=== PATIENT | male | born 1940 | race Caucasian/White ===

== ENCOUNTER 2021-02-18 11:14 | Outpatient (REF) | payer MEDICARE, SELFPAY ==
[2021-02-18 13:01] LABS: Estimated Average Glucose 108 mg/dL; Hemoglobin A1C 151.5835 umol/L; Hemoglobin A1c % 5.4 %
[2021-02-18 13:16] LABS: Alanine Aminotransferase 23 U/L (0-40); Alkaline Phosphatase 106 U/L (39-117); Anion Gap 13 (12-20); Aspartate Amino Transferase 19 U/L (5-37); Bilirubin Total 0.6 mg/dL (0.0-1.0); Blood Urea Nitrogen 18 mg/dL (9-16); Calcium 9.2 mg/dL (8.4-10.2); Carbon Dioxide 27 mmol/L (22-29); Chloride 103 mmol/L (96-108); Estimated Glomerular Filt Rate > 60; Glucose Random 90 mg/dL (60-115); Potassium 4.8 mmol/L (3.3-5.1); Sodium 138 mmol/L (135-145); Total Protein 6.8 g/dL (6.5-8.0)
[2021-02-18 13:41] LABS: Free T4 (Free Thyroxine) 0.81 ng/dL (0.71-1.85); Thyroid Stimulating Hormone 1.75 uIU/mL (0.32-4.0)
== END 2021-02-18 11:15 | disposition home or self-care (01) ==
LOC: HO.MANLDS 11:14
PROVIDERS: PCP Physician Assistant; Visit Provider Physician Assistant
DX: R73.01 Impaired fasting glucose (principal); E03.9 Hypothyroidism, unspecified
CPT/HCPCS: 36415; 80053; 83036; 84439; 84443

== ENCOUNTER → 2021-02-20 09:21 | Outpatient (BNVA) | payer MEDICARE, SELFPAY | PROVIDERS: PCP Internal Medicine | DX: R35.1 Nocturia (principal); N32.0 Bladder-neck obstruction | CPT/HCPCS: 51798; 99212 ==

== ENCOUNTER 2021-04-23 08:48 | Emergency (ER) | payer MEDICARE, SELFPAY ==
[2021-04-23] VITALS (8 sets, daily range): BP systolic 143–175; BP diastolic 84–107; PULSE 63–80; RESP 16–18; TEMP 36.6–37.1; O2SAT 95–98; BMI 39.6
--- NOTE | 2021-04-23 09:03 | PC.NURSE ---
attempted to call [facility] to get more information/paperwork on pt. transferred to multiple people. no answer.
--- NOTE | 2021-04-23 10:40 | ECG_ITS ---
Test Reason : GENERAL MEDICINE Blood Pressure : / mmHG Vent. Rate : 071 BPM Atrial Rate : 315 BPM P-R Int : 000 ms QRS Dur : 088 ms QT Int : 390 ms P-R-T Axes : 000 036 054 degrees QTc Int : 423 ms Atrial fibrillation Abnormal ECG When compared with ECG of 23-NOV-2016 14:28, No significant change was found Referred By: Christiane Owens Electronically Signed By:Jason Helton
--- NOTE | 2021-04-23 10:41 | ED.GENADULT ---
HPI - General Adult General Chief complaint: General Medical Stated complaint: NUMBENESS AROUND MOUTH [facility]O SN[facility] PER EMS Time Seen by Provider: 04/23/21 10:12 Source: patient and EMS Mode of arrival: EMS Limitations: no limitations History of Present Illness HPI narrative: Patient comes to the emergency room complaining of dizziness. Patient states that he did not want to come to the emergency room, but at the assisted living facility they made him come. Patient states that he has had left-sided mouth drooping and numbness for over 10 years, states that there is nothing new. Patient describes dizziness as lightheaded, no room spinning, not feeling off balance. At this time, patient feels well. Related Data Home Medications Medication Instructions Recorded Confirmed albuterol sulfate 90 mcg/actuation 0 mcg INHALATION 02/20/21 aerosol inhaler amlodipine 5 mg tablet 5 mg PO DAILY 02/20/21 baclofen 5 mg tablet mg PO 02/20/21 carbamazepine 200 mg tablet 0 mg PO 02/20/21 gabapentin 100 mg capsule 0 mg PO 02/20/21 levothyroxine 150 mcg tablet 150 mcg PO DAILY 02/20/21 metoprolol succinate 25 mg 25 mg PO DAILY 02/20/21 tablet,extended release 24 hr metoprolol succinate 50 mg 50 mg PO DAILY 02/20/21 tablet,extended release 24 hr sertraline 50 mg tablet 50 mg PO DAILY 02/20/21 simvastatin 40 mg tablet 40 mg PO BEDTIME 02/20/21 warfarin 2 mg tablet 2 mg PO DAILY 02/20/21 warfarin 5 mg tablet 0 mg PO 02/20/21 Previous Rx's Medication Instructions Recorded terazosin 5 mg capsule 5 mg PO BEDTIME 30 Days #30 cap 02/20/21 meclizine 25 mg tablet 25 mg PO TID PRN #14 tab 04/23/21 Allergies Allergy/AdvReac Type Severity Reaction Status Date / Time No Known Allergies Allergy Verified 02/20/21 09:31 [No Known Allergies*] Review of Systems Review of Systems: Constitutional : No Weight loss, No Fever, No Chills, No Night Sweats, No Fatigue, No Malaise ENT/Mouth : No Hearing loss, No Ear Pain, No Nasal Congestion, No Sinus Pain, No Hoarseness, No sore throat, No Rhinorrhea, No Swallowing Difficulty Eyes: No Eye Pain, No Swelling, No Redness, No Foreign Body, No Discharge, No Vision Changes Cardiovascular : No Chest Pain, No SOB, No Dyspnea on Exertion, No Orthopnea, No Edema, No Palpitations Respiratory : No Cough, No Sputum, No Wheezing, No Smoke Exposure, No Dyspnea Gastrointestinal : No Nausea, No Vomiting, No Diarrhea, No Constipation, No abdominal Pain, No Hematochezia, No Melena Genitourinary : no irregular bleeding, No Dysuria, No Urinary Frequency, No Hematuria, No Urinary Incontinence, No Urgency, No Flank Pain, No Urinary Flow Changes, No Hesitancy Musculoskeletal : No joint pain, No Myalgias, No Joint Swelling Skin : No Skin Lesions, No rash Neuro : No Weakness, No Numbness, No Paresthesias, No Loss of Consciousness, mild lightheadedness/ Dizziness, No Headache Psych : No Anxiety/Panic, No Depression, No SI/HI/AH/VH, No Social Issues, Heme/Lymph: No Bruising, No Bleeding,No Lymphadenopathy Endocrine : No Polyuria, No Polydipsia, No Temperature Intolerance [facility] Past Medical History Medical History (Updated 04/23/21 @ 16:47 by Christiane Owens MD) CVA (cerebral vascular accident) Social History Social History (Updated 02/20/21 @ 09:33 by Elida Bolaños CMA) Alcohol intake: current Alcohol intake frequency: a few times a month Alcohol type: beer Patient Tobacco Use Status: Former Tobacco user Advance Directives: Yes Advance Directives Information Provided: No Advance Directives on File: No Physical Exam Vital Signs: Vital Signs: Last Vital Signs Temp 98.2 F 04/23/21 15:20 Pulse 72 04/23/21 15:20 Resp 16 04/23/21 15:20 BP 149/95 H 04/23/21 15:20 Pulse Ox 98 04/23/21 15:20 BMI result Body Mass Index 39.6 Const: Other: Appearance: Alert. Oriented X3. No acute distress. Eyes: Pupils equal, round and reactive to light. ENT: Pharynx normal. Neck: Normal inspection. Neck supple. No lymph nodes noted. No crepitus CVS: Normal heart rate and rhythm. Pulses normal. Normal S1 and S2 Respiratory: No respiratory distress. Breath sounds normal. No Wheezing. No rales Abdomen: Soft and nontender. No rigidity. No distention. Skin: Skin warm and dry. Normal skin color. Normal skin turgor. Extremities: No lower extremity edema. Bilateral chronic venous stasis. No Lacerations. No Rash Neuro: Oriented X 3. No motor deficit. No sensory deficit. Moving all extermities. No slurred speech. Course Course Course Narrative: Patient's troponin and EKG showed no acute pathology. Patient was able to ambulate at baseline with a walker. Patient was given meclizine prior, patient states that he has no dizziness at all. Orthostatic vitals negative Medical Decision Making Lab Data Result diagrams: 04/23/21 12:15 04/23/21 12:15 Labs: Lab Results 04/23/21 04/23/21 04/23/21 Range/Units 11:13 12:15 12:15 WBC 6.8 (4.8-10.8) X10*3/uL RBC 4.91 (4.60-5.80) X10*6/uL Hgb 14.8 (14.0-18.0) g/dl Hct 45.2 (42.0-52.0) % MCV 92.1 (80.0-98.0) fL MCH 30.1 (27.0-33.0) pg MCHC 32.7 (31.0-36.0) g/dl RDW 12.7 (11.0-16.0) % Plt Count 164 (160-400) X10*3/uL MPV 9.3 L (9.4-12.4) fL Immature Gran % (Auto) 0.4 (0.0-0.4) % Neut % (Auto) 78.5 H (45-73) % Lymph % (Auto) 13.2 L (20-40) % [place] % (Auto) 7.2 (2-11) % Eos % (Auto) 0.4 (0-4) % Baso % (Auto) 0.3 (0-2) % Lymph # (Auto) 0.9 L (1.2-4.9) X10*3/uL [place] # (Auto) 0.5 (0.1-1.2) X10*3/uL Eos # (Auto) 0.0 (0.0-0.4) X10*3/uL Baso # (Auto) 0.0 (0.0-0.2) X10*3/uL Abs Immat Gran (auto) 0.03 (0.00-0.03) X10*3/uL Absolute Neuts (auto) 5.3 (2.0-8.3) x10*3/uL Absolute Nucleated RBC 0.000 (0.0-0.012) X10*3/uL Nucleated RBC % (auto) 0.0 (0.0-0.2) /100WBC Sodium 135 (135-145) mmol/L Potassium 4.8 (3.3-5.1) mmol/L Chloride 100 (96-108) mmol/L Carbon Dioxide 28 (22-29) mmol/L Anion Gap 12 (12-20) BUN 16 (9-16) mg/dL Creatinine 0.84 (0.5-1.4) mg/dL Estim Creat Clear Calc 92.0 Estimated GFR > 60 Random Glucose 108 (60-115) mg/dL Calcium 9.1 (8.4-10.2) mg/dL Total Bilirubin 0.6 (0.0-1.0) mg/dL Direct Bilirubin 0.2 (0.0-0.5) mg/dL AST 17 (5-37) U/L ALT 22 (0-40) U/L Alkaline Phosphatase 111 (39-117) U/L Troponin I High Sens (<3.5-35.0) ng/L Total Protein 7.1 (6.5-8.0) g/dL Albumin 4.2 (3.5-5.0) g/dL Urine Color YELLOW Urine Appearance CLEAR Urine pH 8.0 (5.0-8.0) Ur Specific [place] 1.015 (1.005-1.025) Urine Protein NEG (NEG-TRACE) MG/DL Urine Glucose (UA) NEG (NEG) MG/DL Urine Ketones NEG (NEG) MG/DL Urine Blood NEG (NEG) Urine Nitrite NEG (NEG) Ur Leukocyte Esterase NEG (NEG) 04/23/21 04/23/21 Range/Units 12:15 15:56 WBC (4.8-10.8) X10*3/uL RBC (4.60-5.80) X10*6/uL Hgb (14.0-18.0) g/dl Hct (42.0-52.0) % MCV (80.0-98.0) fL MCH (27.0-33.0) pg MCHC (31.0-36.0) g/dl RDW (11.0-16.0) % Plt Count (160-400) X10*3/uL MPV (9.4-12.4) fL Immature Gran % (Auto) (0.0-0.4) % Neut % (Auto) (45-73) % Lymph % (Auto) (20-40) % [place] % (Auto) (2-11) % Eos % (Auto) (0-4) % Baso % (Auto) (0-2) % Lymph # (Auto) (1.2-4.9) X10*3/uL [place] # (Auto) (0.1-1.2) X10*3/uL Eos # (Auto) (0.0-0.4) X10*3/uL Baso # (Auto) (0.0-0.2) X10*3/uL Abs Immat Gran (auto) (0.00-0.03) X10*3/uL Absolute Neuts (auto) (2.0-8.3) x10*3/uL Absolute Nucleated RBC (0.0-0.012) X10*3/uL Nucleated RBC % (auto) (0.0-0.2) /100WBC Sodium (135-145) mmol/L Potassium (3.3-5.1) mmol/L Chloride (96-108) mmol/L Carbon Dioxide (22-29) mmol/L Anion Gap (12-20) BUN (9-16) mg/dL Creatinine (0.5-1.4) mg/dL Estim Creat Clear Calc Estimated GFR Random Glucose (60-115) mg/dL Calcium (8.4-10.2) mg/dL Total Bilirubin (0.0-1.0) mg/dL Direct Bilirubin (0.0-0.5) mg/dL AST (5-37) U/L ALT (0-40) U/L Alkaline Phosphatase (39-117) U/L Troponin I High Sens 8.0 8.9 (<3.5-35.0) ng/L Total Protein (6.5-8.0) g/dL Albumin (3.5-5.0) g/dL Urine Color Urine Appearance Urine pH (5.0-8.0) Ur Specific [place] (1.005-1.025) Urine Protein (NEG-TRACE) MG/DL Urine Glucose (UA) (NEG) MG/DL Urine Ketones (NEG) MG/DL Urine Blood (NEG) Urine Nitrite (NEG) Ur Leukocyte Esterase (NEG) Discharge Plan Discharge Clinical Impression: Dizziness Patient Disposition: Home, Self-Care Instructions: Dizziness (ED) Additional Instructions: Please follow-up with your primary care physician tomorrow. If you have any worsening or new symptoms, please return to the emergency room or call 911 Prescriptions: New meclizine 25 mg tablet 25 mg PO TID PRN (Reason: dizziness) Qty: 14 0RF No Action terazosin 5 mg capsule 5 mg PO BEDTIME 30 Days Qty: 30 1RF levothyroxine 150 mcg tablet 150 mcg PO DAILY 0RF gabapentin 100 mg capsule 0 mg PO 0RF warfarin 2 mg tablet 2 mg PO DAILY 0RF amlodipine 5 mg tablet 5 mg PO DAILY 0RF warfarin 5 mg tablet 0 mg PO 0RF sertraline 50 mg tablet 50 mg PO DAILY 0RF carbamazepine 200 mg tablet 0 mg PO 0RF baclofen 5 mg tablet PO 0RF metoprolol succinate 25 mg tablet extended release 24 hr 25 mg PO DAILY 0RF metoprolol succinate 50 mg tablet extended release 24 hr 50 mg PO DAILY 0RF albuterol sulfate 90 mcg/actuation HFA aerosol inhaler 0 mcg inhalation 0RF simvastatin 40 mg tablet 40 mg PO BEDTIME 0RF
[2021-04-23 11:21] LABS: Appearance Urine CLEAR; Color Urine YELLOW; Glucose Urine UA NEG (NEG); Leukocyte Esterase Urine NEG (NEG); Nitrite Urine NEG (NEG); Specific Gravity - Urine 1.015 (1.005-1.025); Urine Blood NEG (NEG); Urine Ketones NEG (NEG); Urine Protein NEG (NEG-TRACE)
[2021-04-23 12:20] LABS: MANUAL DIFF FLAG NO
[2021-04-23 12:21] LABS: Basophils Percent Auto 0.3 % (0-2); Eosinophils Percent Auto 0.4 % (0-4); Hematocrit 45.2 % (42.0-52.0); Hemoglobin 14.8 g/dl (14.0-18.0); Imm Gran Abs Auto 0.03 X10*3/uL (0.00-0.03); Imm Gran Pct Auto 0.4 % (0.0-0.4); Lymphocytes Absolute Auto 0.9 X10*3/uL (1.2-4.9); Lymphocytes Percent Auto 13.2 % (20-40); Mean Corpuscular HGB Conc 32.7 g/dl (31.0-36.0); Mean Corpuscular Hemoglobin 30.1 pg (27.0-33.0); Mean Corpuscular Volume 92.1 fL (80.0-98.0); Mean Platelet Volume 9.3 fL (9.4-12.4); Monocytes Absolute Auto 0.5 X10*3/uL (0.1-1.2); Monocytes Percent Auto 7.2 % (2-11); Neutrophils Absolute Auto 5.3 x10*3/uL (2.0-8.3); Neutrophils Percent Auto 78.5 % (45-73); Platelet Count 164 X10*3/uL (160-400); Red Blood Count 4.91 X10*6/uL (4.60-5.80); Red Cell Distribution Width 12.7 % (11.0-16.0); White Blood Count 6.8 X10*3/uL (4.8-10.8)
[2021-04-23 12:39] LABS: Alanine Aminotransferase 22 U/L (0-40); Albumin Level 4.2 g/dL (3.5-5.0); Alkaline Phosphatase 111 U/L (39-117); Anion Gap 12 (12-20); Aspartate Amino Transferase 17 U/L (5-37); Bilirubin Direct 0.2 mg/dL (0.0-0.5); Bilirubin Total 0.6 mg/dL (0.0-1.0); Blood Urea Nitrogen 16 mg/dL (9-16); Calcium 9.1 mg/dL (8.4-10.2); Carbon Dioxide 28 mmol/L (22-29); Chloride 100 mmol/L (96-108); Estimated Glomerular Filt Rate > 60; Glucose Random 108 mg/dL (60-115); Potassium 4.8 mmol/L (3.3-5.1); Sodium 135 mmol/L (135-145); Total Protein 7.1 g/dL (6.5-8.0)
[2021-04-23] MEDS: Meclizine HCl 25 MG TABLET 50 MG PO (14:59)
--- NOTE | 2021-04-23 15:25 | PC.NURSE ---
call placed to phlebotomy to obtain pt troponin
[2021-04-23 16:22] LABS: Troponin-I High Sensitivity 8.9 ng/L (<3.5-35.0)
--- NOTE | 2021-04-23 16:47 | PC.NURSE ---
pt ambulated well with a walker
--- NOTE | 2021-04-23 16:59 | PC.NURSE ---
spoke with pts primary contact Reynold Rose regarding picking up pts medication and bringing to him at [facility].
== END 2021-04-23 21:41 | disposition home or self-care (01) ==
PROVIDERS: Emergency Provider Emergency Medicine; PCP Internal Medicine
DX: R42 Dizziness and giddiness (principal); Z87.891 Personal history of nicotine dependence; Z79.899 Other long term (current) drug therapy
CPT/HCPCS: 36415; 80048; 80076; 81003; 84484; 85025; 93005; 99284

== ENCOUNTER 2021-05-13 11:05 | Emergency (ER) | payer MEDICARE, SELFPAY ==
--- NOTE | ~2021-05-13 | US_ITS ---
EXAMINATION: US VENOUS ULTRASOUND WITH DOPPLER LOWER EXTREMITY, LEFT CLINICAL INFORMATION: Left lower leg swelling COMPARISON: None TECHNIQUE: Ultrasound of the deep veins is performed from the hip to the calf with compression sonography and color and pulse Doppler assessment. Spectral analysis with color-flow imaging is performed. FINDINGS: There is normal venous compression and respiratory variation and augmented flow. The visualized common femoral vein, superficial femoral vein, profunda femoral vein, popliteal vein, and the trifurcation region shows no evidence of deep venous thrombosis. There is no significant popliteal fossa cyst. No popliteal artery aneurysm. There is continued is edema seen throughout the left calf. US/US venous duplex LE LT IMPRESSION: No acute DVT demonstrated in the left lower extremity.
[2021-05-13 11:40] VITALS: BP 171/81; PULSE 64; RESP 16; TEMP 35.9; O2SAT 98; BMI 39.1
[2021-05-13 11:58] LABS: MANUAL DIFF FLAG NO
[2021-05-13 12:02] LABS: Basophils Percent Auto 0.4 % (0-2); Eosinophils Absolute Auto 0.1 X10*3/uL (0.0-0.4); Eosinophils Percent Auto 2.2 % (0-4); Hemoglobin 12.8 g/dl (14.0-18.0); Imm Gran Abs Auto 0.02 X10*3/uL (0.00-0.03); Imm Gran Pct Auto 0.4 % (0.0-0.4); Lymphocytes Absolute Auto 1.3 X10*3/uL (1.2-4.9); Lymphocytes Percent Auto 23.9 % (20-40); Mean Corpuscular HGB Conc 32.8 g/dl (31.0-36.0); Mean Corpuscular Hemoglobin 30.4 pg (27.0-33.0); Mean Corpuscular Volume 92.6 fL (80.0-98.0); Mean Platelet Volume 9.4 fL (9.4-12.4); Monocytes Absolute Auto 0.5 X10*3/uL (0.1-1.2); Monocytes Percent Auto 9.7 % (2-11); Neutrophils Absolute Auto 3.5 x10*3/uL (2.0-8.3); Neutrophils Percent Auto 63.4 % (45-73); Platelet Count 200 X10*3/uL (160-400); Red Blood Count 4.21 X10*6/uL (4.60-5.80); Red Cell Distribution Width 13.2 % (11.0-16.0); White Blood Count 5.5 X10*3/uL (4.8-10.8)
[2021-05-13 12:11] LABS: INTERNATIONAL NORM RATIO 3.2 (0.9-1.1); Prothrombin Time 37.5 SEC (9.9-13.0)
[2021-05-13 12:14] LABS: Partial Thromboplastin Time 48.4 SEC (24.1-38.0)
[2021-05-13 12:18] LABS: Anion Gap 10 (12-20); Blood Urea Nitrogen 19 mg/dL (9-16); Calcium 8.9 mg/dL (8.4-10.2); Carbon Dioxide 30 mmol/L (22-29); Chloride 105 mmol/L (96-108); Creatinine Clr Calc Pharmacy 91.2; Estimated Glomerular Filt Rate > 60; Glucose Random 90 mg/dL (60-115); Potassium 4.5 mmol/L (3.3-5.1); Sodium 140 mmol/L (135-145)
--- NOTE | 2021-05-13 13:33 | ED_ITS ---
HPI - General Adult General Chief complaint: Extremity Problem Stated complaint: L leg swollen Time Seen by Provider: 05/13/21 13:16 Source: patient and old records reviewed History of Present Illness HPI narrative: Patient with a history of atrial fibrillation on warfarin therapy presenting with left leg swelling with concerns for DVT. Patient states his left leg has been swollen for approximately 1 week. He has a history of bilateral leg swelling but has never had unilateral swelling like this. Moderate discomfort. No fevers or chills. No history of deep vein thrombosis No chest pain or trouble breathing or palpitations. In the past he has had compression stockings for venous stasis disease but does not use them currently. He states he has also intermittently been on Lasix in the past but is not currently on it He does not have a vascular surgeon that he knows of. No other recent changes or complaints Related Data Home Medications Medication Instructions Recorded Confirmed albuterol sulfate 90 mcg/actuation 0 mcg INHALATION 02/20/21 aerosol inhaler amlodipine 5 mg tablet 5 mg PO DAILY 02/20/21 baclofen 5 mg tablet mg PO 02/20/21 carbamazepine 200 mg tablet 0 mg PO 02/20/21 gabapentin 100 mg capsule 0 mg PO 02/20/21 levothyroxine 150 mcg tablet 150 mcg PO DAILY 02/20/21 metoprolol succinate 25 mg 25 mg PO DAILY 02/20/21 tablet,extended release 24 hr metoprolol succinate 50 mg 50 mg PO DAILY 02/20/21 tablet,extended release 24 hr sertraline 50 mg tablet 50 mg PO DAILY 02/20/21 simvastatin 40 mg tablet 40 mg PO BEDTIME 02/20/21 warfarin 2 mg tablet 2 mg PO DAILY 02/20/21 warfarin 5 mg tablet 0 mg PO 02/20/21 Previous Rx's Medication Instructions Recorded terazosin 5 mg capsule 5 mg PO BEDTIME 30 Days #30 cap 02/20/21 meclizine 25 mg tablet 25 mg PO TID PRN #14 tab 04/23/21 compression socks, x-large #2 ea 05/13/21 furosemide 20 mg tablet (Lasix) 20 mg PO DAILY #10 tab 05/13/21 Allergies Allergy/AdvReac Type Severity Reaction Status Date / Time No Known Allergies Allergy Verified 02/20/21 09:31 [No Known Allergies*] Review of Systems Constitutional: Comments: No fevers or chills Cardiovascular: Comments: No chest pain or palpitations Respiratory: Comments: No dyspnea Gastrointestinal: Comments: No abdominal pain or nausea vomiting or diarrhea Genitourinary: Comments: Urinary frequency for which he is seeing a urologist Musculoskeletal: Comments: Left leg swollen Integumentary/Breasts: Comments: No new rash Neurologic: Comments: No focal weakness [facility] Past Medical History Medical History (Updated 05/13/21 @ 13:38 by Abelardo Johnson MD) A-fib CVA (cerebral vascular accident) HTN (hypertension) Hypothyroid Social History Social History (Updated 02/20/21 @ 09:33 by Elida Bolaños CMA) Alcohol intake: current Alcohol intake frequency: a few times a month Alcohol type: beer Patient Tobacco Use Status: Former Tobacco user Advance Directives: No Advance Directives Information Provided: No Physical Exam ED Vital Signs: Vital Signs - 24 hr 05/13/21 11:40 Temperature 96.7 F L Pulse Rate 64 Respiratory Rate 16 Blood Pressure 171/81 H Pulse Oximetry 98 BMI result Body Mass Index 39.1 Const Other: Awake and alert in no acute distress. Ambulates with walker at his baseline Resp Other: Clear and equal bilaterally Cardio Other: Irregularly irregular with normal rate and without murmurs rubs or gallops GI Other: Soft nontender Skin Other: Bilateral lower extremities with changes of chronic venous stasis. Left greater than right. No increased warmth or erythema or signs of cellulitis. Some lymphatic weeping from the posterior aspect of his left lower leg Neuro Other: Nonfocal Extrem Other: Bilateral pitting edema. Left greater than right with weeping is noted. Some calf tenderness Course Course Course Narrative: DVT versus venous stasis disease. Lymphedema 13:37. Lab work shows mild leukopenia but otherwise is unremarkable. INR is mildly elevated at 3.2. Ultrasound shows no evidence of deep vein thrombosis Medical Decision Making Lab Data Result diagrams: 05/13/21 11:54 05/13/21 11:54 Labs: Lab Results 05/13/21 05/13/21 05/13/21 Range/Units 11:54 11:54 11:54 WBC 5.5 (4.8-10.8) X10*3/uL RBC 4.21 L (4.60-5.80) X10*6/uL Hgb 12.8 L (14.0-18.0) g/dl Hct 39.0 L (42.0-52.0) % MCV 92.6 (80.0-98.0) fL MCH 30.4 (27.0-33.0) pg MCHC 32.8 (31.0-36.0) g/dl RDW 13.2 (11.0-16.0) % Plt Count 200 (160-400) X10*3/uL MPV 9.4 (9.4-12.4) fL Immature Gran % (Auto) 0.4 (0.0-0.4) % Neut % (Auto) 63.4 (45-73) % Lymph % (Auto) 23.9 (20-40) % [place] % (Auto) 9.7 (2-11) % Eos % (Auto) 2.2 (0-4) % Baso % (Auto) 0.4 (0-2) % Lymph # (Auto) 1.3 (1.2-4.9) X10*3/uL [place] # (Auto) 0.5 (0.1-1.2) X10*3/uL Eos # (Auto) 0.1 (0.0-0.4) X10*3/uL Baso # (Auto) 0.0 (0.0-0.2) X10*3/uL Abs Immat Gran (auto) 0.02 (0.00-0.03) X10*3/uL Absolute Neuts (auto) 3.5 (2.0-8.3) x10*3/uL Absolute Nucleated RBC 0.000 (0.0-0.012) X10*3/uL Nucleated RBC % (auto) 0.0 (0.0-0.2) /100WBC PT 37.5 H (9.9-13.0) SEC INR 3.2 H (0.9-1.1) APTT 48.4 H (24.1-38.0) SEC Sodium 140 (135-145) mmol/L Potassium 4.5 (3.3-5.1) mmol/L Chloride 105 (96-108) mmol/L Carbon Dioxide 30 H (22-29) mmol/L Anion Gap 10 L (12-20) BUN 19 H (9-16) mg/dL Creatinine 0.84 (0.5-1.4) mg/dL Estim Creat Clear Calc 91.2 Estimated GFR > 60 Random Glucose 90 (60-115) mg/dL Calcium 8.9 (8.4-10.2) mg/dL Discharge Plan Discharge Clinical Impression: Lower extremity edema Patient Disposition: Home, Self-Care Instructions: Leg Edema (ED) Additional Instructions: Follow-up with Dr. Arrington as directed. Wear compression stockings. Lasix to help with swelling. Prescriptions: New furosemide [Lasix] 20 mg tablet 20 mg PO DAILY Qty: 10 0RF (DME) compression socks, x-large Misc See Rx Instructions .Route Qty: 2 0RF Rx Instructions: As directed No Action meclizine 25 mg tablet 25 mg PO TID PRN (Reason: dizziness) Qty: 14 0RF terazosin 5 mg capsule 5 mg PO BEDTIME 30 Days Qty: 30 1RF levothyroxine 150 mcg tablet 150 mcg PO DAILY 0RF gabapentin 100 mg capsule 0 mg PO 0RF warfarin 2 mg tablet 2 mg PO DAILY 0RF amlodipine 5 mg tablet 5 mg PO DAILY 0RF warfarin 5 mg tablet 0 mg PO 0RF sertraline 50 mg tablet 50 mg PO DAILY 0RF carbamazepine 200 mg tablet 0 mg PO 0RF baclofen 5 mg tablet PO 0RF metoprolol succinate 25 mg tablet extended release 24 hr 25 mg PO DAILY 0RF metoprolol succinate 50 mg tablet extended release 24 hr 50 mg PO DAILY 0RF albuterol sulfate 90 mcg/actuation HFA aerosol inhaler 0 mcg inhalation 0RF simvastatin 40 mg tablet 40 mg PO BEDTIME 0RF Referrals: Carmine Arrington MD [Physician] - 2 days
[2021-05-13 14:04] VITALS: BP 144/92; PULSE 72; RESP 20; O2SAT 97
== END 2021-05-13 14:05 | disposition home or self-care (01) ==
PROVIDERS: Emergency Provider Emergency Medicine; PCP Internal Medicine
DX: R60.0 Localized edema (principal); M79.662 Pain in left lower leg; D72.819 Decreased white blood cell count, unspecified; I87.8 Other specified disorders of veins; I10 Essential (primary) hypertension; I48.91 Unspecified atrial fibrillation; Z79.01 Long term (current) use of anticoagulants; Z86.73 Personal history of transient ischemic attack (TIA), and cerebral infarction without residual deficits
CPT/HCPCS: 36415; 80048; 85025; 85610; 85730; 93971; 99284

== ENCOUNTER → 2021-06-17 13:40 | Outpatient (BNVA) | payer MEDICARE, SELFPAY | PROVIDERS: PCP Internal Medicine; Visit Provider Urology | DX: R33.9 Retention of urine, unspecified (principal); R35.1 Nocturia | CPT/HCPCS: 52000; 99212 ==

== ENCOUNTER 2021-08-13 09:08 | Emergency (ER) | payer MEDICARE, SELFPAY ==
[2021-08-13] VITALS (10 sets, daily range): BP systolic 159–210; BP diastolic 70–106; PULSE 46–66; RESP 13–20; TEMP 35.8–36.7; O2SAT 94–99; BMI 41.8
--- NOTE | ~2021-08-13 | CT_ITS ---
EXAMINATION: CT HEAD WITHOUT CONTRAST CLINICAL INFORMATION: Dizziness vomiting on Coumadin COMPARISON: None TECHNIQUE: Contiguous axial imaging was performed from the skull base to vertex without intravenous administration of contrast. This CT examination was performed using dose optimization techniques as appropriate, variously including the following: *Automated exposure control *Adjustment of mA and/or kV according to patient size (this includes techniques or standardized protocols for targeted exams where dose is matched to indication/reason for exam; i.e. extremities or head) *Use of iterative reconstruction technique DLP: 895 mGy-cm FINDINGS: There is no evidence of acute intracranial hemorrhage or territorial infarction. Chronic white matter small vessel ischemic changes. No abnormal mass effect or midline shift is seen. [place] to white matter differentiation is well preserved. No extra-axial fluid collections are identified. The ventricles are normal in size. There is no abnormal attenuation within the brain parenchyma. Sclerotic focus in the left frontal bone statistically representing a bone islands. The osseous structures and soft tissues are normal. The mastoid air cells and visualized portions of the paranasal sinuses are well aerated. CT/CT head/brain wo con IMPRESSION: 1. No acute intracranial pathology. 2. Chronic white matter small vessel ischemic changes.
--- NOTE | ~2021-08-13 | US_ITS ---
EXAMINATION: US ABDOMEN LIMITED CLINICAL INFORMATION: Gallstones. Vomiting.. COMPARISON: CT from today. TECHNIQUE: Real-time imaging of the right upper quadrant abdominal viscera. FINDINGS: PANCREAS: Not well assessed due to bowel gas. LIVER: The liver is enlarged measuring 22.6 cm. Nodular liver Contour. There is diffuse increased liver parenchymal echogenicity, consistent with hepatic steatosis. No focal hepatic lesion. There is no intrahepatic biliary duct dilatation seen. GALLBLADDER: Stone fill the gallbladder. No gallbladder wall thickening or pericholecystic fluid COMMON BILE DUCT: Normal in caliber measuring 0.6 cm in diameter. RIGHT KIDNEY: Normal. No hydronephrosis. No renal calculi or focal parenchymal lesions. The kidney measures 13.3 cm in maximum dimension. FREE FLUID: None. US/US abdomen limited IMPRESSION: Hepatomegaly with hepatic steatosis. Somewhat nodular Contour of the liver concerning for cirrhosis. Stone filled gallbladder. No inflammatory changes.
--- NOTE | ~2021-08-13 | CT_ITS ---
EXAMINATION: CT CHEST WITHOUT CONTRAST CT ABDOMEN AND PELVIS WITHOUT CONTRAST CLINICAL INFORMATION: Vomiting and weakness COMPARISON: None. TECHNIQUE: Multidetector volumetric imaging was performed through the chest, abdomen and pelvis without contrast. Sagittal and coronal reformatted images were obtained on the technologist's workstation. Axial MIP volume rendering provided. This CT examination was performed using dose optimization techniques as appropriate, variously including the following: *Automated exposure control *Adjustment of mA and/or kV according to patient size (this includes techniques or standardized protocols for targeted exams where dose is matched to indication/reason for exam; i.e. extremities or head) *Use of iterative reconstruction technique DLP: 1621 mGy-cm. FINDINGS: CHEST: Lungs: Motion limits evaluation of the lung bases. The central airways are patent. There is no consolidation. No pleural effusion or pneumothorax. Suspect bibasilar atelectasis, with multiple small calcifications at the lung bases. Mediastinum: Prominent heart size with coronary artery calcifications.. There is no pericardial effusion. Central vascular structures are unremarkable. No hilar or mediastinal lymphadenopathy. Asymmetric appearance of the thyroid gland with the left lobe larger than the right. Chest Wall/Axilla: No lymphadenopathy. No chest wall mass. ABDOMEN/PELVIS: Liver, Gallbladder, Biliary Tree: Enlarged liver measuring 24 cm CC. The liver is normal in shape and attenuation. No focal hepatic lesion or biliary ductal dilatation is present. Multiple stones in the gallbladder lumen. No wall thickening or pericholecystic fluid. Pancreas: Unremarkable. Spleen: Unremarkable. Adrenal Glands: Unremarkable. Kidneys and Ureters: The kidneys are normal in size, shape, and attenuation. No hydronephrosis, hydroureter or calculi seen. No perinephric stranding. Bladder: Unremarkable. Gastrointestinal Tract: The stomach is unremarkable. Normal caliber small bowel. No obstruction. No colonic wall thickening or inflammatory change. The appendix is unremarkable. Abdominal Wall: No hernia is demonstrated. Lymphovascular Structures: Lymph nodes: Normal. Vascular: Normal caliber aorta with mild atherosclerotic calcification. Retroaortic left renal vein. Pelvic Viscera: The prostate and seminal vesicles are unremarkable. Penile prosthesis noted. OSSEOUS STRUCTURES: No acute or suspicious osseous abnormality. Degenerative change seen throughout the spine with multilevel vacuum disc phenomenon. Moderate degenerative changes in both hips. CT/CT abdomen pelvis wo con IMPRESSION: No acute findings. Calcifications noted at the lung bases could be associated with chronic aspiration. No current consolidation. Cholelithiasis. No evidence of acute cholecystitis. Hepatomegaly.
--- NOTE | 2021-08-13 09:29 | ECG_ITS ---
Test Reason : weakness Blood Pressure : / mmHG Vent. Rate : 062 BPM Atrial Rate : 000 BPM P-R Int : 000 ms QRS Dur : 098 ms QT Int : 460 ms P-R-T Axes : 000 025 044 degrees QTc Int : 466 ms Atrial fibrillation Incomplete right bundle branch block Abnormal ECG When compared with ECG of 23-APR-2021 10:55, No significant change was found Referred By: Xin Abel Electronically Signed By:ANTONI CRANDALL MD
[2021-08-13 09:38] LABS: MANUAL DIFF FLAG NO
[2021-08-13 09:41] LABS: Basophils Percent Auto 0.3 % (0-2); Eosinophils Absolute Auto 0.1 X10*3/uL (0.0-0.4); Eosinophils Percent Auto 1.7 % (0-4); Hematocrit 40.6 % (42.0-52.0); Hemoglobin 13.6 g/dl (14.0-18.0); Imm Gran Abs Auto 0.02 X10*3/uL (0.00-0.03); Imm Gran Pct Auto 0.3 % (0.0-0.4); Lymphocytes Absolute Auto 1.9 X10*3/uL (1.2-4.9); Lymphocytes Percent Auto 30.7 % (20-40); Mean Corpuscular HGB Conc 33.5 g/dl (31.0-36.0); Mean Corpuscular Hemoglobin 30.4 pg (27.0-33.0); Mean Corpuscular Volume 90.8 fL (80.0-98.0); Mean Platelet Volume 9.2 fL (9.4-12.4); Monocytes Absolute Auto 0.5 X10*3/uL (0.1-1.2); Monocytes Percent Auto 8.9 % (2-11); Neutrophils Absolute Auto 3.5 x10*3/uL (2.0-8.3); Neutrophils Percent Auto 58.1 % (45-73); Platelet Count 164 X10*3/uL (160-400); Red Blood Count 4.47 X10*6/uL (4.60-5.80); Red Cell Distribution Width 12.7 % (11.0-16.0); White Blood Count 6.1 X10*3/uL (4.8-10.8)
[2021-08-13] MEDS: ondansetron HCL 4 MG/2 ML VIAL IVPUSH (09:47)
--- NOTE | 2021-08-13 09:48 | ED_ITS ---
HPI - Nausea/Vomiting/Diarrhea General Chief complaint: Dizziness Stated complaint: WEAK,DIZZY,VOMITING FROM ASSISTED LIVING Time Seen by Provider: 08/13/21 09:28 Source: patient Mode of arrival: EMS Limitations: no limitations History of Present Illness HPI Narrative: 80 yo male with hx of afib on coumadin, BPH, HTN, hypothyroidism, has large lower midline scar, reports last night after eating he vomited and didn't feel well he also notes that he feels weak and dizzy. He also reports feeling nauseated again after eating breakfast. Sent in by SNF. MD elicited complaint: nausea, vomiting and other (dizziness) Onset (ago): day(s) (last night) Description of vomiting: food contents and watery Associated nausea: Yes Associated abdominal pain: No Location of pain: none Severity: mild Exacerbating factors: eating Relieving factors: none Associated symptoms: nausea/vomiting, weakness and other (dizziness) Related Data Home Medications Medication Instructions Recorded Confirmed albuterol sulfate 90 mcg/actuation 0 mcg INHALATION 02/20/21 aerosol inhaler amlodipine 5 mg tablet 5 mg PO DAILY 02/20/21 baclofen 5 mg tablet mg PO 02/20/21 carbamazepine 200 mg tablet 0 mg PO 02/20/21 gabapentin 100 mg capsule 0 mg PO 02/20/21 levothyroxine 150 mcg tablet 150 mcg PO DAILY 02/20/21 metoprolol succinate 25 mg 25 mg PO DAILY 02/20/21 tablet,extended release 24 hr metoprolol succinate 50 mg 50 mg PO DAILY 02/20/21 tablet,extended release 24 hr sertraline 50 mg tablet 50 mg PO DAILY 02/20/21 simvastatin 40 mg tablet 40 mg PO BEDTIME 02/20/21 warfarin 2 mg tablet 2 mg PO DAILY 02/20/21 warfarin 5 mg tablet 0 mg PO 02/20/21 Previous Rx's Medication Instructions Recorded terazosin 5 mg capsule 5 mg PO BEDTIME 30 Days #30 cap 02/20/21 meclizine 25 mg tablet 25 mg PO TID PRN #14 tab 04/23/21 compr.stocking,knee,long,x-lrg #2 ea 05/13/21 compression socks, x-large #2 ea 05/13/21 furosemide 20 mg tablet (Lasix) 20 mg PO DAILY #10 tab 05/13/21 furosemide 20 mg tablet (Lasix) 20 mg PO DAILY #10 tab 05/13/21 bethanechol chloride 50 mg tablet 50 mg PO BID 90 Days #180 tab 06/17/21 Allergies Allergy/AdvReac Type Severity Reaction Status Date / Time No Known Allergies Allergy Verified 06/17/21 13:42 [No Known Allergies*] Review of Systems Review of Systems: Constitutional : No Weight loss, No Fever, No Chills ENT/Mouth : No sore throat, No Rhinorrhea Eyes: No Swelling, No Redness Cardiovascular : No Chest Pain, No SOB, NoEdema Respiratory : No Cough, No Sputum, No Wheezing Gastrointestinal : Positive Nausea, Positive Vomiting, no Diarrhea, no abdominal Pain, No Hematochezia, No Melena Genitourinary : No Dysuria, No Urinary Frequency, No Hematuria, No Urgency Musculoskeletal : No joint pain, No Myalgias, No Joint Swelling Skin : No Skin Lesions, No rash Neuro : No Weakness, No Numbness, pos Dizziness, No Headache Psych : No Anxiety/Panic, No Depression Heme/Lymph: No Bruising, No Lymphadenopathy Endocrine : No Polyuria, No Polydipsia All other systems reviewed and are negative. Gastrointestinal: Gastrointestinal: Reports nausea PMFSH Past Medical History Attestation statement: The following information was validated with the patient. Medical History A-fib CVA (cerebral vascular accident) HTN (hypertension) Hypothyroid Social History Social History Alcohol intake: unknown Patient Tobacco Use Status: Former Tobacco user Use of substances other than those prescribed or required for medical reasons: No Advance Directives: No Advance Directives Information Provided: No Physical Exam Vital Signs: Vital Signs: Last Vital Signs Temp 96.5 F L 08/13/21 09:20 Pulse 51 08/13/21 13:39 Resp 18 08/13/21 13:39 BP 172/96 H 08/13/21 13:39 Pulse Ox 99 08/13/21 13:39 BMI result Body Mass Index 41.8 Appearance: Alert. Oriented X3. Mild acute distress. Eyes: Pupils equal, round and reactive to light. ENT: Pharynx dry MM Neck: Normal inspection. Neck supple. CVS: Normal heart rate and rhythm. Pulses normal. Respiratory: No respiratory distress. Breath sounds normal. Abdomen: Soft and nontender. mildine lower abdominal scar Skin: Skin warm and dry. Pale skin color. Normal skin turgor. Extremities: pitting 1-2+ pitting lower extremity edema. Neuro: Oriented X 3. No motor deficit. No sensory deficit. Course Course Course Narrative: CT scans negative for ICH, obstruction BP down to 160s now with labetalol normally on metoprolol missed his AM doses - states he ran out of meds this AM, now notes he is feeling better, very vague. reports no BM x 4 days repeat trop flat US of GB ordered, refusing to drink, flu ordered as well - CM involved states patient is not compliant with his medications at times and he doesn't allow family to be involved. no WBC count, US no acute cholecystitis, normal LFTs will attempt to ambulate patient and see how he does, daughter spoke to RN states he comes all the time for this and it is when he isn't taking his medications at this time will refer to PT/CM - he is a fall risk independent living and isn't med compliant, if posterior stroke which I doubt he is already INR 1.8 on coumadin would not be a tPa candidate Patient placed in physician observation at 359pm. The indication for observation is that the patient needs more time to PT and CM given his medication non compliance and reports of not taking care of himsef. At this time the patient is well developed well nourished, lungs clear, CV irregular heartbeat, abd nontender, neuro is intact. MDM - Nausea/Vomiting/Diarrhea MDM Narrative Medical decision making narrative: 80 yo male with hx of afib on coumadin, BPH, HTN, hypothyroidism, has large lower midline scar unsure of his surgery at this time will need labs, CT head and abdomen/chest to rule out ICH as cause, pneumonia and obstruction, IV zofran for vomiting ordered. Dispo per results and findings. Patient just states he ate last night and didn't feel well. Lab Data Result diagrams: 08/13/21 09:33 08/13/21 09:33 Labs: Lab Results 08/13/21 08/13/21 08/13/21 Range/Units 09:33 09:33 09:33 WBC 6.1 (4.8-10.8) X10*3/uL RBC 4.47 L (4.60-5.80) X10*6/uL Hgb 13.6 L (14.0-18.0) g/dl Hct 40.6 L (42.0-52.0) % MCV 90.8 (80.0-98.0) fL MCH 30.4 (27.0-33.0) pg MCHC 33.5 (31.0-36.0) g/dl RDW 12.7 (11.0-16.0) % Plt Count 164 (160-400) X10*3/uL MPV 9.2 L (9.4-12.4) fL Immature Gran % (Auto) 0.3 (0.0-0.4) % Neut % (Auto) 58.1 (45-73) % Lymph % (Auto) 30.7 (20-40) % Becker % (Auto) 8.9 (2-11) % Eos % (Auto) 1.7 (0-4) % Baso % (Auto) 0.3 (0-2) % Lymph # (Auto) 1.9 (1.2-4.9) X10*3/uL Becker # (Auto) 0.5 (0.1-1.2) X10*3/uL Eos # (Auto) 0.1 (0.0-0.4) X10*3/uL Baso # (Auto) 0.0 (0.0-0.2) X10*3/uL Abs Immat Gran (auto) 0.02 (0.00-0.03) X10*3/uL Absolute Neuts (auto) 3.5 (2.0-8.3) x10*3/uL Absolute Nucleated RBC 0.000 (0.0-0.012) X10*3/uL Nucleated RBC % (auto) 0.0 (0.0-0.2) /100WBC PT 20.2 H (9.9-13.0) SEC INR 1.8 H (0.9-1.1) APTT 32.0 D (24.1-38.0) SEC Sodium 136 (135-145) mmol/L Potassium 3.9 (3.3-5.1) mmol/L Chloride 102 (96-108) mmol/L Carbon Dioxide 25 (22-29) mmol/L Anion Gap 13 (12-20) BUN 17 H (9-16) mg/dL Creatinine 0.82 (0.5-1.4) mg/dL Estim Creat Clear Calc 96.9 Estimated GFR > 60 POC Glucose (60-115) mg/dL Random Glucose 151 H D (60-115) mg/dL Lactic Acid (0.5-2.0) mmol/L Calcium 8.6 (8.4-10.2) mg/dL Magnesium 2.0 (1.6-2.6) mg/dL Total Bilirubin 0.4 (0.0-1.0) mg/dL Direct Bilirubin 0.2 (0.0-0.5) mg/dL AST 15 (5-37) U/L ALT 19 (0-40) U/L Alkaline Phosphatase 101 (39-117) U/L Troponin I High Sens (<3.5-35.0) ng/L Total Protein 6.8 (6.5-8.0) g/dL Albumin 3.9 (3.5-5.0) g/dL Lipase 6 L (8-78) U/L Urine Color Urine Appearance Urine pH (5.0-8.0) Ur Specific [place] (1.005-1.025) Urine Protein (NEG-TRACE) MG/DL Urine Glucose (UA) (NEG) MG/DL Urine Ketones (NEG) MG/DL Urine Blood (NEG) Urine Nitrite (NEG) Ur Leukocyte Esterase (NEG) COVID-19 ([place]) (Negative) COVID-19 Clin Com Influenza Type A (MILEY) (Negative) Influenza Type B (MILEY) (Negative) Influenza A & B Note 08/13/21 08/13/21 08/13/21 Range/Units 09:33 09:57 09:57 WBC (4.8-10.8) X10*3/uL RBC (4.60-5.80) X10*6/uL Hgb (14.0-18.0) g/dl Hct (42.0-52.0) % MCV (80.0-98.0) fL MCH (27.0-33.0) pg MCHC (31.0-36.0) g/dl RDW (11.0-16.0) % Plt Count (160-400) X10*3/uL MPV (9.4-12.4) fL Immature Gran % (Auto) (0.0-0.4) % Neut % (Auto) (45-73) % Lymph % (Auto) (20-40) % Becker % (Auto) (2-11) % Eos % (Auto) (0-4) % Baso % (Auto) (0-2) % Lymph # (Auto) (1.2-4.9) X10*3/uL Becker # (Auto) (0.1-1.2) X10*3/uL Eos # (Auto) (0.0-0.4) X10*3/uL Baso # (Auto) (0.0-0.2) X10*3/uL Abs Immat Gran (auto) (0.00-0.03) X10*3/uL Absolute Neuts (auto) (2.0-8.3) x10*3/uL Absolute Nucleated RBC (0.0-0.012) X10*3/uL Nucleated RBC % (auto) (0.0-0.2) /100WBC PT (9.9-13.0) SEC INR (0.9-1.1) APTT (24.1-38.0) SEC Sodium (135-145) mmol/L Potassium (3.3-5.1) mmol/L Chloride (96-108) mmol/L Carbon Dioxide (22-29) mmol/L Anion Gap (12-20) BUN (9-16) mg/dL Creatinine (0.5-1.4) mg/dL Estim Creat Clear Calc Estimated GFR POC Glucose (60-115) mg/dL Random Glucose (60-115) mg/dL Lactic Acid 1.6 (0.5-2.0) mmol/L Calcium (8.4-10.2) mg/dL Magnesium (1.6-2.6) mg/dL Total Bilirubin (0.0-1.0) mg/dL Direct Bilirubin (0.0-0.5) mg/dL AST (5-37) U/L ALT (0-40) U/L Alkaline Phosphatase (39-117) U/L Troponin I High Sens 4.4 D (<3.5-35.0) ng/L Total Protein (6.5-8.0) g/dL Albumin (3.5-5.0) g/dL Lipase (8-78) U/L Urine Color Urine Appearance Urine pH (5.0-8.0) Ur Specific [place] (1.005-1.025) Urine Protein (NEG-TRACE) MG/DL Urine Glucose (UA) (NEG) MG/DL Urine Ketones (NEG) MG/DL Urine Blood (NEG) Urine Nitrite (NEG) Ur Leukocyte Esterase (NEG) COVID-19 ([place]) Negative (Negative) COVID-19 Clin Com See Note Influenza Type A (MILEY) (Negative) Influenza Type B (MILEY) (Negative) Influenza A & B Note 08/13/21 08/13/21 08/13/21 Range/Units 11:16 11:47 13:39 WBC (4.8-10.8) X10*3/uL RBC (4.60-5.80) X10*6/uL Hgb (14.0-18.0) g/dl Hct (42.0-52.0) % MCV (80.0-98.0) fL MCH (27.0-33.0) pg MCHC (31.0-36.0) g/dl RDW (11.0-16.0) % Plt Count (160-400) X10*3/uL MPV (9.4-12.4) fL Immature Gran % (Auto) (0.0-0.4) % Neut % (Auto) (45-73) % Lymph % (Auto) (20-40) % Becker % (Auto) (2-11) % Eos % (Auto) (0-4) % Baso % (Auto) (0-2) % Lymph # (Auto) (1.2-4.9) X10*3/uL Becker # (Auto) (0.1-1.2) X10*3/uL Eos # (Auto) (0.0-0.4) X10*3/uL Baso # (Auto) (0.0-0.2) X10*3/uL Abs Immat Gran (auto) (0.00-0.03) X10*3/uL Absolute Neuts (auto) (2.0-8.3) x10*3/uL Absolute Nucleated RBC (0.0-0.012) X10*3/uL Nucleated RBC % (auto) (0.0-0.2) /100WBC PT (9.9-13.0) SEC INR (0.9-1.1) APTT (24.1-38.0) SEC Sodium (135-145) mmol/L Potassium (3.3-5.1) mmol/L Chloride (96-108) mmol/L Carbon Dioxide (22-29) mmol/L Anion Gap (12-20) BUN (9-16) mg/dL Creatinine (0.5-1.4) mg/dL Estim Creat Clear Calc Estimated GFR POC Glucose (60-115) mg/dL Random Glucose (60-115) mg/dL Lactic Acid (0.5-2.0) mmol/L Calcium (8.4-10.2) mg/dL Magnesium (1.6-2.6) mg/dL Total Bilirubin (0.0-1.0) mg/dL Direct Bilirubin (0.0-0.5) mg/dL AST (5-37) U/L ALT (0-40) U/L Alkaline Phosphatase (39-117) U/L Troponin I High Sens 4.3 (<3.5-35.0) ng/L Total Protein (6.5-8.0) g/dL Albumin (3.5-5.0) g/dL Lipase (8-78) U/L Urine Color YELLOW Urine Appearance CLEAR Urine pH 7.0 (5.0-8.0) Ur Specific [place] 1.020 (1.005-1.025) Urine Protein NEG (NEG-TRACE) MG/DL Urine Glucose (UA) NEG (NEG) MG/DL Urine Ketones NEG (NEG) MG/DL Urine Blood NEG (NEG) Urine Nitrite NEG (NEG) Ur Leukocyte Esterase NEG (NEG) COVID-19 ([place]) (Negative) COVID-19 Clin Com Influenza Type A (MILEY) Negative (Negative) Influenza Type B (MILEY) Negative (Negative) Influenza A & B Note See Note 08/13/21 Range/Units 15:51 WBC (4.8-10.8) X10*3/uL RBC (4.60-5.80) X10*6/uL Hgb (14.0-18.0) g/dl Hct (42.0-52.0) % MCV (80.0-98.0) fL MCH (27.0-33.0) pg MCHC (31.0-36.0) g/dl RDW (11.0-16.0) % Plt Count (160-400) X10*3/uL MPV (9.4-12.4) fL Immature Gran % (Auto) (0.0-0.4) % Neut % (Auto) (45-73) % Lymph % (Auto) (20-40) % Becker % (Auto) (2-11) % Eos % (Auto) (0-4) % Baso % (Auto) (0-2) % Lymph # (Auto) (1.2-4.9) X10*3/uL Becker # (Auto) (0.1-1.2) X10*3/uL Eos # (Auto) (0.0-0.4) X10*3/uL Baso # (Auto) (0.0-0.2) X10*3/uL Abs Immat Gran (auto) (0.00-0.03) X10*3/uL Absolute Neuts (auto) (2.0-8.3) x10*3/uL Absolute Nucleated RBC (0.0-0.012) X10*3/uL Nucleated RBC % (auto) (0.0-0.2) /100WBC PT (9.9-13.0) SEC INR (0.9-1.1) APTT (24.1-38.0) SEC Sodium (135-145) mmol/L Potassium (3.3-5.1) mmol/L Chloride (96-108) mmol/L Carbon Dioxide (22-29) mmol/L Anion Gap (12-20) BUN (9-16) mg/dL Creatinine (0.5-1.4) mg/dL Estim Creat Clear Calc Estimated GFR POC Glucose 144 H (60-115) mg/dL Random Glucose (60-115) mg/dL Lactic Acid (0.5-2.0) mmol/L Calcium (8.4-10.2) mg/dL Magnesium (1.6-2.6) mg/dL Total Bilirubin (0.0-1.0) mg/dL Direct Bilirubin (0.0-0.5) mg/dL AST (5-37) U/L ALT (0-40) U/L Alkaline Phosphatase (39-117) U/L Troponin I High Sens (<3.5-35.0) ng/L Total Protein (6.5-8.0) g/dL Albumin (3.5-5.0) g/dL Lipase (8-78) U/L Urine Color Urine Appearance Urine pH (5.0-8.0) Ur Specific [place] (1.005-1.025) Urine Protein (NEG-TRACE) MG/DL Urine Glucose (UA) (NEG) MG/DL Urine Ketones (NEG) MG/DL Urine Blood (NEG) Urine Nitrite (NEG) Ur Leukocyte Esterase (NEG) COVID-19 ([place]) (Negative) COVID-19 Clin Com Influenza Type A (MILEY) (Negative) Influenza Type B (MILEY) (Negative) Influenza A & B Note ECG Data Attestation: I personally reviewed and interpreted this ECG as follows: ECG interpretation date: 08/13/21 ECG interpretation time: 10:00 Interpretation: Rate: 62 Rhythm: afib [place]: normal Normal QRS complex. ST T wave : no CJ, non-specific qTC: normal prior studies: no acute ischemia The study has been interpreted contemporaneously by me. . Discharge Plan Discharge Clinical Impression: Vomiting, Gallstone, Dizziness Patient Disposition: Still a Patient Prescriptions: No Action meclizine 25 mg tablet 25 mg PO TID PRN (Reason: dizziness) Qty: 14 0RF furosemide [Lasix] 20 mg tablet 20 mg PO DAILY Qty: 10 0RF (DME) compression socks, x-large Misc See Rx Instructions .Route Qty: 2 0RF Rx Instructions: As directed furosemide [Lasix] 20 mg tablet 20 mg PO DAILY Qty: 10 0RF (DME) compr.stocking,knee,long,x-lrg Misc See Rx Instructions .Route Qty: 2 0RF Rx Instructions: As directed terazosin 5 mg capsule 5 mg PO BEDTIME 30 Days Qty: 30 1RF levothyroxine 150 mcg tablet 150 mcg PO DAILY 0RF gabapentin 100 mg capsule 0 mg PO 0RF warfarin 2 mg tablet 2 mg PO DAILY 0RF amlodipine 5 mg tablet 5 mg PO DAILY 0RF warfarin 5 mg tablet 0 mg PO 0RF sertraline 50 mg tablet 50 mg PO DAILY 0RF carbamazepine 200 mg tablet 0 mg PO 0RF baclofen 5 mg tablet PO 0RF metoprolol succinate 25 mg tablet extended release 24 hr 25 mg PO DAILY 0RF metoprolol succinate 50 mg tablet extended release 24 hr 50 mg PO DAILY 0RF albuterol sulfate 90 mcg/actuation HFA aerosol inhaler 0 mcg inhalation 0RF simvastatin 40 mg tablet 40 mg PO BEDTIME 0RF bethanechol chloride 50 mg tablet 50 mg PO BID 90 Days Qty: 180 1RF
[2021-08-13 09:50] LABS: INTERNATIONAL NORM RATIO 1.8 (0.9-1.1); Prothrombin Time 20.2 SEC (9.9-13.0)
[2021-08-13 10:17] LABS: COVID-19 Test Negative (Negative)
[2021-08-13 10:18] LABS: Lactic Acid 1.6 mmol/L (0.5-2.0)
[2021-08-13 10:22] LABS: Troponin-I High Sensitivity 4.4 ng/L (<3.5-35.0)
[2021-08-13 10:24] LABS: Alanine Aminotransferase 19 U/L (0-40); Albumin Level 3.9 g/dL (3.5-5.0); Alkaline Phosphatase 101 U/L (39-117); Anion Gap 13 (12-20); Aspartate Amino Transferase 15 U/L (5-37); Bilirubin Direct 0.2 mg/dL (0.0-0.5); Bilirubin Total 0.4 mg/dL (0.0-1.0); Blood Urea Nitrogen 17 mg/dL (9-16); Calcium 8.6 mg/dL (8.4-10.2); Carbon Dioxide 25 mmol/L (22-29); Chloride 102 mmol/L (96-108); Creatinine Clr Calc Pharmacy 96.9; Estimated Glomerular Filt Rate > 60; Glucose Random 151 mg/dL (60-115); Lipase 6 U/L (8-78); Potassium 3.9 mmol/L (3.3-5.1); Sodium 136 mmol/L (135-145); Total Protein 6.8 g/dL (6.5-8.0)
[2021-08-13] MEDS: Labetalol HCL 100 MG/20 ML VIAL 10 MG IVPUSH (11:20)
[2021-08-13 11:22] LABS: Appearance Urine CLEAR; Color Urine YELLOW; Glucose Urine UA NEG (NEG); Leukocyte Esterase Urine NEG (NEG); Nitrite Urine NEG (NEG); Urine Blood NEG (NEG); Urine Ketones NEG (NEG); Urine Protein NEG (NEG-TRACE)
[2021-08-13 12:15] LABS: Troponin-I High Sensitivity 4.3 ng/L (<3.5-35.0)
--- NOTE | 2021-08-13 13:16 | PC.NURSE ---
pt given libra abimael and crackers. states he does not feel well, took 2 sips of the libra abimael and stated it was too gingerale-y . Asked if he would like another option, he states he does not feel like eating or drinking currently. Refusing to eat/drink. Pt laying on stretcher, eyes closed.
[2021-08-13 14:10] LABS: Influenza A Negative (Negative); Influenza B2 Negative (Negative)
[2021-08-13 15:55] LABS: Glucose, Whole Blood 144 mg/dL (60-115)
--- NOTE | 2021-08-13 16:43 | PC.NURSE ---
pt pulled out IV while asleep. assisted to stand and walk with a walker. pt reported feeling very dizzy and weak, he did ambulate appropriately with a standby assist
--- NOTE | 2021-08-13 17:38 | PHA.MEDREC ---
MED REC COMPLETE, LIST FROM [facility] USED Pharmacy Consult ? Medication Reconciliation Pharmacy has completed the medication reconciliation.
--- NOTE | 2021-08-13 18:08 | MHC.CM.ED ---
CM met with patient at the request of Dr. Abel. Pt lives in independent living at [facility]. States he has weekly housekeeping and 3 meals/day provided for him. Pt uses a walker/cane. Reports feeling weak and unsteady on his feet. C/O constipation. States he does not feel safe to go home. Pt tells CM that he is having trouble managing his medications and he has an appointment with Billy to have his meds prepared in blister packs so he can manage them. Pt appears weak and very tired. Agreeable to PT assessment and referral for STR to get stronger to return to his independent living. Requests [facility] as his first choice. Provider aware, PT consult placed, and referrals locally for STR pending PT evaluation, with [facility] as first choice. CM to follow for d/c needs.
[2021-08-13] MEDS: amLODIPine Besylate 5 MG TABLET PO (21:48)
--- NOTE | 2021-08-13 21:50 | PC.NURSE ---
pt htn at 195/70, PA made aware. pt dislodged IV earlier. PA aware. 5 mg PO amlodipine given crushed in applesauce. pt had no dysphagia
[2021-08-14] VITALS (8 sets, daily range): BP systolic 137–182; BP diastolic 70–103; PULSE 57–68; RESP 12–20; TEMP 36.7; O2SAT 93–98
--- NOTE | 2021-08-14 05:09 | PC.NURSE ---
pt repositioned in bed with the assist or 2 RNs. pt has no complaints at this time, has been voiding into urinal from bed. pt asking for pulse ox to be removed, pt reassured and educated that we use that to monitor his oxygen status. pt resting in bed, call [facility] in reach
--- NOTE | 2021-08-14 06:14 | PC.NURSE ---
update given to dtr Gema HCP regarding PT consult which will determine STR placement. per CM notes pt agreeable to STR and confirms he does have a medication compliance issue. Daughter states that even when the pills are sorted by day/time, pt still takes particular medications based on if he thinks he needs them or not which is reportedly very inconsistent.
[2021-08-14] MEDS: Levothyroxine Sodium 150 MCG TABLET PO (08:05)
--- NOTE | 2021-08-14 09:23 | MHC.CM.ED ---
Patient remains in ER. Seen by physical therapy. Short term rehab is recommended. Clinical updates sent to [facility] via [facility]. Patient can leave ER at 1030am. Action BLShonda booked. Med [facility] with chart. Patient, daughter Tiny Ribeiro RN and Naima MARCOS aware. Continue to monitor for d/c needs.
[2021-08-14] MEDS: Gabapentin 100 MG CAPSULE 200 MG PO (09:27)
[2021-08-14] MEDS: Sennosides 8.6 MG TABLET PO (09:27)
[2021-08-14] MEDS: Sertraline HCL 50 MG TABLET PO (09:27)
[2021-08-14] MEDS: amLODIPine Besylate 5 MG TABLET PO (09:28)
[2021-08-14] MEDS: Metoprolol Succinate ER 25 MG TAB.ER.24H PO (09:28)
[2021-08-14] MEDS: carBAMazepine 200 MG TABLET 400 MG PO (09:58)
== END 2021-08-14 11:40 | disposition skilled nursing facility (03) ==
PROVIDERS: Emergency Provider Emergency Medicine; PCP Internal Medicine
DX: R42 Dizziness and giddiness (principal); K80.20 Calculus of gallbladder without cholecystitis without obstruction; R11.10 Vomiting, unspecified; I48.91 Unspecified atrial fibrillation; I10 Essential (primary) hypertension; Z86.73 Personal history of transient ischemic attack (TIA), and cerebral infarction without residual deficits; Z79.01 Long term (current) use of anticoagulants; Z91.14 Patient's other noncompliance with medication regimen; Z20.822 Contact with and (suspected) exposure to COVID-19
CPT/HCPCS: 36415; 70450; 71250; 74176; 76705; 80048; 80076; 81003; 82947; 83605; 83690; 83735; 84484; 85025; 85610; 85730; 87502; 87635; 93005; 96374; 96375; 97162; 99284; J2405

== ENCOUNTER 2021-08-14 15:35 | Emergency (ER) | payer MEDICARE, SELFPAY ==
--- NOTE | 2021-08-14 07:37 | ECG_ITS ---
Test Reason : SYNCOPE Blood Pressure : / mmHG Vent. Rate : 056 BPM Atrial Rate : 000 BPM P-R Int : 000 ms QRS Dur : 086 ms QT Int : 462 ms P-R-T Axes : 000 023 048 degrees QTc Int : 445 ms Atrial fibrillation with slow ventricular response Abnormal ECG When compared with ECG of 13-AUG-2021 09:41, No significant change was found Referred By: Lew Akhtar Electronically Signed By:ROGER MURRAY
[2021-08-14 15:42] VITALS: BP 109/63; BP 116/72; PULSE 63; PULSE 66; RESP 16; TEMP 36.6; O2SAT 95; O2SAT 96; BMI 40.1
[2021-08-14 15:50] VITALS: O2SAT 93
--- NOTE | 2021-08-14 16:17 | ED.SYNCOPE ---
HPI - Syncope General Chief Complaint: Syncope Stated Complaint: near syncope Time Seen by Provider: 08/14/21 16:17 Source: patient and EMS Mode of arrival: EMS Limitations: no limitations History of Present Illness HPI narrative: Patient is 80 years old with history of AFib on Coumadin, BPH, hypertension, hypothyroidism just sent to [facility] earlier today came back as while having bowel movement patient passed out. No injuries no chest pain on arrival patient's heart rate was 66 blood pressure 109/63 patient is symptomatic denies any complaints patient has similar episodes in the past Related Data Home Medications Medication Instructions Recorded Confirmed amlodipine 5 mg tablet 5 mg PO DAILY 02/20/21 08/13/21 carbamazepine 200 mg tablet 400 mg PO TID 02/20/21 08/13/21 gabapentin 100 mg capsule 200 mg PO TID 02/20/21 08/13/21 levothyroxine 150 mcg tablet 150 mcg PO DAILY 02/20/21 08/13/21 metoprolol succinate 25 mg 25 mg PO DAILY 02/20/21 08/13/21 tablet,extended release 24 hr sertraline 50 mg tablet 50 mg PO DAILY 02/20/21 08/13/21 warfarin 2 mg tablet 2 mg PO DAILY 02/20/21 08/13/21 warfarin 5 mg tablet 5 mg PO DAILY 02/20/21 08/13/21 acetaminophen 500 mg tablet 1,000 mg PO Q6H PRN 08/13/21 08/13/21 sennosides 8.6 mg tablet (senna) 8.6 mg PO DAILY 08/13/21 08/13/21 Previous Rx's Medication Instructions Recorded compr.stocking,knee,long,x-lrg #2 ea 05/13/21 compression socks, x-large #2 ea 05/13/21 bethanechol chloride 50 mg tablet 50 mg PO BID 90 Days #180 tab 06/17/21 Allergies Allergy/AdvReac Type Severity Reaction Status Date / Time No Known Allergies Allergy Verified 06/17/21 13:42 [No Known Allergies*] Review of Systems Review of Systems: Yes all other systems are reviewed and are negative [facility] Past Medical History Medical History A-fib CVA (cerebral vascular accident) HTN (hypertension) Hypothyroid Social History Social History Alcohol intake: unknown Patient Tobacco Use Status: Former Tobacco user Advance Directives: No Advance Directives Information Provided: No Physical Exam Vital Signs: Vital Signs: Last Vital Signs Temp 97.8 F 08/14/21 15:42 Pulse 62 08/14/21 16:45 Resp 16 08/14/21 15:42 BP 121/52 L 08/14/21 16:45 Pulse Ox 93 08/14/21 15:50 BMI result Body Mass Index 40.1 Appearance: Alert. Oriented X3. No acute distress. Eyes: PERRLA, no pallor ENT: Pharynx normal. Oral Mucosa moist Neck: Normal inspection. Neck supple. CVS: Irregularly irregular heart rate no murmur rub or gallop Pulses normal. Respiratory: No respiratory distress. Equal air entry bilateral, no wheezing/rales/rhonchi Abdomen: Soft and nontender. Bowel sounds are present, no mass palpable, no CVA tenderness Skin: Skin warm and dry. Normal skin color. Normal skin turgor. Extremities: 2+ lower extremity edema. No calf tenderness Neuro: Oriented X 3. No motor deficit. No sensory deficit.No cerebellar signs , cranial nerves II-XII intact MDM - Syncope MDM Narrative Medical decision making narrative: Patient just discharged yesterday to [facility] after 2 days of stay in the ER patient has AFib and during stay in last 2 days heart rate was stable patient went for bowel movement and passed out likely from vasovagal on arrival patient's blood pressure is stable heart rate is 66 orthostatics normal patient denies any complaints will discharge patient back to [facility] patient only on metoprolol 75 mg daily for heart control will advise nursing staff to check pulse rate if patient passes out ECG Data Attestation: I personally reviewed and interpreted this ECG as follows: Interpretation: Heart rate 56 beats per minute atrial fibrillation no acute ST-T changes no acute ischemia Discharge Plan Discharge Clinical Impression: Vasovagal syncope Patient Disposition: Xfer SNF Transfer Details: To [facility] Instructions: Syncope (ED) Additional Instructions: Patient likely had vagal syncope episode during bowel movement. Check patient's vitals Q shift and if heart rate less than 50/min hold metoprolol and consult PCP Prescriptions: No Action sennosides [senna] 8.6 mg Tablet 8.6 mg PO DAILY 0RF acetaminophen 500 mg Tablet 1,000 mg PO Q6H PRN (Reason: Pain (Scale Score 1-3)) 0RF (DME) compression socks, x-large Misc See Rx Instructions .Route Qty: 2 0RF Rx Instructions: As directed (DME) compr.stocking,knee,long,x-lrg Misc See Rx Instructions .Route Qty: 2 0RF Rx Instructions: As directed levothyroxine 150 mcg tablet 150 mcg PO DAILY 0RF gabapentin 100 mg capsule 200 mg PO TID 0RF warfarin 2 mg tablet 2 mg PO DAILY 0RF amlodipine 5 mg tablet 5 mg PO DAILY 0RF warfarin 5 mg tablet 5 mg PO DAILY 0RF sertraline 50 mg tablet 50 mg PO DAILY 0RF carbamazepine 200 mg tablet 400 mg PO TID 0RF metoprolol succinate 25 mg tablet extended release 24 hr 25 mg PO DAILY 0RF bethanechol chloride 50 mg tablet 50 mg PO BID 90 Days Qty: 180 1RF Interventions: ED Discharge Assessment Last Done: 08/14/21 17:02 Discharge Date/Time: 08/14/21 19:29
[2021-08-14 16:40] VITALS: BP 123/72; PULSE 52
[2021-08-14 16:43] VITALS: BP 120/75; PULSE 67
[2021-08-14 16:45] VITALS: BP 121/52; PULSE 62
== END 2021-08-14 19:29 | disposition skilled nursing facility (03) ==
PROVIDERS: Emergency Provider Internal Medicine; PCP Internal Medicine
DX: R55 Syncope and collapse (principal); I48.91 Unspecified atrial fibrillation; I10 Essential (primary) hypertension; Z86.73 Personal history of transient ischemic attack (TIA), and cerebral infarction without residual deficits; Z79.01 Long term (current) use of anticoagulants; Z79.899 Other long term (current) drug therapy
CPT/HCPCS: 93005; 99283; 99284

== ENCOUNTER → 2021-08-18 09:17 | Outpatient (BNVA) | payer MEDICARE, SELFPAY | PROVIDERS: PCP Internal Medicine; Visit Provider Urology | DX: R33.9 Retention of urine, unspecified (principal); R35.1 Nocturia; N32.0 Bladder-neck obstruction | CPT/HCPCS: 51798; 99212 ==

== ENCOUNTER 2021-09-16 15:05 | Emergency (ER) | payer MEDICARE, SELFPAY ==
--- NOTE | ~2021-09-16 | XR_ITS ---
EXAMINATION: XR KNEE, RIGHT CLINICAL INFORMATION: Fall. COMPARISON: None TECHNIQUE: Four views of the right knee. XR/XR knee RT 3V FINDINGS/IMPRESSION: Examination demonstrates moderate tricompartmental osteoarthritis predominantly involving the medial and patellofemoral compartments, with joint space narrowing, sclerosis, and osteophyte formation. Chondrocalcinosis is seen. No fracture or dislocation is appreciated. Bony mineralization appears preserved. No lytic or sclerotic bony lesion is seen.
--- NOTE | ~2021-09-16 | CT_ITS ---
EXAMINATION: CT HEAD WITHOUT CONTRAST CT CERVICAL SPINE WITHOUT CONTRAST CLINICAL INFORMATION: Status post fall patient on Coumadin COMPARISON: 08/18/2021 TECHNIQUE: CT of the head and cervical spine were performed without intravenous contrast. Multiplanar reformats were rendered and reviewed. This CT examination was performed using dose optimization techniques as appropriate, variously including the following: *Automated exposure control *Adjustment of mA and/or kV according to patient size (this includes techniques or standardized protocols for targeted exams where dose is matched to indication/reason for exam; i.e. extremities or head) *Use of iterative reconstruction technique DLP: 1555 mGy-cm. FINDINGS: CT head: No intracranial hemorrhage, large infarction, or mass lesion is seen. No extra-axial collection is appreciated. Ventricles are dilated and sulci are prominent due to involutional changes there are patchy periventricular white matter changes as a sequela of microangiopathy. The visualized paranasal sinuses revealed opacification of the left maxillary sinus and mastoid air cells are clear. 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 CT cervical spine: There is straightening of cervical lordosis with grade 1 anterior listhesis of C3 over C4 and multilevel degenerative changes, with narrowing of C4-C5, C5-C6 intervertebral disc spaces and there is no evidence of cervical spine fracture or subluxation. There are degenerative changes in the odontoid is mild asymmetry of the odontoid junction, chronic CT/CT cervical spine wo con IMPRESSION: CT head: No acute intracranial finding. Involutional changes and sequela of microangiopathy CT cervical spine: No cervical spine fracture or traumatic malalignment identified. Degenerative changes with grade 1 anterior listhesis of C3 over C4 is no fracture or subluxation
--- NOTE | ~2021-09-16 | XR_ITS ---
EXAMINATION: XR SHOULDER, RIGHT XR CLAVICLE, RIGHT XR HUMERUS, RIGHT CLINICAL INFORMATION: Fall. COMPARISON: CT chest 08/13/2021. TECHNIQUE: 2 views right shoulder, 2 views right clavicle, 2 views right humerus. FINDINGS: There is a fracture of the distal clavicle with minimal displacement. The glenohumeral joint demonstrates degenerative changes with subchondral cyst formation, some sclerosis and osteophytes. No dislocation or humeral/glenoid fracture. The distal humerus shows no evidence of a traumatic injury. Degenerative changes are present at the elbow. Calcifications are present around the lateral epicondyle. No joint effusion is seen. XR/XR clavicle RT IMPRESSION: Minimally displaced fracture of the distal clavicle. Incidentally noted degenerative changes in the shoulder and elbow.
--- NOTE | ~2021-09-16 | XR_ITS ---
EXAMINATION: XR SHOULDER, RIGHT XR CLAVICLE, RIGHT XR HUMERUS, RIGHT CLINICAL INFORMATION: Fall. COMPARISON: CT chest 08/13/2021. TECHNIQUE: 2 views right shoulder, 2 views right clavicle, 2 views right humerus. FINDINGS: There is a fracture of the distal clavicle with minimal displacement. The glenohumeral joint demonstrates degenerative changes with subchondral cyst formation, some sclerosis and osteophytes. No dislocation or humeral/glenoid fracture. The distal humerus shows no evidence of a traumatic injury. Degenerative changes are present at the elbow. Calcifications are present around the lateral epicondyle. No joint effusion is seen. XR/XR shoulder RT min 2V IMPRESSION: Minimally displaced fracture of the distal clavicle. Incidentally noted degenerative changes in the shoulder and elbow.
--- NOTE | ~2021-09-16 | XR_ITS ---
EXAMINATION: XR SHOULDER, RIGHT XR CLAVICLE, RIGHT XR HUMERUS, RIGHT CLINICAL INFORMATION: Fall. COMPARISON: CT chest 08/13/2021. TECHNIQUE: 2 views right shoulder, 2 views right clavicle, 2 views right humerus. FINDINGS: There is a fracture of the distal clavicle with minimal displacement. The glenohumeral joint demonstrates degenerative changes with subchondral cyst formation, some sclerosis and osteophytes. No dislocation or humeral/glenoid fracture. The distal humerus shows no evidence of a traumatic injury. Degenerative changes are present at the elbow. Calcifications are present around the lateral epicondyle. No joint effusion is seen. XR/XR humerus RT IMPRESSION: Minimally displaced fracture of the distal clavicle. Incidentally noted degenerative changes in the shoulder and elbow.
--- NOTE | 2021-09-16 15:36 | ED.FALL ---
HPI - Fall General Chief Complaint: Fall Stated Complaint: Mechanical fall/ 10/21 shoulder pain Time Seen by Provider: 09/16/21 15:16 Source: patient Mode of arrival: ambulatory History of Present Illness HPI Narrative: 81-year-old male with a past medical history of CVA, HTN, hypothyroid, AFib on Coumadin presenting to the ED complaining of right shoulder and knee pain s/p mechanical fall [employer]. States was walking around building with walker & leaned forward reaching for door button & fell on right side. Unclear if hit head, however denies headache or LOC. has not been ambulatory since incident. Denies symptoms prior to fall. Denies numbness, tingling, weakness, CP/SOB, pain MD complaint: fall Onset (ago): hour(s) Related Data Home Medications Medication Instructions Recorded Confirmed carbamazepine 200 mg tablet 400 mg PO TID 02/20/21 09/16/21 gabapentin 100 mg capsule 200 mg PO TID 02/20/21 09/16/21 levothyroxine 150 mcg tablet 150 mcg PO DAILY@0600 02/20/21 09/16/21 metoprolol succinate 25 mg 25 mg PO DAILY 02/20/21 09/16/21 tablet,extended release 24 hr sertraline 50 mg tablet 50 mg PO DAILY 02/20/21 09/16/21 warfarin 2 mg tablet 2 mg PO DAILY 02/20/21 09/16/21 warfarin 5 mg tablet 5 mg PO DAILY 02/20/21 09/16/21 amlodipine 10 mg tablet 1 tab PO DAILY 09/16/21 09/16/21 docusate sodium 100 mg capsule 100 mg PO BEDTIME PRN Constipation 09/16/21 09/16/21 simvastatin 40 mg tablet 1 tab PO BEDTIME 09/16/21 09/16/21 Previous Rx's Medication Instructions Recorded compr.stocking,knee,long,x-lrg #2 ea 05/13/21 compression socks, x-large #2 ea 05/13/21 bethanechol chloride 50 mg tablet 50 mg PO BID 90 days #180 tabs 08/18/21 Allergies Allergy/AdvReac Type Severity Reaction Status Date / Time No Known Allergies Allergy Verified 08/18/21 09:25 [No Known Allergies*] Review of Systems Review of Systems: Constitutional: No Fever, No Chills, No Fatigue, No Malaise ENT/Mouth: No Ear Pain, No Nasal Congestion, No Hoarseness, No sore throat, No Rhinorrhea, No Swallowing Difficulty Eyes: No Eye Pain, No Swelling, No Redness, No Discharge, No Vision Changes Cardiovascular: No Chest Pain, No SOB, +chronic LE Edema, No Palpitations Respiratory: No Cough, No Sputum, No Dyspnea Gastrointestinal: No Nausea, No Vomiting, No Diarrhea, No Constipation, No Abdominal pain Genitourinary: No irregular bleeding, No Dysuria, No Urinary Frequency, No Hematuria, No Urinary Incontinence/retention, No Flank Pain Musculoskeletal: + joint pain, No Myalgias, + Joint Swelling Skin: No Skin Lesions, No rash Neuro: No Weakness, No Numbness, No Paresthesias, No Loss of Consciousness, No Dizziness, No Headache Yes all other systems are reviewed and are negative Neurologic: Denies Abnormal speech present [facility] Past Medical History Attestation statement: The following information was validated with the patient. Medical History A-fib CVA (cerebral vascular accident) HTN (hypertension) Hypothyroid Social History Social History Alcohol intake: unknown Patient Tobacco Use Status: Former Tobacco user Advance Directives: Yes Advance Directives on File: Yes Advance Directives Date on File: 09/16/21 Physical Exam Vital Signs: Vital Signs: Last Vital Signs Temp 98.2 F 09/17/21 00:51 Pulse 57 09/17/21 00:51 Resp 18 09/17/21 00:51 BP 198/88 H 09/17/21 00:51 Pulse Ox 99 09/17/21 00:51 O2 Del Method 09/17/21 00:51 BMI result Body Mass Index 38.4 Const: General: cooperative, healthy appearing and no acute distress Orientation/consciousness: patient oriented x3 Limitations: no limitations HEENT: Head: Yes normal to inspection, Yes atraumatic, No Her's sign and No raccoon eyes Ears: hearing grossly normal bilaterally General nose exam: Normal external nose present Face and sinus: Yes normal facial exam Eyes: General: appearance normal, both eyes and all related structures Pupils: Equal, round and reactive pupils present EOM: EOMs intact bilaterally Neck: Other: No midline cervical spinous tenderness/step-off or deformity Neck: Yes normal visual inspection and Yes no meningeal signs Chest: Chest palpation & inspection: normal inspection of the chest, no crepitus and no tenderness Resp: Effort & Inspection: normal respiratory effort and no respiratory distress Auscultation: clear to auscultation bilaterally Cardio: Rate: regular rate Heart sounds: S1 normal heart sound present and S2 normal heart sound present Peripheral pulses: radial pulses present GI: Inspection: Yes normal to inspection Palpation (GI): Soft to palpation, nontender, no guarding and not rigid : General: Yes no CVA tenderness Back/Spine/Pelvis: Other: No midline thoracic/lumbar spinous tenderness/step-off or deformity Back: no CVA tenderness Skin: Rashes: no rashes Wounds: no wounds Neuro: General: patient oriented x3, tone normal, moves all extremities, no meningeal signs, no focal motor deficits and CN's II-XI intact bilaterally Cranial nerves: Yes CN's II-XII intact bilaterally, Yes Equal, round and reactive pupils present and Yes Bilaterally intact EOM present Cognition (Neuro): normal cognition Speech: No Abnormal speech present Gait exam (Neuro): Normal gait present Extrem: Other: Right clavicle and shoulder with tenderness to palpation greatest at AC joint. Proximal humerus also tender. No appreciable deformity. Decreased ROM to shoulder secondary to pain. Neurovascular intact distally. Right knee with mild swelling and appreciable abrasion. Full range of motion intact. Neurovascular intact distally Course Course Course Narrative: CT head/brain wo con/CT cervical spine wo con IMPRESSION: ? CT head: No acute intracranial finding. Involutional changes and sequela of microangiopathy ? ? CT cervical spine: No cervical spine fracture or traumatic malalignment identified. Degenerative changes with grade 1 anterior listhesis of C3 over C4 is no fracture or subluxation XR clavicle RT/XR humerus RT/XR shoulder RT min 2V IMPRESSION: Minimally displaced fracture of the distal clavicle. Incidentally noted degenerative changes in the shoulder and elbow. > patient placed in sling is to follow-up with orthopedics as needed XR knee RT 3V FINDINGS/IMPRESSION: ? Examination demonstrates moderate tricompartmental osteoarthritis predominantly involving the medial and patellofemoral compartments, with joint space narrowing, sclerosis, and osteophyte formation. Chondrocalcinosis is seen. ? No fracture or dislocation is appreciated. Bony mineralization appears preserved. No lytic or sclerotic bony lesion is seen. 1800-- as patient ambulates at baseline with walker and now will be in sling due to clavicular fracture will speak with Case Management -patient currently in independent living at [facility], case management spoke with patient, will try to get him in to detention side until clavicle fracture is healed. Patient agreeable at this time. Physician observation initiated -99--ED care transferred to Dr. Owens pending Case Management placement MDM - Fall MDM Narrative Medical decision making narrative: 81-year-old male with a past medical history of CVA, HTN, hypothyroid, AFib on Coumadin presenting to the ED complaining of right shoulder and knee pain s/p mechanical fall [employer]. On exam vital signs stable, NAD, nontoxic appearing, no midline spinous tenderness throughout, no focal neuro deficits. PE as above. Concern for fracture vs strain. Plan: Head/C-spine CT, x-rays Medical Records Attestation: I reviewed the patient's medical records. Lab Data Attestation: I reviewed the patient's lab results. Discharge Plan Discharge Clinical Impression: Clavicular fracture Patient Disposition: Still a Patient Instructions: Clavicle Fracture (ED) Additional Instructions: You have a fracture of your distal clavicle. Please wear sling at all times until you follow-up with Orthopedics, you may take off to shower. Ice and elevate. Your other imaging study showed degenerative/arthritic changes, no other acute findings. The CT of your head and neck the do not show any acute findings Take Tylenol at home for pain If symptoms persist or worsen return to the emergency department Prescriptions: No Action (DME) compression socks, x-large Misc See Rx Instructions .Route Qty: 2 0RF Rx Instructions: As directed (DME) compr.stocking,knee,long,x-lrg Misc See Rx Instructions .Route Qty: 2 0RF Rx Instructions: As directed simvastatin 40 mg tablet 1 tab PO BEDTIME amlodipine 10 mg tablet 1 tab PO DAILY docusate sodium 100 mg Capsule 100 mg PO BEDTIME PRN (Reason: Constipation) bethanechol chloride 50 mg tablet 50 mg PO BID 90 Days Qty: 180 1RF levothyroxine 150 mcg tablet 150 mcg PO DAILY@0600 gabapentin 100 mg capsule 200 mg PO TID warfarin 2 mg tablet 2 mg PO DAILY warfarin 5 mg tablet 5 mg PO DAILY sertraline 50 mg tablet 50 mg PO DAILY carbamazepine 200 mg tablet 400 mg PO TID metoprolol succinate 25 mg tablet extended release 24 hr 25 mg PO DAILY Referrals: Tres Crum MD [Primary Care Provider] - 1 Week Fabián Campos PA-C [Physician Marketing Assistant [employer]] - 1 week
[2021-09-16 15:45] VITALS: BP 131/86; BP 155/81; PULSE 70; RESP 18; TEMP 36.1; O2SAT 100; O2SAT 96; BMI 38.4
[2021-09-16 17:48] VITALS: BP 185/97; PULSE 64; RESP 18; TEMP 36.6; O2SAT 97
--- NOTE | 2021-09-16 18:40 | MHC.CM.ED ---
Addendum entered by Aisha Rojas 09/16/21 18:48: Pt was recently at [facility] for STR 08/14/2021 Original Note: CM met with patient at request of Naima MARCOS. Pt had a mechanical fall with his walker and fx his R clavicle. Pt needs arm in sling and has pain, will be unable to use his walker to ambulate. Pt lives in independent living at [facility] in the [facility] [address] Has 3 meals and weekly housekeeping. Agreeable to referral to [facility] custodial. Referral placed. Pt uses cane/walker. Pt requesting HCP to be completed. HCP/cousin Reynold Rose ([phone]). HCP reviewed, completed and signed. Copies given. Uploaded into [facility] [employer] and [facility]. Pt tells CM he has 1 son and 3 daughters, however they are estranged from him. D/C plan: [facility] custodial if bed available. Will need transportation. CM to follow for d/c needs.
[2021-09-16] MEDS: Acetaminophen 325 MG TABLET 650 MG PO (19:18)
[2021-09-16] MEDS: oxyCODONE HCl Immed Release 5 MG TABLET PO (19:18)
--- NOTE | 2021-09-16 20:18 | PHA.MEDREC ---
Pharmacy Consult ? Medication Reconciliation Pharmacy has completed the medication reconciliation.
[2021-09-16 21:00] VITALS: RESP 17
[2021-09-17] MEDS: carBAMazepine 200 MG TABLET 400 MG PO ×2 (00:43→08:48)
[2021-09-17 00:51] VITALS: BP 198/88; PULSE 57; RESP 18; TEMP 36.8; O2SAT 99
--- NOTE | 2021-09-17 00:51 | PC.NURSE ---
Addendum entered by Taylor Cohen 09/17/21 06:35: report given to RAFY Florez Addendum entered by Taylor Cohen 09/17/21 00:55: PA aware of pt blood pressure. no new order given Original Note: report received from RAFY Davila. pt is alert and oriented. resting in bed. no signs of acute distress notice
[2021-09-17] MEDS: Levothyroxine Sodium 150 MCG TABLET PO (06:07)
[2021-09-17 07:38] VITALS: BP 158/89; PULSE 54; RESP 16; TEMP 36.5; O2SAT 98
[2021-09-17] MEDS: Docusate Sodium 100 MG CAPSULE PO (08:46)
[2021-09-17] MEDS: Acetaminophen 325 MG TABLET 650 MG PO (08:46)
[2021-09-17] MEDS: amLODIPine Besylate 10 MG TABLET PO (08:47)
[2021-09-17] MEDS: oxyCODONE HCl Immed Release 5 MG TABLET PO (08:47)
[2021-09-17] MEDS: Metoprolol Succinate ER 25 MG TAB.ER.24H PO (08:48)
[2021-09-17] MEDS: Bethanechol Chloride 25 MG TABLET 50 MG PO (08:48)
[2021-09-17] MEDS: Sertraline HCL 50 MG TABLET PO (08:48)
[2021-09-17] MEDS: Gabapentin 100 MG CAPSULE 200 MG PO (08:48)
--- NOTE | 2021-09-17 09:14 | PC.NURSE ---
450cc urine emptied from patients urinal. patient repositioned and bed sheets changed.
--- NOTE | 2021-09-17 09:19 | PC.NURSE ---
pt seen by physical therapist, pt aware of plan of care.
[2021-09-17 09:44] VITALS: BP 148/73; PULSE 56; RESP 18; TEMP 36.5; O2SAT 96
[2021-09-17 09:51] LABS: INTERNATIONAL NORM RATIO 1.4 (0.9-1.1); Prothrombin Time 16.2 SEC (10.0-13.1)
[2021-09-17 09:55] LABS: COVID-19 Test Negative (Negative)
--- NOTE | 2021-09-17 11:07 | MHC.CM.ED ---
Patient remains in ER. Physical therapy eval completed. Patient is requesting to go to [facility]. [facility] is able to offer a bed. Patient can leave at 1pm. [facility] booked. [facility] with chart. Patient, Lia HILLMAN and Dr Abel aware. Day Kimberlyn Schmitz also made aware. Per Day Kimberlyn, patient is active with [facility]. [facility] made aware. Continue to monitor for d/c needs.
[2021-09-17 11:56] VITALS: BP 143/86; PULSE 58; RESP 18; O2SAT 96
== END 2021-09-17 13:26 | disposition skilled nursing facility (03) ==
PROVIDERS: Physician Assistant; Physician Assistant Medical; Emergency Provider Internal Medicine; PCP Internal Medicine
DX: S42.031A Displaced fracture of lateral end of right clavicle, initial encounter for closed fracture (principal); S80.211A Abrasion, right knee, initial encounter; W01.0XXA Fall on same level from slipping, tripping and stumbling without subsequent striking against object, initial encounter; Y93.01 Activity, walking, marching and hiking; M25.511 Pain in right shoulder; Z20.822 Contact with and (suspected) exposure to COVID-19; Y92.488 Other paved roadways as the place of occurrence of the external cause; Y99.9 Unspecified external cause status; R60.0 Localized edema; I10 Essential (primary) hypertension; I48.91 Unspecified atrial fibrillation; Z86.73 Personal history of transient ischemic attack (TIA), and cerebral infarction without residual deficits; Z87.891 Personal history of nicotine dependence
CPT/HCPCS: 36415; 70450; 72125; 73000; 73030; 73060; 73562; 85610; 87635; 97162; 99284; 99285

== ENCOUNTER 2021-09-29 12:49 | Outpatient (REF) | payer OTHER, MEDICARE, SELFPAY | END 2021-09-29 12:50 | disposition home or self-care (01) | LOC: HO.HOSX 12:49 | PROVIDERS: Visit Provider Physician Assistant | DX: M89.8X1 Other specified disorders of bone, shoulder (principal) | CPT/HCPCS: 99202 ==

== ENCOUNTER 2021-10-26 12:37 | Outpatient (REF) | payer MEDICARE, SELFPAY ==
--- NOTE | ~2021-10-26 | XR_ITS ---
EXAMINATION: XR CLAVICLE, RIGHT CLINICAL INFORMATION: Fracture COMPARISON: Previous x-ray 09/16/2021 TECHNIQUE: 2 of the right clavicle. FINDINGS: There is a nondisplaced fracture of the distal clavicle. Fracture line appears more obscured suggestive of evidence of healing. Alignment is unchanged. There is mild arthritis at the acromioclavicular joint. XR/XR clavicle RT IMPRESSION: Healing right distal clavicle fracture.
== END 2021-10-26 12:38 | disposition home or self-care (01) ==
LOC: HO.HOSX 12:37
PROVIDERS: Visit Provider Physician Assistant
DX: M89.8X1 Other specified disorders of bone, shoulder (principal)
CPT/HCPCS: 73000

== ENCOUNTER → 2021-10-26 14:24 | Outpatient (BNVA) | payer MEDICARE, SELFPAY | PROVIDERS: PCP Internal Medicine; Visit Provider Physician Assistant | DX: M89.8X1 Other specified disorders of bone, shoulder (principal); S42.001D Fracture of unspecified part of right clavicle, subsequent encounter for fracture with routine healing; X58.XXXD Exposure to other specified factors, subsequent encounter | CPT/HCPCS: 99212 ==

== ENCOUNTER 2021-11-02 12:11 | Emergency (ER) | payer MEDICARE, SELFPAY ==
--- NOTE | ~2021-11-02 | CT_ITS ---
EXAMINATION: CT ABDOMEN AND PELVIS WITH CONTRAST CLINICAL INFORMATION: Left abdominal pain, constipation. COMPARISON: CT scan of the abdomen and pelvis dated 08/13/2021. TECHNIQUE: Multidetector volumetric images were obtained from the superior aspect of the liver through the pubic symphysis following administration 85 mL of Omnipaque 350 intravenous contrast. Sagittal and coronal reformatted images were obtained on the technologist's workstation. Oral contrast: No This CT examination was performed using dose optimization techniques as appropriate, variously including the following: *Automated exposure control *Adjustment of mA and/or kV according to patient size (this includes techniques or standardized protocols for targeted exams where dose is matched to indication/reason for exam; i.e. extremities or head) *Use of iterative reconstruction technique DLP: 968.32 mGy-cm FINDINGS: LUNG BASES: Chronic subpleural reticulonodular markings with innumerable tiny calcifications are again seen at the lung bases without significant change. No pleural or pericardial effusions. LIVER, GALLBLADDER, AND BILIARY TREE: Large calcified gallstone measuring up to 3.7 cm (image 37, series 3) with probable small gallstones and sludge. No significant mural thickening or pericholecystic fluid. PANCREAS: Unremarkable. SPLEEN: Unremarkable. Small splenule. ADRENAL GLANDS: Unremarkable. KIDNEYS AND URETERS: The kidneys are normal in size, shape, and attenuation. No hydronephrosis, hydroureter, or calculi seen. No perinephric stranding. BLADDER: Unremarkable. GASTROINTESTINAL TRACT: The stomach and small bowel unremarkable. No evidence for acute appendicitis. The colon shows mild to moderate stool distally to the rectum. Mild diverticulosis in the sigmoid colon. No surrounding abnormality. ABDOMINAL WALL: No significant hernia is appreciated. LYMPH NODES: No lymphadenopathy. VASCULAR: Unremarkable. PELVIC VISCERA: Unremarkable. OSSEOUS STRUCTURES: Moderate to severe multilevel degenerative changes in the thoracolumbar spine. CT/CT abdomen pelvis w con IMPRESSION: 1. Nonobstructive bowel gas pattern. Mild to moderate colonic stool burden and mild diverticulosis distally without surrounding abnormality. 2. Cholelithiasis without evidence for acute cholecystitis.
[2021-11-02 12:49] VITALS: BP 160/62; BP 176/100; PULSE 65; PULSE 68; RESP 16; TEMP 36.8; O2SAT 95; O2SAT 96; BMI 38.4
[2021-11-02 14:04] LABS: Appearance Urine Clear; Color Urine Yellow; Glucose Urine UA Negative (Negative); Leukocyte Esterase Urine Negative (Negative); Nitrite Urine Negative (Negative); PH 7.5 (5.0-8.0); Urine Blood Negative (Negative); Urine Ketones Negative (Negative); Urine Protein Negative (Neg-Trace)
[2021-11-02 14:33] LABS: MANUAL DIFF FLAG NO
[2021-11-02 14:36] LABS: Basophils Percent Auto 0.4 % (0-2); Eosinophils Absolute Auto 0.1 X10*3/uL (0.0-0.4); Eosinophils Percent Auto 1.6 % (0-4); Hematocrit 37.8 % (42.0-52.0); Hemoglobin 12.5 g/dl (14.0-18.0); Imm Gran Abs Auto 0.03 X10*3/uL (0.00-0.03); Imm Gran Pct Auto 0.4 % (0.0-0.4); Lymphocytes Absolute Auto 1.5 X10*3/uL (1.2-4.9); Lymphocytes Percent Auto 21.7 % (20-40); Mean Corpuscular HGB Conc 33.1 g/dl (31.0-36.0); Mean Corpuscular Hemoglobin 30.2 pg (27.0-33.0); Mean Corpuscular Volume 91.3 fL (80.0-98.0); Mean Platelet Volume 9.1 fL (9.4-12.4); Monocytes Absolute Auto 0.6 X10*3/uL (0.1-1.2); Monocytes Percent Auto 9.1 % (2-11); Neutrophils Absolute Auto 4.7 x10*3/uL (2.0-8.3); Neutrophils Percent Auto 66.8 % (45-73); Platelet Count 193 X10*3/uL (160-400); Red Blood Count 4.14 X10*6/uL (4.60-5.80); Red Cell Distribution Width 13.2 % (11.0-16.0)
[2021-11-02 14:51] LABS: Alanine Aminotransferase 19 U/L (0-40); Albumin Level 3.7 g/dL (3.5-5.0); Alkaline Phosphatase 111 U/L (39-117); Anion Gap 16 (12-20); Aspartate Amino Transferase 26 U/L (5-37); Bilirubin Total 0.4 mg/dL (0.0-1.0); Blood Urea Nitrogen 12 mg/dL (9-16); Calcium 8.6 mg/dL (8.4-10.2); Carbon Dioxide 26 mmol/L (22-29); Chloride 98 mmol/L (96-108); Creatinine Clr Calc Pharmacy 99.5; Estimated Glomerular Filt Rate > 60; Glucose Random 113 mg/dL (60-115); Sodium 135 mmol/L (135-145); Total Protein 6.5 g/dL (6.5-8.0)
[2021-11-02] MEDS: iohexoL 350 MG/ML 100 ML INFUS..BTL IV (15:08)
--- NOTE | 2021-11-02 16:37 | ED.GENADULT ---
HPI - General Adult General Chief complaint: General Medical Stated complaint: DIZZY,CONSTIPATION Time Seen by Provider: 11/02/21 13:06 Source: patient Mode of arrival: EMS Limitations: no limitations History of Present Illness HPI narrative: Patient presents emergency department for evaluation of constipation. He reports feeling constipated over the past 3 weeks or so. He does have in frequent small Hard/formed bowel movements. In addition he is having left-sided abdominal pain. He was seen by his doctor's office and was advised to increase his water and fiber intake. 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 He denies any nausea, vomiting, diarrhea, bloody or dark stools. Initial triage mentioned that patient had a fall few days ago and was also reporting dizziness upon transferring to the stretcher. He states that a few days ago he lost his balance scraping his buttock into the corner of the wall denies any head strike or loss of consciousness. He states that he chronically suffers from balance issues and dizziness with position change this is not new for him. Denies headache, vision changes, dizziness or lightheadedness at this time, chest pain, palpitations, shortness of breath, difficulty breathing, numbness or tingling of the extremities. Related Data Home Medications Medication Instructions Recorded Confirmed carbamazepine 200 mg tablet 400 mg PO TID 02/20/21 09/16/21 gabapentin 100 mg capsule 200 mg PO TID 02/20/21 09/16/21 levothyroxine 150 mcg tablet 150 mcg PO DAILY@0600 02/20/21 09/16/21 metoprolol succinate 25 mg 25 mg PO DAILY 02/20/21 09/16/21 tablet,extended release 24 hr sertraline 50 mg tablet 50 mg PO DAILY 02/20/21 09/16/21 warfarin 2 mg tablet 2 mg PO DAILY 02/20/21 09/16/21 warfarin 5 mg tablet 5 mg PO DAILY 02/20/21 09/16/21 amlodipine 10 mg tablet 1 tab PO DAILY 09/16/21 09/16/21 terazosin 5 mg capsule 5 mg PO DAILY 10/26/21 Previous Rx's Medication Instructions Recorded compr.stocking,knee,long,x-lrg #2 ea 05/13/21 compression socks, x-large #2 ea 05/13/21 polyethylene glycol 3350 17 17 g PO DAILY #119 grams 11/02/21 gram/dose oral powder (Miralax) Allergies Allergy/AdvReac Type Severity Reaction Status Date / Time No Known Allergies Allergy Verified 09/29/21 13:59 [No Known Allergies*] Review of Systems Review of Systems: Constitutional: No weight loss, fever, chills, weakness or fatigue. Skin: No rash or itching. Cardiovascular: No chest pain, chest pressure or chest discomfort. No palpitations or pedal edema. Respiratory: No shortness of breath, cough or sputum production. Gastrointestinal: No anorexia, nausea, vomiting or diarrhea. Positive abdominal pain. Positive constipation No blood in stool. Genitourinary: No burning micturition. No urinary frequency or incontinence. Musculoskeletal: No muscle pain, back pain, joint pain or stiffness. Psychiatric: No depression or anxiety. Yes all other systems are reviewed and are negative [facility] Past Medical History Attestation statement: The following information was validated with the patient. Source: old records reviewed Medical History A-fib CVA (cerebral vascular accident) HTN (hypertension) Hypothyroid Social History Social History Alcohol intake: never Patient Tobacco Use Status: Former Tobacco user Advance Directives: Yes Advance Directives on File: Yes Advance Directives Date on File: 09/16/21 Physical Exam ED Vital Signs: Vital Signs - 24 hr 11/02/21 12:49 11/02/21 17:02 Temperature 98.2 F Pulse Rate 68 66 Respiratory Rate 16 18 Blood Pressure 176/100 H 156/84 H Pulse Oximetry 96 97 Oxygen Delivery Method Room Air Room Air BMI result Body Mass Index 38.4 Appearance: Alert.?Oriented to person, place and time. No acute distress.?Normal affect. Eyes: Pupils equal, round and reactive to light.? ENT: Pharynx normal.?? Neck: Normal inspection.? Neck supple.?? CVS: Heart sounds normal. Normal heart rate and rhythm.? Pulses normal.?? Respiratory: No respiratory distress.? Lung sounds clear to auscultation bilaterally?? Abdomen: Semifirm, tenderness upon palpation to the left upper and left lower quadrant.. Normoactive bowel sounds. No pulsatile mass.?? Skin: Skin warm and dry.? Normal skin color.? ?? Extremities: No lower extremity edema.? Neuro: Moves all extremities spontaneously. Sensation intact bilaterally. No motor deficits. Ambulates with normal steady gait. Course Course Course Narrative: Patient is an 81-year-old male with a past medical history of atrial fibrillation on Coumadin, CVA, hypertension, hypothyroidism, volvulus who presents to the emergency department for evaluation of constipation. Will obtain CBC to evaluate for leukocytosis/ anemia, CMP to evaluate for abnormal electrolytes /abnormal renal function/ abnormal hepatic function, CT of the abdomen and pelvis to exclude intra-abdominal pathology/ obstruction/ impaction and Urinalysis. Reevaluation(s) Reevaluation #1: CBC reveals a normocytic anemia consistent with baseline. CMP is unremarkable. Urinalysis without evidence of hematuria or infection. CT of the abdomen and pelvis reveals a nonobstructive bowel gas pattern mild to moderate colonic stool burden. Reviewed these findings with patient, advised treatment with MiraLax he is currently using MiraLax but using only a tsp and not daily, keeping up with adequate hydration, outpatient follow-up with his primary care provider. Reviewed worrisome signs and symptoms to return back to the emergency department for. All questions were answered, and patient to be discharged back to [facility] via EMS in stable condition Time: 17:06 Medical Decision Making Medical Records Medical records reviewed: Yes I reviewed the patient's medical records. Lab Data Lab results reviewed: Yes I reviewed the patient's lab results. Result diagrams: 11/02/21 14:29 11/02/21 14:29 Labs: Lab Results 11/02/21 11/02/21 11/02/21 Range/Units 13:54 14:29 14:29 WBC 7.0 (4.8-10.8) X10*3/uL RBC 4.14 L (4.60-5.80) X10*6/uL Hgb 12.5 L (14.0-18.0) g/dl Hct 37.8 L (42.0-52.0) % MCV 91.3 (80.0-98.0) fL MCH 30.2 (27.0-33.0) pg MCHC 33.1 (31.0-36.0) g/dl RDW 13.2 (11.0-16.0) % Plt Count 193 (160-400) X10*3/uL MPV 9.1 L (9.4-12.4) fL Immature Gran % (Auto) 0.4 (0.0-0.4) % Neut % (Auto) 66.8 (45-73) % Lymph % (Auto) 21.7 (20-40) % [place] % (Auto) 9.1 (2-11) % Eos % (Auto) 1.6 (0-4) % Baso % (Auto) 0.4 (0-2) % Lymph # (Auto) 1.5 (1.2-4.9) X10*3/uL [place] # (Auto) 0.6 (0.1-1.2) X10*3/uL Eos # (Auto) 0.1 (0.0-0.4) X10*3/uL Baso # (Auto) 0.0 (0.0-0.2) X10*3/uL Abs Immat Gran (auto) 0.03 (0.00-0.03) X10*3/uL Absolute Neuts (auto) 4.7 (2.0-8.3) x10*3/uL Absolute Nucleated RBC 0.000 (0.0-0.012) X10*3/uL Nucleated RBC % (auto) 0.0 (0.0-0.2) /100WBC Sodium 135 (135-145) mmol/L Potassium 5.0 D (3.3-5.1) mmol/L Chloride 98 (96-108) mmol/L Carbon Dioxide 26 (22-29) mmol/L Anion Gap 16 (12-20) BUN 12 (9-16) mg/dL Creatinine 0.75 (0.5-1.4) mg/dL Estim Creat Clear Calc 99.5 Estimated GFR > 60 Random Glucose 113 (60-115) mg/dL Calcium 8.6 (8.4-10.2) mg/dL Total Bilirubin 0.4 (0.0-1.0) mg/dL AST 26 D (5-37) U/L ALT 19 (0-40) U/L Alkaline Phosphatase 111 (39-117) U/L Total Protein 6.5 (6.5-8.0) g/dL Albumin 3.7 (3.5-5.0) g/dL Urine Color Yellow Urine Appearance Clear Urine pH 7.5 (5.0-8.0) Ur Specific [place] 1.010 (1.005-1.025) Urine Protein Negative (Neg-Trace) mg/dL Urine Glucose (UA) Negative (Negative) mg/dL Urine Ketones Negative (Negative) mg/dL Urine Blood Negative (Negative) Urine Nitrite Negative (Negative) Ur Leukocyte Esterase Negative (Negative) Discharge Plan Discharge Clinical Impression: Constipation Patient Disposition: Home, Self-Care Instructions: Constipation (ED) Additional Instructions: Please use MiraLax as prescribed daily in 6-8 oz of water. Be sure that you are drinking adequate amounts of water throughout the day, atleast 8 cups. Continue to increase your fiber intake. Contact your primary care provider to arrange for a follow-up visit Within 1 week return to the emergency department any new or worsening symptoms or concerns. Prescriptions: New polyethylene glycol 3350 [Miralax] 17 gram/dose powder 17 g PO DAILY Qty: 119 0RF No Action (DME) compression socks, x-large Misc See Rx Instructions .Route Qty: 2 0RF Rx Instructions: As directed (DME) compr.stocking,knee,long,x-lrg Misc See Rx Instructions .Route Qty: 2 0RF Rx Instructions: As directed amlodipine 10 mg tablet 1 tab PO DAILY levothyroxine 150 mcg tablet 150 mcg PO DAILY@0600 gabapentin 100 mg capsule 200 mg PO TID warfarin 2 mg tablet 2 mg PO DAILY warfarin 5 mg tablet 5 mg PO DAILY sertraline 50 mg tablet 50 mg PO DAILY carbamazepine 200 mg tablet 400 mg PO TID metoprolol succinate 25 mg tablet extended release 24 hr 25 mg PO DAILY terazosin 5 mg capsule 5 mg PO DAILY Referrals: Tres Crum MD [Primary Care Provider] - 1 week
[2021-11-02 17:02] VITALS: BP 156/84; PULSE 66; RESP 18; O2SAT 97
--- NOTE | 2021-11-02 20:39 | PC.NURSE ---
CALL OUT TO [facility] @2033 FOR UPDATED ETA, [facility] WILL BE HERE WITHING THE HOUR
== END 2021-11-02 22:04 | disposition home or self-care (01) ==
PROVIDERS: Nurse Practitioner Family; Emergency Provider Emergency Medicine; PCP Internal Medicine
DX: K59.00 Constipation, unspecified (principal); R10.9 Unspecified abdominal pain; I10 Essential (primary) hypertension; I48.91 Unspecified atrial fibrillation; D64.9 Anemia, unspecified; Z79.01 Long term (current) use of anticoagulants
CPT/HCPCS: 36415; 74177; 80053; 81003; 85025; 99284; Q9967

== ENCOUNTER 2021-11-23 10:09 | Inpatient (IN) | payer MEDICARE, SELFPAY ==
[2021-11-23] VITALS (7 sets, daily range): BP systolic 126–175; BP diastolic 78–105; PULSE 30–96; RESP 18–26; TEMP 36.9–37.6; O2SAT 93–97; BMI 39.2
--- NOTE | ~2021-11-23 | CT_ITS ---
EXAMINATION: CT HEAD WITHOUT CONTRAST (STROKE PROTOCOL) CLINICAL INFORMATION: Stroke protocol. Weakness COMPARISON: CT brain 09/16/2021 TECHNIQUE: Contiguous axial imaging was performed from the skull base to vertex without intravenous administration of contrast. This CT examination was performed using dose optimization techniques as appropriate, variously including the following: *Automated exposure control *Adjustment of mA and/or kV according to patient size (this includes techniques or standardized protocols for targeted exams where dose is matched to indication/reason for exam; i.e. extremities or head) *Use of iterative reconstruction technique DLP: 788 mGy-cm FINDINGS: There is no acute intra-axial, extra-axial bleed, masses or midline shift. No acute infarction in evolution. There is no edema. The lateral ventricles are symmetrical in size and configuration without enlargement. The arita to white matter differentiation is maintained normal. Bone windows reveal no calvarial abnormality. There is no scalp soft tissue abnormality. The paranasal sinuses and mastoid air cells are well-aerated. CT/CT head for stroke IMPRESSION: No acute intracranial process seen. No major change from 09/16/2021 This critical result was discussed with Dr. Jung in ED by phone at 10:35 hours on 11/23/2021. It was ascertained that the content and urgency of the report was understood at the time of direct communication.
--- NOTE | ~2021-11-23 | XR_ITS ---
EXAMINATION: XR CHEST CLINICAL INFORMATION: Stroke symptoms COMPARISON: Chest CT 08/13/2021 TECHNIQUE: Frontal view of the chest was obtained. FINDINGS: Lung volumes are low. There is diffuse interstitial prominence that appears new/increased from the prior study 08/13/2021. Some chronic fibrotic changes are seen at the bases which were present previously. Tortuous aorta. Normal heart size. Sternal wires are present. There are degenerative changes of the shoulders and thoracic spine. XR/XR chest 1V IMPRESSION: Diffuse interstitial prominence appears new/increased from the prior study 08/13/2021. This could reflect pulmonary edema or bronchitis/interstitial pneumonitis. The findings are most pronounced in the left lung.
--- NOTE | ~2021-11-23 | CT_ITS ---
EXAMINATION: CTA OF THE HEAD AND NECK CLINICAL INFORMATION: Left-sided weakness. COMPARISON: Head CT acquired on 11/23/2021. TECHNIQUE: Test bolus sequences followed by intravenous administration 70 mL of Omnipaque 350. Helical imaging was performed in the axial plane from the mediastinum to the skull vertex. Delayed postcontrast imaging of the head was also performed. The data was processed at the staff cytotechnologist's workstation for generation of MIP sequences. Three-dimensional volume rendered reformatted images were also generated at an offline 3-D workstation. Stenoses are assessed in accordance with NASCET criteria unless otherwise indicated. This CT examination was performed using dose optimization techniques as appropriate, variously including the following: *Automated exposure control *Adjustment of mA and/or kV according to patient size (this includes techniques or standardized protocols for targeted exams where dose is matched to indication/reason for exam; i.e. extremities or head) *Use of iterative reconstruction technique DLP: 1662 mGy-cm FINDINGS: CTA NECK: The imaged aortic arch and origins of the great vessels are normal. The common carotid arteries are widely patent. The carotid bifurcations are normal. The cervical internal carotid arteries are normal. The vertebral arteries opacify normally and are of normal caliber. The left thyroid lobe is enlarged with substernal extension. The right thyroid lobe is not visible. Sternotomy wires in place. Moderate multilevel cervical spondylosis noted. There is thrombotic occlusion partially visualized in the left lower lobe main pulmonary artery. There is poor contrast opacification in the one of the right upper lobe segmental branches as well. Subsegmental atelectatic changes noted dependently in the left lung with a small layering pleural effusion. CTA HEAD: The intradural vertebral arteries and basilar artery are normal. There is [id number] stenotic narrowing in the proximal left posterior cerebral artery. The internal carotid arteries are of normal caliber. The GERARD and MCA vascular complexes bilaterally are patent with areas of mild stenotic narrowing, more so in the M1 segments of the MCA vasculature bilaterally. The venous sinuses opacify normally. There are stable small chronic-appearing bilateral hemispheric subdural collections which demonstrate mild heterogeneous enhancement. No mass effect or midline shift is seen. Left occipital craniectomy defect again noted. There is a poorly defined linear-nodular area of calcification along the cisternal segment of the left trigeminal nerve which remains stable compared to prior imaging, of indeterminate etiology. On the CTA portion of the examination, calcifications may correspond to ectatic venous vascularity. There is also question of asymmetric subtly increased soft tissue attenuation within the left internal auditory canal as compared to the right side which is of normal CSF density. Extensive chronic white matter microangiopathy again evident. Chronic infarct in the left basal ganglia with diffuse parenchymal volume loss. Severe chronic left maxillary sinus disease with atelectatic changes and proteinaceous secretions. CT/CT angio head neck stroke IMPRESSION: Partially visualized pulmonary embolism occluding the left lower lobe pulmonary artery. Additional potential embolic occlusion of one of the right upper lobe segmental branches as well. A dedicated CT angiogram of the chest is recommended in follow-up for further evaluation. Small suspected chronic bilateral hemispheric subdural collections with heterogeneous enhancement. No abnormal mass effect. Extensive chronic white matter microangiopathy. Chronic infarct in the left basal ganglia. Diffuse parenchymal volume loss. The possibility of a focal acute ischemic process cannot be ruled out on the basis of this study. Relatively normal CT angiogram of the neck targeting the carotid and vertebral artery vasculature. Mild atherosclerotic disease in the intracranial vasculature without high-grade stenosis or vessel occlusion. Chronic left maxillary sinus atelectasis with mucosal opacification. Nonemergent ENT consultation could be considered in follow-up to guide further management. Indeterminate poorly defined linear nodular area of calcification along the cisternal segment of the left trigeminal nerve which may be vascular in etiology. Additional perceived mild increased attenuation in the left internal auditory canal compared to the right side which may be artifactual or signify the presence of an underlying lesion. Left occipital craniectomy defect; correlate with prior surgical history. An MRI of the brain with and without contrast targeting the internal auditory canals could be obtained in follow-up for further evaluation, also to assess for any acute ischemia, if clinically warranted. Imaging findings discussed with Dr. Jung at 1:16PM on 11/23/2021.
--- NOTE | ~2021-11-23 | XR_ITS ---
EXAMINATION: XR PELVIS CLINICAL INFORMATION: Penile implant. COMPARISON: None TECHNIQUE: AP view of the pelvis. XR/XR pelvis 1-2V FINDINGS/IMPRESSION: Penile implant in place without overt abnormality. The visualized bony pelvis and hips are intact. No soft tissue abnormality.
--- NOTE | 2021-11-23 10:12 | ECG_ITS ---
Test Reason : weakness Blood Pressure : / mmHG Vent. Rate : 085 BPM Atrial Rate : 340 BPM P-R Int : 000 ms QRS Dur : 090 ms QT Int : 358 ms P-R-T Axes : 257 023 048 degrees QTc Int : 426 ms Atrial flutter with variable A-V block Abnormal ECG When compared with ECG of 14-AUG-2021 15:51, Atrial flutter has replaced Atrial fibrillation Vent. rate has increased BY 29 BPM Referred By: Chava Jung Electronically Signed By:DOREEN LAU
--- NOTE | 2021-11-23 10:21 | ED.NEUROSD ---
HPI - Neuro Symptoms/Deficit General Chief Complaint: Stroke Stated Complaint: STROKE LIKE SYMPTOMS, WEAKNESS Time Seen by Provider: 11/23/21 10:12 Source: patient and EMS Mode of arrival: EMS Limitations: no limitations History of Present Illness HPI Narrative: 81-year-old male came in for evaluation of left side weakness. Patient presented from assisted living nursing facility for evaluation of stroke, noted to have increase left facial droop (reportedly patient with normal left facial droop), but also noted to have left side body weakness, patient last known to be normal was last night however patient himself declined feeling any weakness or numbness, patient with history of atrial fibrillation is on Coumadin. Patient usually use right-sided Related Data Home Medications Medication Instructions Recorded Confirmed carbamazepine 200 mg tablet 400 mg PO TID 02/20/21 11/23/21 gabapentin 100 mg capsule 200 mg PO TID 02/20/21 11/23/21 levothyroxine 150 mcg tablet 150 mcg PO BEDTIME 02/20/21 11/23/21 metoprolol succinate 25 mg 25 mg PO BEDTIME 02/20/21 11/23/21 tablet,extended release 24 hr sertraline 50 mg tablet 50 mg PO BEDTIME 02/20/21 11/23/21 warfarin 2 mg tablet 2 mg PO DAILY 02/20/21 11/23/21 warfarin 5 mg tablet 5 mg PO DAILY 02/20/21 11/23/21 amlodipine 10 mg tablet 1 tab PO DAILY 09/16/21 11/23/21 terazosin 5 mg capsule 5 mg PO DAILY 10/26/21 11/23/21 docusate sodium 100 mg capsule 100 mg PO BID 11/23/21 11/23/21 simvastatin 40 mg tablet 1 tab PO DAILY 11/23/21 11/23/21 Previous Rx's Medication Instructions Recorded compr.stocking,knee,long,x-lrg #2 ea 05/13/21 compression socks, x-large #2 ea 05/13/21 Allergies Allergy/AdvReac Type Severity Reaction Status Date / Time No Known Allergies Allergy Verified 09/29/21 13:59 [No Known Allergies*] Review of Systems Review of Systems: All other systems are reviewed and are negative Constitutional: Reports as per HPI and Reports no additional constitutional complaints Eyes: Reports as per HPI and Reports no additional eye complaints Reports system reviewed and no additional complaints, except as documented Cardiovascular: Reports as per HPI and Reports no additional cardiovascular complaints Respiratory: Reports as per HPI and Reports no additional respiratory complaints Gastrointestinal: Reports as per HPI and Reports no additional gastrointestinal complaints Genitourinary: Reports no additional female genitourinary complaints Musculoskeletal: Reports no additional musculoskeletal complaints Skin/Breast: Reports system reviewed and no additional complaints, except as docu Psychiatric: Reports no additional psychiatric complaints Endocrine: Reports no additional endocrine complaints Hematologic/Lymphatic: Reports no additional hematologic/lymphatic complaints Allergic/Immunologic: Reports no additional allergic/immunologic complaints Reports system reviewed and no additional complaints, except as documented and Reports Abnormal speech present [facility] Past Medical History Medical History A-fib CVA (cerebral vascular accident) HTN (hypertension) Hypothyroid Social History Social History Alcohol intake: never Patient Tobacco Use Status: Former Tobacco user Use of substances other than those prescribed or required for medical reasons: No Advance Directives: Yes Advance Directives on File: Yes Advance Directives Date on File: 09/16/21 Physical Exam Vital Signs: Vital Signs: Last Vital Signs Temp 98.5 F 11/23/21 12:12 Pulse 83 11/23/21 14:13 Resp 26 H 11/23/21 14:13 BP 154/87 H 11/23/21 14:13 Pulse Ox 97 11/23/21 14:13 O2 Del Method 11/23/21 14:13 O2 Flow Rate 2 11/23/21 14:13 BMI result Body Mass Index 39.2 Vital signs have been reviewed as appeared to be correct. Blood pressure normal. Heart rate normal. Respiration rate normal. Temperature normal. Oxygen saturation normal. Appearance: Alert. Oriented X3. No acute distress. Head: Normal external exam. Normocephalic. Atraumatic. No Her signs noted. No raccoon eyes noted Eyes: PERRLA. EOMI. Conjunctiva and sclera normal. Eyelids normal. ENT: TM's Normal. Pharynx normal. Uvula midline. Moist mucous membranes. No trismus noted. No drooling noted. No muffled voice noted. Neck: Normal inspection. Neck supple. FROM. No adenopathy. Thyroid Normal. No meningeal signs. No neck mass noted. CVS: Normal heart rate and rhythm. Heart sound normal. No murmurs noted. Pulses normal throughout. Respiratory: No respiratory distress. Painless inspiration. Breath sounds normal. No wheezes/rales/rhonchi noted. Chest nontender. No accessory muscle usage noted or decreased air movement noted. Abdomen: Soft and nontender. Bowel sounds normal in all 4 quadrants. No distention noted. No organomegaly noted. No visible injury noted. Back: No CVA tenderness. Full range of motion noted. Skin: Skin warm and dry. Normal skin color. Normal skin turgor. No rashes/lesions/lacerations noted. Extremities: No lower extremity edema. Extremities exhibit normal range of motion. Extremities nontender. Neuro: Oriented X 3. Cranial nerve exam: II-XII are grossly intact No motor deficit. No sensory deficit. Reflexes normal. Course Course Course Narrative: 81-year-old male history of AFib is on Coumadin presented with left facial/left hemiparesis (mild) last known normal was last night symptoms was discovered in the morning by the nurse at the [facility] patient himself is not subjective to the symptoms, low NIH score of 3. 1. CVA with low NIH of unknown onset patient is not a candidate for tPA due to unknown onset of symptoms and anticoagulation therapy for atrial fibrillation, CT/CTA revealing no major cerebral vessel occlusion. 2. Patient noted to have an exertional dyspnea and tachypnea incidental finding of left pulmonary embolism on the CT of the neck. Patient is on Coumadin INR is sub therapeutic will start the patient on heparin IV drip will get a dedicated CTA of the chest. MDM - Neuro Symptoms/Deficit Lab Data Attestation: I reviewed the patient's lab results. Result diagrams: 11/23/21 14:31 11/23/21 10:34 Labs: Lab Results 11/23/21 11/23/21 11/23/21 Range/Units 10:23 10:25 10:34 WBC 12.5 H (4.8-10.8) X10*3/uL RBC 4.08 L (4.60-5.80) X10*6/uL Hgb 12.3 L (14.0-18.0) g/dl Hct 37.2 L (42.0-52.0) % MCV 91.2 (80.0-98.0) fL MCH 30.1 (27.0-33.0) pg MCHC 33.1 (31.0-36.0) g/dl RDW 13.3 (11.0-16.0) % Plt Count 209 (160-400) X10*3/uL MPV 9.2 L (9.4-12.4) fL Immature Gran % (Auto) 0.6 H (0.0-0.4) % Neut % (Auto) 77.7 H (45-73) % Lymph % (Auto) 10.9 L (20-40) % [place] % (Auto) 10.2 (2-11) % Eos % (Auto) 0.4 (0-4) % Baso % (Auto) 0.2 (0-2) % Lymph # (Auto) 1.4 (1.2-4.9) X10*3/uL [place] # (Auto) 1.3 H (0.1-1.2) X10*3/uL Eos # (Auto) 0.1 (0.0-0.4) X10*3/uL Baso # (Auto) 0.0 (0.0-0.2) X10*3/uL Abs Immat Gran (auto) 0.08 H (0.00-0.03) X10*3/uL Absolute Neuts (auto) 9.7 H (2.0-8.3) x10*3/uL Absolute Nucleated RBC 0.000 (0.0-0.012) X10*3/uL Nucleated RBC % (auto) 0.0 (0.0-0.2) /100WBC PT (10.0-13.1) SEC Whole Blood PT 14.2 H (11.1-13.5) sec INR (0.9-1.1) Whole Blood INR 1.2 H (0.9-1.1) APTT (26.0-36.4) SEC aPTT Heparin Protocol (53-77.9) SEC Sodium (135-145) mmol/L Potassium (3.3-5.1) mmol/L Chloride (96-108) mmol/L Carbon Dioxide (22-29) mmol/L Anion Gap (12-20) BUN (9-16) mg/dL Creatinine (0.5-1.4) mg/dL Estim Creat Clear Calc Estimated GFR POC Glucose 139 H (60-115) mg/dL Random Glucose (60-115) mg/dL Calcium (8.4-10.2) mg/dL Total Creatine Kinase (38-174) U/L Troponin I High Sens (<3.5-35.0) ng/L COVID-19 ([facility]) (Negative) COVID-19 Clin Com 11/23/21 11/23/21 11/23/21 Range/Units 10:34 10:34 10:34 WBC (4.8-10.8) X10*3/uL RBC (4.60-5.80) X10*6/uL Hgb (14.0-18.0) g/dl Hct (42.0-52.0) % MCV (80.0-98.0) fL MCH (27.0-33.0) pg MCHC (31.0-36.0) g/dl RDW (11.0-16.0) % Plt Count (160-400) X10*3/uL MPV (9.4-12.4) fL Immature Gran % (Auto) (0.0-0.4) % Neut % (Auto) (45-73) % Lymph % (Auto) (20-40) % [place] % (Auto) (2-11) % Eos % (Auto) (0-4) % Baso % (Auto) (0-2) % Lymph # (Auto) (1.2-4.9) X10*3/uL [place] # (Auto) (0.1-1.2) X10*3/uL Eos # (Auto) (0.0-0.4) X10*3/uL Baso # (Auto) (0.0-0.2) X10*3/uL Abs Immat Gran (auto) (0.00-0.03) X10*3/uL Absolute Neuts (auto) (2.0-8.3) x10*3/uL Absolute Nucleated RBC (0.0-0.012) X10*3/uL Nucleated RBC % (auto) (0.0-0.2) /100WBC PT 16.1 H (10.0-13.1) SEC Whole Blood PT (11.1-13.5) sec INR 1.4 H (0.9-1.1) Whole Blood INR (0.9-1.1) APTT 29.9 (26.0-36.4) SEC aPTT Heparin Protocol (53-77.9) SEC Sodium 136 (135-145) mmol/L Potassium 4.2 (3.3-5.1) mmol/L Chloride 100 (96-108) mmol/L Carbon Dioxide 25 (22-29) mmol/L Anion Gap 15 (12-20) BUN 13 (9-16) mg/dL Creatinine 0.80 (0.5-1.4) mg/dL Estim Creat Clear Calc 94.3 Estimated GFR > 60 POC Glucose (60-115) mg/dL Random Glucose 146 H (60-115) mg/dL Calcium 8.8 (8.4-10.2) mg/dL Total Creatine Kinase 35 L (38-174) U/L Troponin I High Sens 9.7 D (<3.5-35.0) ng/L COVID-19 ([facility]) (Negative) COVID-19 Clin Com 11/23/21 11/23/21 11/23/21 Range/Units 10:34 14:31 14:31 WBC 11.4 H (4.8-10.8) X10*3/uL RBC 3.82 L (4.60-5.80) X10*6/uL Hgb 11.4 L (14.0-18.0) g/dl Hct 34.8 L (42.0-52.0) % MCV 91.1 (80.0-98.0) fL MCH 29.8 (27.0-33.0) pg MCHC 32.8 (31.0-36.0) g/dl RDW 13.4 (11.0-16.0) % Plt Count 189 (160-400) X10*3/uL MPV 8.8 L (9.4-12.4) fL Immature Gran % (Auto) (0.0-0.4) % Neut % (Auto) (45-73) % Lymph % (Auto) (20-40) % [place] % (Auto) (2-11) % Eos % (Auto) (0-4) % Baso % (Auto) (0-2) % Lymph # (Auto) (1.2-4.9) X10*3/uL [place] # (Auto) (0.1-1.2) X10*3/uL Eos # (Auto) (0.0-0.4) X10*3/uL Baso # (Auto) (0.0-0.2) X10*3/uL Abs Immat Gran (auto) (0.00-0.03) X10*3/uL Absolute Neuts (auto) (2.0-8.3) x10*3/uL Absolute Nucleated RBC 0.000 (0.0-0.012) X10*3/uL Nucleated RBC % (auto) 0.0 (0.0-0.2) /100WBC PT 16.8 H (10.0-13.1) SEC Whole Blood PT (11.1-13.5) sec INR 1.4 H (0.9-1.1) Whole Blood INR (0.9-1.1) APTT (26.0-36.4) SEC aPTT Heparin Protocol 30.8 L (53-77.9) SEC Sodium (135-145) mmol/L Potassium (3.3-5.1) mmol/L Chloride (96-108) mmol/L Carbon Dioxide (22-29) mmol/L Anion Gap (12-20) BUN (9-16) mg/dL Creatinine (0.5-1.4) mg/dL Estim Creat Clear Calc Estimated GFR POC Glucose (60-115) mg/dL Random Glucose (60-115) mg/dL Calcium (8.4-10.2) mg/dL Total Creatine Kinase (38-174) U/L Troponin I High Sens (<3.5-35.0) ng/L COVID-19 ([facility]) Negative (Negative) COVID-19 Clin Com See Note Imaging Data CT scan - head: Attestation: I personally reviewed and interpreted this imaging study as follows: Radiologist's impression: No acute intracranial process seen. Chest x-ray: Attestation: I personally reviewed and interpreted this imaging study as follows: Radiologist's impression: Diffuse interstitial prominence appears new/increased from the prior study 08/13/2021. This could reflect pulmonary edema or bronchitis/interstitial pneumonitis. The findings are most pronounced in the left lung. ? CT angio head and neck: Attestation: I personally reviewed and interpreted this imaging study as follows: Radiologist's impression: Partially visualized pulmonary embolism occluding the left lower lobe pulmonary artery. Additional potential embolic occlusion of one of the right upper lobe segmental branches as well. A dedicated CT angiogram of the chest is recommended in follow-up for further evaluation. ? Small suspected chronic bilateral hemispheric subdural collections with heterogeneous enhancement. No abnormal mass effect. Extensive chronic white matter microangiopathy. Chronic infarct in the left basal ganglia. Diffuse parenchymal volume loss. The possibility of a focal acute ischemic process cannot be ruled out on the basis of this study. ? Relatively normal CT angiogram of the neck targeting the carotid and vertebral artery vasculature. ? Mild atherosclerotic disease in the intracranial vasculature without high-grade stenosis or vessel occlusion. ? Chronic left maxillary sinus atelectasis with mucosal opacification. Nonemergent ENT consultation could be considered in follow-up to guide further management. ? Indeterminate poorly defined linear nodular area of calcification along the cisternal segment of the left trigeminal nerve which may be vascular in etiology. ? Additional perceived mild increased attenuation in the left internal auditory canal compared to the right side which may be artifactual or signify the presence of an underlying lesion. Left occipital craniectomy defect; correlate with prior surgical history. An MRI of the brain with and without contrast targeting the internal auditory canals could be obtained in follow-up for further evaluation, also to assess for any acute ischemia, if clinically warranted. ? ECG Data Attestation: I personally reviewed and interpreted this ECG as follows: Interpretation: A flutter with variable AV block at rate of 85, normal axis deviation, no ischemic ST-T changes. NIH Stroke Scale Internal: Initial- Upon Arrival Time: 10:28 Level of Consciousness: Alert Level of Consciousness Questions: Answers both questions correctly Level of Consciousness Commands: Performs both tasks correctly Best Gaze: Normal Visual: No visual loss Facial Palsy: Normal Motor Arm (Right): No drift Motor Arm (Left): Drift Motor Leg (Right): No drift Motor Leg (Left): Drift Limb Ataxia: Absent Sensory: Normal Best Language: No aphasia Dysarthia: Normal Extinction and Inattention: No abnormality Score: 2 Discharge Plan Discharge Clinical Impression: Pulmonary embolism, Acute CVA (cerebrovascular accident) Patient Disposition: Admitted As Inpatient Prescriptions: No Action (DME) compression socks, x-large Misc See Rx Instructions .Route Qty: 2 0RF Rx Instructions: As directed (DME) compr.stocking,knee,long,x-lrg Misc See Rx Instructions .Route Qty: 2 0RF Rx Instructions: As directed amlodipine 10 mg tablet 1 tab PO DAILY simvastatin 40 mg tablet 1 tab PO DAILY docusate sodium 100 mg Capsule 100 mg PO BID levothyroxine 150 mcg tablet 150 mcg PO BEDTIME gabapentin 100 mg capsule 200 mg PO TID warfarin 2 mg tablet 2 mg PO DAILY warfarin 5 mg tablet 5 mg PO DAILY sertraline 50 mg tablet 50 mg PO BEDTIME carbamazepine 200 mg tablet 400 mg PO TID metoprolol succinate 25 mg tablet extended release 24 hr 25 mg PO BEDTIME terazosin 5 mg capsule 5 mg PO DAILY
[2021-11-23 10:28] LABS: Glucose, Whole Blood 139 mg/dL (60-115)
[2021-11-23 10:30] LABS: Prothrombin Time Whole Bld POC 14.2 sec (11.1-13.5); ~PT, ~INR - Anti Coag Clinic 1.2 (0.9-1.1)
[2021-11-23 10:42] LABS: Basophils Percent Auto 0.2 % (0-2); Eosinophils Absolute Auto 0.1 X10*3/uL (0.0-0.4); Eosinophils Percent Auto 0.4 % (0-4); Hematocrit 37.2 % (42.0-52.0); Hemoglobin 12.3 g/dl (14.0-18.0); Imm Gran Abs Auto 0.08 X10*3/uL (0.00-0.03); Imm Gran Pct Auto 0.6 % (0.0-0.4); Lymphocytes Absolute Auto 1.4 X10*3/uL (1.2-4.9); Lymphocytes Percent Auto 10.9 % (20-40); MANUAL DIFF FLAG NO; Mean Corpuscular HGB Conc 33.1 g/dl (31.0-36.0); Mean Corpuscular Hemoglobin 30.1 pg (27.0-33.0); Mean Corpuscular Volume 91.2 fL (80.0-98.0); Mean Platelet Volume 9.2 fL (9.4-12.4); Monocytes Absolute Auto 1.3 X10*3/uL (0.1-1.2); Monocytes Percent Auto 10.2 % (2-11); Neutrophils Absolute Auto 9.7 x10*3/uL (2.0-8.3); Neutrophils Percent Auto 77.7 % (45-73); Platelet Count 209 X10*3/uL (160-400); Red Blood Count 4.08 X10*6/uL (4.60-5.80); Red Cell Distribution Width 13.3 % (11.0-16.0); White Blood Count 12.5 X10*3/uL (4.8-10.8)
[2021-11-23 10:47] LABS: INTERNATIONAL NORM RATIO 1.4 (0.9-1.1); Prothrombin Time 16.1 SEC (10.0-13.1)
[2021-11-23 10:50] LABS: Partial Thromboplastin Time 29.9 SEC (26.0-36.4); Stroke Lab Use COMPLETE
[2021-11-23 10:57] LABS: Anion Gap 15 (12-20); Blood Urea Nitrogen 13 mg/dL (9-16); Calcium 8.8 mg/dL (8.4-10.2); Carbon Dioxide 25 mmol/L (22-29); Chloride 100 mmol/L (96-108); Creatinine Clr Calc Pharmacy 94.3; Estimated Glomerular Filt Rate > 60; Glucose Random 146 mg/dL (60-115); Potassium 4.2 mmol/L (3.3-5.1); Sodium 136 mmol/L (135-145)
[2021-11-23 11:04] LABS: Troponin-I High Sensitivity 9.7 ng/L (<3.5-35.0)
[2021-11-23] MEDS: 0.9 % Sodium Chloride 1,000 ML 999 ML IV ×2 (11:15→15:35)
[2021-11-23 11:28] LABS: COVID-19 Test Negative (Negative); IDNOW Serial# 08D9AD1C
[2021-11-23] MEDS: iohexoL 350 MG/ML 75 ML INFUS..BTL 70 ML IV (12:09)
[2021-11-23] MEDS: carBAMazepine ER 200 MG TAB.ER.12H 400 MG PO (13:14)
--- NOTE | 2021-11-23 13:16 | PHA.MEDREC ---
Pharmacy Consult ? Medication Reconciliation Pharmacy has completed the medication reconciliation. Pt had med list faxed from [facility], confirmed warfarin dosing with pt but he was a poor historian. According to claim history warfarin has not been picked up since August x 30 days. Pt insistent he takes both 5mg and 2mg.
[2021-11-23 14:38] LABS: Hematocrit 34.8 % (42.0-52.0); Hemoglobin 11.4 g/dl (14.0-18.0); Mean Corpuscular HGB Conc 32.8 g/dl (31.0-36.0); Mean Corpuscular Hemoglobin 29.8 pg (27.0-33.0); Mean Corpuscular Volume 91.1 fL (80.0-98.0); Mean Platelet Volume 8.8 fL (9.4-12.4); Platelet Count 189 X10*3/uL (160-400); Red Blood Count 3.82 X10*6/uL (4.60-5.80); Red Cell Distribution Width 13.4 % (11.0-16.0); White Blood Count 11.4 X10*3/uL (4.8-10.8)
[2021-11-23 14:43] LABS: INTERNATIONAL NORM RATIO 1.4 (0.9-1.1); Prothrombin Time 16.8 SEC (10.0-13.1)
[2021-11-23 14:46] LABS: PTT Heparin Drip 30.8 SEC (53-77.9)
[2021-11-23] MEDS: Heparin Sodium,Porcine 5,000 UNIT/ML VIAL 9600 UNIT IVPUSH (15:06)
[2021-11-23] MEDS: Heparin Sodium,Porcine/1/2NS 25,000 UNIT/250 ML IV.SOLN 16.84 UNIT IVCONT (15:27)
--- NOTE | 2021-11-23 15:30 | PC.NURSE ---
verbal order 1L NS IV at 1445 - hung at 1500. awaiting order in [place] from Dr. Jung
--- NOTE | 2021-11-23 16:51 | P.HPHOSP_ITS ---
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 therefore he was b rought in a stroke protocol in ER CT head showed no acute abnormality however CTA head and neck showed the patient has bilateral pulmonary embolism and multiple other abnormalities including small suspected chronic bilateral hemispheric subdural collection, extensive chronic white matter microangiopathy, chronic infarction in the left basal ganglia, diffuse parenchymal volume loss, possibility of focal acute ischemic process was not completely ruled out on the basis of this study, however patient had normal CT angiogram of the neck targeting the carotid and vertebral arteries there was no high-grade stenosis or vessel occlusion noted, left occipital craniectomy defect was noted as well as mild increased attenuation in the left internal auditory canal, as per patient and his daughter at bedside patient has chronic left-sided weakness as well as left facial droop since last 10 years and they were told is related to left- sided trigeminal neuralgia for which patient underwent multiple surgeries, patient patch left eye to avoid dryness, patient and daughter do not feel there is any worsening left-sided weakness . Patient complained of shortness of breath of 1 week duration denies assoc iated fever chills, patient denies headache lightheadedness dizziness he denies GI symptoms of nausea vomiting abdominal pain or diarrhea Patient in the emergency room placed on IV heparin drip since he was noted to have subtherapeutic INR 1.4 as per daughter patient is receiving his pills pre pack from the pharmacy since up until recently patient was either taking extra dosages or dropping pills. Patient is now being admitted to [facility] with a diagnosis of pulmonary embolism. 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 CVS no chest pain, no palpitation Respiratory shortness of breath, no cough GI no nausea no vomiting no urinary urgency or frequency Musculoskeletal left shoulder pain Yes all other systems are reviewed and are negative PMFSH Medical History A-fib CVA (cerebral vascular accident) HTN (hypertension) Hypothyroid Pertinent family history: No history of CVA in family Social History Alcohol intake: never Patient Tobacco Use Status: Former Tobacco user Use of substances other than those prescribed or required for medical reasons: No Advance Directives: Yes Advance Directives on File: Yes Advance Directives Date on File: 09/16/21 service: No Meds Allergies Allergy/AdvReac Type Severity Reaction Status Date / Time No Known Allergies Allergy Verified 09/29/21 13:59 [No Known Allergies*] Active Medications: Current Medications Amlodipine Besylate (Amlodipine Besylate 10 Mg Tablet) 10 mg PO DAILY [facility]; Protocol Atorvastatin Calcium (Atorvastatin Calcium 20 Mg Tablet) 20 mg PO DAILY SID Carbamazepine (Carbamazepine 200 Mg Tablet) 400 mg PO TID SID Docusate Sodium (Docusate Sodium 100 Mg Capsule) 100 mg PO BID SID Gabapentin (Gabapentin 100 Mg Capsule) 200 mg PO TID SID Heparin Sodium (Porcine) (Heparin Sodium,Porcine 5,000 Unit/Ml Vial) 4,800 unit 40 unit/kg (4800 unit) IVPUSH PROTOCOL BOLUS PRN; Protocol PRN Reason: 40 unit/kg - Heparin Protocol Heparin Sodium (Porcine) (Heparin Sodium,Porcine 5,000 Unit/Ml Vial) 9,600 unit 80 unit/kg (9600 unit) IVPUSH PROTOCOL BOLUS PRN; Protocol PRN Reason: 80 unit/kg - Heparin Protocol Heparin Sodium/Sodium Chloride (Heparin Sodium,Porcine/1/2ns) 25,000 unit in 250 mls @ 0 mls/hr IVCONT .Q0M SID; Protocol Last Admin: 11/23/21 15:27 Dose: 14 units/kg/hr, 16.84 mls/hr Levothyroxine Sodium (Levothyroxine Sodium 150 Mcg Tablet) 150 mcg PO BEDTIME SID Metoprolol Succinate (Metoprolol Succinate Er 25 Mg Tab.Er.24h) 25 mg PO BEDTIME SID; Protocol Non-Formulary Medication (Terazosin) 5 mg PO DAILY [facility] Pharmacy Consult (Consult Rx Perform Med Rec) 1 each MISCELLANE ONCE PRN PRN Reason: Consult order Sertraline HCl (Sertraline Hcl 50 Mg Tablet) 50 mg PO BEDTIME [facility] Sodium Chloride (0.9 % Sodium Chloride Flush 3 Ml Syringe) 3 ml IVFLUSH QSHIFT [facility] Warfarin Sodium (Warfarin Sodium 2 Mg Tablet) 2 mg PO DAILY [facility] Home Medications Medication Instructions Recorded Confirmed Last Taken Type carbamazepine 200 mg tablet 400 mg PO TID 02/20/21 11/23/21 Unknown History gabapentin 100 mg capsule 200 mg PO TID 02/20/21 11/23/21 09/16/21 History levothyroxine 150 mcg tablet 150 mcg PO BEDTIME 02/20/21 11/23/21 09/16/21 History metoprolol succinate 25 mg 25 mg PO BEDTIME 02/20/21 11/23/21 09/16/21 History tablet,extended release 24 hr sertraline 50 mg tablet 50 mg PO BEDTIME 02/20/21 11/23/21 09/16/21 History warfarin 2 mg tablet 2 mg PO DAILY 02/20/21 11/23/21 09/16/21 History warfarin 5 mg tablet 5 mg PO DAILY 02/20/21 11/23/21 09/16/21 History amlodipine 10 mg tablet 1 tab PO DAILY 09/16/21 11/23/21 09/16/21 History terazosin 5 mg capsule 5 mg PO DAILY 10/26/21 11/23/21 Unknown History docusate sodium 100 mg capsule 100 mg PO BID 11/23/21 11/23/21 Unknown History simvastatin 40 mg tablet 1 tab PO DAILY 11/23/21 11/23/21 Unknown History Physical Exam Vital Signs and Narrative: Vital Signs: Last Vital Signs Temp 98.5 F 11/23/21 12:12 Pulse 83 11/23/21 15:33 Resp 26 H 11/23/21 15:33 BP 175/91 H 11/23/21 15:33 Pulse Ox 96 11/23/21 15:33 O2 Del Method 11/23/21 15:33 O2 Flow Rate 2 11/23/21 14:13 BMI result Body Mass Index 39.2 Const: Other: General awake alert resting comfortably in no acute distress. Left eye patch in place/right eye pupils equal and reactive Neck no JVD. CVS irregular rate rhythm, Respiratory lungs coarse breath sounds,no respiratory distress, no wheeze, no rhonchi. Gastrointestinal abdomen soft, nontender, obese, bowel sounds audible, no guard ing , no rigidity. Extremities bilateral pitting edema left greater than right with chronic venous stasis changes. Neuro left facial droop, mild left-sided weakness , speech clear. Unable to raise left arm due to left shoulder rotator cuff injury, tongue with small raised area right-sided, no bleeding, nontender Psych appropriate affect Results Labs CBC and Chem 7: 11/24/21 04:50 11/23/21 10:34 Labs: Laboratory Results - last 24 hr 11/23/21 11/23/21 11/23/21 10:23 10:25 10:34 MCV 91.2 MCH 30.1 MCHC 33.1 RDW 13.3 Plt Count 209 MPV 9.2 L Immature Gran % (Auto) 0.6 H Neut % (Auto) 77.7 H Lymph % (Auto) 10.9 L Mills % (Auto) 10.2 Eos % (Auto) 0.4 Baso % (Auto) 0.2 Lymph # (Auto) 1.4 Mills # (Auto) 1.3 H Eos # (Auto) 0.1 Baso # (Auto) 0.0 Abs Immat Gran (auto) 0.08 H Absolute Neuts (auto) 9.7 H Absolute Nucleated RBC 0.000 Nucleated RBC % (auto) 0.0 PT Whole Blood PT 14.2 H INR Whole Blood INR 1.2 H APTT aPTT Heparin Protocol Anion Gap Estim Creat Clear Calc Estimated GFR POC Glucose 139 H Random Glucose Calcium Total Creatine Kinase COVID-19 ([facility]) COVID-19 Clin Com 11/23/21 11/23/21 11/23/21 10:34 10:34 10:34 MCV MCH MCHC RDW Plt Count MPV Immature Gran % (Auto) Neut % (Auto) Lymph % (Auto) Mills % (Auto) Eos % (Auto) Baso % (Auto) Lymph # (Auto) Mills # (Auto) Eos # (Auto) Baso # (Auto) Abs Immat Gran (auto) Absolute Neuts (auto) Absolute Nucleated RBC Nucleated RBC % (auto) PT 16.1 H Whole Blood PT INR 1.4 H Whole Blood INR APTT 29.9 aPTT Heparin Protocol Anion Gap 15 Estim Creat Clear Calc 94.3 Estimated GFR > 60 POC Glucose Random Glucose 146 H Calcium 8.8 Total Creatine Kinase 35 L COVID-19 ([facility]) Negative COVID-19 Clin Com See Note 11/23/21 11/23/21 14:31 14:31 MCV 91.1 MCH 29.8 MCHC 32.8 RDW 13.4 Plt Count 189 MPV 8.8 L Immature Gran % (Auto) Neut % (Auto) Lymph % (Auto) Mills % (Auto) Eos % (Auto) Baso % (Auto) Lymph # (Auto) Mills # (Auto) Eos # (Auto) Baso # (Auto) Abs Immat Gran (auto) Absolute Neuts (auto) Absolute Nucleated RBC 0.000 Nucleated RBC % (auto) 0.0 PT 16.8 H Whole Blood PT INR 1.4 H Whole Blood INR APTT aPTT Heparin Protocol 30.8 L Anion Gap Estim Creat Clear Calc Estimated GFR POC Glucose Random Glucose Calcium Total Creatine Kinase COVID-19 ([facility]) COVID-19 Clin Com Imaging Radiologist's Impressions: Impressions Head CT 11/23/21 10:19 IMPRESSION: No acute intracranial process seen. No major change from 09/16/2021 This critical result was discussed with Dr. Jung in ED by phone at 10:35 hours on 11/23/2021. It was ascertained that the content and urgency of the report was understood at the time of direct communication. Chest X-Ray 11/23/21 10:59 IMPRESSION: Diffuse interstitial prominence appears new/increased from the prior study 08/13/2021. This could reflect pulmonary edema or bronchitis/interstitial pneumonitis. The findings are most pronounced in the left lung. Head/Neck CTA 11/23/21 12:09 IMPRESSION: Partially visualized pulmonary embolism occluding the left lower lobe pulmonary artery. Additional potential embolic occlusion of one of the right upper lobe segmental branches as well. A dedicated CT angiogram of the chest is recommended in follow-up for further evaluation. Small suspected chronic bilateral hemispheric subdural collections with heterogeneous enhancement. No abnormal mass effect. Extensive chronic white matter microangiopathy. Chronic infarct in the left basal ganglia. Diffuse parenchymal volume loss. The possibility of a focal acute ischemic process cannot be ruled out on the basis of this study. Relatively normal CT angiogram of the neck targeting the carotid and vertebral artery vasculature. Mild atherosclerotic disease in the intracranial vasculature without high-grade stenosis or vessel occlusion. Chronic left maxillary sinus atelectasis with mucosal opacification. Nonemergent ENT consultation could be considered in follow-up to guide further management. Indeterminate poorly defined linear nodular area of calcification along the cisternal segment of the left trigeminal nerve which may be vascular in etiology. Additional perceived mild increased attenuation in the left internal auditory canal compared to the right side which may be artifactual or signify the presence of an underlying lesion. Left occipital craniectomy defect; correlate with prior surgical history. An MRI of the brain with and without contrast targeting the internal auditory canals could be obtained in follow-up for further evaluation, also to assess for any acute ischemia, if clinically warranted. Imaging findings discussed with Dr. Jung at 1:16PM on 11/23/2021. 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 Chronic Left-sided weakness As per patient and daughter patient has chronic left-sided weakness and left facial droop, with no recent worsening Patient and family not aware of prior CVA they felt symptoms are related to left-sided trigeminal neuralgia CT head showed no acute stroke Will obtain neuro consultation for further recommendation Continue IV heparin for now due to PE /need good blood pressure and cholesterol control Will check lipid profile at a.m. History of recurrent falls ambulate with walker and use wheelchair will obtain PT eval Bilateral acute PE Noted on CTA head and neck Subtherapeutic Coumadin continue IV heparin drip adjust dose of Coumadin for INR between 2 and 3 Obtain lower extremity Doppler study rule out DVT Obtain echocardiogram to check for right heart strain History of trigeminal neuralgia No acute pain Chronic persistent atrial fibrillation rate control Continue beta-blockers, Coumadin and IV heparin follow INR Hyperlipidemia continue statin Hypothyroidism continue Synthroid check TSH Hypertension elevated blood pressure continue home medication follow BP closely and adjust home meds Code status full code DVT prophylaxis IV heparin Patient will need two night inpatient stay due to acute bilateral PE on IV heparin and also for further workup of chronic left-sided weakness. Quality Stroke Does the patient have a stroke diagnosis?: No VTE Prior VTE?: No VTE Risk Level:: Medical - moderate - high VTE Device Contraindication: Treatment Not Indicated VTE Drug Contraindication: N/A - Med Ordered
--- NOTE | 2021-11-23 17:19 | MHC.STROKE ---
I VERIFIED WITH RN'S LETICIA THAT PATIENT PASSED SWALLOW SCREEN AT 1310 PRIOR TO PO, ALTHOUGH HE DID GAG ON HIS DENTURES BECAUSE THEY ARE LOOSE FITTING.
--- NOTE | 2021-11-23 18:28 | PC.NURSE ---
contact made to pharmacy. Per krys Meek to hold warfarin secondary to heparin gtt.
--- NOTE | 2021-11-23 20:01 | PC.NURSE ---
Per Gaviota from pharmacy: Give warfarin per gregorio
[2021-11-23] MEDS: Gabapentin 100 MG CAPSULE 200 MG PO (20:34)
[2021-11-23] MEDS: Docusate Sodium 100 MG CAPSULE PO (20:34)
[2021-11-23] MEDS: Warfarin Sodium 5 MG TABLET PO (20:34)
[2021-11-23] MEDS: Warfarin Sodium 2 MG TABLET PO (20:35)
[2021-11-23] MEDS: Metoprolol Succinate ER 25 MG TAB.ER.24H PO (20:36)
[2021-11-23] MEDS: Levothyroxine Sodium 150 MCG TABLET PO (20:36)
[2021-11-23] MEDS: Sertraline HCL 50 MG TABLET PO (20:36)
[2021-11-23] MEDS: carBAMazepine 200 MG TABLET 400 MG PO (20:41)
[2021-11-23 21:10] LABS: PTT Heparin Drip 99.3 SEC (53-77.9)
[2021-11-24] VITALS (7 sets, daily range): BP systolic 124–178; BP diastolic 70–94; PULSE 81–91; RESP 18–25; TEMP 36.3–37.7; O2SAT 92–97
--- NOTE | 2021-11-24 01:02 | PC.NURSE ---
Addendum entered by Belkys Peralta 11/24/21 01:04: correction normal sinus at 93 Original Note: pt is currently asleep, respirations even and unlabored, denies pain at this time, sinus tach on the monitor at 110
--- NOTE | 2021-11-24 04:15 | PC.NURSE ---
pt pulled out his iv, another iv started in the right wrist area, pt slightly restless keeps calling out for a urinal but not voiding, bladder scan performed and 133ml in the bladder, pt finally voided 25ml
[2021-11-24 04:56] LABS: Hematocrit 33.9 % (42.0-52.0); Hemoglobin 11.2 g/dl (14.0-18.0); Mean Corpuscular Hemoglobin 29.9 pg (27.0-33.0); Mean Corpuscular Volume 90.4 fL (80.0-98.0); Platelet Count 190 X10*3/uL (160-400); Red Blood Count 3.75 X10*6/uL (4.60-5.80); Red Cell Distribution Width 13.2 % (11.0-16.0); White Blood Count 9.8 X10*3/uL (4.8-10.8)
[2021-11-24 05:08] LABS: INTERNATIONAL NORM RATIO 1.8 (0.9-1.1); Prothrombin Time 21.7 SEC (10.0-13.1)
[2021-11-24 05:17] LABS: Cholesterol 165 mg/dL; HDL Cholesterol 51 mg/dL; LDL Cholesterol Calculated 95 mg/dl; Triglycerides 99 mg/dL
[2021-11-24] MEDS: Heparin Sodium,Porcine 5,000 UNIT/ML VIAL 4800 UNIT IVPUSH (05:20)
[2021-11-24] MEDS: Heparin Sodium,Porcine/1/2NS 25,000 UNIT/250 ML IV.SOLN 13.23 UNIT IVCONT (05:21)
--- NOTE | 2021-11-24 05:21 | PC.NURSE ---
pt's heparin drip increased from 11uintes to 13 unites for low ptt of 45.0, for some reason the titration documentations appears as the bag ended, while documenting the computer created another column and the drip rate was incorrect at 11 unites. pump is defiantly running at 13unites
[2021-11-24 05:36] LABS: Thyroid Stimulating Hormone 1.35 uIU/mL (0.32-4.0)
--- NOTE | 2021-11-24 07:00 | CA_ITS ---
Transthoracic Echocardiogram Patient (Last, First, Middle): Abelardo Stone P Gender: Male Date of : 1940 Age: 81 Procedure Date: 11/24/2021 Procedure Type: Transthoracic Echocardiogram Location: ER Height: 175.26 cm Weight: 120.2 kg BSA: 2.33 m2 Heart Rate: bpm BP: 155 / 83 mmHg Starch Crab: SB Referring MD: Calin Lo MD Frame Bender: Mauro Shepherd MD Symptoms: PE right-sided strain Study Quality: Technically Difficult/Contrast/Scanned HOB up ECG Rhythm: Atrial Fibrillation Conclusions: - 1. Technically limited study despite use of contrast agent 2. Hyperdynamic LV systolic function with mild asymmetric septal hypertrophy 3. Moderately dilated left atrium 4. Fibrocalcific aortic valve changes noted and mitral calcification noted with normal cardiac valvular Doppler 5. Normal RV systolic pressure with no evidence of right heart strain Findings Procedure Information Contrast agent, definity, is being given per protocol without apparent complications. Left Ventricle The left ventricle was not well visualized. Normal left ventricular cavity size. There is normal left ventricular wall thickness. The visually estimated ejection fraction is >70%. Diastolic function is indeterminate on the basis of available data. There is mild septal asymmetric hypertrophy. Right Ventricle Normal right ventricular cavity size. There is normal right ventricular systolic function. Atria The left atrium is moderately dilated. Interatrial shunt cannot be excluded. The right atrium was not well visualized. Aortic Valve The aortic valve was not well visualized. There is mild calcification of the aortic valve. There is no aortic valve stenosis. There is no aortic valve regurgitation. Mitral Valve There is mild anterior and moderate posterior mitral leaflet thickening. There is mild mitral annular calcification. There is trace mitral valve regurgitation. There is no mitral valve stenosis. Pulmonic Valve The pulmonic valve was not well visualized. Tricuspid Valve The tricuspid valve was not well visualized. There is trace tricuspid valve regurgitation. The right ventricular systolic pressure is normal. The right ventricular systolic pressure is 26 mmHg. Normal right atrial pressure. There is no evidence of pulmonary hypertension. Great Vessels All visible segments of the aorta are normal in size. The pulmonary artery was not well visualized. Venous The inferior vena cava is normal in size. Pericardium/Pleural The pericardium was not well visualized. Prior Study Comparison No prior study available for comparison. Measurements 2D Linear Measurements IVSd: 0.70 0.6-0.9/0.6-1.0 cm LVIDd: 5.11 3.9-5.3/4.2-5.9 cm LVIDd Index: 2.19 2.4-3.2/2.2-3.1 cm/m2 LVIDs: 3.79 2.0-3.6 cm LVPWd: 0.68 0.7-1.1 cm LA Diam: 4.50 2.7-3.8/3.0-4.0 cm LAIDs Index: 1.93 1.5-2.3 cm/m2 LV Mass: 145.52 67-162/88-224 g LV Mass Index: 62.46 43-95/49-115 g/m2 LVOT Diam: 2.30 3.0+(-)1.3 cm 2D Systolic Function EF 4C: 88.30 >55% EF 2C: 54.40 >55% EF BiP: 76.40 >55% Mitral Valve MV Pk E: 1.09 E'Lateral: 11.10 E'Medial: 7.33 E/E' Med: 14.90 E/E' Lat: 9.80 Aortic Valve AoV Pk Harley: 1.75 AoV Mn Harley: 1.15 AoV VTI: 0.26 AoV Pk Grad: 12.00 Aov Mn Grad: 6.00 EULA Cont.VTI: 3.02 LVOT LVOT Pk Harley: 1.12 LVOT Mn Harley: 0.79 LVOT VTI: 0.19 LVOT Pk Grad: 5.00 LVOT Mn Grad: 3.00 LVOT Diam: 2.30 LVOT Area: 4.15 Diastolic Function MV Pk E: 1.09 E'Medial: 7.33 E/E' Med: 14.90 E' Laterial: 11.10 E/E' Lat: 9.80 Right Ventricle TAPSE (mm): 28.10 TVS' Harley: 15.30 Tricuspid Valve TR Pk Harley: 2.41 TR Pk Grad: 23.00 RA Press: 3.00 RVSP: 26.00 Great Vessels Aorta Sinus of Valsalva: 3.70 2.0-3.5 cm Ao Asc: 3.90 2.1-3.4 cm Pulmonary Valve PV Pk Harley: 0.87 Peak PV Grad: 3.00 Updated in Other Vendor System with Status of Final Mauro Shepherd MD electronically signed on 11/24/2021 11:46:00 AM with status of Final
[2021-11-24] MEDS: 0.9 % Sodium Chloride Flush 3 ML SYRINGE IVFLUSH ×2 (09:11→16:09)
[2021-11-24] MEDS: carBAMazepine 200 MG TABLET 400 MG PO ×3 (09:11→22:28)
[2021-11-24] MEDS: Gabapentin 100 MG CAPSULE 200 MG PO ×3 (09:13→21:25)
[2021-11-24] MEDS: Docusate Sodium 100 MG CAPSULE PO ×2 (09:14→21:25)
[2021-11-24] MEDS: Doxazosin Mesylate 2 MG TABLET 4 MG PO (09:15)
[2021-11-24] MEDS: Atorvastatin Calcium 20 MG TABLET PO (09:17)
[2021-11-24] MEDS: amLODIPine Besylate 10 MG TABLET PO (09:17)
--- NOTE | 2021-11-24 09:19 | PC.NURSE ---
patient a/ox3 . right eye pearrla . left eye taped shut r/t pain 5/10 and yamileth deficit as requested by patient . heart rate regular at 96 beats . lungs diminished , patient on 2 liters via nasal canulla . requires 2 assist to use bedside commode . patient uses [id number] at bedside . skin pink warm and dry . patient obese . abdomen soft , non distended . positive bowel sounds throughout . patient worked with PT this AM . patient has upper and lower bilateral strength . patient aware of plan of care .
--- NOTE | 2021-11-24 10:10 | PC.NURSE ---
Heprin bag changed continued at 13u/kg/hr at a dosing weight of 120.3 kg and a total volume of 250 ml . patient aware of plan of care .
--- NOTE | 2021-11-24 10:30 | PC.NURSE ---
bedside echocardiogram is being done. .
--- NOTE | 2021-11-24 11:43 | PC.NURSE ---
Soledad HILLMAN . from [facility] updated on plan of care for patient
[2021-11-24 12:04] LABS: PTT Heparin Drip 56.9 SEC (53-77.9)
--- NOTE | 2021-11-24 12:44 | PC.NURSE ---
pt's daughter sarthak ([phone]) called [facility] and was updated on pt's status. pt's daughter states that the pt has never had a cva he has trigeminal neuralgia for 25yrs now. pt's daughter feels that the admitting md is more focused on this that.
--- NOTE | 2021-11-24 12:51 | MHC.CM.PN ---
met with pt in ed pt from [facility] where he has help with cleani ng and meals pt is [facility] peralta he plans on returning to [place] when [facility] according to ptcarla has a van that can transpotrt hime
--- NOTE | 2021-11-24 13:24 | PM.NEUROCN ---
History of Present Illness Data of Consult Service Date: 11/24/21 Primary Care Provider: Tres Crum MD [facility] Reason for consult: Possible stroke 81 years old man who came to hospital with confusion and shortness of breath and was diagnosed with pulmonary embolism. He also had brain imaging that revealed multiple findings and this consultation was requested. When I saw him he was comfortable but could not elaborate why he came to hospital stated that an embolus brought him. Review of Systems Review of Systems: Could not be reliably done [facility] Past Medical History Medical History A-fib CVA (cerebral vascular accident) HTN (hypertension) Hypothyroid Social History Social History Alcohol intake: never Patient Tobacco Use Status: Former Tobacco user Use of substances other than those prescribed or required for medical reasons: No Advance Directives: Yes Advance Directives on File: Yes Advance Directives Date on File: 09/16/21 service: No Meds Allergies Allergy/AdvReac Type Severity Reaction Status Date / Time No Known Allergies Allergy Verified 09/29/21 13:59 [No Known Allergies*] Active Medications: Current Medications Amlodipine Besylate (Amlodipine Besylate 10 Mg Tablet) 10 mg PO DAILY [facility]; Protocol Last Admin: 11/24/21 09:17 Dose: 10 mg Atorvastatin Calcium (Atorvastatin Calcium 20 Mg Tablet) 20 mg PO DAILY [facility] Last Admin: 11/24/21 09:17 Dose: 20 mg Carbamazepine (Carbamazepine 200 Mg Tablet) 400 mg PO TID [facility] Last Admin: 11/24/21 09:11 Dose: 400 mg Docusate Sodium (Docusate Sodium 100 Mg Capsule) 100 mg PO BID [facility] Last Admin: 11/24/21 09:14 Dose: 100 mg Doxazosin Mesylate (Doxazosin Mesylate 2 Mg Tablet) 4 mg PO DAILY [facility] Last Admin: 11/24/21 09:15 Dose: 4 mg Gabapentin (Gabapentin 100 Mg Capsule) 200 mg PO TID [facility] Last Admin: 11/24/21 09:13 Dose: 200 mg Heparin Sodium (Porcine) (Heparin Sodium,Porcine 5,000 Unit/Ml Vial) 4,800 unit 40 unit/kg (4800 unit) IVPUSH PROTOCOL BOLUS PRN; Protocol PRN Reason: 40 unit/kg - Heparin Protocol Last Admin: 11/24/21 05:20 Dose: 4,800 unit Heparin Sodium (Porcine) (Heparin Sodium,Porcine 5,000 Unit/Ml Vial) 9,600 unit 80 unit/kg (9600 unit) IVPUSH PROTOCOL BOLUS PRN; Protocol PRN Reason: 80 unit/kg - Heparin Protocol Heparin Sodium/Sodium Chloride (Heparin Sodium,Porcine/1/2ns) 25,000 unit in 250 mls @ 0 mls/hr IVCONT .Q0M [facility]; Protocol Last Titration: 11/24/21 05:21 Dose: 13 units/kg/hr, 16 mls/hr Levothyroxine Sodium (Levothyroxine Sodium 150 Mcg Tablet) 150 mcg PO BEDTIME [facility] Last Admin: 11/23/21 20:36 Dose: 150 mcg Metoprolol Succinate (Metoprolol Succinate Er 25 Mg Tab.Er.24h) 25 mg PO BEDTIME [facility]; Protocol Last Admin: 11/23/21 20:36 Dose: 25 mg Pharmacy Consult (Consult Rx Perform Med Rec) 1 each MISCELLANE ONCE PRN PRN Reason: Consult order Sertraline HCl (Sertraline Hcl 50 Mg Tablet) 50 mg PO BEDTIME [facility] Last Admin: 11/23/21 20:36 Dose: 50 mg Sodium Chloride (0.9 % Sodium Chloride Flush 3 Ml Syringe) 3 ml IVFLUSH QSHIFT [facility] Last Admin: 11/24/21 09:11 Dose: 3 ml Warfarin Sodium (Warfarin Sodium 2 Mg Tablet) 2 mg PO DAILY@1800 [facility] Last Admin: 11/23/21 20:35 Dose: 2 mg Warfarin Sodium (Warfarin Sodium 5 Mg Tablet) 5 mg PO DAILY@1800 [facility] Last Admin: 11/23/21 20:34 Dose: 5 mg Home Medications Medication Instructions Recorded Confirmed Last Taken Type carbamazepine 200 mg tablet 400 mg PO TID 02/20/21 11/23/21 Unknown History gabapentin 100 mg capsule 200 mg PO TID 02/20/21 11/23/21 09/16/21 History levothyroxine 150 mcg tablet 150 mcg PO BEDTIME 02/20/21 11/23/21 09/16/21 History metoprolol succinate 25 mg 25 mg PO BEDTIME 02/20/21 11/23/21 09/16/21 History tablet,extended release 24 hr sertraline 50 mg tablet 50 mg PO BEDTIME 02/20/21 11/23/2109/16/22 History warfarin 2 mg tablet 2 mg PO DAILY 02/20/21 11/23/21 09/16/21 History warfarin 5 mg tablet 5 mg PO DAILY 02/20/21 11/23/21 09/16/21 History amlodipine 10 mg tablet 1 tab PO DAILY 09/16/21 11/23/21 09/16/21 History terazosin 5 mg capsule 5 mg PO DAILY 10/26/21 11/23/21 Unknown History docusate sodium 100 mg capsule 100 mg PO BID 11/23/21 11/23/21 Unknown History simvastatin 40 mg tablet 1 tab PO DAILY 11/23/21 11/23/21 Unknown History Physical Exam Vital Signs: Vital Signs: Last Vital Signs Temp 98.1 F 11/24/21 11:57 Pulse 83 11/24/21 11:57 Resp 19 11/24/21 11:57 BP 132/80 11/24/21 11:57 Pulse Ox 93 11/24/21 11:57 O2 Del Method 11/24/21 11:57 O2 Flow Rate 2 11/24/21 07:49 BMI result Body Mass Index 39.2 Neuro: Other: He was alert and awake with normal spontaneity of speech fluency comprehension and affect. Pupils were equal and reactive to light and extraocular muscles were intact. Visual kiser are full to threat. Face was symmetrical. Tongue was midline. There was no pronator drift. Deep tendon reflexes were absent with flat plantars. Scaly hyperpigmented rash was noted in legs. Results Labs CBC & Chem 7: 11/24/21 04:50 11/23/21 10:34 Labs: Short CBC 11/23/21 11/24/21 Range/Units 14:31 04:50 WBC 11.4 H 9.8 (4.8-10.8) X10*3/uL Hgb 11.4 L 11.2 L (14.0-18.0) g/dl Hct 34.8 L 33.9 L (42.0-52.0) % Plt Count 189 190 (160-400) X10*3/uL CT and CTA of brain and neck revealed multiple findings. There was no vascular lesion. Chronic microvascular disease and significant atrophy was noted. There was also evidence of miles bilateral cortical subdural fluid collection with mixed densities. Left cerebellopontine angle area also revealed some abnormality. Assessment and Plan (1) Acute CVA (cerebrovascular accident): Status: Acute 81 years old man with multiple findings on brain imaging though there was no obvious acute lesion. There was finding of some subdural fluid collection, probably chronic. There was also a left trigeminal/CP angle area lesion, probably asymptomatic. There was significant atrophy and chronic microvascular ischemic changes. Exact etiology of all that was unclear. I would agree with radiologist and we should obtain MRI of brain with and without contrast for better definition. Procedures Date of Service Date of Service: 11/24/21
--- NOTE | 2021-11-24 14:25 | PC.NURSE ---
dr perkins at bedside, pt aware of plan of care. pt is sitting on the side of the bed eating his lunch. pt to go to mri.
--- NOTE | 2021-11-24 14:44 | PC.NURSE ---
DR. Lo hospitalist at bedside order to hold Heprin drip while patient gets MRI . patient aware of plan care .
--- NOTE | 2021-11-24 15:11 | P.PNIM_ITS ---
Subjective Subjective Date of Service: 11/24/21 Interval History: Offers no acute complaints, complaining of cough at times productive of yellow phlegm, complaining of persistent shortness of breath, denies headache lightheadedness dizziness worsening left-sided weakness no change in speech, denies facial pain denies fever chills, no acute overnight events Review of Systems Review of Systems: Yes all other systems are reviewed and are negative Physical Exam Vital Signs: Vital Signs: Last Vital Signs Temp 98.1 F 11/24/21 11:57 Pulse 91 11/24/21 14:22 Resp 25 H 11/24/21 14:22 BP 124/70 11/24/21 14:22 Pulse Ox 94 11/24/21 14:22 O2 Del Method 11/24/21 14:22 O2 Flow Rate 2 11/24/21 14:22 BMI result Body Mass Index 39.2 Const: Other: General awake alert resting comfortably in no acute distress. Left eye patch in place/right eye pupils equal and reactive Neck no JVD. CVS irregular rate rhythm, Respiratory lungs coarse breath sounds,no respiratory distress, no wheeze, no rhonchi. Gastrointestinal abdomen soft, nontender, obese, bowel sounds audible, no guarding , no rigidity. Extremities bilateral pitting edema left greater than right with chronic venous stasis changes. Neuro left facial droop, mild left-sided weakness , speech clear.? Unable to raise left arm due to left shoulder rotator cuff injury, tongue with small raised area right-sided, no bleeding, nontender Psych appropriate affect Objective Data Active Medications Amlodipine Besylate (Amlodipine Besylate 10 Mg Tablet) 10 mg PO DAILY [facility]; Protocol Last Admin: 11/24/21 09:17 Dose: 10 mg Documented By: MERA Atorvastatin Calcium (Atorvastatin Calcium 20 Mg Tablet) 20 mg PO DAILY [facility] Last Admin: 11/24/21 09:17 Dose: 20 mg Documented By: MERA Carbamazepine (Carbamazepine 200 Mg Tablet) 400 mg PO TID [facility] Last Admin: 11/24/21 14:42 Dose: 400 mg Documented By: MERA Docusate Sodium (Docusate Sodium 100 Mg Capsule) 100 mg PO BID [facility] Last Admin: 11/24/21 09:14 Dose: 100 mg Documented By: MERA Doxazosin Mesylate (Doxazosin Mesylate 2 Mg Tablet) 4 mg PO DAILY [facility] Last Admin: 11/24/21 09:15 Dose: 4 mg Documented By: MERA Gabapentin (Gabapentin 100 Mg Capsule) 200 mg PO TID [facility] Last Admin: 11/24/21 14:42 Dose: 200 mg Documented By: MERA Heparin Sodium (Porcine) (Heparin Sodium,Porcine 5,000 Unit/Ml Vial) 4,800 unit 40 unit/kg (4800 unit) IVPUSH PROTOCOL BOLUS PRN; Protocol PRN Reason: 40 unit/kg - Heparin Protocol Last Admin: 11/24/21 05:20 Dose: 4,800 unit Documented By: SANDEEP Heparin Sodium (Porcine) (Heparin Sodium,Porcine 5,000 Unit/Ml Vial) 9,600 unit 80 unit/kg (9600 unit) IVPUSH PROTOCOL BOLUS PRN; Protocol PRN Reason: 80 unit/kg - Heparin Protocol Heparin Sodium/Sodium Chloride (Heparin Sodium,Porcine/1/2ns) 25,000 unit in 250 mls @ 0 mls/hr IVCONT .Q0M [facility]; Protocol Last Titration: 11/24/21 05:21 Dose: 13 units/kg/hr, 16 mls/hr Documented By: SANDEEP Co-signed By: YOSEF Levothyroxine Sodium (Levothyroxine Sodium 150 Mcg Tablet) 150 mcg PO BEDTIME [facility] Last Admin: 11/23/21 20:36 Dose: 150 mcg Documented By: GLO Metoprolol Succinate (Metoprolol Succinate Er 25 Mg Tab.Er.24h) 25 mg PO BEDTIME [facility]; Protocol Last Admin: 11/23/21 20:36 Dose: 25 mg Documented By: GLO Pharmacy Consult (Consult Rx Perform Med Rec) 1 each MISCELLANE ONCE PRN PRN Reason: Consult order Sertraline HCl (Sertraline Hcl 50 Mg Tablet) 50 mg PO BEDTIME [facility] Last Admin: 11/23/21 20:36 Dose: 50 mg Documented By: GLO Sodium Chloride (0.9 % Sodium Chloride Flush 3 Ml Syringe) 3 ml IVFLUSH QSHIFT [facility] Last Admin: 11/24/21 09:11 Dose: 3 ml Documented By: MERA Warfarin Sodium (Warfarin Sodium 2 Mg Tablet) 2 mg PO DAILY@1800 [facility] Last Admin: 09/12/22 20:35 Dose: 2 mg Documented By: GLO Warfarin Sodium (Warfarin Sodium 5 Mg Tablet) 5 mg PO DAILY@1800 [facility] Last Admin: 11/23/21 20:34 Dose: 5 mg Documented By: GLO Labs CBC & Chem 7: 11/24/21 04:50 11/23/21 10:34 Labs: Laboratory Results - last 24 hr 11/23/21 11/24/21 11/24/21 20:41 04:50 04:50 MCV 90.4 MCH 29.9 MCHC 33.0 RDW 13.2 Plt Count 190 MPV 9.0 L Absolute Nucleated RBC 0.000 Nucleated RBC % (auto) 0.0 PT 21.7 H INR 1.8 H aPTT Heparin Protocol 99.3 H D Triglycerides Cholesterol LDL Cholesterol, Calc HDL Cholesterol TSH 11/24/21 11/24/21 11/24/21 04:50 04:50 11:45 MCV MCH MCHC RDW Plt Count MPV Absolute Nucleated RBC Nucleated RBC % (auto) PT INR aPTT Heparin Protocol 45.0 L D 56.9 D Triglycerides 99 Cholesterol 165 LDL Cholesterol, Calc 95 HDL Cholesterol 51 TSH 1.35 Assessment and Plan (1) Pulmonary embolism: Status: Acute Plan 81-year-old gentleman resident of independent living at [facility] sent to [facility] for 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 Chronic Left-sided weakness has chronic left-sided weakness and left facial droop, with no recent worsening Patient and family not aware of prior CVA they felt symptoms are related to left-sided trigeminal neuralgia CT head showed no acute stroke Patient seen by Dr. Bartlett he recommend MRI study to follow-up on multiple abnormalities on CT head Continue IV heparin for now due to PE /need good blood pressure and cholesterol control LDL 95, total cholesterol 165 HDL 51 Will check lipid profile at a.m. History of recurrent falls ambulate with walker and use wheelchair seen by PT they recommend short-term rehab versus home with services depending on hospital course and progress Bilateral acute PE Noted on CTA head and neck Subtherapeutic Coumadin continue IV heparin drip adjust dose of Coumadin for INR between 2 and 3 echocardiogram showed moderately dilated left atrium, hyperdynamic left systolic function fibrocalcific aortic valve normal right ventricular systolic pressure with no evidence of right heart strain History of trigeminal neuralgia No acute pain Chronic persistent atrial fibrillation rate control Continue beta-blockers, Coumadin INR 1.8 and continue IV heparin till INR therapeutic Hyperlipidemia continue statin Hypothyroidism continue Synthroid , TSH 1.35 Hypertension better blood pressure control today continue home medication metoprolol 25 mg, amlodipine 10 mg daily, elevated blood pressure on admission likely due to noncompliance Code status full code DVT prophylaxis IV heparin Patient will need continued inpatient stay due to acute bilateral PE on IV heparin and also for further workup of chronic left-sided weakness. Quality Stroke Does the patient have a stroke diagnosis?: No VTE Prior VTE?: No VTE Risk Level:: Medical - moderate - high VTE Device Contraindication: Treatment Not Indicated VTE Drug Contraindication: N/A - Med Ordered
--- NOTE | 2021-11-24 16:46 | PC.NURSE ---
Dr Cornelius Child hospitalist contacted in regards to cardiac monitoring for MRI . No need for monitoring during MRI . patient aware of plan o9f care
--- NOTE | 2021-11-24 16:48 | PC.NURSE ---
patient attempting to get undressed and out of bed . Patient pulled up and repositioned in bed . patient aware of plan of care for MRI tonight .
[2021-11-24] MEDS: Warfarin Sodium 2 MG TABLET PO (18:11)
[2021-11-24 18:24] LABS: PTT Heparin Drip 68.6 SEC (53-77.9)
[2021-11-24] MEDS: Warfarin Sodium 5 MG TABLET PO (18:44)
[2021-11-24] MEDS: Metoprolol Succinate ER 25 MG TAB.ER.24H PO (21:25)
[2021-11-24] MEDS: Sertraline HCL 50 MG TABLET PO (21:25)
--- NOTE | 2021-11-24 21:31 | PC.NURSE ---
bedtime meds given. pt resting comfortably on stretcher. no current complaints. heparin drip running at 13u/kg/hr. call [facility] within reach. will continue to monitor
[2021-11-24] MEDS: Levothyroxine Sodium 150 MCG TABLET PO (22:27)
[2021-11-25 00:58] LABS: PTT Heparin Drip 75.6 SEC (53-77.9)
[2021-11-25] MEDS: Heparin Sodium,Porcine/1/2NS 25,000 UNIT/250 ML IV.SOLN 16 UNIT IVCONT (02:05)
[2021-11-25 03:15] VITALS: BP 151/96; PULSE 78; RESP 20; TEMP 36.2; O2SAT 94
[2021-11-25 07:15] LABS: INTERNATIONAL NORM RATIO 3.8 (0.9-1.1); Prothrombin Time 46.3 SEC (10.0-13.1)
[2021-11-25 07:17] LABS: PTT Heparin Drip 67.7 SEC (53-77.9)
[2021-11-25 07:26] VITALS: BP 167/96; PULSE 83; RESP 20; TEMP 36.2; O2SAT 98
[2021-11-25] MEDS: Doxazosin Mesylate 2 MG TABLET 4 MG PO (09:46)
[2021-11-25] MEDS: amLODIPine Besylate 10 MG TABLET PO (09:47)
[2021-11-25] MEDS: Docusate Sodium 100 MG CAPSULE PO ×2 (09:47→20:06)
[2021-11-25] MEDS: carBAMazepine 200 MG TABLET 400 MG PO ×3 (09:47→20:07)
[2021-11-25] MEDS: Atorvastatin Calcium 20 MG TABLET PO (09:47)
[2021-11-25] MEDS: Gabapentin 100 MG CAPSULE 200 MG PO ×3 (09:47→20:07)
--- NOTE | 2021-11-25 10:04 | P.PNIM_ITS ---
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 Left eye patch in place/right eye pupils equal and reactive Neck no JVD. Anterior chest wall midline scar CVS irregular rate rhythm, Respiratory lungs coarse breath sounds,no respiratory distress, no wheeze, no rhonchi. Gastrointestinal abdomen soft, nontender, obese, bowel sounds audible, no guarding , no rigidity. Extremities edema resolved, chronic venous stasis changes. Neuro left facial droop, mild left-sided weakness , speech clear.? Unable to raise left arm due to left shoulder rotator cuff injury, tongue with small raised area right-sided, no bleeding, nontender Psych appropriate affect Objective Data Active Medications Amlodipine Besylate (Amlodipine Besylate 10 Mg Tablet) 10 mg PO DAILY [facility]; Protocol Last Admin: 11/25/21 09:47 Dose: 10 mg Documented By: PROSPER Atorvastatin Calcium (Atorvastatin Calcium 20 Mg Tablet) 20 mg PO DAILY [facility] Last Admin: 11/25/21 09:47 Dose: 20 mg Documented By: PROSPER Carbamazepine (Carbamazepine 200 Mg Tablet) 400 mg PO TID [facility] Last Admin: 11/25/21 09:47 Dose: 400 mg Documented By: PROSPER Docusate Sodium (Docusate Sodium 100 Mg Capsule) 100 mg PO BID [facility] Last Admin: 11/25/21 09:47 Dose: 100 mg Documented By: PROSPER Doxazosin Mesylate (Doxazosin Mesylate 2 Mg Tablet) 4 mg PO DAILY [facility] Last Admin: 11/25/21 09:46 Dose: 4 mg Documented By: PROSPER Gabapentin (Gabapentin 100 Mg Capsule) 200 mg PO TID [facility] Last Admin: 11/25/21 09:47 Dose: 200 mg Documented By: PROSPER Levothyroxine Sodium (Levothyroxine Sodium 150 Mcg Tablet) 150 mcg PO BEDTIME [facility] Last Admin: 11/24/21 22:27 Dose: 150 mcg Documented By: ARUNA Metoprolol Succinate (Metoprolol Succinate Er 25 Mg Tab.Er.24h) 25 mg PO BEDTIME [facility]; Protocol Last Admin: 11/24/21 21:25 Dose: 25 mg Documented By: ARUNA Pharmacy Consult (Consult Rx Perform Med Rec) 1 each MISCELLANE ONCE PRN PRN Reason: Consult order Sertraline HCl (Sertraline Hcl 50 Mg Tablet) 50 mg PO BEDTIME [facility] Last Admin: 11/24/21 21:25 Dose: 50 mg Documented By: ARUNA Sodium Chloride (0.9 % Sodium Chloride Flush 3 Ml Syringe) 3 ml IVFLUSH QSHIFT [facility] Last Admin: 11/25/21 07:44 Dose: Not Given Documented By: VERONICA Non-Admin Reason: IV Running Warfarin Sodium (Warfarin Sodium 5 Mg Tablet) 5 mg PO DAILY@1800 [facility] Last Admin: 11/24/21 18:44 Dose: 5 mg Documented By: GLO Labs CBC & Chem 7: 11/24/21 04:50 11/23/21 10:34 Labs: Laboratory Results - last 24 hr 11/24/21 11/24/21 11/25/21 11:45 18:09 00:46 PT INR aPTT Heparin Protocol 56.9 D 68.6 D 75.6 11/25/21 11/25/21 06:44 06:44 PT 46.3 H INR 3.8 H D aPTT Heparin Protocol 67.7 Assessment and Plan (1) Pulmonary embolism: Status: Acute Plan 81-year-old gentleman resident of independent living at [facility] sent to [facility] 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 Chronic Left-sided weakness No new neurological symptoms has chronic left-sided weakness and left facial droop, with no recent worsening Patient and family not aware of prior CVA they felt symptoms are related to left-sided trigeminal neuralgia CT head showed no acute stroke seen by Dr. 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 History of recurrent falls ambulate with walker and use wheelchair at baseline seen by PT they recommend short-term rehab versus home with services depending on hospital course and progress Bilateral acute PE Noted on CTA head and neck Subtherapeutic Coumadin on admission placed on IV heparin now INR bumped to 3.8 will DC IV heparin drip and hold Coumadin follow INR at a.m. and adjust dose of Coumadin, with for INR between 2 and 3 echocardiogram showed moderately dilated left atrium, hyperdynamic left systolic function fibrocalcific aortic valve normal right ventricular systolic pressure with no evidence of right heart strain Shortness of breath likely due to PE and bronchitis as shown on chest x-ray, no evidence of sepsis tachycardia, tachypnea likely due to PE Will add cough medication and by mouth doxycycline to cover bronchitis. History of trigeminal neuralgia No acute pain Chronic persistent atrial fibrillation rate control Continue beta-blockers, Coumadin INR 3.8 dc IV heparin follow PT INR and resume Coumadin Hyperlipidemia continue statin Hypothyroidism continue Synthroid , TSH 1.35 Hypertension better blood pressure control today continue home medication metoprolol 25 mg, amlodipine 10 mg daily, elevated blood pressure on admission likely due to noncompliance Code status full code DVT prophylaxis IV heparin Patient will need continued inpatient stay due to acute bilateral PE on IV heparin and also for further workup of chronic left-sided weakness. Quality Stroke Does the patient have a stroke diagnosis?: No VTE Prior VTE?: No VTE Risk Level:: Medical - moderate - high VTE Device Contraindication: Treatment Not Indicated VTE Drug Contraindication: N/A - Med Ordered
[2021-11-25 11:52] VITALS: BP 125/77; PULSE 85; RESP 20; TEMP 36.1; O2SAT 95
--- NOTE | 2021-11-25 13:43 | P.CDIC_ITS ---
CDI Concurrent Query Documentation Clarification: PHYSICIAN'S DOCUMENTATION REQUEST Date of Query: 11/25/21 1428 Patient Name: Abelardo Stone Admit Date: 11/23/21 Dear Doctor, A review of the medical record indicates additional documentation may be needed. Please review below and update the documentation accordingly. Clinical Indicators: Is there a diagnosis that correlates with the findings below: Risk Factors/Clinical Indicators/Treatments BMI: 39.2 Height: 5ft 9n Weight: 120.3kg If possible, please provide an associated diagnosis related to the abnormal BMI, such as: BMI: * Overweight * Obesity * Due to excess calories * Drug induced * Due to other cause * Severe or Morbid Obesity Or: * BMI is not significant * Other (please specify) * Unable to determine Use of terms such as suspected, likely, concern for, or probable (associated with a specific diagnosis that is being evaluated, monitored, or treated as if it exists) are acceptable and can be coded in the inpatient setting, when documented at the time of discharge. Thank you, Maribel Bangura MS, RN, CCRN Extension: [phone] Please use your independent medical judgment in providing your response. THIS QUERY IS PART OF THE PERMANENT MEDICAL RECORD Provider Response: Other Other Diagnosis: morbid obesity
--- NOTE | 2021-11-25 15:06 | PC.NURSE ---
report given to [facility] [place]
[2021-11-25] MEDS: guaiFENesin DM 100/10/5 ML 5 ML SYRUP 10 ML PO ×2 (15:50→20:06)
[2021-11-25] MEDS: 0.9 % Sodium Chloride Flush 3 ML SYRINGE IVFLUSH ×2 (15:51→20:07)
[2021-11-25 16:00] VITALS: BP 134/89; PULSE 74; RESP 18; TEMP 36.4; O2SAT 99
[2021-11-25 19:44] VITALS: BP 148/84; PULSE 84; RESP 20; TEMP 36.9; O2SAT 99
[2021-11-25] MEDS: Levothyroxine Sodium 150 MCG TABLET PO (20:07)
[2021-11-25] MEDS: Sertraline HCL 50 MG TABLET PO (20:07)
[2021-11-25] MEDS: Metoprolol Succinate ER 25 MG TAB.ER.24H PO (20:07)
[2021-11-25 23:32] VITALS: BP 128/67; PULSE 75; RESP 20; TEMP 36.2; O2SAT 98
[2021-11-26 02:00] VITALS: BP 181/85; PULSE 86; RESP 20; TEMP 36.4; O2SAT 95
[2021-11-26 08:00] VITALS: BP 163/79; PULSE 84; RESP 20; TEMP 36.6; O2SAT 98
[2021-11-26] MEDS: carBAMazepine 200 MG TABLET 400 MG PO ×3 (09:20→21:37)
[2021-11-26] MEDS: 0.9 % Sodium Chloride Flush 3 ML SYRINGE IVFLUSH ×3 (09:21→21:38)
[2021-11-26] MEDS: Gabapentin 100 MG CAPSULE 200 MG PO ×3 (09:21→21:37)
[2021-11-26] MEDS: Doxazosin Mesylate 2 MG TABLET 4 MG PO (09:22)
[2021-11-26] MEDS: amLODIPine Besylate 10 MG TABLET PO (09:22)
[2021-11-26] MEDS: Docusate Sodium 100 MG CAPSULE PO ×2 (09:22→21:37)
[2021-11-26] MEDS: Atorvastatin Calcium 20 MG TABLET PO (09:22)
[2021-11-26 09:29] LABS: INTERNATIONAL NORM RATIO 3.7 (0.9-1.1); Prothrombin Time 45.4 SEC (10.0-13.1)
[2021-11-26 11:39] VITALS: BP 130/78; PULSE 75; RESP 20; TEMP 36.3; O2SAT 97
--- NOTE | 2021-11-26 14:12 | HO.PM.IMPN ---
Subjective Subjective Date of Service: 11/26/21 Interval History: No acute issues overnight Review of Systems Denies chest pain Denies shortness of breath Denies nausea vomiting diarrhea Denies fever chills Physical Exam Vital Signs: Vital Signs: Last Vital Signs Temp 97.4 F 11/26/21 11:39 Pulse 75 11/26/21 11:39 Resp 20 11/26/21 11:39 BP 130/78 11/26/21 11:39 Pulse Ox 97 11/26/21 11:39 O2 Del Method 11/26/21 11:39 O2 Flow Rate 3 11/26/21 11:39 BMI result Body Mass Index 39.2 Const: Other: No acute distress Resp: Other: Clear to auscultation bilaterally no rales rhonchi or wheezes Cardio: Other: No S4; positive S1-S2; no S3 murmurs rubs or gallops GI: Other: Soft nontender nondistended normoactive bowel sounds Extrem: Other: No edema bilaterally Objective Data Active Medications Amlodipine Besylate (Amlodipine Besylate 10 Mg Tablet) 10 mg PO DAILY [facility]; Protocol Last Admin: 11/26/21 09:22 Dose: 10 mg Documented By: AUNG Atorvastatin Calcium (Atorvastatin Calcium 20 Mg Tablet) 20 mg PO DAILY [facility] Last Admin: 11/26/21 09:22 Dose: 20 mg Documented By: AUNG Carbamazepine (Carbamazepine 200 Mg Tablet) 400 mg PO TID [facility] Last Admin: 11/26/21 09:20 Dose: 400 mg Documented By: AUNG Docusate Sodium (Docusate Sodium 100 Mg Capsule) 100 mg PO BID [facility] Last Admin: 11/26/21 09:22 Dose: 100 mg Documented By: AUNG Doxazosin Mesylate (Doxazosin Mesylate 2 Mg Tablet) 4 mg PO DAILY [facility] Last Admin: 11/26/21 09:22 Dose: 4 mg Documented By: AUNG Doxycycline Hyclate (Doxycycline Hyclate 100 Mg Tablet) 100 mg PO BID [facility] Stop: 11/29/21 21:01 Last Admin: 11/26/21 09:22 Dose: 100 mg Documented By: AUNG Gabapentin (Gabapentin 100 Mg Capsule) 200 mg PO TID [facility] Last Admin: 11/26/21 09:21 Dose: 200 mg Documented By: AUNG Guaifenesin/Dextromethorphan (Guaifenesin Dm 100/10/5 Ml 5 Ml Syrup) 10 ml PO TID [facility] Last Admin: 11/26/21 09:21 Dose: Not Given Documented By: AUNG Non-Admin Reason: Patient Refused Levothyroxine Sodium (Levothyroxine Sodium 150 Mcg Tablet) 150 mcg PO BEDTIME [facility] Last Admin: 11/25/21 20:07 Dose: 150 mcg Documented By: ESSENCE Metoprolol Succinate (Metoprolol Succinate Er 25 Mg Tab.Er.24h) 25 mg PO BEDTIME [facility]; Protocol Last Admin: 11/25/21 20:07 Dose: 25 mg Documented By: ESSENCE Pharmacy Consult (Consult Rx Perform Med Rec) 1 each MISCELLANE ONCE PRN PRN Reason: Consult order Sertraline HCl (Sertraline Hcl 50 Mg Tablet) 50 mg PO BEDTIME [facility] Last Admin: 11/25/21 20:07 Dose: 50 mg Documented By: SESENCE Sodium Chloride (0.9 % Sodium Chloride Flush 3 Ml Syringe) 3 ml IVFLUSH QSHIFT [facility] Last Admin: 11/26/21 09:21 Dose: 3 ml Documented By: AUNG Warfarin Sodium (Warfarin Sodium 5 Mg Tablet) 5 mg PO DAILY@1800 [facility] Last Admin: 11/24/21 18:44 Dose: 5 mg Documented By: GLO Labs CBC & Chem 7: 11/24/21 04:50 11/23/21 10:34 Labs: Laboratory Results - last 24 hr 11/26/21 08:00 PT 45.4 H INR 3.7 H Assessment and Plan (1) Acute CVA (cerebrovascular accident): Status: Acute (2) A-fib: Status: Acute (3) Pulmonary embolism: Status: Acute Plan 81-year-old gentleman resident of independent living at [facility] sent to [place] [facility] for decreased by mouth intake 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 1.CVA -neurology recommends MRI to further delineate CT findings however unsure if this is possible with implant -discuss with Neurology 2Bilateral acute PE -Coumadin therapeutic; heparin D seed -daily INRs to keep INR between 2 and 3 3.Chronic persistent atrial fibrillation -rate control adequate -continue current therapies adjust as indicated -INR 2-3 4.Hypertension -acceptable control on current therapies -adjust as indicated Code status full code DVT prophylaxis IV heparin Patient will need continued inpatient stay due to acute bilateral PE on IV heparin and also for further workup of chronic left-sided weakness. Quality Stroke Does the patient have a stroke diagnosis?: No VTE Prior VTE?: No VTE Risk Level:: Medical - moderate - high VTE Device Contraindication: Treatment Not Indicated VTE Drug Contraindication: N/A - Med Ordered
[2021-11-26 15:12] VITALS: BP 109/59; PULSE 74; RESP 18; TEMP 36.3; O2SAT 97
[2021-11-26] MEDS: Warfarin Sodium 5 MG TABLET PO (18:04)
[2021-11-26 20:00] VITALS: BP 96/54; PULSE 79; RESP 18; TEMP 36.2; O2SAT 96
[2021-11-26] MEDS: guaiFENesin DM 100/10/5 ML 5 ML SYRUP 10 ML PO (21:36)
[2021-11-26] MEDS: Sertraline HCL 50 MG TABLET PO (21:37)
[2021-11-26] MEDS: Levothyroxine Sodium 150 MCG TABLET PO (21:38)
[2021-11-26 23:51] VITALS: BP 146/70; PULSE 91; RESP 20; TEMP 37.1; O2SAT 95
[2021-11-27] VITALS (8 sets, daily range): BP systolic 120–175; BP diastolic 63–94; PULSE 64–84; RESP 17–20; TEMP 36.2–36.8; O2SAT 94–97
[2021-11-27 06:29] LABS: INTERNATIONAL NORM RATIO 2.7 (0.9-1.1); Prothrombin Time 32.2 SEC (10.0-13.1)
[2021-11-27] MEDS: 0.9 % Sodium Chloride Flush 3 ML SYRINGE IVFLUSH ×3 (09:00→22:02)
[2021-11-27] MEDS: amLODIPine Besylate 10 MG TABLET PO (09:01)
[2021-11-27] MEDS: Doxazosin Mesylate 2 MG TABLET 4 MG PO (09:01)
[2021-11-27] MEDS: Atorvastatin Calcium 20 MG TABLET PO (09:01)
[2021-11-27] MEDS: Gabapentin 100 MG CAPSULE 200 MG PO ×3 (09:01→22:00)
[2021-11-27] MEDS: carBAMazepine 200 MG TABLET 400 MG PO ×3 (09:01→22:01)
[2021-11-27] MEDS: Docusate Sodium 100 MG CAPSULE PO ×2 (09:01→22:02)
--- NOTE | 2021-11-27 09:21 | MHC.CM.PN ---
Addendum entered by Caroline Alberto 11/27/21 14:33: Discharge held today. Patient is not feeling well. He is agreeable to STR @ [place]. A referral has been sent to [facility]. Addendum entered by Caroline Alberto 11/27/21 12:35: Patient discharged home with resumption of home services. DC info has been sent to the agency. [facility] will provide transport home. Original Note: Male 81 DX [place]IN[place] PE Patient is active with [employer]. A referral with clinical information has been sent. PT is recommending STR vs Home with services. Patient will continue to follow.
--- NOTE | 2021-11-27 13:58 | P.PNIM_ITS ---
Subjective Subjective Date of Service: 11/27/21 Interval History: No acute issues overnight Review of Systems Denies chest pain Denies shortness of breath Denies nausea vomiting diarrhea Denies fever chills Physical Exam Vital Signs: Vital Signs: Last Vital Signs Temp 97.2 F 11/27/21 11:42 Pulse 84 11/27/21 12:06 Resp 20 11/27/21 11:42 BP 120/63 11/27/21 12:06 Pulse Ox 96 11/27/21 12:06 O2 Del Method 11/27/21 11:42 O2 Flow Rate 2 11/26/21 15:12 BMI result Body Mass Index 39.2 Const: Other: No acute distress Resp: Other: Clear to auscultation bilaterally no rales rhonchi or wheezes Cardio: Other: No S4; positive S1-S2; no S3 murmurs rubs or gallops GI: Other: Soft nontender nondistended normoactive bowel sounds Extrem: Other: No edema bilaterally Objective Data Active Medications Amlodipine Besylate (Amlodipine Besylate 10 Mg Tablet) 10 mg PO DAILY [facility]; Protocol Last Admin: 11/27/21 09:01 Dose: 10 mg Documented By: AUNG Atorvastatin Calcium (Atorvastatin Calcium 20 Mg Tablet) 20 mg PO DAILY [facility] Last Admin: 11/27/21 09:01 Dose: 20 mg Documented By: AUNG Carbamazepine (Carbamazepine 200 Mg Tablet) 400 mg PO TID [facility] Last Admin: 11/27/21 09:01 Dose: 400 mg Documented By: AUNG Docusate Sodium (Docusate Sodium 100 Mg Capsule) 100 mg PO BID [facility] Last Admin: 11/27/21 09:01 Dose: 100 mg Documented By: AUNG Doxazosin Mesylate (Doxazosin Mesylate 2 Mg Tablet) 4 mg PO DAILY [facility] Last Admin: 11/27/21 09:01 Dose: 4 mg Documented By: AUNG Doxycycline Hyclate (Doxycycline Hyclate 100 Mg Tablet) 100 mg PO BID [facility] Stop: 11/29/21 21:01 Last Admin: 11/27/21 09:01 Dose: 100 mg Documented By: AUNG Gabapentin (Gabapentin 100 Mg Capsule) 200 mg PO TID [facility] Last Admin: 11/27/21 09:01 Dose: 200 mg Documented By: AUNG Guaifenesin/Dextromethorphan (Guaifenesin Dm 100/10/5 Ml 5 Ml Syrup) 10 ml PO TID [facility] Last Admin: 11/27/21 09:01 Dose: Not Given Documented By: AUNG Non-Admin Reason: Patient Refused Levothyroxine Sodium (Levothyroxine Sodium 150 Mcg Tablet) 150 mcg PO BEDTIME [facility] Last Admin: 11/26/21 21:38 Dose: 150 mcg Documented By: ESSENCE Metoprolol Succinate (Metoprolol Succinate Er 25 Mg Tab.Er.24h) 25 mg PO BEDTIME [facility]; Protocol Last Admin: 11/26/21 21:44 Dose: Not Given Documented By: ESSENCE Non-Admin Reason: Decreased Blood Pressure Pharmacy Consult (Consult Rx Perform Med Rec) 1 each MISCELLANE ONCE PRN PRN Reason: Consult order Sertraline HCl (Sertraline Hcl 50 Mg Tablet) 50 mg PO BEDTIME [facility] Last Admin: 11/26/21 21:37 Dose: 50 mg Documented By: ESSENCE Sodium Chloride (0.9 % Sodium Chloride Flush 3 Ml Syringe) 3 ml IVFLUSH QSHIFT [facility] Last Admin: 11/27/21 09:00 Dose: 3 ml Documented By: AUNG Warfarin Sodium (Warfarin Sodium 5 Mg Tablet) 5 mg PO DAILY@1800 [facility] Last Admin: 11/26/21 18:04 Dose: 5 mg Documented By: AUNG Labs CBC & Chem 7: 11/24/21 04:50 11/23/21 10:34 Labs: Laboratory Results - last 24 hr 11/27/21 06:11 PT 32.2 H INR 2.7 H Assessment and Plan (1) Acute CVA (cerebrovascular accident): Status: Acute (2) Pulmonary embolism: Status: Acute (3) A-fib: Status: Acute Plan 81-year-old gentleman resident of independent living at [facility] sent to [facility] 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 1.CVA -no MRI secondary to penile implant -discuss with Neurology 2.Bilateral acute PE -Coumadin therapeutic; heparin D seed -daily INRs to keep INR between 2 and 3 3.Chronic persistent atrial fibrillation -rate control adequate -continue current therapies adjust as indicated -INR 2-3 4.Hypertension -acceptable control on current therapies -adjust as indicated Code status full code DVT prophylaxis IV heparin Patient will need continued inpatient stay due to acute bilateral PE on IV heparin and also for further workup of chronic left-sided weakness. Quality Stroke Does the patient have a stroke diagnosis?: No VTE Prior VTE?: No VTE Risk Level:: Medical - moderate - high VTE Device Contraindication: Treatment Not Indicated VTE Drug Contraindication: N/A - Med Ordered
[2021-11-27] MEDS: guaiFENesin DM 100/10/5 ML 5 ML SYRUP 10 ML PO (14:03)
[2021-11-27] MEDS: Warfarin Sodium 5 MG TABLET PO (17:09)
[2021-11-27] MEDS: Levothyroxine Sodium 150 MCG TABLET PO (22:01)
[2021-11-27] MEDS: Sertraline HCL 50 MG TABLET PO (22:01)
[2021-11-27] MEDS: Metoprolol Succinate ER 25 MG TAB.ER.24H PO (22:02)
[2021-11-28] VITALS (7 sets, daily range): BP systolic 102–159; BP diastolic 58–94; PULSE 65–76; RESP 16–20; TEMP 36.1–36.7; O2SAT 95–98
[2021-11-28 06:55] LABS: MANUAL DIFF FLAG NO
[2021-11-28 07:03] LABS: Basophils Percent Auto 0.3 % (0-2); Eosinophils Absolute Auto 0.1 X10*3/uL (0.0-0.4); Eosinophils Percent Auto 1.8 % (0-4); Hematocrit 34.3 % (42.0-52.0); Hemoglobin 11.2 g/dl (14.0-18.0); Imm Gran Abs Auto 0.02 X10*3/uL (0.00-0.03); Imm Gran Pct Auto 0.3 % (0.0-0.4); Lymphocytes Absolute Auto 1.2 X10*3/uL (1.2-4.9); Lymphocytes Percent Auto 17.1 % (20-40); Mean Corpuscular HGB Conc 32.7 g/dl (31.0-36.0); Mean Corpuscular Hemoglobin 29.6 pg (27.0-33.0); Mean Corpuscular Volume 90.7 fL (80.0-98.0); Mean Platelet Volume 9.6 fL (9.4-12.4); Monocytes Absolute Auto 0.7 X10*3/uL (0.1-1.2); Monocytes Percent Auto 10.7 % (2-11); Neutrophils Absolute Auto 4.7 x10*3/uL (2.0-8.3); Neutrophils Percent Auto 69.8 % (45-73); Platelet Count 272 X10*3/uL (160-400); Red Blood Count 3.78 X10*6/uL (4.60-5.80); Red Cell Distribution Width 12.9 % (11.0-16.0); White Blood Count 6.7 X10*3/uL (4.8-10.8)
[2021-11-28 07:34] LABS: Prothrombin Time 57.5 SEC (10.0-13.1)
[2021-11-28 07:34] LABS: Glucose, Whole Blood 111 mg/dL (60-115)
[2021-11-28 07:45] LABS: INTERNATIONAL NORM RATIO 4.7 (0.9-1.1)
[2021-11-28 07:47] LABS: Alanine Aminotransferase 32 U/L (0-40); Alkaline Phosphatase 105 U/L (39-117); Anion Gap 15 (12-20); Aspartate Amino Transferase 21 U/L (5-37); Bilirubin Total 0.3 mg/dL (0.0-1.0); Blood Urea Nitrogen 13 mg/dL (9-16); Calcium 8.2 mg/dL (8.4-10.2); Carbon Dioxide 26 mmol/L (22-29); Chloride 103 mmol/L (96-108); Creatinine Clr Calc Pharmacy 119.7; Estimated Glomerular Filt Rate > 60; Glucose Fasting 122 mg/dL (60-99); Potassium 3.9 mmol/L (3.3-5.1); Sodium 140 mmol/L (135-145); Total Protein 5.5 g/dL (6.5-8.0)
[2021-11-28] MEDS: carBAMazepine 200 MG TABLET 400 MG PO ×3 (09:20→21:01)
[2021-11-28] MEDS: Gabapentin 100 MG CAPSULE 200 MG PO ×3 (09:21→21:01)
[2021-11-28] MEDS: 0.9 % Sodium Chloride Flush 3 ML SYRINGE IVFLUSH ×3 (09:21→21:02)
[2021-11-28] MEDS: Doxazosin Mesylate 2 MG TABLET 4 MG PO (09:22)
[2021-11-28] MEDS: amLODIPine Besylate 10 MG TABLET PO (09:22)
[2021-11-28] MEDS: Docusate Sodium 100 MG CAPSULE PO ×2 (09:22→21:01)
[2021-11-28] MEDS: Atorvastatin Calcium 20 MG TABLET PO (09:22)
--- NOTE | 2021-11-28 10:17 | MHC.CM.PN ---
Addendum entered by Yolie Stone 11/28/21 16:23: AFTER MUCH DISCUSSION, PT AGREED TO A REFERRAL TO [facility] HOWEVER REPORTS IT MUST BE A PRIVATE ROOM. [facility] OFFERING AND REPORTING IT WILL BE PRIVATE. PT AGREEABLE TO STR HOWEVER THERE ARE NO BLS TRUCKS AVAILABLE VIA [facility], [facility], OR [facility]. CM MADE A REFERRAL FOR TRANSPORT FOR TOMORROW AT 1200 HOURS Original Note: CM MET WITH PT TO DISCUSS DC PLANNING PT REPORTS HE IS NOT LEAVING AND CANNOT BE FORCED CM EXPLAINED IF HE DOES NOT FEEL READY TO LEAVE, HE CAN APPEAL HIS DC AND PRESENTED HIM WITH ANOTHER COPY OF HIS MEDICARE RIGHTS HE STATED HE DOES NOT WANT TO STAY UNDER THOSE CONDITIONS, BUT STILL DOES NOT WANT TO DC. CM ALSO EXPLAINED HE DOES HAVE THE OPTION TO GO TO A DIFFERENT STR, HE DOES NOT HAVE TO GO TO DB EVEN THOUGH HE LIVES IN [facility] HE REPORTS HE DOES NOT WANT TO GO TO STR, HE JUST DOES NOT FEEL WELL ENOUGH TO GO HOME YET HE THEN DESCRIBES EVERYTHING LEADING UP TO HIS ADMISSION AND HIS TIME IN THE ED AND OVERFLOW HE ALSO DISCUSSES THE COST OF [facility] AND THAT HE DOES NOT HAVE EXTRA HELP BECAUSE IF WOULD INCREASE HIS MONTHLY BILL DRAMATICALLY. CM WILL RETURN LATER THIS MORNING PT HAD TO USE THE RESTROOM PT WILL BE ENCOURAGED TO CONSIDER STR IF HE STILL FEELS HE CANNOT GO HOME OR APPEAL HIS DC
[2021-11-28 11:42] LABS: Glucose, Whole Blood 120 mg/dL (60-115)
--- NOTE | 2021-11-28 14:29 | HO.PM.IMPN ---
Subjective Subjective Date of Service: 11/28/21 Interval History: No acute medical issues overnight Review of Systems Denies chest pain Denies shortness of breath Denies nausea vomiting diarrhea Denies fever chills Physical Exam Vital Signs: Vital Signs: Last Vital Signs Temp 97.3 F 11/28/21 11:38 Pulse 72 11/28/21 11:38 Resp 16 11/28/21 11:38 BP 102/58 L 11/28/21 11:38 Pulse Ox 96 11/28/21 11:38 O2 Del Method 11/28/21 11:38 O2 Flow Rate 2 11/26/21 15:12 BMI result Body Mass Index 39.2 Const: Other: No acute distress Resp: Other: Clear to auscultation bilaterally no rales rhonchi or wheezes Cardio: Other: No S4; positive S1-S2; no S3 murmurs rubs or gallops GI: Other: Soft nontender nondistended normoactive bowel sounds Extrem: Other: No edema bilaterally Objective Data Active Medications Amlodipine Besylate (Amlodipine Besylate 10 Mg Tablet) 10 mg PO DAILY [facility]; Protocol Last Admin: 11/28/21 09:22 Dose: 10 mg Documented By: TONI Atorvastatin Calcium (Atorvastatin Calcium 20 Mg Tablet) 20 mg PO DAILY [facility] Last Admin: 11/28/21 09:22 Dose: 20 mg Documented By: TONI Carbamazepine (Carbamazepine 200 Mg Tablet) 400 mg PO TID [facility] Last Admin: 11/28/21 09:20 Dose: 400 mg Documented By: TONI Docusate Sodium (Docusate Sodium 100 Mg Capsule) 100 mg PO BID [facility] Last Admin: 11/28/21 09:22 Dose: 100 mg Documented By: TONI Doxazosin Mesylate (Doxazosin Mesylate 2 Mg Tablet) 4 mg PO DAILY [facility] Last Admin: 11/28/21 09:22 Dose: 4 mg Documented By: TONI Doxycycline Hyclate (Doxycycline Hyclate 100 Mg Tablet) 100 mg PO BID [facility] Stop: 11/29/21 21:01 Last Admin: 11/28/21 09:22 Dose: 100 mg Documented By: TONI Gabapentin (Gabapentin 100 Mg Capsule) 200 mg PO TID [facility] Last Admin: 11/28/21 09:21 Dose: 200 mg Documented By: TONI Guaifenesin/Dextromethorphan (Guaifenesin Dm 100/10/5 Ml 5 Ml Syrup) 10 ml PO TID [facility] Last Admin: 11/28/21 09:30 Dose: Not Given Documented By: TONI Non-Admin Reason: Patient Refused Levothyroxine Sodium (Levothyroxine Sodium 150 Mcg Tablet) 150 mcg PO BEDTIME [facility] Last Admin: 11/27/21 22:01 Dose: 150 mcg Documented By: BENNY Metoprolol Succinate (Metoprolol Succinate Er 25 Mg Tab.Er.24h) 25 mg PO BEDTIME [facility]; Protocol Last Admin: 11/27/21 22:02 Dose: 25 mg Documented By: BENNY Pharmacy Consult (Consult Rx Perform Med Rec) 1 each MISCELLANE ONCE PRN PRN Reason: Consult order Sertraline HCl (Sertraline Hcl 50 Mg Tablet) 50 mg PO BEDTIME [facility] Last Admin: 11/27/21 22:01 Dose: 50 mg Documented By: BENNY Sodium Chloride (0.9 % Sodium Chloride Flush 3 Ml Syringe) 3 ml IVFLUSH QSHIFT [facility] Last Admin: 11/28/21 09:21 Dose: 3 ml Documented By: TONI Warfarin Sodium (Warfarin Sodium 5 Mg Tablet) 5 mg PO DAILY@1800 [facility] Last Admin: 11/27/21 17:09 Dose: 5 mg Documented By: AUNG Labs CBC & Chem 7: 11/28/21 06:22 11/28/21 06:22 Labs: Laboratory Results - last 24 hr 11/28/21 11/28/21 11/28/21 06:22 06:22 06:22 MCV 90.7 MCH 29.6 MCHC 32.7 RDW 12.9 Plt Count 272 D MPV 9.6 Immature Gran % (Auto) 0.3 Neut % (Auto) 69.8 Lymph % (Auto) 17.1 L [place] % (Auto) 10.7 Eos % (Auto) 1.8 Baso % (Auto) 0.3 Lymph # (Auto) 1.2 [place] # (Auto) 0.7 Eos # (Auto) 0.1 Baso # (Auto) 0.0 Abs Immat Gran (auto) 0.02 Absolute Neuts (auto) 4.7 Absolute Nucleated RBC 0.000 Nucleated RBC % (auto) 0.0 PT 57.5 H INR 4.7 H D Anion Gap 15 Estim Creat Clear Calc 119.7 Estimated GFR > 60 POC Glucose Fasting Glucose 122 H Calcium 8.2 L D Total Bilirubin 0.3 AST 21 ALT 32 Alkaline Phosphatase 105 Total Protein 5.5 L Albumin 3.0 L 11/28/21 11/28/21 07:30 11:38 MCV MCH MCHC RDW Plt Count MPV Immature Gran % (Auto) Neut % (Auto) Lymph % (Auto) [place] % (Auto) Eos % (Auto) Baso % (Auto) Lymph # (Auto) [place] # (Auto) Eos # (Auto) Baso # (Auto) Abs Immat Gran (auto) Absolute Neuts (auto) Absolute Nucleated RBC Nucleated RBC % (auto) PT INR Anion Gap Estim Creat Clear Calc Estimated GFR POC Glucose 111 120 H Fasting Glucose Calcium Total Bilirubin AST ALT Alkaline Phosphatase Total Protein Albumin Assessment and Plan (1) Acute CVA (cerebrovascular accident): Status: Acute (2) Pulmonary embolism: Status: Acute (3) A-fib: Status: Acute Plan 81-year-old gentleman resident of independent living at [facility] sent to [facility] for 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 1.CVA -no MRI secondary to penile implant -discuss with Neurology 2.Bilateral acute PE -Coumadin therapeutic; heparin D seed -daily INRs to keep INR between 2 and 3 3.Chronic persistent atrial fibrillation -rate control adequate -continue current therapies adjust as indicated -INR 2-3 4.Hypertension -acceptable control on current therapies -adjust as indicated Code status full code DVT prophylaxis IV heparin Patient will need continued inpatient stay due to acute bilateral PE on IV heparin and also for further workup of chronic left-sided weakness. Quality Stroke Does the patient have a stroke diagnosis?: No VTE Prior VTE?: No VTE Risk Level:: Medical - moderate - high VTE Device Contraindication: Treatment Not Indicated VTE Drug Contraindication: N/A - Med Ordered
[2021-11-28 17:17] LABS: Glucose, Whole Blood 98 mg/dL (60-115)
[2021-11-28 19:43] LABS: Glucose, Whole Blood 95 mg/dL (60-115)
[2021-11-28] MEDS: Levothyroxine Sodium 150 MCG TABLET PO (21:01)
[2021-11-28] MEDS: Metoprolol Succinate ER 25 MG TAB.ER.24H PO (21:01)
[2021-11-28] MEDS: Sertraline HCL 50 MG TABLET PO (21:02)
[2021-11-29 03:23] VITALS: BP 167/87; PULSE 59; RESP 20; TEMP 36.7; O2SAT 96
[2021-11-29 07:22] VITALS: BP 148/79; PULSE 74; RESP 16; TEMP 36.2; O2SAT 97
[2021-11-29 07:24] LABS: INTERNATIONAL NORM RATIO 4.6 (0.9-1.1); Prothrombin Time 56.2 SEC (10.0-13.1)
[2021-11-29] MEDS: Gabapentin 100 MG CAPSULE 200 MG PO (08:02)
[2021-11-29] MEDS: carBAMazepine 200 MG TABLET 400 MG PO (08:02)
[2021-11-29] MEDS: Atorvastatin Calcium 20 MG TABLET PO (08:03)
[2021-11-29] MEDS: amLODIPine Besylate 10 MG TABLET PO (08:03)
[2021-11-29] MEDS: Doxazosin Mesylate 2 MG TABLET 4 MG PO (08:15)
--- NOTE | 2021-11-29 08:44 | PM.DS ---
DS: Providers Provider Date of Service: 11/29/21 Date of admission: 11/23/21 16:46 Date of discharge: 11/29/21 Primary care physician: Tres Crum MD Consults: 11/23/21 16:51 Consult to Neurology Routine Consulting Provider: [facility] Reason for consultation: left sided weakness Has provider been notified: No DS: Diagnosis Discharge Diagnosis (1) Acute CVA (cerebrovascular accident): Status: Acute (2) Pulmonary embolism: Status: Acute (3) A-fib: Status: Acute DS: Summary Hospital Course Hospital Course: kale presented from assisted living nursing facility for evaluation of stroke, noted to have increase left facial droop (reportedly patient with normal left facial droop), but also noted to have left side body weakness, patient last known to be normal was last night however patient himself declined feeling any weakness or numbness, patient with history of atrial fibrillation is on coumadin. CT scan reviewed by neurology and felt to be chronic. Recommended MRI however pt has penile implant (metalic) unable to scan. Neuro aware...OK to dc rehab. Medically acceptable for transfer Time Spent with Patient Time attestation: Total time spent providing and/or coordinating discharge services: Discharge coordination time: Greater than 30 minutes Quality: Safe Use of Opioids Does Pt have an Active Cancer Diagnosis on the Problem List?: No Quality: Stroke Does the patient have a stroke diagnosis?: No Physical Exam Vital Signs: Vital Signs: Last Vital Signs Temp 97.2 F 11/29/21 07:22 Pulse 74 11/29/21 07:22 Resp 16 11/29/21 07:22 BP 148/79 H 11/29/21 07:22 Pulse Ox 97 11/29/21 07:22 O2 Del Method 11/29/21 07:22 O2 Flow Rate 2 11/26/21 15:12 BMI result Body Mass Index 39.2 Const: Other: no acute distress Resp: Other: clear to ascultation bilat. No rales/rhonchi/wheezes Cardio: Other: No S4;+S1/S2 no M/R/G Neuro: Other: left facial droop...mild left sided weakness(chronic) Extrem: Other: no edema bilat DS: Data Data Completed and Pending Labs on day of discharge: Laboratory Results - last 24 hr 11/28/21 11/28/2122 11:38 17:11 19:35 PT INR POC Glucose 120 H 98 95 11/29/21 06:49 PT 56.2 H INR 4.6 H POC Glucose Discharge Plan Discharge Patient Disposition: er [facility] Discharge Diagnosis: Chronic left sided weakness Referrals: Tres Crum MD [Primary Care Provider] - 1 Week Discharge Medications: Continued (DME) compression socks, x-large Misc See Rx Instructions .Route Qty: 2 0RF Rx Instructions: As directed (DME) compr.stocking,knee,long,x-lrg Misc See Rx Instructions .Route Qty: 2 0RF Rx Instructions: As directed amlodipine 10 mg tablet 1 tab PO DAILY simvastatin 40 mg tablet 1 tab PO DAILY docusate sodium 100 mg Capsule 100 mg PO BID levothyroxine 150 mcg tablet 150 mcg PO BEDTIME gabapentin 100 mg capsule 200 mg PO TID warfarin 2 mg tablet 2 mg PO DAILY warfarin 5 mg tablet 5 mg PO DAILY sertraline 50 mg tablet 50 mg PO BEDTIME carbamazepine 200 mg tablet 400 mg PO TID metoprolol succinate 25 mg tablet extended release 24 hr 25 mg PO BEDTIME terazosin 5 mg capsule 5 mg PO DAILY Discharge Orders: Discharge Order (Routine); Ordered 11/29/21 Ordered By: Kimo Lawrence Diet: Advance to usual diet Activity on Discharge: As tolerated Stand Alone Forms: Patient Portal Discharge page Care Plan Goals: plan as ordered Health Concerns: rehab as per PT Plan of Treatment: Follow up with PCP upon dischage Assessment: see dc summary
--- NOTE | 2021-11-29 08:56 | MHC.CM.PN ---
Addendum entered by Yolie Stone 11/29/21 10:43: NEGATIVE COVID RESULTS SENT TO [facility]IA [employer] Addendum entered by Yolie Stone 11/29/21 10:21: PT DISCHARGING TO [facility] T HIS MORNING [facility]IA [facility]. Original Note: CM CALLED [facility] WHO INDICATED THEY COULD TRANSPORT PT TO [facility] AT 1000 HOURS PT MADE AWARE AND REQUESTED CM UPDATE HIS DAUGHTER, FRANCOIS [phone]. CALL PLACED AND DAUGHTER AWARE
[2021-11-29 10:06] LABS: COVID-19 Test Negative (Negative)
== END 2021-11-29 10:51 | DRG 176 ==
LOC: HO.ED 15:45 → HO.EDOVER 17:02 → HO.IMC 11-25 14:17
PROVIDERS: Hospitalist; Admitting Provider Hospitalist; Emergency Provider Emergency Medicine; PCP Internal Medicine; Visit Provider Hospitalist
DX: I26.99 Other pulmonary embolism without acute cor pulmonale (principal); I48.19 Other persistent atrial fibrillation; G81.94 Hemiplegia, unspecified affecting left nondominant side; I10 Essential (primary) hypertension; E78.5 Hyperlipidemia, unspecified; G50.0 Trigeminal neuralgia; E03.9 Hypothyroidism, unspecified; E66.01 Morbid (severe) obesity due to excess calories; Z68.39 Body mass index [BMI] 39.0-39.9, adult; R79.1 Abnormal coagulation profile; Z20.822 Contact with and (suspected) exposure to COVID-19; Z96.0 Presence of urogenital implants; Z91.19 Patient's noncompliance with other medical treatment and regimen; Z79.01 Long term (current) use of anticoagulants; Z79.890 Hormone replacement therapy; Z79.899 Other long term (current) drug therapy
CPT/HCPCS: 36415; 70450; 70496; 70498; 71045; 72170; 80048; 80053; 80061; 82550; 82947; 84443; 84484; 85025; 85027; 85610; 85730; 87635; 93005; 93306; 96361; 96365; 96375; 97116; 97162; 97530; 99285; Q9957; Q9967

== ENCOUNTER 2021-12-09 12:31 | Outpatient (REF) | payer SELFPAY | END 2021-12-09 12:32 | disposition home or self-care (01) | LOC: HO.HOSX 12:31 | PROVIDERS: Visit Provider Physician Assistant | DX: Z13.89 Encounter for screening for other disorder (principal) ==

== ENCOUNTER 2022-01-12 14:15 | Emergency (ER) | payer MEDICARE, SELFPAY ==
--- NOTE | ~2022-01-12 | US_ITS ---
EXAMINATION: US VENOUS ULTRASOUND WITH DOPPLER LOWER EXTREMITY, LEFT CLINICAL INFORMATION: Swelling and pain COMPARISON: None TECHNIQUE: Ultrasound of the deep veins is performed from the hip to the calf with compression sonography and color and pulse Doppler assessment. Spectral analysis with color-flow imaging is performed. FINDINGS: There is normal venous compression and respiratory variation and augmented flow. The visualized common femoral vein, superficial femoral vein, profunda femoral vein, popliteal vein, and the trifurcation region shows no evidence of deep venous thrombosis. There is no significant popliteal fossa cyst. Calf vein visualization suboptimal due to edema. If the patient's symptoms persist, followup ultrasound in 5 days 7 days might be of value to exclude proximal propagation from a non-visualized calf vein. US/US venous duplex LE LT IMPRESSION: No DVT demonstrated in the above-named vessels of the left lower extremity.
[2022-01-12 14:33] VITALS: BP 132/88; PULSE 59; O2SAT 98
[2022-01-12 14:35] VITALS: BP 135/70; PULSE 75; RESP 16; TEMP 36.8; O2SAT 97; BMI 37.5
--- NOTE | 2022-01-12 14:51 | ED_ITS ---
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 Patient reports he has been on able to get a refill for his Coumadin for more than a week. He tells me he has been trying to get hold his primary care doctor to refill it but has been unable to. He denies any shortness of breath, chest pain, fevers, chills. Patient is not taking any Lasix Currently at [facility] Home Medications Medication Instructions Recorded Confirmed carbamazepine 200 mg tablet 400 mg PO TID 02/20/21 11/23/21 gabapentin 100 mg capsule 200 mg PO TID 02/20/21 11/23/21 levothyroxine 150 mcg tablet 150 mcg PO BEDTIME 02/20/21 11/23/21 metoprolol succinate 25 mg 25 mg PO BEDTIME 02/20/21 11/23/21 tablet,extended release 24 hr sertraline 50 mg tablet 50 mg PO BEDTIME 02/20/21 11/23/21 warfarin 2 mg tablet 2 mg PO DAILY 02/20/21 11/23/21 warfarin 5 mg tablet 5 mg PO DAILY 02/20/21 11/23/21 amlodipine 10 mg tablet 1 tab PO DAILY 09/16/21 11/23/21 terazosin 5 mg capsule 5 mg PO DAILY 10/26/21 11/23/21 docusate sodium 100 mg capsule 100 mg PO BID 11/23/21 11/23/21 simvastatin 40 mg tablet 1 tab PO DAILY 11/23/21 11/23/21 Previous Rx's Medication Instructions Recorded compr.stocking,knee,long,x-lrg #2 ea 05/13/21 compression socks, x-large #2 ea 05/13/21 Allergies Allergy/AdvReac Type Severity Reaction Status Date / Time No Known Allergies Allergy Verified 09/29/21 13:59 [No Known Allergies*] Review of Systems Review of Systems: Yes all other systems are reviewed and are negative Constitutional: Constitutional: Reports no additional constitutional c omplaints, Denies body ache(s), Denies chills, Denies fever(s), Denies headache(s) and Denies weakness Eyes: Eyes: Reports no additional eye complaints and Denies change in vision ENT: Reports system reviewed and no additional complaints, except as documented, Denies dizziness, Denies headache(s), Denies nasal congestion, Denies nasal discharge and Denies neck pain Cardiovascular: Cardiovascular: Reports no additional cardiovascular complaints, Denies chest pain, Reports leg edema and Denies dyspnea Respiratory: Respiratory: Reports no additional respiratory complaints, Denies cough and Denies dyspnea Gastrointestinal: Gastrointestinal: Reports no additional gastrointestinal complaints, Denies abdominal pain, Denies diarrhea, Denies nausea and Denies vomiting Genitourinary: Genitourinary: Denies urinary incontinence Musculoskeletal: Musculoskeletal: Reports no additional musculoskeletal complaints, Denies back pain, Denies arthralgias, Denies joint swelling, Denies neck pain, Denies numbness and Denies tingling Integumentary/Breasts: Skin/Breast: Reports system reviewed and no additional complaints, except as docu and Denies rash Neurologic: Reports system reviewed and no additional complaints, except as documented, Denies Abnormal speech present, Denies dizziness, Denies headache(s), Denies numbness, Denies tingling and Denies weakness PMFSH Past Medical History Attestation statement: The following information was validated with the patient. Source: old records reviewed and nursing notes reviewed Medical History A-fib CVA (cerebral vascular accident) HTN (hypertension) Hypothyroid Social History Social History Household Members: Other Housing: Assisted Living Facility Do you presently have visiting nurse or other home services: Yes Alcohol intake: never Patient Tobacco Use Status: Former Tobacco user Advance Directives: Yes Advance Directives on File: Yes Advance Directives Date on File: 09/16/21 service: No Physical Exam Vital Signs: Vital Signs: Last Vital Signs Temp 98.3 F 01/12/22 14:35 Pulse 75 01/12/22 14:35 Resp 16 01/12/22 14:35 BP 135/70 01/12/22 14:35 Pulse Ox 97 01/12/22 14:35 O2 Del Method 01/12/22 14:35 BMI result Body Mass Index 37.5 Const: General: cooperative, healthy appearing, comfortable and no acute distress Orientation/consciousness: patient oriented x3 Limitations: no limitations HEENT: Head: Yes normal to inspection Ears: hearing grossly normal bilaterally General nose exam: Normal external nose present Face and sinus: Yes normal facial exam Mouth: Normal oral and palatal mucosa present Throat: Yes posterior oropharynx normal Eyes: General: appearance normal, both eyes and all related structures Pupils: Equal, round and reactive pupils present Neck: Neck: Yes normal visual inspection Chest: Chest palpation & inspection: normal inspection of the chest Resp: Effort & Inspection: normal respiratory effort Auscultation: clear to auscultation bilaterally Cardio: Rate: regular rate Rhythm: regular rhythm Peripheral pulses: Peripheral pulses 2+ throughout GI: Inspection: Yes normal to inspection Palpation (GI): Soft to palpation and nontender Auscultation: normal bowel sounds Back/Spine/Pelvis: Thoracic/Lumbar Spine: thoracic and lumbar spine normal to inspection Skin: General skin exam: no rashes or lesions noted Neuro: General: patient oriented x3, no focal motor deficits and normal sensation to monofilament Cranial nerves: Yes Equal, round and reactive pupils present Cognition (Neuro): normal cognition Speech: No Abnormal speech present Gait exam (Neuro): Normal gait present Motor exam (neuro): 5/5 motor strength present throughout Extrem: Other: To the left leg there is moderate swelling with mild tenderness and discoloration. 2+ DP/PT pulses distally General: Yes normal to inspection Course Course Course Narrative: Labs are unremarkable with the exception of a subtherapeutic INR 1.0. Ultrasound is negative for any DVT. Per nursing patient lives in independent living at [facility]. Patient has not had his Coumadin for more than 1 week lower is unclear why. Wants to stay on coumadin. Due to his subtherapeutic INR at this point he will need a bridge of Lovenox the next 4-5 days. I spoke at length to the patient's daughter Gema. She tells me the patient does have someone who comes in daily to monitor patient taking his meds however she believes 1 week ago he stopped pain for this service as he wants to do it himself. She tells me that the patient was discharged from here on November 29 after being admitted for CVA, pulmonary emboli. He was discharged to [facility] and was transferred from [facility] to [facility] about 2 weeks ago. Has not followed up with his primary care since that. He has not had his INR checked since then. She is his 2nd health care proxy but tells me that they have a strained relationship. His healthcare proxy Reynold Rose does not live close by. Reevaluation(s) Reevaluation #1: 1800-Seen by Economic History Teacher Yamilka. She needs more time to organized safe discharge for the patient. Therefore patient will be held in the emergency room overnight. Patient placed in physician observation pending disposition in the morning. Will give 100mg of Lovenox. Anticipate that patient will need 5 days of subQ Lovenox as a bridge for Coumadin. Will also need new prescription for coumadin. Will also need close PCP follow-up and INR check MDM - Extremity Injury (Lower) MDM Narrative Medical decision making narrative: 81yo male with extensive medical history including DVT, stroke, DVT, recent pulmonary embolism supposed to be on Coumadin but noncompliant for about a week now with left lower extremity swelling and redness for 2 days. Will check ultrasound, labs Medical Records Attestation: I reviewed the patient's medical records. Lab Data Attestation: I reviewed the patient's lab results. Result diagrams: 01/12/22 15:26 01/12/22 15:26 Labs: Lab Results 01/12/22 01/12/22 01/12/22 Range/Units 15:26 15:26 15:26 WBC 6.8 (4.8-10.8) X10*3/uL RBC 3.99 L (4.60-5.80) X10*6/uL Hgb 11.6 L (14.0-18.0) g/dl Hct 36.8 L (42.0-52.0) % MCV 92.2 (80.0-98.0) fL MCH 29.1 (27.0-33.0) pg MCHC 31.5 (31.0-36.0) g/dl RDW 13.7 (11.0-16.0) % Plt Count 218 (160-400) X10*3/uL MPV 9.4 (9.4-12.4) fL Immature Gran % (Auto) 0.3 (0.0-0.4) % Neut % (Auto) 64.0 (45-73) % Lymph % (Auto) 23.7 (20-40) % [place] % (Auto) 9.1 (2-11) % Eos % (Auto) 2.5 (0-4) % Baso % (Auto) 0.4 (0-2) % Lymph # (Auto) 1.6 (1.2-4.9) X10*3/uL [place] # (Auto) 0.6 (0.1-1.2) X10*3/uL Eos # (Auto) 0.2 (0.0-0.4) X10*3/uL Baso # (Auto) 0.0 (0.0-0.2) X10*3/uL Abs Immat Gran (auto) 0.02 (0.00-0.03) X10*3/uL Absolute Neuts (auto) 4.3 (2.0-8.3) x10*3/uL Absolute Nucleated RBC 0.000 (0.0-0.012) X10*3/uL Nucleated RBC % (auto) 0.0 (0.0-0.2) /100WBC PT 11.9 (10.0-13.1) SEC INR 1.0 (0.9-1.1) Sodium 144 (135-145) mmol/L Potassium 4.4 (3.3-5.1) mmol/L Chloride 104 (96-108) mmol/L Carbon Dioxide 31 H (22-29) mmol/L Anion Gap 13 (12-20) BUN 18 H (9-16) mg/dL Creatinine 0.82 (0.5-1.4) mg/dL Estim Creat Clear Calc 95.6 Estimated GFR > 60 Random Glucose 114 (60-115) mg/dL Calcium 8.7 (8.4-10.2) mg/dL Total Bilirubin 0.2 (0.0-1.0) mg/dL Direct Bilirubin < 0.2 (0.0-0.5) mg/dL AST 14 (5-37) U/L ALT 13 (0-40) U/L Alkaline Phosphatase 106 (39-117) U/L B-Natriuretic Peptide (<100) pg/mL Total Protein 6.1 L (6.5-8.0) g/dL Albumin 3.6 (3.5-5.0) g/dL 01/12/22 Range/Units 15:26 WBC (4.8-10.8) X10*3/uL RBC (4.60-5.80) X10*6/uL Hgb (14.0-18.0) g/dl Hct (42.0-52.0) % MCV (80.0-98.0) fL MCH (27.0-33.0) pg MCHC (31.0-36.0) g/dl RDW (11.0-16.0) % Plt Count (160-400) X10*3/uL MPV (9.4-12.4) fL Immature Gran % (Auto) (0.0-0.4) % Neut % (Auto) (45-73) % Lymph % (Auto) (20-40) % [place] % (Auto) (2-11) % Eos % (Auto) (0-4) % Baso % (Auto) (0-2) % Lymph # (Auto) (1.2-4.9) X10*3/uL [place] # (Auto) (0.1-1.2) X10*3/uL Eos # (Auto) (0.0-0.4) X10*3/uL Baso # (Auto) (0.0-0.2) X10*3/uL Abs Immat Gran (auto) (0.00-0.03) X10*3/uL Absolute Neuts (auto) (2.0-8.3) x10*3/uL Absolute Nucleated RBC (0.0-0.012) X10*3/uL Nucleated RBC % (auto) (0.0-0.2) /100WBC PT (10.0-13.1) SEC INR (0.9-1.1) Sodium (135-145) mmol/L Potassium (3.3-5.1) mmol/L Chloride (96-108) mmol/L Carbon Dioxide (22-29) mmol/L Anion Gap (12-20) BUN (9-16) mg/dL Creatinine (0.5-1.4) mg/dL Estim Creat Clear Calc Estimated GFR Random Glucose (60-115) mg/dL Calcium (8.4-10.2) mg/dL Total Bilirubin (0.0-1.0) mg/dL Direct Bilirubin (0.0-0.5) mg/dL AST (5-37) U/L ALT (0-40) U/L Alkaline Phosphatase (39-117) U/L B-Natriuretic Peptide 118 H (<100) pg/mL Total Protein (6.5-8.0) g/dL Albumin (3.5-5.0) g/dL Imaging Data Venous US: Attestation: I personally reviewed and interpreted this imaging study as follows: Radiologist's impression: TECHNIQUE: Ultrasound of the deep veins is performed from the hip to the calf with compression sonography and color and pulse Doppler assessment. Spectral analysis with color-flow imaging is performed. FINDINGS: There is normal venous compression and respiratory variation and augmented flow. The visualized common femoral vein, superficial femoral vein, profunda femoral vein, popliteal vein, and the trifurcation region shows no evidence of deep venous thrombosis. ? There is no significant popliteal fossa cyst. Calf vein visualization suboptimal due to edema. If the patient's symptoms persist, followup ultrasound in 5 days 7 days might be of value to exclude proximal propagation from a non-visualized calf vein. US/US venous duplex LE IMPRESSION: No DVT demonstrated in the above-named vessels of the left lower extremity. Discharge Plan Discharge Clinical Impression: Chronic venous stasis, Subtherapeutic international normalized ratio (INR) Patient Disposition: Home, Self-Care Instructions: Venous Insufficiency (DC) Additional Instructions: Your ultrasound is negative for a blood clot Blood work is normal Use compression stockings, elevation, limit salt intake We are starting you on Lovenox 100 mg once daily for 5 days. You will need a follow-up INR and then to resume your Coumadin Prescriptions: No Action (DME) compression socks, x-large Misc See Rx Instructions .Route Qty: 2 0RF Rx Instructions: As directed (DME) compr.stocking,knee,long,x-lrg Misc See Rx Instructions .Route Qty: 2 0RF Rx Instructions: As directed amlodipine 10 mg tablet 1 tab PO DAILY simvastatin 40 mg tablet 1 tab PO DAILY docusate sodium 100 mg Capsule 100 mg PO BID levothyroxine 150 mcg tablet 150 mcg PO BEDTIME gabapentin 100 mg capsule 200 mg PO TID warfarin 2 mg tablet 2 mg PO DAILY warfarin 5 mg tablet 5 mg PO DAILY sertraline 50 mg tablet 50 mg PO BEDTIME carbamazepine 200 mg tablet 400 mg PO TID metoprolol succinate 25 mg tablet extended release 24 hr 25 mg PO BEDTIME terazosin 5 mg capsule 5 mg PO DAILY Referrals: Tres Crum MD [Primary Care Provider] - 1 week
[2022-01-12 15:30] LABS: MANUAL DIFF FLAG NO
[2022-01-12 15:33] LABS: Basophils Percent Auto 0.4 % (0-2); Eosinophils Absolute Auto 0.2 X10*3/uL (0.0-0.4); Eosinophils Percent Auto 2.5 % (0-4); Hematocrit 36.8 % (42.0-52.0); Hemoglobin 11.6 g/dl (14.0-18.0); Imm Gran Abs Auto 0.02 X10*3/uL (0.00-0.03); Imm Gran Pct Auto 0.3 % (0.0-0.4); Lymphocytes Absolute Auto 1.6 X10*3/uL (1.2-4.9); Lymphocytes Percent Auto 23.7 % (20-40); Mean Corpuscular HGB Conc 31.5 g/dl (31.0-36.0); Mean Corpuscular Hemoglobin 29.1 pg (27.0-33.0); Mean Corpuscular Volume 92.2 fL (80.0-98.0); Mean Platelet Volume 9.4 fL (9.4-12.4); Monocytes Absolute Auto 0.6 X10*3/uL (0.1-1.2); Monocytes Percent Auto 9.1 % (2-11); Neutrophils Absolute Auto 4.3 x10*3/uL (2.0-8.3); Platelet Count 218 X10*3/uL (160-400); Red Blood Count 3.99 X10*6/uL (4.60-5.80); Red Cell Distribution Width 13.7 % (11.0-16.0); White Blood Count 6.8 X10*3/uL (4.8-10.8)
[2022-01-12 15:36] LABS: Prothrombin Time 11.9 SEC (10.0-13.1)
[2022-01-12 15:59] LABS: Alanine Aminotransferase 13 U/L (0-40); Albumin Level 3.6 g/dL (3.5-5.0); Alkaline Phosphatase 106 U/L (39-117); Anion Gap 13 (12-20); Aspartate Amino Transferase 14 U/L (5-37); Bilirubin Direct < 0.2 mg/dL (0.0-0.5); Bilirubin Total 0.2 mg/dL (0.0-1.0); Blood Urea Nitrogen 18 mg/dL (9-16); Calcium 8.7 mg/dL (8.4-10.2); Carbon Dioxide 31 mmol/L (22-29); Chloride 104 mmol/L (96-108); Creatinine Clr Calc Pharmacy 95.6; Estimated Glomerular Filt Rate > 60; Glucose Random 114 mg/dL (60-115); Potassium 4.4 mmol/L (3.3-5.1); Sodium 144 mmol/L (135-145); Total Protein 6.1 g/dL (6.5-8.0)
[2022-01-12 16:05] LABS: B Type Natriuretic Peptide 118 pg/mL (<100)
--- NOTE | 2022-01-12 19:27 | PHA.MEDREC ---
Addendum entered by Gema [facility] 01/13/22 11:01: CONTACTED JESSICA FOR MED LIST. MED REC UPDATED. WARFARIN ADDED BACK IN THIS MEDICATION WAS DELETED BY RN Original Note: Pharmacy Consult ? Medication Reconciliation Pharmacy has completed the medication reconciliation. Daughter recommended to call [facility] because patient get meds packaged. Daughter confirmed patient was previously on warfarin 7 mg however he has not taken it for a while due to not getting refills from PCP. I will have AM pharmacist call [facility] to confirm medications in med box. Current list is based on claim history. Hannah Lundberg, DominikD
[2022-01-12] MEDS: Enoxaparin Sodium 100 MG/ML SYRINGE SUBCUT (19:50)
--- NOTE | 2022-01-12 20:00 | PC.NURSE ---
pt a&ox3, medicated per provider order, pt ate 100% of dinner, pt asking to change to a room with a television - staff aware, no room currently available.
--- NOTE | 2022-01-12 20:22 | MHC.CM.ED ---
CM met with patient at request of Sherrell LEE. Pt lives at independent living at [facility]. Has 3 meals and staff assist with his medications. States his medications are in a locked box. [place] [facility] [place] Diagnosis stroke/bilateral PE. D/C to [facility] with coumadin. Pt recently d/c home. Has not taken any coumadin in about 1 week. INR 1.0. Pt will need to bridge with lovenox at home. Pt not able to administer lovenox x5 days, with first dose today 01/12. Will then need INR and follow up with Dr. Crum on 01/18. CM called [facility] to verify services and determine if they can administer lovenox. Message left with Monse Vargas ([phone]), Director of Independent/[facility] living at [facility] at 1800 with request to return call. Pt uses a rollator walker and a cane. Transportation to appointments is via the [facility] van. D/C plan: return home once arrangements can be made for Lovenox at home. Referrals placed for medication management in case [facility] cannot administer lovenox. CM to follow for d/c plans.
[2022-01-12 20:25] VITALS: BP 137/60; PULSE 60; TEMP 36.6; O2SAT 98
[2022-01-12] MEDS: Levothyroxine Sodium 150 MCG TABLET PO (21:30)
[2022-01-12] MEDS: Gabapentin 100 MG CAPSULE 200 MG PO (21:30)
[2022-01-12] MEDS: carBAMazepine 200 MG TABLET 400 MG PO (21:30)
[2022-01-12] MEDS: Sertraline HCL 50 MG TABLET PO (21:30)
[2022-01-12] MEDS: Metoprolol Succinate ER 25 MG TAB.ER.24H PO (21:30)
[2022-01-12] MEDS: Docusate Sodium 100 MG CAPSULE PO (21:30)
--- NOTE | 2022-01-12 23:07 | PC.NURSE ---
pt sleeping, RR even and unlabored. no new orders at this time.
--- NOTE | 2022-01-13 00:46 | PC.NURSE ---
urinal emptied of 600ml of urine.
--- NOTE | 2022-01-13 02:54 | PC.NURSE ---
pt sleeping, RR even and unlabored. pt currently case mgmt, poss return to [facility] tomorrow pending arrangement of Lovenox administration.
[2022-01-13 04:48] LABS: COVID-19 Test Negative (Negative)
--- NOTE | 2022-01-13 05:45 | PC.NURSE ---
this RN assumed care of patient at this time 0545 01/13/2022
[2022-01-13 06:00] VITALS: BP 159/85; PULSE 60; TEMP 36.6; O2SAT 97
[2022-01-13] MEDS: Gabapentin 100 MG CAPSULE 200 MG PO (09:14)
[2022-01-13] MEDS: Doxazosin Mesylate 2 MG TABLET 4 MG PO (09:14)
[2022-01-13] MEDS: Atorvastatin Calcium 20 MG TABLET PO (09:14)
[2022-01-13] MEDS: amLODIPine Besylate 10 MG TABLET PO (09:14)
[2022-01-13] MEDS: Docusate Sodium 100 MG CAPSULE PO (09:14)
[2022-01-13] MEDS: carBAMazepine 200 MG TABLET 400 MG PO (10:33)
--- NOTE | 2022-01-13 14:19 | MHC.CM.ED ---
Patient remains in ER. Patient is from [facility]. Patient is active with [facility] for physical therapy. They are not able to accomodate daily nursing for Lovenox until INR is therapeutic. Prescription sent to [facility] by [facility]. Patient will receive today's dose of Lovenox. [facility] is able to accept patient for SN, PT and OT. They will see patient on 01/14. Patient aware and agreeable. Transportation will be booked for patient to return to [facility]. [facility]BV aware. Continue to monitor for d/c needs.
[2022-01-13] MEDS: Enoxaparin Sodium 120 MG/0.8 ML SYRINGE 105 MG SUBCUT (14:33)
[2022-01-13 15:00] VITALS: BP 105/60; PULSE 75; RESP 18; O2SAT 96
--- NOTE | 2022-01-13 15:39 | PC.NURSE ---
patient a/ox4 . Went over discharge instructions a ordered by provider . patient has [facility]NA services scheduled to [facility] Lovenox injections as prescibed . patient aware ofplan of care . patient assisted to wheelchair for [facility] ride home . patient has no questions at this time .
== END 2022-01-13 15:00 | disposition home or self-care (01) ==
PROVIDERS: Nurse Practitioner Family; Emergency Provider Student in an Organized Health Care Education/Training Program; PCP Internal Medicine
DX: I83.12 Varicose veins of left lower extremity with inflammation (principal); R79.1 Abnormal coagulation profile; R60.0 Localized edema; M79.605 Pain in left leg; Z20.822 Contact with and (suspected) exposure to COVID-19; I10 Essential (primary) hypertension; I48.91 Unspecified atrial fibrillation; Z86.718 Personal history of other venous thrombosis and embolism; Z86.73 Personal history of transient ischemic attack (TIA), and cerebral infarction without residual deficits; Z86.711 Personal history of pulmonary embolism
CPT/HCPCS: 36415; 80048; 80076; 83880; 85025; 85610; 87635; 93971; 96372; 99284; J1650

== ENCOUNTER 2022-01-29 09:39 | Emergency (ER) | payer MEDICARE, SELFPAY ==
--- NOTE | ~2022-01-29 | CT_ITS ---
EXAMINATION: NONCONTRAST HEAD CT NONCONTRAST CERVICAL SPINE CT INDICATION INFORMATION: Fall with head injury COMPARISON: 09/16/2021 TECHNIQUE: Separate noncontrast CT examinations of the head and cervical spine were performed. Coronal and sagittal images were created for each examination at the technologist workstation. This CT examination was performed using dose optimization techniques as appropriate, variously including the following: *Automated exposure control *Adjustment of mA and/or kV according to patient size (this includes techniques or standardized protocols for targeted exams where dose is matched to indication/reason for exam; i.e. extremities or head) *Use of iterative reconstruction technique DLP: 2394 mGy-cm FINDINGS: Head: There is no evidence of acute intracranial hemorrhage or territorial infarction. No abnormal mass effect or midline shift is seen. Aquino to white matter differentiation is well preserved. Thin right parietal occipital subdural hematoma measuring up to 3 mm in thickness. No hydrocephalus. Proportional prominence of the ventricles and sulcal spaces is consistent with mild volume loss. Confluent periventricular and deep white matter hypoattenuation is consistent with severe small vessel ischemic changes. Bilateral gangliocapsular lacunar infarcts. No acute osseous or soft tissue abnormality. The mastoid air cells and visualized portions of the paranasal sinuses are well aerated. Cervical spine: There is anatomic alignment of the vertebral bodies and posterior elements. The atlantoaxial and atlantooccipital articulations are intact. Vertebral body heights heights are maintained. Endplate osteophytes present throughout the cervical spine. Stable 3 mm anterolisthesis of C3 over C4 related to hypertrophic facet arthropathy which is present throughout the cervical spine.. No evidence of acute fracture. No prevertebral soft tissue swelling. Visualized portions of the lung apices are unremarkable. The thyroid gland is unremarkable. CT/CT cervical spine wo IV con IMPRESSION: * Acute pain right parasagittal parieto-occipital subdural hematoma measuring 3 mm. * Severe chronic white matter small vessel ischemic changes. * No acute cervical spine fracture or traumatic malalignment. This critical result was discussed with Dr Rangel at 01/29/2022 12:26 PM and it was ascertained that the content and urgency of the report was understood at the time of direct communication.
[2022-01-29 09:51] VITALS: BP 142/64; PULSE 63; RESP 16; TEMP 36.4; O2SAT 98; BMI 15.7
--- NOTE | 2022-01-29 10:04 | ECG_ITS ---
Test Reason : WEAKNESS,FALL,AFIB Blood Pressure : / mmHG Vent. Rate : 061 BPM Atrial Rate : 000 BPM P-R Int : 000 ms QRS Dur : 092 ms QT Int : 432 ms P-R-T Axes : 000 042 049 degrees QTc Int : 434 ms Atrial fibrillation Incomplete right bundle branch block Abnormal ECG When compared with ECG of 23-NOV-2021 10:24, Atrial fibrillation has replaced Atrial flutter Referred By: Garrick Rangel Electronically Signed By:ADAN NAM MD
--- NOTE | 2022-01-29 10:13 | ED.FALL ---
HPI - Fall General Chief Complaint: Fall Stated Complaint: WIT FALL @ SNF PER EMS Source: patient and EMS Mode of arrival: EMS Limitations: no limitations History of Present Illness HPI Narrative: Abelardo is an 81-year-old male with a medical history of atrial fibrillation, pulmonary embolism, a left DVT-diagnosed 1 week prior (on warfarin), and previous clavicular fractures, who presents today to the emergency department after a fall this morning at a assisted living facility. Patient reports that he was using his walker to get to a chair, the patient lost his balance and fell down. He denies feeling dizzy or losing consciousness. EMS reports that they were told that he did hit his head after the fall, but did not lose consciousness. He denies any associated symptoms of headache, neck pain, weakness, chest pain, shortness of breath, or feeling lightheaded. MD complaint: fall Onset (ago): hour(s) (1) Fall from: standing Place fall occurred: assisted/SNF Loss of consciousness: none Symptoms prior to fall: none Associated symptoms (after fall): denies Related Data Home Medications Medication Instructions Recorded Confirmed carbamazepine 200 mg tablet 400 mg PO TID 02/20/21 01/12/22 gabapentin 100 mg capsule 300 mg PO TID 02/20/21 01/13/22 levothyroxine 150 mcg tablet 150 mcg PO BEDTIME 02/20/21 01/12/22 metoprolol succinate 25 mg 25 mg PO BEDTIME 02/20/21 01/12/22 tablet,extended release 24 hr sertraline 50 mg tablet 50 mg PO BEDTIME 02/20/21 01/12/22 amlodipine 10 mg tablet 1 tab PO DAILY 09/16/21 01/12/22 docusate sodium 100 mg capsule 100 mg PO BID 11/23/21 01/12/22 simvastatin 40 mg tablet 1 tab PO DAILY 11/23/21 01/12/22 calcium carbonate 250 mg-vitamin 1 tab PO BID 01/13/22 01/13/22 D3 3.125 mcg (125 unit) tablet (Oyster Shell Calcium-Vitamin D3) multivitamin-iron 9 mg-folic acid 1 tab PO DAILY 01/13/22 01/13/22 400 mcg-calcium and minerals tablet (Therems-M) polyethylene glycol 3350 17 17 g PO DAILY PRN Constipation 01/13/22 01/13/22 gram/dose oral powder sennosides 8.6 mg tablet (senna) 2 tab PO BEDTIME 01/13/22 01/13/22 warfarin 2 mg tablet 1 tab PO DAILY 01/13/22 01/13/22 warfarin 5 mg tablet 1 tab PO DAILY 01/13/22 01/13/22 Previous Rx's Medication Instructions Recorded compr.stocking,knee,long,x-lrg #2 ea 05/13/21 compression socks, x-large #2 ea 05/13/21 enoxaparin 100 mg/mL subcutaneous 100 mg subcut DAILY 5 days #5 mL 01/13/22 syringe (Lovenox) Allergies Allergy/AdvReac Type Severity Reaction Status Date / Time No Known Allergies Allergy Verified 09/29/21 13:59 [No Known Allergies*] Review of Systems Review of Systems: Yes all other systems are reviewed and are negative [facility] Past Medical History [facility] Narrative: Past medical history: Atrial fibrillation, pulmonary embolism, left DVT, bilateral clavicular fractures, bladder outlet obstruction. Social history: lives in residential facility Medical History A-fib CVA (cerebral vascular accident) HTN (hypertension) Hypothyroid Social History Social History Household Members: Other Housing: Assisted Living Facility Do you presently have visiting nurse or other home services: Yes Alcohol intake: former Patient Tobacco Use Status: Former Tobacco user Advance Directives: Yes Advance Directives on File: Yes Advance Directives Date on File: 09/16/21 service: No Physical Exam Vital Signs: Vital Signs: Last Vital Signs Temp 97.6 F 01/29/22 09:51 Pulse 63 01/29/22 09:51 Resp 16 01/29/22 09:51 BP 142/64 H 01/29/22 09:51 Pulse Ox 98 01/29/22 09:51 O2 Del Method 01/29/22 09:51 BMI result Body Mass Index 15.7 Const: Other: Awake, alert, male patient, very pleasant cooperative, slow speech pattern but comprehensible, in no distress HEENT: Head: Yes normal to inspection, Yes normocephalic and Yes atraumatic Ears: external ears normal General nose exam: Normal external nose present Face and sinus: Yes normal facial exam and Yes face symmetric Mouth: Normal oral and palatal mucosa present, lip normal, tongue normal and moist mucous membranes Throat: Yes posterior oropharynx normal Eyes: General: appearance normal, both eyes and all related structures Eyelids: Yes eyelids normal Conjunctivae: conjunctivae normal Sclerae: sclerae normal Pupils: Equal, round and reactive pupils present Direct Ophthalmoscopy: normal light reflex Neck: Neck: Yes normal visual inspection and Yes supple Lymphatic: no lymphadenopathy noted Chest: Chest palpation & inspection: normal inspection of the chest and normal palpation of entire chest wall Resp: Effort & Inspection: normal respiratory effort and able to speak in complete sentences Auscultation: clear to auscultation bilaterally Cardio: Rate: regular rate Rhythm: regular rhythm Heart sounds: S1 normal heart sound present and S2 normal heart sound present GI: Inspection: Yes normal to inspection Palpation (GI): Soft to palpation, nontender and no guarding Auscultation: normal bowel sounds : General: Yes no CVA tenderness Back/Spine/Pelvis: Back: no CVA tenderness Cervical Spine: normal cervical lordosis and cervical ROM normal Thoracic/Lumbar Spine: thoracic and lumbar spine normal to inspection Skin: General skin exam: no rashes or lesions noted Trauma: no lacerations or abrasions Neuro: Cranial nerves: Yes CN's II-XII intact bilaterally and Yes Equal, round and reactive pupils present Cognition (Neuro): normal cognition Motor exam (neuro): 5/5 motor strength present throughout Extrem: Other: Left lower extremity: Left calf is proximally 1/2 times the size of the right calf consistent with his DVT, 1+ pitting edema bilaterally symmetric Psych: Appearance: grossly normal Mental Status: mental status grossly normal Speech and movement: Normal speech and movement present Affect: normal affect Attitude: cooperative Thought process: Normal thought process present Thought content: Normal thought content present Course Course Course Narrative: 81-year-old male who had a witnessed fall at his assisted living residence. Paramedics report that the patient did strike his head but had no loss of consciousness. Patient has no complaints at this time. Patient was recently diagnosed with a left lower extremity DVT and is on warfarin. Patient's vital signs revealed an elevated blood pressure of 142/64 otherwise unremarkable. Physical examination did reveal a large left calf compared to the right consistent with his DVT otherwise no significant findings. His neurologic exam was normal. I did order laboratory evaluation, CT scan of the head without IV contrast and CT cervical spine. 1238: Laboratory evaluation: Mild anemia with an H&H of 11.7 and 36.3, this is chronic. INR was subtherapeutic at 1.2. Glucose elevated 132. COVID-19 and influenza were negative Radiology evaluation: CT scan of the head and cervical spine without IV contrast interpreted as follows: * Acute pain right parasagittal parieto-occipital subdural hematoma measuring 3 mm. * Severe chronic white matter small vessel ischemic changes. * No acute cervical spine fracture or traumatic malalignment. This critical result was discussed with Dr Rangel at 01/29/2022 12:26 PM and it was ascertained that the content and urgency of the report was understood at the time of direct communication. Dictated By:Misael Campbell Given the finding of an acute 3 mm parasagittal parieto-occipital subdural hematoma I will contact [facility] trauma to discuss transfer. The patient is on warfarin but his INR subtherapeutic at 1.2. 1301: I did discuss the patient's presentation with the Trauma Service event at [facility], Dr. Severino who accepted this patient as an ED to ED transfer. The patient will be transferred by ALS ambulance. 1318: The patient requested that I contact his daughter, Gema Stone ([phone]) and I did make her aware of the patient's condition eat her transferred to [facility]. MDM - Fall Lab Data Result diagrams: 01/29/22 11:01/29/22 11: Labs: Lab Results 01/29/22 01/29/22 01/29/22 Range/Units 11:01 11: 11: WBC 7.9 (4.8-10.8) X10*3/uL RBC 3.92 L (4.60-5.80) X10*6/uL Hgb 11.7 L (14.0-18.0) g/dl Hct 36.3 L (42.0-52.0) % MCV 92.6 (80.0-98.0) fL MCH 29.8 (27.0-33.0) pg MCHC 32.2 (31.0-36.0) g/dl RDW 14.4 (11.0-16.0) % Plt Count 186 (160-400) X10*3/uL MPV 9.7 (9.4-12.4) fL Immature Gran % (Auto) 0.3 (0.0-0.4) % Neut % (Auto) 72.8 (45-73) % Lymph % (Auto) 17.2 L (20-40) % [place] % (Auto) 7.4 (2-11) % Eos % (Auto) 1.9 (0-4) % Baso % (Auto) 0.4 (0-2) % Lymph # (Auto) 1.4 (1.2-4.9) X10*3/uL [place] # (Auto) 0.6 (0.1-1.2) X10*3/uL Eos # (Auto) 0.2 (0.0-0.4) X10*3/uL Baso # (Auto) 0.0 (0.0-0.2) X10*3/uL Abs Immat Gran (auto) 0.02 (0.00-0.03) X10*3/uL Absolute Neuts (auto) 5.8 (2.0-8.3) x10*3/uL Absolute Nucleated RBC 0.000 (0.0-0.012) X10*3/uL Nucleated RBC % (auto) 0.0 (0.0-0.2) /100WBC PT 13.4 H (10.0-13.1) SEC INR 1.2 H (0.9-1.1) APTT 30.1 (26.0-36.4) SEC Sodium 143 (135-145) mmol/L Potassium 4.2 (3.3-5.1) mmol/L Chloride 106 (96-108) mmol/L Carbon Dioxide 28 (22-29) mmol/L Anion Gap 13 (12-20) BUN 18 H (9-16) mg/dL Creatinine 0.85 (0.5-1.4) mg/dL Estim Creat Clear Calc 51.5 Estimated GFR > 60 Random Glucose 132 H (60-115) mg/dL Calcium 8.6 (8.4-10.2) mg/dL Total Bilirubin 0.2 (0.0-1.0) mg/dL AST 15 (5-37) U/L ALT 16 (0-40) U/L Alkaline Phosphatase 94 (39-117) U/L Total Protein 6.1 L (6.5-8.0) g/dL Albumin 3.6 (3.5-5.0) g/dL COVID-19 (ADELAIDA) (Negative) COVID-19 Clin Com Influenza Type A (MILEY) (Negative) Influenza Type B (MILEY) (Negative) Influenza A & B Note 01/29/22 01/29/22 Range/Units 11:01 11:01 WBC (4.8-10.8) X10*3/uL RBC (4.60-5.80) X10*6/uL Hgb (14.0-18.0) g/dl Hct (42.0-52.0) % MCV (80.0-98.0) fL MCH (27.0-33.0) pg MCHC (31.0-36.0) g/dl RDW (11.0-16.0) % Plt Count (160-400) X10*3/uL MPV (9.4-12.4) fL Immature Gran % (Auto) (0.0-0.4) % Neut % (Auto) (45-73) % Lymph % (Auto) (20-40) % [place] % (Auto) (2-11) % Eos % (Auto) (0-4) % Baso % (Auto) (0-2) % Lymph # (Auto) (1.2-4.9) X10*3/uL [place] # (Auto) (0.1-1.2) X10*3/uL Eos # (Auto) (0.0-0.4) X10*3/uL Baso # (Auto) (0.0-0.2) X10*3/uL Abs Immat Gran (auto) (0.00-0.03) X10*3/uL Absolute Neuts (auto) (2.0-8.3) x10*3/uL Absolute Nucleated RBC (0.0-0.012) X10*3/uL Nucleated RBC % (auto) (0.0-0.2) /100WBC PT (10.0-13.1) SEC INR (0.9-1.1) APTT (26.0-36.4) SEC Sodium (135-145) mmol/L Potassium (3.3-5.1) mmol/L Chloride (96-108) mmol/L Carbon Dioxide (22-29) mmol/L Anion Gap (12-20) BUN (9-16) mg/dL Creatinine (0.5-1.4) mg/dL Estim Creat Clear Calc Estimated GFR Random Glucose (60-115) mg/dL Calcium (8.4-10.2) mg/dL Total Bilirubin (0.0-1.0) mg/dL AST (5-37) U/L ALT (0-40) U/L Alkaline Phosphatase (39-117) U/L Total Protein (6.5-8.0) g/dL Albumin (3.5-5.0) g/dL COVID-19 (ADELAIDA) Negative (Negative) COVID-19 Clin Com See Note Influenza Type A (MILEY) Negative (Negative) Influenza Type B (MILEY) Negative (Negative) Influenza A & B Note See Note Critical Care Time Critical Care Time Total Critical Care Time: 30 Attestation: Critical Care: The patient was critically ill with a high probability of imminent or life threatening deterioration. I spent greater than 30 minutes of discontinuous time evaluating the patient,delivering critical care at the bedside, discussing and evaluating pertinent data with consultants. Critical care time does not include time spent performing separately billable procedures or teaching. Total time spent performing critical care was 30 minutes. Discharge Plan Discharge Clinical Impression: Acute subdural hematoma, On warfarin therapy Fall Qualifiers: Encounter type: initial encounter Qualified Code(s): W19.XXXA - Unspecified fall, initial encounter Patient Disposition: [facility] Transfer Details: [facility], ED to ED transfer Prescriptions: No Action sennosides [senna] 8.6 mg tablet 2 tab PO BEDTIME polyethylene glycol 3350 17 gram/dose powder 17 g PO DAILY PRN (Reason: Constipation) calcium carbonate-vitamin D3 [Oyster Shell Calcium-Vit D3] 250 mg-3.125 mcg (125 unit) Tablet 1 tab PO BID Therems-M 9 mg iron-400 mcg Tablet 1 tab PO DAILY warfarin 2 mg tablet 1 tab PO DAILY warfarin 5 mg tablet 1 tab PO DAILY Rx Instructions: TOTAL DOSE OF 7 MG enoxaparin [Lovenox] 100 mg/mL syringe 100 mg subcut DAILY 5 Days Qty: 5 0RF (DME) compression socks, x-large Misc See Rx Instructions .Route Qty: 2 0RF Rx Instructions: As directed (DME) compr.stocking,knee,long,x-lrg Misc See Rx Instructions .Route Qty: 2 0RF Rx Instructions: As directed amlodipine 10 mg tablet 1 tab PO DAILY simvastatin 40 mg tablet 1 tab PO DAILY docusate sodium 100 mg Capsule 100 mg PO BID levothyroxine 150 mcg tablet 150 mcg PO BEDTIME gabapentin 100 mg capsule 300 mg PO TID sertraline 50 mg tablet 50 mg PO BEDTIME carbamazepine 200 mg tablet 400 mg PO TID metoprolol succinate 25 mg tablet extended release 24 hr 25 mg PO BEDTIME
[2022-01-29 11:10] LABS: MANUAL DIFF FLAG NO
[2022-01-29 11:16] LABS: Basophils Percent Auto 0.4 % (0-2); Eosinophils Absolute Auto 0.2 X10*3/uL (0.0-0.4); Eosinophils Percent Auto 1.9 % (0-4); Hematocrit 36.3 % (42.0-52.0); Hemoglobin 11.7 g/dl (14.0-18.0); Imm Gran Abs Auto 0.02 X10*3/uL (0.00-0.03); Imm Gran Pct Auto 0.3 % (0.0-0.4); Lymphocytes Absolute Auto 1.4 X10*3/uL (1.2-4.9); Lymphocytes Percent Auto 17.2 % (20-40); Mean Corpuscular HGB Conc 32.2 g/dl (31.0-36.0); Mean Corpuscular Hemoglobin 29.8 pg (27.0-33.0); Mean Corpuscular Volume 92.6 fL (80.0-98.0); Mean Platelet Volume 9.7 fL (9.4-12.4); Monocytes Absolute Auto 0.6 X10*3/uL (0.1-1.2); Monocytes Percent Auto 7.4 % (2-11); Neutrophils Absolute Auto 5.8 x10*3/uL (2.0-8.3); Neutrophils Percent Auto 72.8 % (45-73); Platelet Count 186 X10*3/uL (160-400); Red Blood Count 3.92 X10*6/uL (4.60-5.80); Red Cell Distribution Width 14.4 % (11.0-16.0); White Blood Count 7.9 X10*3/uL (4.8-10.8)
[2022-01-29 11:20] LABS: INTERNATIONAL NORM RATIO 1.2 (0.9-1.1); Prothrombin Time 13.4 SEC (10.0-13.1)
[2022-01-29 11:22] LABS: Partial Thromboplastin Time 30.1 SEC (26.0-36.4)
[2022-01-29 11:40] LABS: Alanine Aminotransferase 16 U/L (0-40); Alkaline Phosphatase 94 U/L (39-117); Anion Gap 13 (12-20); Aspartate Amino Transferase 15 U/L (5-37); Bilirubin Total 0.2 mg/dL (0.0-1.0); Blood Urea Nitrogen 18 mg/dL (9-16); Calcium 8.6 mg/dL (8.4-10.2); Carbon Dioxide 28 mmol/L (22-29); Chloride 106 mmol/L (96-108); Creatinine Clr Calc Pharmacy 51.5; Estimated Glomerular Filt Rate > 60; Glucose Random 132 mg/dL (60-115); Potassium 4.2 mmol/L (3.3-5.1); Sodium 143 mmol/L (135-145); Total Protein 6.1 g/dL (6.5-8.0)
[2022-01-29 11:42] LABS: COVID-19 Test Negative (Negative); IDNOW Serial# 16C4AD1C
[2022-01-29 11:47] LABS: IDNOW Serial# BCCEAD1C; Influenza A Negative (Negative); Influenza B2 Negative (Negative)
--- NOTE | 2022-01-29 12:53 | PC.NURSE ---
@ 12:53PM DR MARY REQUESTS A CALL OUT TO [facility] PT [place] LINE FOR A TRAUMA TRANSFER DARCIE ANSWERS, TAKES PT INFO AND BEST CALL BACK NUMBER THEN STATES SHE WILL CALL US BACK WITH A TRAUMA DR ON THE LINE DR MARY AWARE
[2022-01-29 12:56] LABS: Albumin Level 3.6 g/dL (3.5-5.0)
--- NOTE | 2022-01-29 12:59 | PC.NURSE ---
@ 12:56 PM DARCIE FROM [facility] PT TX LINE CALLS US BACK WITH DR MAYES ON THE LINE ASKING TO SPEAK WITH DR TYRA MARY TAKES OVER CALL RIGHT AWAY
--- NOTE | 2022-01-29 13:48 | PC.NURSE ---
ems loading pt. calling [facility] at this time to give report
--- NOTE | 2022-01-29 13:51 | PC.NURSE ---
no answer from [facility]. will attempt again. ems leaving at this time.
--- NOTE | 2022-01-29 14:09 | PC.NURSE ---
another attempt to contact [facility] for report. no answer.
== END 2022-01-29 14:11 | disposition short-term general hospital (02) ==
PROVIDERS: Emergency Provider Emergency Medicine Emergency Medical Services; PCP Internal Medicine
DX: S06.5XAA Traumatic subdural hemorrhage with loss of consciousness status unknown, initial encounter (principal); M54.2 Cervicalgia; R51.9 Headache, unspecified; W01.0XXA Fall on same level from slipping, tripping and stumbling without subsequent striking against object, initial encounter; Y93.9 Activity, unspecified; Y92.9 Unspecified place or not applicable; Y99.9 Unspecified external cause status; Z79.899 Other long term (current) drug therapy; Z20.822 Contact with and (suspected) exposure to COVID-19; Z87.891 Personal history of nicotine dependence; Z79.01 Long term (current) use of anticoagulants
CPT/HCPCS: 70450; 72125; 80053; 85025; 85610; 85730; 87502; 87635; 93005; 99285

== ENCOUNTER 2022-02-11 10:10 | Emergency (ER) | payer MEDICARE, SELFPAY ==
[2022-02-11] VITALS (16 sets, daily range): BP systolic 107–193; BP diastolic 70–127; PULSE 56–77; RESP 14–19; TEMP 35.8–37.1; O2SAT 94–97; BMI 36.1
--- NOTE | ~2022-02-11 | CT_ITS ---
EXAMINATION: CT HEAD WITHOUT CONTRAST CLINICAL INFORMATION: History of subdural hematoma. COMPARISON: CT scan of the head 01/29/2022. TECHNIQUE: Multidetector CT imaging of the head was obtained without the use of intravenous contrast. Coronal and sagittal reformatted images were generated at the technologist workstation. This CT examination was performed using dose optimization techniques as appropriate, variously including the following: *Automated exposure control *Adjustment of mA and/or kV according to patient size (this includes techniques or standardized protocols for targeted exams where dose is matched to indication/reason for exam; i.e. extremities or head) *Use of iterative reconstruction technique DLP: 857 mGy-cm. FINDINGS: There has been interval decrease in the small extra-axial fluid collection along the right posterior parietal region. There is no mass effect on the adjacent brain parenchyma and there is no midline shift. There is no evidence of acute parenchymal hemorrhage or territorial infarction. No abnormal mass-effect or midline shift is seen. Aquino to white matter differentiation is well preserved. No new extra-axial fluid collections are identified. The ventricles and sulci are commensurately prominent consistent with diffuse volume loss. There are areas of low attenuation in the periventricular and subcortical white matter, which are most consistent with chronic microvascular ischemic disease. An area of low attenuation in the high posterior centrum semiovale volume on the right may be consistent with sequelae of a chronic infarct. There are chronic infarcts in the basal ganglia. 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 There are no acute osseous or soft tissue abnormalities. The mastoid air cells are well-aerated. There is complete opacification of the left maxillary sinus. CT/CT head/brain wo IV con IMPRESSION: 1. There has been interval decrease in the small extra-axial fluid collection along the right posterior parietal region without mass effect on the adjacent brain parenchyma, and there is no midline shift. 2. There are no new acute bleeds or territorial infarcts. No masses are demonstrated. 3. There are chronic microvascular ischemic changes and lacunar infarcts. There is diffuse volume loss. 4. 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 Correlate with surgical history.
--- NOTE | 2022-02-11 10:14 | ECG_ITS ---
Test Reason : dizziness Blood Pressure : / mmHG Vent. Rate : 066 BPM Atrial Rate : 000 BPM P-R Int : 000 ms QRS Dur : 090 ms QT Int : 438 ms P-R-T Axes : 000 022 040 degrees QTc Int : 459 ms Atrial fibrillation Abnormal ECG When compared with ECG of 29-JAN-2022 11:15, No significant change was found Referred By: Qiana Elizondo Electronically Signed By:Jason Helton
[2022-02-11 10:33] LABS: Glucose, Whole Blood 138 mg/dL (60-115)
--- NOTE | 2022-02-11 10:36 | ED_ITS ---
HPI - Nausea/Vomiting/Diarrhea General Chief complaint: Dizziness <HEMANT Gallardo Last Filed: 02/11/22 17:34> Stated complaint: Dizziness, n/v per EMS <HEMANT Gallardo Last Filed: 02/11/22 17:34> Time Seen by Provider: 02/11/22 10:14 <HEMANT Gallardo Last Filed: 02/11/22 17:34> Source: patient, EMS and old records reviewed <HEMANT Gallardo Last Filed: 02/11/22 17:34> Mode of arrival: EMS <HEMANT Gallardo Last Filed: 02/11/22 17:34> Limitations: no limitations <HEMANT Gallardo Last Filed: 02/11/22 17:34> History of Present Illness HPI Narrative: 81 yo male with history of atrial fibrillation, hx PE (unknown when), on Coumadin that is now held with recent SDH s/p fall who presents to the ER from acute rehab facility for evaluation of new onset nausea, vomiting and dizziness that started after he ate breakfast today. He was just discharged from acute rehab and went back to his assisted living facility yesterday. He states he went to bed feeling well. He woke up this morning and had breakfast. He had sligh tly upset stomach. After he ate breakfast he vomited right away. He felt nauseous and dizzy. He felt weak. He had ongoing upset stomach in the epigastric area. He denied any chest pain or shortness of breath. He was brought to the hospital for further evaluation. <HEMANT Gallardo Last Filed: 02/11/22 17:34> MD elicited complaint: nausea, vomiting and other (dizziness) <HEMANT Gallardo Last Filed: 02/11/22 17:34> Onset (ago): minute(s) <HEMANT Gallardo Last Filed: 02/11/22 17:34> Description of vomiting: food contents <HEMANT Gallardo Last Filed: 02/11/22 17:34> Associated nausea: Yes <HEMANT Gallardo Last Filed: 02/11/22 17:34> Associated abdominal pain: Yes <HEMANT Gallardo Filed: 02/11/22 17:34> Location of pain: diffuse and epigastric <HEMANT Gallardo Last Filed: 02/11/22 17:34> Radiation: diffuse <HEMANT Gallardo Last Filed: 02/11/22 17:34> Pain consistency: intermittent <HEMANT Gallardo Last Filed: 02/11/22 17:34> Severity: moderate <HEMANT Gallardo Last Filed: 02/11/22 17:34> Quality: aching <HEMANT Gallardo Last Filed: 02/11/22 17:34> Exacerbating factors: eating <HEMANT Gallardo Last Filed: 02/11/22 17:34> Relieving factors: medication <HEMANT Gallardo Last Filed: 02/11/22 17:34> Associated symptoms: loss of appetite, malaise, nausea/vomiting, weakness and anxiety <HEMANT Gallardo Last Filed: 02/11/22 17:34> Related Data Home medications: Home Medications Medication Instructions Recorded Confirmed carbamazepine 200 mg tablet 200 mg PO QID 02/20/21 02/11/22 gabapentin 100 mg capsule 200 mg PO TID 02/20/21 02/11/22 levothyroxine 150 mcg tablet 150 mcg PO DAILY 02/20/21 02/11/22 metoprolol succinate 25 mg 25 mg PO BEDTIME 02/20/21 02/11/22 tablet,extended release 24 hr sertraline 50 mg tablet 50 mg PO BEDTIME 02/20/21 02/11/22 amlodipine 10 mg tablet 1 tab PO DAILY 09/16/21 02/11/22 simvastatin 40 mg tablet 1 tab PO BEDTIME 11/23/21 02/11/22 acetaminophen 325 mg tablet 650 mg PO Q4H PRN Pain 02/11/22 02/11/22 ammonium lactate 12 % lotion 1 appl topical BID 02/11/22 02/11/22 furosemide 20 mg tablet 20 mg PO DAILY 02/11/22 02/11/22 melatonin 3 mg tablet 3 mg PO BEDTIME PRN Insomnia 02/11/22 02/11/22 Previous Rx's Medication Instructions Recorded compr.stocking,knee,long,x-lrg #2 ea 05/13/21 compression socks, x-large #2 ea 05/13/21 <HEMANT Gallardo - Last Filed: 02/11/22 17:34> Allergies/Adverse reactions: Allergies Allergy/AdvReac Type Severity Reaction Status Date / Time No Known Allergies Allergy Verified 09/29/21 13:59 [No Known Allergies*] <HEMANT Gallardo - Last Filed: 02/11/22 17:34> Review of Systems Review of Systems: Constitutional: No Fever, No Chills ENT/Mouth: No sore throat, No Rhinorrhea, No Swallowing Difficulty Eyes: No Eye Pain, No Swelling, No Redness Cardiovascular: No Chest Pain, No SOB, No Orthopnea, No Edema Respiratory: No Cough, No Sputum, No Wheezing, No dyspnea Gastrointestinal: + Nausea, + Vomiting, No Diarrhea, + abdominal Pain, No Hematochezia, No Melena Genitourinary: No Dysuria, No Urinary Frequency, No Hematuria Musculoskeletal: No joint pain, No Myalgias Skin: No Skin Lesions, No rash Neuro: + Weakness, No Numbness, + Dizziness, No Headache Psych: No Anxiety/Panic, No Depression Heme/Lymph: No Bruising, No Lymphadenopathy Endocrine: No Polyuria, No Polydipsia <HEMANT Gallardo - Last Filed: 02/11/22 17:34> Gastrointestinal: Gastrointestinal: Reports nausea <HEMANT Gallardo Last Filed: 02/11/22 17:34> [facility] Past Medical History Medical History: Medical History A-fib CVA (cerebral vascular accident) HTN (hypertension) Hypothyroid <HEMANT Gallardo Last Filed: 02/11/22 17:34> Social History Social History: Social History Household Members: Other Housing: Assisted Living Facility Do you presently have visiting nurse or other home services: Yes Alcohol intake: never Patient Tobacco Use Status: Former Tobacco user Smoked in Last 30 Days: No Use of substances other than those prescribed or required for medical reasons: No Advance Directives: Yes Advance Directives on File: Yes Advance Directives Date on File: 09/16/21 service: No <HEMANT Gallardo - Last Filed: 02/11/22 17:34> Physical Exam Vital Signs: Vital Signs: Last Vital Signs Temp 98.2 F 02/12/22 06:25 Pulse 52 02/12/22 10:01 Resp 16 02/12/22 09:52 BP 146/83 H 02/12/22 10:01 Pulse Ox 98 02/12/22 07:10 O2 Del Method 02/12/22 07:10 BMI result Body Mass Index 36.1 <HEMANT Gallardo - Last Filed: 02/11/22 17:34> Vital Signs: Last Vital Signs Temp 98.2 F 02/12/22 06:25 Pulse 52 02/12/22 10:01 Resp 16 02/12/22 09:52 BP 146/83 H 02/12/22 10:01 Pulse Ox 98 02/12/22 07:10 O2 Del Method 02/12/22 07:10 BMI result Body Mass Index 36.1 <Sherrell Lechuga NP - Last Filed: 02/12/22 11:32> Appearance: Alert. Oriented X3. No acute distress. Eyes: Pupils equal, round and reactive to light. Left eyelid droop (chronic) ENT: Pharynx normal. Dry mucus membranes Neck: Normal inspection. Neck supple. CVS: Normal heart rate and rhythm. Pulses normal. Respiratory: No respiratory distress. Breath sounds normal. Abdomen: Obese, soft and nontender. +BS x4 Skin: Skin warm and dry. Normal skin color. Normal skin turgor. No rashes. Extremities: No lower extremity edema. Neuro: Oriented X 3. No motor deficit. No sensory deficit. CN II-XII intact. Normal finger to nose and heel to bola[place] bilaterally. LE weakness, bilaterally equal and symmetrical. Unsteady on his feet. <HEMANT Gallardo - Last Filed: 02/11/22 17:34> Course Course Course Narrative: 81 yo male with hx Afib, DVT on Coumadin, recently held for SDH s/p fall presenting with nausea and vomiting and dizziness today after eating breakfast. Nonfocal neuro exam. Nausea improved on arrival. Will get basic labs, head CT to re-eval SDH. Concern for possible posterior stroke given dizziness although less likely being in NSR on the monitor and nonfocal neuro exam; not a tpa candidate due to recent SDH. Will closely monitor and reasses. Case discussed with Dr. Kaur, hold off on MRI for now. <HEMANT Gallardo - Last Filed: 02/11/22 17:34> Reevaluation(s) Reevaluation #1: Orthostatic vital signs are positive. He had a 30 point drop in his blood pressure when standing. He feels nauseous when standing, dizziness is minimal. Will give 1 L IV fluids and repeat his orthostatic vital signs. EKG wtih afib. paroxysmal, in and out of afib and NSR. <HEMANT Gallardo - Last Filed: 02/11/22 17:34> Reevaluation #2: Patient had ongoing vomiting episode. Not dizzy. Upset stomach. Given Maalox and repeat doses Zofran. Repeat orthostatic vital signs improved. He still appears dry on exam with dry mucous membranes. He is tolerating some p.o. at this time. He feels weak and nauseous when he stands. He states he is paranoid to fall again. He is not comfortable going back to his assisted living facility. Will place an physician observation at this time. Physician observation started at 17:12. Patient placed in physician observation because patient is awaiting PT evaluation for the possible need of PT rehab At the time observation was started patient's vital signs were stable. Patient is alert and oriented. Neuro exam is non-focal. CV: RRR and lungs are clear. Will continue to monitor. Med rec is pending. P.o. diet ordered, will advance as tolerated. Urinalysis still pending to rule out UTI as well. <HEMANT Gallardo - Last Filed: 02/11/22 17:34> Reevaluation #3: Patient is currently pending physical therapy evaluation and case management involvement for possible placement. His Coumadin is held due to his history of subdural hematoma. Medications were reconciled this morning. Nurses report patient is an irregularly irregular rhythm with rate 40s to 60s. Patient asymptomatic. Patient has history of same. Patient did not receive any rate control medications this morning. He does take Toprol XL at night time. His blood pressure is stable. Will continue physician observation pending dispositi on <Sherrell Lechuga NP - Last Filed: 02/12/22 11:32> Medications Administered Generic Name Dose Route Start Last Admin Trade Name Freq PRN Reason Stop Dose Admin Amlodipine Besylate 10 mg 02/12/22 09:00 02/12/22 09:54 Amlodipine Besylate 10 Mg Tablet PO 10 mg DAILY SID Administration Protocol Carbamazepine 200 mg 02/12/22 09:00 02/12/22 10:39 Carbamazepine 200 Mg Tablet PO 200 mg QID SID Administration Furosemide 20 mg 02/12/22 09:00 02/12/22 09:54 Furosemide 20 Mg Tablet PO 20 mg DAILY SID Administration Protocol Gabapentin 200 mg 02/12/22 09:00 02/12/22 09:53 Gabapentin 100 Mg Capsule PO 200 mg TID SID Administration Lactic Acid 1 appl 02/12/22 09:00 02/12/22 10:40 Ammonium Lactate 12 % Lotion 226 Gm Bottle TOPICAL 1 appl BID SID Administration Protocol Levothyroxine Sodium 150 mcg 02/12/22 09:00 02/12/22 09:54 Levothyroxine Sodium 150 Mcg Tablet PO 150 mcg DAILY@0600 SID Administration Discontinued Medications Generic Name Dose Route Start Last Admin Trade Name Freq PRN Reason Stop Dose Admin Al Hydroxide/Mg Hydroxide 30 ml 02/11/22 15:30 02/11/22 15:43 Magnesium Hydrox/Alum Hydrox 30 Ml Oral.Susp PO 02/11/22 15:31 30 ml ONCE ONE Administration Sodium Chloride 1,000 mls @ 999 mls/hr 02/11/22 11:15 02/11/22 13:00 Ns IVCONT 02/11/22 12:15 Infused .Q1H1M SID Infusion Sodium Chloride 1,000 mls @ 999 mls/hr 02/11/22 17:30 02/11/22 21:00 Ns IVCONT 02/11/22 18:30 Infused .Q1H1M SID Infusion Ondansetron HCl 4 mg 02/11/22 15:14 02/11/22 15:43 Ondansetron Hcl 4 Mg/2 Ml Vial IVPUSH 02/11/22 15:15 4 mg ONCE ONE Administration <HEMANT Gallardo - Last Filed: 02/11/22 17:34> Medications Administered Generic Name Dose Route Start Last Admin Trade Name Freq PRN Reason Stop Dose Admin Amlodipine Besylate 10 mg 02/12/22 09:00 02/12/22 09:54 Amlodipine Besylate 10 Mg Tablet PO 10 mg DAILY SID Administration Protocol Carbamazepine 200 mg 02/12/22 09:00 02/12/22 10:39 Carbamazepine 200 Mg Tablet PO 200 mg QID SID Administration Furosemide 20 mg 02/12/22 09:00 02/12/22 09:54 Furosemide 20 Mg Tablet PO 20 mg DAILY SID Administration Protocol Gabapentin 200 mg 02/12/22 09:00 02/12/22 09:53 Gabapentin 100 Mg Capsule PO 200 mg TID SID Administration Lactic Acid 1 appl 02/12/22 09:00 02/12/22 10:40 Ammonium Lactate 12 % Lotion 226 Gm Bottle TOPICAL 1 appl BID SID Administration Protocol Levothyroxine Sodium 150 mcg 02/12/22 09:00 02/12/22 09:54 Levothyroxine Sodium 150 Mcg Tablet PO 150 mcg DAILY@0600 SID Administration Discontinued Medications Generic Name Dose Route Start Last Admin Trade Name Freq PRN Reason Stop Dose Admin Al Hydroxide/Mg Hydroxide 30 ml 02/11/22 15:30 02/11/22 15:43 Magnesium Hydrox/Alum Hydrox 30 Ml Oral.Susp PO 02/11/22 15:31 30 ml ONCE ONE Administration Sodium Chloride 1,000 mls @ 999 mls/hr 02/11/22 11:15 02/11/22 13:00 Ns IVCONT 02/11/22 12:15 Infused .Q1H1M SID Infusion Sodium Chloride 1,000 mls @ 999 mls/hr 02/11/22 17:30 02/11/22 21:00 Ns IVCONT 02/11/22 18:30 Infused .Q1H1M SID Infusion Ondansetron HCl 4 mg 02/11/22 15:14 02/11/22 15:43 Ondansetron Hcl 4 Mg/2 Ml Vial IVPUSH 02/11/22 15:15 4 mg ONCE ONE Administration <Sherrell Lechuga NP - Last Filed: 02/12/22 11:32> MDM - Nausea/Vomiting/Diarrhea Medical Records Attestation: I reviewed the patient's medical records. <HEMANT Gallardo - Last Filed: 02/11/22 17:34> Lab Data Attestation: I reviewed the patient's lab results. <HEMANT Gallardo - Last Filed: 02/11/22 17:34> Result diagrams: : 02/11/22 10:38 02/11/22 10:38 <HEMANT Gallardo - Last Filed: 02/11/22 17:34> Labs: Lab Results 02/11/22 02/11/22 02/11/22 Range/Units 10:25 10:34 10:38 WBC 8.0 (4.8-10.8) X10*3/uL RBC 4.15 L (4.60-5.80) X10*6/uL Hgb 12.3 L (14.0-18.0) g/dl Hct 37.0 L (42.0-52.0) % MCV 89.2 (80.0-98.0) fL MCH 29.6 (27.0-33.0) pg MCHC 33.2 (31.0-36.0) g/dl RDW 13.3 (11.0-16.0) % Plt Count 227 (160-400) X10*3/uL MPV 9.8 (9.4-12.4) fL Immature Gran % (Auto) 0.2 (0.0-0.4) % Neut % (Auto) 72.0 (45-73) % Lymph % (Auto) 19.0 L (20-40) % [place] % (Auto) 6.7 (2-11) % Eos % (Auto) 1.7 (0-4) % Baso % (Auto) 0.4 (0-2) % Lymph # (Auto) 1.5 (1.2-4.9) X10*3/uL [place] # (Auto) 0.5 (0.1-1.2) X10*3/uL Eos # (Auto) 0.1 (0.0-0.4) X10*3/uL Baso # (Auto) 0.0 (0.0-0.2) X10*3/uL Abs Immat Gran (auto) 0.02 (0.00-0.03) X10*3/uL Absolute Neuts (auto) 5.8 (2.0-8.3) x10*3/uL Absolute Nucleated RBC 0.000 (0.0-0.012) X10*3/uL Nucleated RBC % (auto) 0.0 (0.0-0.2) /100WBC PT (10.0-13.1) SEC INR (0.9-1.1) APTT (26.0-36.4) SEC Sodium (135-145) mmol/L Potassium (3.3-5.1) mmol/L Chloride (96-108) mmol/L Carbon Dioxide (22-29) mmol/L Anion Gap (12-20) BUN (9-16) mg/dL Creatinine (0.5-1.4) mg/dL Estim Creat Clear Calc Estimated GFR POC Glucose 138 H (60-115) mg/dL Random Glucose (60-115) mg/dL Calcium (8.4-10.2) mg/dL Magnesium (1.6-2.6) mg/dL Total Bilirubin (0.0-1.0) mg/dL Direct Bilirubin (0.0-0.5) mg/dL AST (5-37) U/L ALT (0-40) U/L Alkaline Phosphatase (39-117) U/L Troponin I High Sens (<3.5-35.0) ng/L B-Natriuretic Peptide (<100) pg/mL Total Protein (6.5-8.0) g/dL Albumin (3.5-5.0) g/dL Urine Color Urine Appearance Urine pH (5.0-9.0) Ur Specific [place] (1.005-1.025) Urine Protein (Neg-Trace) mg/dL Urine Glucose (UA) (Negative) mg/dL Urine Ketones (Negative) mg/dL Urine Blood (Negative) Urine Nitrite (Negative) Ur Leukocyte Esterase (Negative) Urine Opiates Screen (Not Detect) Urine Fentanyl Screen (Not Detect) Ur Barbiturates Screen (Not Detect) Ur Phencyclidine Scrn (Not Detect) Ur Amphetamines Screen (Not Detect) U Benzodiazepines Scrn (Not Detect) Urine Cocaine Screen (Not Detect) U Marijuana (THC) Screen (Not Detect) Influenza Type A (PCR) NEGATIVE (Negative) Influenza Type B (PCR) NEGATIVE (Negative) RSV RNA Qual (PCR) NEGATIVE (Negative) SARS-CoV-2 RNA (RT-PCR) NEGATIVE (Negative) 02/11/22 02/11/22 02/11/22 Range/Units 10:38 10:38 10:38 WBC (4.8-10.8) X10*3/uL RBC (4.60-5.80) X10*6/uL Hgb (14.0-18.0) g/dl Hct (42.0-52.0) % MCV (80.0-98.0) fL MCH (27.0-33.0) pg MCHC (31.0-36.0) g/dl RDW (11.0-16.0) % Plt Count (160-400) X10*3/uL MPV (9.4-12.4) fL Immature Gran % (Auto) (0.0-0.4) % Neut % (Auto) (45-73) % Lymph % (Auto) (20-40) % [place] % (Auto) (2-11) % Eos % (Auto) (0-4) % Baso % (Auto) (0-2) % Lymph # (Auto) (1.2-4.9) X10*3/uL [place] # (Auto) (0.1-1.2) X10*3/uL Eos # (Auto) (0.0-0.4) X10*3/uL Baso # (Auto) (0.0-0.2) X10*3/uL Abs Immat Gran (auto) (0.00-0.03) X10*3/uL Absolute Neuts (auto) (2.0-8.3) x10*3/uL Absolute Nucleated RBC (0.0-0.012) X10*3/uL Nucleated RBC % (auto) (0.0-0.2) /100WBC PT 12.1 (10.0-13.1) SEC INR 1.1 (0.9-1.1) APTT 27.7 (26.0-36.4) SEC Sodium 134 L (135-145) mmol/L Potassium 4.2 (3.3-5.1) mmol/L Chloride 102 (96-108) mmol/L Carbon Dioxide 26 (22-29) mmol/L Anion Gap 10 L (12-20) BUN 18 H (9-16) mg/dL Creatinine 0.75 (0.5-1.4) mg/dL Estim Creat Clear Calc 96.5 Estimated GFR > 60 POC Glucose (60-115) mg/dL Random Glucose 138 H (60-115) mg/dL Calcium 8.6 (8.4-10.2) mg/dL Magnesium 1.9 (1.6-2.6) mg/dL Total Bilirubin 0.5 (0.0-1.0) mg/dL Direct Bilirubin 0.2 (0.0-0.5) mg/dL AST 15 (5-37) U/L ALT 17 (0-40) U/L Alkaline Phosphatase 124 H (39-117) U/L Troponin I High Sens < 3.5 D (<3.5-35.0) ng/L B-Natriuretic Peptide (<100) pg/mL Total Protein 6.0 L (6.5-8.0) g/dL Albumin 3.6 (3.5-5.0) g/dL Urine Color Urine Appearance Urine pH (5.0-9.0) Ur Specific [place] (1.005-1.025) Urine Protein (Neg-Trace) mg/dL Urine Glucose (UA) (Negative) mg/dL Urine Ketones (Negative) mg/dL Urine Blood (Negative) Urine Nitrite (Negative) Ur Leukocyte Esterase (Negative) Urine Opiates Screen (Not Detect) Urine Fentanyl Screen (Not Detect) Ur Barbiturates Screen (Not Detect) Ur Phencyclidine Scrn (Not Detect) Ur Amphetamines Screen (Not Detect) U Benzodiazepines Scrn (Not Detect) Urine Cocaine Screen (Not Detect) U Marijuana (THC) Screen (Not Detect) Influenza Type A (PCR) (Negative) Influenza Type B (PCR) (Negative) RSV RNA Qual (PCR) (Negative) SARS-CoV-2 RNA (RT-PCR) (Negative) 02/11/22 02/11/22 02/11/22 Range/Units 10:38 23:27 23:27 WBC (4.8-10.8) X10*3/uL RBC (4.60-5.80) X10*6/uL Hgb (14.0-18.0) g/dl Hct (42.0-52.0) % MCV (80.0-98.0) fL MCH (27.0-33.0) pg MCHC (31.0-36.0) g/dl RDW (11.0-16.0) % Plt Count (160-400) X10*3/uL MPV (9.4-12.4) fL Immature Gran % (Auto) (0.0-0.4) % Neut % (Auto) (45-73) % Lymph % (Auto) (20-40) % [place] % (Auto) (2-11) % Eos % (Auto) (0-4) % Baso % (Auto) (0-2) % Lymph # (Auto) (1.2-4.9) X10*3/uL [place] # (Auto) (0.1-1.2) X10*3/uL Eos # (Auto) (0.0-0.4) X10*3/uL Baso # (Auto) (0.0-0.2) X10*3/uL Abs Immat Gran (auto) (0.00-0.03) X10*3/uL Absolute Neuts (auto) (2.0-8.3) x10*3/uL Absolute Nucleated RBC (0.0-0.012) X10*3/uL Nucleated RBC % (auto) (0.0-0.2) /100WBC PT (10.0-13.1) SEC INR (0.9-1.1) APTT (26.0-36.4) SEC Sodium (135-145) mmol/L Potassium (3.3-5.1) mmol/L Chloride (96-108) mmol/L Carbon Dioxide (22-29) mmol/L Anion Gap (12-20) BUN (9-16) mg/dL Creatinine (0.5-1.4) mg/dL Estim Creat Clear Calc Estimated GFR POC Glucose (60-115) mg/dL Random Glucose (60-115) mg/dL Calcium (8.4-10.2) mg/dL Magnesium (1.6-2.6) mg/dL Total Bilirubin (0.0-1.0) mg/dL Direct Bilirubin (0.0-0.5) mg/dL AST (5-37) U/L ALT (0-40) U/L Alkaline Phosphatase (39-117) U/L Troponin I High Sens (<3.5-35.0) ng/L B-Natriuretic Peptide 167 H (<100) pg/mL Total Protein (6.5-8.0) g/dL Albumin (3.5-5.0) g/dL Urine Color Yellow Urine Appearance Clear Urine pH 8.0 (5.0-9.0) Ur Specific [place] 1.020 (1.005-1.025) Urine Protein Negative (Neg-Trace) mg/dL Urine Glucose (UA) Negative (Negative) mg/dL Urine Ketones Negative (Negative) mg/dL Urine Blood Negative (Negative) Urine Nitrite Negative (Negative) Ur Leukocyte Esterase Negative (Negative) Urine Opiates Screen Not Detected (Not Detect) Urine Fentanyl Screen Not Detected (Not Detect) Ur Barbiturates Screen Not Detected (Not Detect) Ur Phencyclidine Scrn Not Detected (Not Detect) Ur Amphetamines Screen Not Detected (Not Detect) U Benzodiazepines Scrn Not Detected (Not Detect) Urine Cocaine Screen Not Detected (Not Detect) U Marijuana (THC) Screen Not Detected (Not Detect) Influenza Type A (PCR) (Negative) Influenza Type B (PCR) (Negative) RSV RNA Qual (PCR) (Negative) SARS-CoV-2 RNA (RT-PCR) (Negative) <HEMANT Gallardo - Last Filed: 02/11/22 17:34> Lab Results 02/11/22 02/11/22 02/11/22 Range/Units 10:25 10:34 10:38 WBC 8.0 (4.8-10.8) X10*3/uL RBC 4.15 L (4.60-5.80) X10*6/uL Hgb 12.3 L (14.0-18.0) g/dl Hct 37.0 L (42.0-52.0) % MCV 89.2 (80.0-98.0) fL MCH 29.6 (27.0-33.0) pg MCHC 33.2 (31.0-36.0) g/dl RDW 13.3 (11.0-16.0) % Plt Count 227 (160-400) X10*3/uL MPV 9.8 (9.4-12.4) fL Immature Gran % (Auto) 0.2 (0.0-0.4) % Neut % (Auto) 72.0 (45-73) % Lymph % (Auto) 19.0 L (20-40) % [place] % (Auto) 6.7 (2-11) % Eos % (Auto) 1.7 (0-4) % Baso % (Auto) 0.4 (0-2) % Lymph # (Auto) 1.5 (1.2-4.9) X10*3/uL [place] # (Auto) 0.5 (0.1-1.2) X10*3/uL Eos # (Auto) 0.1 (0.0-0.4) X10*3/uL Baso # (Auto) 0.0 (0.0-0.2) X10*3/uL Abs Immat Gran (auto) 0.02 (0.00-0.03) X10*3/uL Absolute Neuts (auto) 5.8 (2.0-8.3) x10*3/uL Absolute Nucleated RBC 0.000 (0.0-0.012) X10*3/uL Nucleated RBC % (auto) 0.0 (0.0-0.2) /100WBC PT (10.0-13.1) SEC INR (0.9-1.1) APTT (26.0-36.4) SEC Sodium (135-145) mmol/L Potassium (3.3-5.1) mmol/L Chloride (96-108) mmol/L Carbon Dioxide (22-29) mmol/L Anion Gap (12-20) BUN (9-16) mg/dL Creatinine (0.5-1.4) mg/dL Estim Creat Clear Calc Estimated GFR POC Glucose 138 H (60-115) mg/dL Random Glucose (60-115) mg/dL Calcium (8.4-10.2) mg/dL Magnesium (1.6-2.6) mg/dL Total Bilirubin (0.0-1.0) mg/dL Direct Bilirubin (0.0-0.5) mg/dL AST (5-37) U/L ALT (0-40) U/L Alkaline Phosphatase (39-117) U/L Troponin I High Sens (<3.5-35.0) ng/L B-Natriuretic Peptide (<100) pg/mL Total Protein (6.5-8.0) g/dL Albumin (3.5-5.0) g/dL Urine Color Urine Appearance Urine pH (5.0-9.0) Ur Specific [place] (1.005-1.025) Urine Protein (Neg-Trace) mg/dL Urine Glucose (UA) (Negative) mg/dL Urine Ketones (Negative) mg/dL Urine Blood (Negative) Urine Nitrite (Negative) Ur Leukocyte Esterase (Negative) Urine Opiates Screen (Not Detect) Urine Fentanyl Screen (Not Detect) Ur Barbiturates Screen (Not Detect) Ur Phencyclidine Scrn (Not Detect) Ur Amphetamines Screen (Not Detect) U Benzodiazepines Scrn (Not Detect) Urine Cocaine Screen (Not Detect) U Marijuana (THC) Screen (Not Detect) Influenza Type A (PCR) NEGATIVE (Negative) Influenza Type B (PCR) NEGATIVE (Negative) RSV RNA Qual (PCR) NEGATIVE (Negative) SARS-CoV-2 RNA (RT-PCR) NEGATIVE (Negative) 02/11/22 02/11/22 02/11/22 Range/Units 10:38 10:38 10:38 WBC (4.8-10.8) X10*3/uL RBC (4.60-5.80) X10*6/uL Hgb (14.0-18.0) g/dl Hct (42.0-52.0) % MCV (80.0-98.0) fL MCH (27.0-33.0) pg MCHC (31.0-36.0) g/dl RDW (11.0-16.0) % Plt Count (160-400) X10*3/uL MPV (9.4-12.4) fL Immature Gran % (Auto) (0.0-0.4) % Neut % (Auto) (45-73) % Lymph % (Auto) (20-40) % [place] % (Auto) (2-11) % Eos % (Auto) (0-4) % Baso % (Auto) (0-2) % Lymph # (Auto) (1.2-4.9) X10*3/uL [place] # (Auto) (0.1-1.2) X10*3/uL Eos # (Auto) (0.0-0.4) X10*3/uL Baso # (Auto) (0.0-0.2) X10*3/uL Abs Immat Gran (auto) (0.00-0.03) X10*3/uL Absolute Neuts (auto) (2.0-8.3) x10*3/uL Absolute Nucleated RBC (0.0-0.012) X10*3/uL Nucleated RBC % (auto) (0.0-0.2) /100WBC PT 12.1 (10.0-13.1) SEC INR 1.1 (0.9-1.1) APTT 27.7 (26.0-36.4) SEC Sodium 134 L (135-145) mmol/L Potassium 4.2 (3.3-5.1) mmol/L Chloride 102 (96-108) mmol/L Carbon Dioxide 26 (22-29) mmol/L Anion Gap 10 L (12-20) BUN 18 H (9-16) mg/dL Creatinine 0.75 (0.5-1.4) mg/dL Estim Creat Clear Calc 96.5 Estimated GFR > 60 POC Glucose (60-115) mg/dL Random Glucose 138 H (60-115) mg/dL Calcium 8.6 (8.4-10.2) mg/dL Magnesium 1.9 (1.6-2.6) mg/dL Total Bilirubin 0.5 (0.0-1.0) mg/dL Direct Bilirubin 0.2 (0.0-0.5) mg/dL AST 15 (5-37) U/L ALT 17 (0-40) U/L Alkaline Phosphatase 124 H (39-117) U/L Troponin I High Sens < 3.5 D (<3.5-35.0) ng/L B-Natriuretic Peptide (<100) pg/mL Total Protein 6.0 L (6.5-8.0) g/dL Albumin 3.6 (3.5-5.0) g/dL Urine Color Urine Appearance Urine pH (5.0-9.0) Ur Specific [place] (1.005-1.025) Urine Protein (Neg-Trace) mg/dL Urine Glucose (UA) (Negative) mg/dL Urine Ketones (Negative) mg/dL Urine Blood (Negative) Urine Nitrite (Negative) Ur Leukocyte Esterase (Negative) Urine Opiates Screen (Not Detect) Urine Fentanyl Screen (Not Detect) Ur Barbiturates Screen (Not Detect) Ur Phencyclidine Scrn (Not Detect) Ur Amphetamines Screen (Not Detect) U Benzodiazepines Scrn (Not Detect) Urine Cocaine Screen (Not Detect) U Marijuana (THC) Screen (Not Detect) Influenza Type A (PCR) (Negative) Influenza Type B (PCR) (Negative) RSV RNA Qual (PCR) (Negative) SARS-CoV-2 RNA (RT-PCR) (Negative) 02/11/22 02/11/22 02/11/22 Range/Units 10:38 23:27 23:27 WBC (4.8-10.8) X10*3/uL RBC (4.60-5.80) X10*6/uL Hgb (14.0-18.0) g/dl Hct (42.0-52.0) % MCV (80.0-98.0) fL MCH (27.0-33.0) pg MCHC (31.0-36.0) g/dl RDW (11.0-16.0) % Plt Count (160-400) X10*3/uL MPV (9.4-12.4) fL Immature Gran % (Auto) (0.0-0.4) % Neut % (Auto) (45-73) % Lymph % (Auto) (20-40) % [place] % (Auto) (2-11) % Eos % (Auto) (0-4) % Baso % (Auto) (0-2) % Lymph # (Auto) (1.2-4.9) X10*3/uL [place] # (Auto) (0.1-1.2) X10*3/uL Eos # (Auto) (0.0-0.4) X10*3/uL Baso # (Auto) (0.0-0.2) X10*3/uL Abs Immat Gran (auto) (0.00-0.03) X10*3/uL Absolute Neuts (auto) (2.0-8.3) x10*3/uL Absolute Nucleated RBC (0.0-0.012) X10*3/uL Nucleated RBC % (auto) (0.0-0.2) /100WBC PT (10.0-13.1) SEC INR (0.9-1.1) APTT (26.0-36.4) SEC Sodium (135-145) mmol/L Potassium (3.3-5.1) mmol/L Chloride (96-108) mmol/L Carbon Dioxide (22-29) mmol/L Anion Gap (12-20) BUN (9-16) mg/dL Creatinine (0.5-1.4) mg/dL Estim Creat Clear Calc Estimated GFR POC Glucose (60-115) mg/dL Random Glucose (60-115) mg/dL Calcium (8.4-10.2) mg/dL Magnesium (1.6-2.6) mg/dL Total Bilirubin (0.0-1.0) mg/dL Direct Bilirubin (0.0-0.5) mg/dL AST (5-37) U/L ALT (0-40) U/L Alkaline Phosphatase (39-117) U/L Troponin I High Sens (<3.5-35.0) ng/L B-Natriuretic Peptide 167 H (<100) pg/mL Total Protein (6.5-8.0) g/dL Albumin (3.5-5.0) g/dL Urine Color Yellow Urine Appearance Clear Urine pH 8.0 (5.0-9.0) Ur Specific [place] 1.020 (1.005-1.025) Urine Protein Negative (Neg-Trace) mg/dL Urine Glucose (UA) Negative (Negative) mg/dL Urine Ketones Negative (Negative) mg/dL Urine Blood Negative (Negative) Urine Nitrite Negative (Negative) Ur Leukocyte Esterase Negative (Negative) Urine Opiates Screen Not Detected (Not Detect) Urine Fentanyl Screen Not Detected (Not Detect) Ur Barbiturates Screen Not Detected (Not Detect) Ur Phencyclidine Scrn Not Detected (Not Detect) Ur Amphetamines Screen Not Detected (Not Detect) U Benzodiazepines Scrn Not Detected (Not Detect) Urine Cocaine Screen Not Detected (Not Detect) U Marijuana (THC) Screen Not Detected (Not Detect) Influenza Type A (PCR) (Negative) Influenza Type B (PCR) (Negative) RSV RNA Qual (PCR) (Negative) SARS-CoV-2 RNA (RT-PCR) (Negative) <Sherrell Lechuga NP - Last Filed: 02/12/22 11:32> ECG Data Attestation: I personally reviewed and interpreted this ECG as follows: <HEMANT Gallardo - Last Filed: 02/11/22 17:34> ECG interpretation date: 02/11/22 <HEMANT Gallardo - Last Filed: 02/11/22 17:34> ECG interpretation time: 17:33 <HEMANT Gallardo Last Filed: 02/11/22 17:34> Prior ECG tracings: available for review <HEMANT Gallardo Last Filed: 02/11/22 17:34> Interpretation: Atrial fibrillation, ventricular rate 66 beats per minute, normal QTC, no ST segment elevations or depressions. No change from prior January on . <HEMANT Gallardo Last Filed: 02/11/22 17:34> Critical Care Time Critical Care Time Critical Care Time: Yes <HEMANT Gallardo Last Filed: 02/11/22 17:34> Total Critical Care Time: 35 <HEMANT Gallardo - Last Filed: 02/11/22 17:34> Attestation: I have personally provided critical care time exclusive of time spent on separately billable procedures. Time includes review of lab data, radiology results, frequent bedside re-evaluations, and monitoring for potential decompensation. Intervention performed as documented. <HEMANT Gallardo Last Filed: 02/11/22 17:34> Discharge Plan Discharge Clinical Impression: Orthostasis, Nausea & vomiting, Generalized weakness <HEMANT Gallardo Last Filed: 02/11/22 17:34> Patient Disposition: Still a Patient <HEMANT Gallardo Last Filed: 02/11/22 17:34> Prescriptions: No Action acetaminophen 325 mg Tablet 650 mg PO Q4H PRN (Reason: Pain) ammonium lactate 12 % Lotion 1 appl TOPICAL BID furosemide 20 mg Tablet 20 mg PO DAILY melatonin 3 mg Tablet 3 mg PO BEDTIME PRN (Reason: Insomnia) (DME) compression socks, x-large Misc See Rx Instructions .Route Qty: 2 0RF Rx Instructions: As directed (DME) compr.stocking,knee,long,x-lrg Misc See Rx Instructions .Route Qty: 2 0RF Rx Instructions: As directed amlodipine 10 mg tablet 1 tab PO DAILY simvastatin 40 mg tablet 1 tab PO BEDTIME levothyroxine 150 mcg tablet 150 mcg PO DAILY gabapentin 100 mg capsule 200 mg PO TID sertraline 50 mg tablet 50 mg PO BEDTIME carbamazepine 200 mg tablet 200 mg PO QID metoprolol succinate 25 mg tablet extended release 24 hr 25 mg PO BEDTIME <HEMANT Gallardo - Last Filed: 02/11/22 17:34>
[2022-02-11 10:43] LABS: MANUAL DIFF FLAG NO
[2022-02-11 10:47] LABS: Basophils Percent Auto 0.4 % (0-2); Eosinophils Absolute Auto 0.1 X10*3/uL (0.0-0.4); Eosinophils Percent Auto 1.7 % (0-4); Hemoglobin 12.3 g/dl (14.0-18.0); Imm Gran Abs Auto 0.02 X10*3/uL (0.00-0.03); Imm Gran Pct Auto 0.2 % (0.0-0.4); Lymphocytes Absolute Auto 1.5 X10*3/uL (1.2-4.9); Mean Corpuscular HGB Conc 33.2 g/dl (31.0-36.0); Mean Corpuscular Hemoglobin 29.6 pg (27.0-33.0); Mean Corpuscular Volume 89.2 fL (80.0-98.0); Mean Platelet Volume 9.8 fL (9.4-12.4); Monocytes Absolute Auto 0.5 X10*3/uL (0.1-1.2); Monocytes Percent Auto 6.7 % (2-11); Neutrophils Absolute Auto 5.8 x10*3/uL (2.0-8.3); Platelet Count 227 X10*3/uL (160-400); Red Blood Count 4.15 X10*6/uL (4.60-5.80); Red Cell Distribution Width 13.3 % (11.0-16.0)
[2022-02-11 10:56] LABS: INTERNATIONAL NORM RATIO 1.1 (0.9-1.1); Prothrombin Time 12.1 SEC (10.0-13.1)
[2022-02-11 10:58] LABS: Partial Thromboplastin Time 27.7 SEC (26.0-36.4)
[2022-02-11 11:06] LABS: Alanine Aminotransferase 17 U/L (0-40); Albumin Level 3.6 g/dL (3.5-5.0); Alkaline Phosphatase 124 U/L (39-117); Anion Gap 10 (12-20); Aspartate Amino Transferase 15 U/L (5-37); Bilirubin Direct 0.2 mg/dL (0.0-0.5); Bilirubin Total 0.5 mg/dL (0.0-1.0); Blood Urea Nitrogen 18 mg/dL (9-16); Calcium 8.6 mg/dL (8.4-10.2); Carbon Dioxide 26 mmol/L (22-29); Chloride 102 mmol/L (96-108); Creatinine Clr Calc Pharmacy 96.5; Estimated Glomerular Filt Rate > 60; Glucose Random 138 mg/dL (60-115); Magnesium 1.9 mg/dL (1.6-2.6); Potassium 4.2 mmol/L (3.3-5.1); Sodium 134 mmol/L (135-145)
[2022-02-11 11:11] LABS: B Type Natriuretic Peptide 167 pg/mL (<100); Troponin-I High Sensitivity < 3.5 ng/L (<3.5-35.0)
--- NOTE | 2022-02-11 11:30 | PC.NURSE ---
pt is a/o x3 no sob/brittney noted speaks in full sentences. lungs - cta. heart sounds -irregular. abd obese, soft and non-tender. bs + x 4 quads. no edema noted. pt aware of plan of care.
[2022-02-11 11:49] LABS: Influenza A PCR NEGATIVE (Negative); Influenza B PCR NEGATIVE (Negative); Resp Syncy Virus RNA Qual PCR NEGATIVE (Negative); SARS COV2 PCR INHOUSE NEGATIVE (Negative)
[2022-02-11] MEDS: 0.9 % Sodium Chloride 1,000 ML 999 ML IVCONT ×2 (11:57→18:51)
[2022-02-11] MEDS: ondansetron HCL 4 MG/2 ML VIAL IVPUSH (15:43)
[2022-02-11] MEDS: Magnesium Hydrox/Alum Hydrox 30 ML ORAL.SUSP PO (15:43)
--- NOTE | 2022-02-11 18:25 | PHA.MEDREC ---
Pharmacy Consult ? Medication Reconciliation Pharmacy has completed the medication reconciliation. Patient had list from Discharge with [facility] 02/10/22. List did not have warfarin therefore I call [facility] to confirm if patient on any anticoagulation. RN confirmed patient was not on warfarin. Reported it was most likely stop due increase fall risk and bilateral hematoma. Hannah Lundberg, PharmD
--- NOTE | 2022-02-11 20:34 | PC.NURSE ---
Beatriz, provider notified of elevated BP 180/96-no new orders at this time.
--- NOTE | 2022-02-11 22:20 | MHC.CM.ED ---
Addendum entered by Aisha Rojas 02/11/22 22:31: HCP on file. HCP/cousin Reynold Rose ([phone]). Original Note: CM met with patient at request of PA. Pt is known to CM with recent ED visits.Pt was d/c from rehab to his assisted living yesterday. Pt lives in assisted living at [facility]. Has 3 meals/day and weekly housekeeping. Pt lives alone. Uses a rollator walker. Completes ADL's independently. Pt has balance issues and is fearful of falling. Pt was 2 assist to get OOB. Awaiting PT assessment. Moderna x2/booster. Referrals placed. Pt requesting [facility] and then local STR. CM will follow for d/c planning.
[2022-02-11 23:33] LABS: Appearance Urine Clear; Color Urine Yellow; Glucose Urine UA Negative (Negative); Leukocyte Esterase Urine Negative (Negative); Nitrite Urine Negative (Negative); Urine Blood Negative (Negative); Urine Ketones Negative (Negative); Urine Protein Negative (Neg-Trace)
[2022-02-11 23:44] LABS: Amphetamine Screen Urine Not Detected (Not Detect); Barbiturates, Urine Not Detected (Not Detect); Benzodiazepines Screen Urine Not Detected (Not Detect); Cannabinoid Screen Urine Not Detected (Not Detect); Cocaine Screen Urine Not Detected (Not Detect); Fentanyl, urine Not Detected (Not Detect); Opiate Screen Urine Not Detected (Not Detect); Phencyclidine Screen Urine Not Detected (Not Detect)
[2022-02-12] VITALS (8 sets, daily range): BP systolic 117–160; BP diastolic 63–95; PULSE 52–68; RESP 10–18; TEMP 36.7–36.8; O2SAT 95–99
--- NOTE | 2022-02-12 05:17 | PC.NURSE ---
Patient is alert and oriented x3. Patient is able o make his needs known. Patient resting comfortably with his eyes closed. RR 14. O2 Sat 96% RA. BP improving 130-150/80-90, no s/s of acute distress noted.
--- NOTE | 2022-02-12 05:39 | PC.NURSE ---
Pt rang needing to relieve his bowels. Placed a commode in room and helped pt to commode with help from LING Frederick. Helped Pt back to bed when he was finished. Pt asking for meds. RN notified.
[2022-02-12] MEDS: Gabapentin 100 MG CAPSULE 200 MG PO ×2 (09:53→14:10)
[2022-02-12] MEDS: Levothyroxine Sodium 150 MCG TABLET PO (09:54)
[2022-02-12] MEDS: amLODIPine Besylate 10 MG TABLET PO (09:54)
[2022-02-12] MEDS: Furosemide 20 MG TABLET PO (09:54)
[2022-02-12] MEDS: carBAMazepine 200 MG TABLET PO ×2 (10:39→14:20)
[2022-02-12] MEDS: Ammonium Lactate 12 % Lotion 226 GM BOTTLE 1 APPL TOPICAL (10:40)
--- NOTE | 2022-02-12 11:05 | PC.NURSE ---
pt rhythm appears to be in a flutter. pt with hx a fib to a flutter. pt on rate control med Metoprolol at HS. pt rate between 38bpm and 60bpm. Sherrell LEE made aware.
--- NOTE | 2022-02-12 12:35 | MHC.CM.ED ---
Patient remains in ER. Physical therapy eval completed. Short term rehab is being recommended. None of the acute rehabs are able to offer a bed at this time.[facility], [place], [facility], [facility], [facility], [facility], and [facility] are able to offer a bed. Facility options discussed with patient. Patient accepting bed at [facility]. Patient can leave ER at 4pm. Pete BAIN booked. Med [facility] with chart. Patient, Tiny RN and Sherrell LEE aware. Continue to monitor for d/c needs.
--- NOTE | 2022-02-12 16:11 | PC.NURSE ---
attempted to called nurse to nurse report to [facility] er - no answer
== END 2022-02-12 16:12 | disposition skilled nursing facility (03) ==
PROVIDERS: Physician Assistant; Emergency Provider Emergency Medicine; PCP Internal Medicine
DX: I95.1 Orthostatic hypotension (principal); R11.2 Nausea with vomiting, unspecified; R53.1 Weakness; R42 Dizziness and giddiness; I10 Essential (primary) hypertension; I48.0 Paroxysmal atrial fibrillation; Z79.01 Long term (current) use of anticoagulants; Z20.822 Contact with and (suspected) exposure to COVID-19; Z79.899 Other long term (current) drug therapy; Z86.73 Personal history of transient ischemic attack (TIA), and cerebral infarction without residual deficits; Z87.891 Personal history of nicotine dependence
CPT/HCPCS: 0241U; 70450; 80048; 80076; 80307; 81003; 82947; 83735; 83880; 84484; 85025; 85610; 85730; 93005; 96361; 96374; 97161; 99285; J2405

== ENCOUNTER → 2022-04-22 13:25 | Outpatient (BNVA) | payer MEDICARE, SELFPAY | PROVIDERS: PCP Internal Medicine; Visit Provider Internal Medicine | DX: I48.91 Unspecified atrial fibrillation (principal); Z86.73 Personal history of transient ischemic attack (TIA), and cerebral infarction without residual deficits; Z79.01 Long term (current) use of anticoagulants; Z51.81 Encounter for therapeutic drug level monitoring | CPT/HCPCS: 85610; 99202 ==

== ENCOUNTER 2022-08-19 11:23 | Emergency (ER) | payer MEDICARE, SELFPAY ==
[2022-08-19 11:28] VITALS: BP 148/76; PULSE 53; O2SAT 98
[2022-08-19 11:32] VITALS: BP 152/97; PULSE 62; RESP 16; TEMP 36.6; O2SAT 96; BMI 35.8
--- NOTE | 2022-08-19 11:56 | ECG_ITS ---
Test Reason : WEAKNESS Blood Pressure : / mmHG Vent. Rate : 060 BPM Atrial Rate : 300 BPM P-R Int : 000 ms QRS Dur : 086 ms QT Int : 438 ms P-R-T Axes : 000 021 041 degrees QTc Int : 438 ms Atrial fibrillation Abnormal ECG When compared with ECG of 11-FEB-2022 10:24, No significant changes seen Referred By: Albert Leal Electronically Signed By:Jason Helton
[2022-08-19 12:50] VITALS: BP 148/92; PULSE 60; RESP 14; TEMP 36.6; O2SAT 98
[2022-08-19 13:30] VITALS: PULSE 60; O2SAT 98
[2022-08-19 13:31] LABS: MANUAL DIFF FLAG NO
[2022-08-19 13:32] LABS: Basophils Percent Auto 0.4 % (0-2); Eosinophils Absolute Auto 0.1 X10*3/uL (0.0-0.4); Eosinophils Percent Auto 1.9 % (0-4); Hematocrit 41.5 % (42.0-52.0); Hemoglobin 13.4 g/dl (14.0-18.0); Imm Gran Abs Auto 0.03 X10*3/uL (0.00-0.03); Imm Gran Pct Auto 0.4 % (0.0-0.4); Lymphocytes Absolute Auto 1.9 X10*3/uL (1.2-4.9); Mean Corpuscular HGB Conc 32.3 g/dl (31.0-36.0); Mean Corpuscular Volume 92.8 fL (80.0-98.0); Mean Platelet Volume 9.3 fL (9.4-12.4); Monocytes Absolute Auto 0.5 X10*3/uL (0.1-1.2); Neutrophils Percent Auto 66.3 % (45-73); Platelet Count 207 X10*3/uL (160-400); Red Blood Count 4.47 X10*6/uL (4.60-5.80); Red Cell Distribution Width 12.9 % (11.0-16.0); White Blood Count 7.5 X10*3/uL (4.8-10.8)
[2022-08-19 13:55] VITALS: BP 129/80; PULSE 60; RESP 16; TEMP 36.7; O2SAT 97
[2022-08-19 13:57] LABS: Alanine Aminotransferase 22 U/L (0-40); Alkaline Phosphatase 126 U/L (39-117); Anion Gap 11 (12-20); Aspartate Amino Transferase 20 U/L (5-37); Bilirubin Total 0.5 mg/dL (0.0-1.0); Blood Urea Nitrogen 19 mg/dL (9-16); Calcium 9.1 mg/dL (8.4-10.2); Carbon Dioxide 32 mmol/L (22-29); Chloride 103 mmol/L (96-108); Creatinine Clr Calc Pharmacy 86.7; Estimated Glomerular Filt Rate > 60; Glucose Random 146 mg/dL (60-115); Potassium 4.7 mmol/L (3.3-5.1); Sodium 141 mmol/L (135-145); Total Protein 6.8 g/dL (6.5-8.0)
[2022-08-19 14:02] LABS: COVID-19 Test Negative (Negative); IDNOW Serial# BCCEAD1C
--- NOTE | 2022-08-19 14:10 | MHC.CM.ED ---
Received case management consult from Dr Leal. Patient came to ER due to diff ambulating and falls. Work up still pending. Physical therapy eval completed. Home therapy is recommended. Met with patient in regards to discharge planning. Patient lives at [facility]. Has been active with [facility] in the past and requesting referral to [facility]. [facility] via [facility]. [facility] is able to accept patient. Patient, Rebecca HILLMAN and Dr Leal aware. Continue to monitor for d/c needs.
[2022-08-19 14:11] LABS: TSH reflex Free T4 2.03 uIU/mL (0.32-4.0)
--- NOTE | 2022-08-19 14:17 | ED.WEAKNESS ---
HPI - Weakness General Chief complaint: Weakness Stated complaint: DIFF AMB,FALL 2 DAYS AGO FROM SNF PER EMS Time Seen by Provider: 08/19/22 11:29 Source: patient and EMS Mode of arrival: EMS Limitations: no limitations History of Present Illness HPI Narrative: 81-year-old male presents for evaluation of some generalized weakness. Patient reports having fallen 5 times in the last several months. He denies any head injury. Reports that his symptoms are just associated with gait instability. Denies any lightheadedness, chest pain, shortness breath, palpitations. There is no clear relieving or exacerbating features. Symptoms are moderate nature. He uses a walker to ambulate. His most recent fall, he landed on his ischial area. Denies any pain. There is no radiation of pain. There is no numbness or tingling or focal weakness. Related Data Home Medications Medication Instructions Recorded Confirmed carbamazepine 200 mg tablet 200 mg PO QID 02/20/21 04/22/22 gabapentin 100 mg capsule 200 mg PO TID 02/20/21 04/22/22 levothyroxine 150 mcg tablet 150 mcg PO DAILY 02/20/21 04/22/22 metoprolol succinate 25 mg 25 mg PO BEDTIME 02/20/21 04/22/22 tablet,extended release 24 hr sertraline 50 mg tablet 50 mg PO BEDTIME 02/20/21 04/22/22 amlodipine 10 mg tablet 1 tab PO DAILY 09/16/21 04/22/22 simvastatin 40 mg tablet 1 tab PO BEDTIME 11/23/21 04/22/22 acetaminophen 325 mg tablet 650 mg PO Q4H PRN Pain 02/11/22 04/22/22 ammonium lactate 12 % lotion 1 appl topical BID 02/11/22 04/22/22 furosemide 20 mg tablet 20 mg PO DAILY 02/11/22 04/22/22 melatonin 3 mg tablet 3 mg PO BEDTIME PRN Insomnia 02/11/22 04/22/22 docusate sodium 100 mg capsule 100 mg PO BID 02/15/22 04/22/22 warfarin 2 mg tablet 2 mg PO DAILY 02/15/22 04/22/22 Previous Rx's Medication Instructions Recorded compr.stocking,knee,long,x-lrg #2 ea 05/13/21 compression socks, x-large #2 ea 05/13/21 Allergies Allergy/AdvReac Type Severity Reaction Status Date / Time No Known Allergies Allergy Verified 08/19/22 11:46 [No Known Allergies*] Review of Systems Review of Systems: CONSTITUTIONAL: Denies weight loss, fever and chills. HEENT: Denies changes in vision and hearing. RESPIRATORY: Denies SOB and cough. CV: Denies palpitations no CP. GI: Denies abdominal pain, nausea, vomiting and diarrhea. : Denies dysuria and urinary frequency. MSK: Denies myalgia and joint pain. SKIN: Denies rash and pruritus. NEUROLOGICAL: Denies headache and syncope. PSYCHIATRIC: Denies recent changes in mood. Denies anxiety and depression. All other ROS are negative unless in HPI PMFSH Past Medical History Medical History A-fib CVA (cerebral vascular accident) HTN (hypertension) Hypothyroid Social History Social History Household Members: Other Housing: Assisted Living Facility Do you presently have visiting nurse or other home services: Yes Alcohol intake: current Alcohol intake frequency: does not drink Alcohol type: beer Patient Tobacco Use Status: Former Tobacco user Smoked in Last 30 Days: No Use of substances other than those prescribed or required for medical reasons: No Advance Directives: Yes Advance Directives on File: Yes Advance Directives Date on File: 09/16/21 service: No Current occupational exposures/hazards: No Physical Exam Vital Signs: Vital Signs: Last Vital Signs Temp 98.1 F 08/19/22 13:55 Pulse 60 08/19/22 13:55 Resp 16 08/19/22 13:55 BP 129/80 08/19/22 13:55 Pulse Ox 97 08/19/22 13:55 O2 Del Method Room Air 08/19/22 13:55 BMI result Body Mass Index 35.8 GEN: Well developed, no acute distress, alert, oriented HEENT: Normocephalic, atraumatic, normal external ears, nose appears normal, no oropharyngeal edema or exudates Eyes: Normal to appearance Neck: Supple, no lymphadenopathy Respiratory: Talks in complete sentences, no respiratory distress, clear to auscultation bilaterally Cardiovascular: Regular rate and rhythm, no murmurs rubs or gallops Abdomen: Soft, nontender, nondistended, no guarding, no rebound Back: No CVA tenderness Extremities: No clubbing cyanosis or edema Neurologic: No focal neurologic deficits, cranial nerves 2-12 intact, strength is 5/5 bilaterally Skin: No rash Course Course Course Narrative: Patient presents for some generalized weakness, gait instability. Examination was unremarkable. Case Management Physical therapy or vault. There is no indication for short-term rehabilitation. He did very well with physical therapy. He can have outpatient services provided to him at his current facility. Transportation has been arranged. This was all discussed with the patient. Agreeable to current plan. Medical Decision Making Medical Decision Making [facility] Narrative: Patient presents with generalized weakness and gait instability. Examination was benign. Will order PT and Case Management. Will rule out anemia, hyponatremia, calcium related issues, renal dysfunction, etc.. Differential Diagnosis Differential Diagnoses: The differential diagnosis associated with the presentation includes (See above) Admission/Observation Consideration of admission/observation: Escalation of care including admission/observation considered Lab Data [facility] Lab Attestation statement: I reviewed the patient's lab results. 08/19/22 13:27 08/19/22 13:27 Labs: Lab Results 08/19/22 08/19/22 08/19/22 Range/Units 13:27 13:27 13:27 WBC 7.5 (4.8-10.8) X10*3/uL RBC 4.47 L (4.60-5.80) X10*6/uL Hgb 13.4 L (14.0-18.0) g/dl Hct 41.5 L (42.0-52.0) % MCV 92.8 (80.0-98.0) fL MCH 30.0 (27.0-33.0) pg MCHC 32.3 (31.0-36.0) g/dl RDW 12.9 (11.0-16.0) % Plt Count 207 (160-400) X10*3/uL MPV 9.3 L (9.4-12.4) fL Immature Gran % (Auto) 0.4 (0.0-0.4) % Neut % (Auto) 66.3 (45-73) % Lymph % (Auto) 25.0 (20-40) % [place] % (Auto) 6.0 (2-11) % Eos % (Auto) 1.9 (0-4) % Baso % (Auto) 0.4 (0-2) % Lymph # (Auto) 1.9 (1.2-4.9) X10*3/uL [place] # (Auto) 0.5 (0.1-1.2) X10*3/uL Eos # (Auto) 0.1 (0.0-0.4) X10*3/uL Baso # (Auto) 0.0 (0.0-0.2) X10*3/uL Abs Immat Gran (auto) 0.03 (0.00-0.03) X10*3/uL Absolute Neuts (auto) 5.0 (2.0-8.3) x10*3/uL Absolute Nucleated RBC 0.000 (0.0-0.012) X10*3/uL Nucleated RBC % (auto) 0.0 (0.0-0.2) /100WBC Sodium 141 (135-145) mmol/L Potassium 4.7 (3.3-5.1) mmol/L Chloride 103 (96-108) mmol/L Carbon Dioxide 32 H (22-29) mmol/L Anion Gap 11 L (12-20) BUN 19 H (9-16) mg/dL Creatinine 0.83 (0.5-1.4) mg/dL Estim Creat Clear Calc 86.7 Estimated GFR > 60 Random Glucose 146 H (60-115) mg/dL Calcium 9.1 (8.4-10.2) mg/dL Total Bilirubin 0.5 (0.0-1.0) mg/dL AST 20 (5-37) U/L ALT 22 (0-40) U/L Alkaline Phosphatase 126 H (39-117) U/L Total Protein 6.8 (6.5-8.0) g/dL Albumin 4.0 (3.5-5.0) g/dL TSH 2.03 (0.32-4.0) uIU/mL COVID-19 (ADELAIDA) Negative (Negative) COVID-19 Clin Com See Note Independent Interpretation I performed an independent interpretation of an: EKG (Atrial flutter heart rate 60, no acute ST elevations or depressions, normal intervals) Independent Historian Clinical information obtained from an independent historian. History obtained from or confirmed by: EMS Chronic Conditions Patient?s care impacted by: Other (Atrial fibrillation) Discharge Plan Discharge Clinical Impression: Falls frequently Patient Disposition: Home, Self-Care Instructions: Fall Prevention for Older Adults (ED) Prescriptions: No Action docusate sodium 100 mg capsule 100 mg PO BID warfarin 2 mg tablet 2 mg PO DAILY acetaminophen 325 mg Tablet 650 mg PO Q4H PRN (Reason: Pain) ammonium lactate 12 % Lotion 1 appl TOPICAL BID furosemide 20 mg Tablet 20 mg PO DAILY melatonin 3 mg Tablet 3 mg PO BEDTIME PRN (Reason: Insomnia) (DME) compression socks, x-large Misc See Rx Instructions .Route Qty: 2 0RF Rx Instructions: As directed (DME) compr.stocking,knee,long,x-lrg Misc See Rx Instructions .Route Qty: 2 0RF Rx Instructions: As directed amlodipine 10 mg tablet 1 tab PO DAILY simvastatin 40 mg tablet 1 tab PO BEDTIME levothyroxine 150 mcg tablet 150 mcg PO DAILY gabapentin 100 mg capsule 200 mg PO TID sertraline 50 mg tablet 50 mg PO BEDTIME carbamazepine 200 mg tablet 200 mg PO QID metoprolol succinate 25 mg tablet extended release 24 hr 25 mg PO BEDTIME Referrals: [facility] [Outside] Tres Crum MD [Primary Care Provider] - 1 week
[2022-08-19 16:00] VITALS: BP 129/64; PULSE 58; RESP 16; TEMP 36.6; O2SAT 98
--- NOTE | 2022-08-19 16:02 | MHC.EDTECH ---
this pct assumed care of pt at 1500 ,vitals sign taken ,olvin Fernandez' said no need to collect urine sample as patient is discharged .
== END 2022-08-19 16:42 | disposition home or self-care (01) ==
PROVIDERS: Emergency Provider Emergency Medicine; PCP Internal Medicine
DX: R29.6 Repeated falls (principal); R26.89 Other abnormalities of gait and mobility; Z20.822 Contact with and (suspected) exposure to COVID-19; I10 Essential (primary) hypertension; I48.91 Unspecified atrial fibrillation; Z91.81 History of falling; Z86.73 Personal history of transient ischemic attack (TIA), and cerebral infarction without residual deficits; Z87.891 Personal history of nicotine dependence; Z79.02 Long term (current) use of antithrombotics/antiplatelets; Z79.01 Long term (current) use of anticoagulants; Z79.899 Other long term (current) drug therapy
CPT/HCPCS: 36415; 80053; 84443; 85025; 87635; 93005; 97161; 99285

== ENCOUNTER 2022-11-22 14:45 | Outpatient (REF) | payer MEDICARE, SELFPAY ==
[2022-11-22 17:55] LABS: MANUAL DIFF FLAG NO
[2022-11-22 18:12] LABS: Basophils Percent Auto 0.4 % (0-2); Eosinophils Absolute Auto 0.2 X10*3/uL (0.0-0.4); Eosinophils Percent Auto 3.4 % (0-4); Hematocrit 37.9 % (42.0-52.0); Hemoglobin 12.1 g/dl (14.0-18.0); Imm Gran Abs Auto 0.02 X10*3/uL (0.00-0.03); Imm Gran Pct Auto 0.3 % (0.0-0.4); Lymphocytes Absolute Auto 1.6 X10*3/uL (1.2-4.9); Lymphocytes Percent Auto 23.4 % (20-40); Mean Corpuscular HGB Conc 31.9 g/dl (31.0-36.0); Mean Corpuscular Hemoglobin 29.9 pg (27.0-33.0); Mean Corpuscular Volume 93.6 fL (80.0-98.0); Mean Platelet Volume 10.6 fL (9.4-12.4); Monocytes Absolute Auto 0.7 X10*3/uL (0.1-1.2); Monocytes Percent Auto 10.1 % (2-11); Neutrophils Absolute Auto 4.2 x10*3/uL (2.0-8.3); Neutrophils Percent Auto 62.4 % (45-73); Platelet Count 212 X10*3/uL (160-400); Red Blood Count 4.05 X10*6/uL (4.60-5.80); Red Cell Distribution Width 13.1 % (11.0-16.0); White Blood Count 6.7 X10*3/uL (4.8-10.8)
[2022-11-22 18:22] LABS: Prothrombin Time 11.6 SEC (11.1-13.3)
[2022-11-22 18:34] LABS: Alanine Aminotransferase 16 U/L (0-40); Albumin Level 3.8 g/dL (3.5-5.0); Alkaline Phosphatase 113 U/L (39-117); Anion Gap 12 (12-20); Aspartate Amino Transferase 14 U/L (5-37); Bilirubin Total 0.2 mg/dL (0.0-1.0); Blood Urea Nitrogen 21 mg/dL (9-16); Calcium 9.3 mg/dL (8.4-10.2); Carbon Dioxide 28 mmol/L (22-29); Chloride 106 mmol/L (96-108); Estimated Glomerular Filt Rate > 60; Glucose Random 101 mg/dL (60-115); Potassium 4.6 mmol/L (3.3-5.1); Sodium 141 mmol/L (135-145); Total Protein 6.6 g/dL (6.5-8.0)
[2022-11-22 18:52] LABS: Thyroid Stimulating Hormone 2.01 uIU/mL (0.32-4.0)
== END 2022-11-22 14:46 | disposition home or self-care (01) ==
LOC: HO.MANLDS 14:45
PROVIDERS: Visit Provider Internal Medicine
DX: I48.0 Paroxysmal atrial fibrillation (principal); E03.8 Other specified hypothyroidism
CPT/HCPCS: 36415; 80053; 84439; 84443; 85025; 85610

== ENCOUNTER 2023-01-26 08:30 | Emergency (ER) | payer MEDICARE, SELFPAY ==
--- NOTE | ~2023-01-26 | XR_ITS ---
EXAMINATION: XR HAND, LEFT CLINICAL INFORMATION: Pain after falling COMPARISON: None available. TECHNIQUE: PA, lateral, and oblique views of the left hand. FINDINGS: Diffuse osteopenia. Advanced degenerative change are noted at the first CMC as well as at the first MCP joint and in particular the second and third MCP joints. No erosive change. XR/XR hand LT min 3V IMPRESSION: No acute findings. Degenerative changes noted.
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
[2023-01-26 09:03] VITALS: BP 128/72; PULSE 57; RESP 16; TEMP 36.6; O2SAT 98; BMI 36.9
== END 2023-01-26 10:47 | disposition home or self-care (01) ==
PROVIDERS: Emergency Provider Emergency Medicine Emergency Medical Services; PCP Internal Medicine
DX: S60.222A Contusion of left hand, initial encounter (principal); M79.642 Pain in left hand; W18.30XA Fall on same level, unspecified, initial encounter; Y93.9 Activity, unspecified; Y92.9 Unspecified place or not applicable; Y99.9 Unspecified external cause status; Z79.899 Other long term (current) drug therapy; Z87.891 Personal history of nicotine dependence; Z86.73 Personal history of transient ischemic attack (TIA), and cerebral infarction without residual deficits; Z79.01 Long term (current) use of anticoagulants
CPT/HCPCS: 73130; 99282; 99283

== ENCOUNTER 2023-03-14 07:15 | Emergency (ER) | payer MEDICARE, SELFPAY ==
--- NOTE | ~2023-03-14 | XR_ITS ---
EXAMINATION: XR SHOULDER, LEFT CLINICAL INFORMATION: Pain. Popping. COMPARISON: None available. TECHNIQUE: AP, Grashey, and scapular Y views of the left shoulder. FINDINGS: Superior subluxation humeral head, likely indicating underlying rotator cuff tendon tear. Moderate acromioclavicular osteoarthritis with lateral subacromial spurring. Moderate glenohumeral joint space narrowing with tiny marginal osteophytes. No osseous erosion. No fracture. The visualized sternal wires. XR/XR shoulder LT min 2V IMPRESSION: 1. Superior subluxation of the humeral head, likely indicating underlying rotator cuff tendon tear. 2. Moderate acromioclavicular and mild glenohumeral osteoarthritis. Lateral subacromial spurring.
[2023-03-14 07:38] VITALS: BP 170/81; BP 178/101; PULSE 62; PULSE 69; RESP 16; TEMP 36.5; O2SAT 97; BMI 37.7
--- NOTE | 2023-03-14 07:48 | ECG_ITS ---
Test Reason : L SHOULDER PAIN Blood Pressure : / mmHG Vent. Rate : 064 BPM Atrial Rate : 000 BPM P-R Int : 000 ms QRS Dur : 088 ms QT Int : 422 ms P-R-T Axes : 000 021 048 degrees QTc Int : 435 ms Atrial fibrillation Abnormal ECG When compared with ECG of 19-AUG-2022 12:31, No significant change was found Referred By: Naima Moralez Electronically Signed By:ROGER MURRAY
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
[2023-03-14] MEDS: Cyclobenzaprine HCl 10 MG TABLET PO ×2 (08:37→16:27)
[2023-03-14] MEDS: Lidocaine 4 % Patch ADH..PATCH 1 PATCH TRANSDERMA (08:38)
[2023-03-14 10:22] VITALS: BP 171/86; PULSE 65; RESP 16; O2SAT 98
[2023-03-14] MEDS: carBAMazepine 200 MG TABLET PO (12:58)
--- NOTE | 2023-03-14 13:55 | MHC.CM.PN ---
Addendum entered by Caroline Alberto 03/14/23 14:17: A referral has been sent to [facility] for request to use free days. Original Note: CM consult received. MALE 82 rolled over in bed shoulder popped Chart reviewed and spoke with provider. Sugested discharge and follow up with Ortho out patient. Patient lives in [facility]. Per provider patient is unable to sit up independently r/t pain. PT eval is ordered. The eval is pending. An OT eval was also suggested. Input from therapy is pending. Provider informed that a 3 night inpt stay will be required to qualify for STR. Patient may have FREE DAYS at [facility]. Provider notified of the option.
[2023-03-14 14:39] VITALS: BP 176/92; PULSE 62; RESP 18; O2SAT 98
--- NOTE | 2023-03-14 15:22 | MHC.EDTECH ---
Lunch tray given
--- NOTE | 2023-03-14 15:54 | MHC.EDTECH ---
Set patient up to brush his teeth
[2023-03-14] MEDS: Acetaminophen 325 MG TABLET PO (16:26)
--- NOTE | 2023-03-14 17:09 | PHA.MEDREC ---
Pharmacy Consult ? Medication Reconciliation Pharmacy has completed the medication reconciliation.PT CLAIMS TO ONLY TAKE MEDICATIONS PGEGY & LINNEA FILL FOR HIM. THERE IS NO CLAIM HISTORY FOR WARFARIN IN OVER 1 YEAR. PT STATES HE SHOULD BE ON BLOOD THINNER BECAUSE HE HAS AFIB. WILL REACH OUT TO PROVIDER TO INFORM THEM THAT WARFARIN IS LEFT OFF OF HOME MED LIST BUT PT SHOULD BE ON THIS MEDICATION.
[2023-03-14 18:20] VITALS: BP 156/87; PULSE 68; RESP 18; TEMP 36.2; O2SAT 98
--- NOTE | 2023-03-14 19:31 | PC.NURSE ---
this rn assumed care of pt. pt set up and repositioned for dinner at this time. no acute distress noted.
[2023-03-14 19:33] LABS: MANUAL DIFF FLAG NO
[2023-03-14 19:37] LABS: Basophils Percent Auto 0.6 % (0-2); Eosinophils Absolute Auto 0.1 X10*3/uL (0.0-0.4); Eosinophils Percent Auto 1.5 % (0-4); Hemoglobin 12.3 g/dl (14.0-18.0); Imm Gran Abs Auto 0.02 X10*3/uL (0.00-0.03); Imm Gran Pct Auto 0.3 % (0.0-0.4); Lymphocytes Absolute Auto 1.6 X10*3/uL (1.2-4.9); Mean Corpuscular HGB Conc 32.4 g/dl (31.0-36.0); Mean Corpuscular Hemoglobin 29.6 pg (27.0-33.0); Mean Corpuscular Volume 91.3 fL (80.0-98.0); Mean Platelet Volume 9.8 fL (9.4-12.4); Monocytes Absolute Auto 0.7 X10*3/uL (0.1-1.2); Monocytes Percent Auto 9.7 % (2-11); Neutrophils Absolute Auto 4.4 x10*3/uL (2.0-8.3); Neutrophils Percent Auto 63.9 % (45-73); Platelet Count 200 X10*3/uL (160-400); Red Blood Count 4.16 X10*6/uL (4.60-5.80); Red Cell Distribution Width 12.8 % (11.0-16.0); White Blood Count 6.8 X10*3/uL (4.8-10.8)
[2023-03-14 19:41] LABS: Prothrombin Time 12.5 SEC (11.1-13.3)
[2023-03-14 19:44] LABS: Partial Thromboplastin Time 28.3 SEC (26.0-36.4)
[2023-03-14 19:51] LABS: Alanine Aminotransferase 16 U/L (0-40); Albumin Level 3.6 g/dL (3.5-5.0); Alkaline Phosphatase 122 U/L (39-117); Anion Gap 11 (12-20); Aspartate Amino Transferase 14 U/L (5-37); Bilirubin Total 0.5 mg/dL (0.0-1.0); Blood Urea Nitrogen 17 mg/dL (9-16); Calcium 8.9 mg/dL (8.4-10.2); Carbon Dioxide 26 mmol/L (22-29); Chloride 108 mmol/L (96-108); Creatinine Clr Calc Pharmacy 98.2; Estimated Glomerular Filt Rate > 60; Glucose Random 104 mg/dL (60-115); Magnesium 1.9 mg/dL (1.6-2.6); Potassium 4.2 mmol/L (3.3-5.1); Sodium 141 mmol/L (135-145); Total Protein 6.7 g/dL (6.5-8.0)
[2023-03-14 20:04] LABS: Influenza A PCR NEGATIVE (Negative); Influenza B PCR NEGATIVE (Negative); Resp Syncy Virus RNA Qual PCR NEGATIVE (Negative); SARS COV2 PCR INHOUSE NEGATIVE (Negative)
[2023-03-14 21:11] VITALS: BP 149/93; PULSE 63; RESP 18; O2SAT 98
[2023-03-14 21:21] LABS: Appearance Urine Clear; Color Urine Yellow; Glucose Urine UA Negative (Negative); Leukocyte Esterase Urine Negative (Negative); Nitrite Urine Negative (Negative); PH 7.5 (5.0-9.0); Specific Gravity - Urine 1.015 (1.005-1.025); Urine Blood Negative (Negative); Urine Ketones Negative (Negative); Urine Protein Negative (Neg-Trace)
[2023-03-15] MEDS: Cyclobenzaprine HCl 10 MG TABLET PO (01:31)
--- NOTE | 2023-03-15 04:25 | PC.NURSE ---
pt allowed to sleep, respirations even and unlabored.
[2023-03-15 05:47] VITALS: BP 165/100; PULSE 69; RESP 16; TEMP 36.6; O2SAT 95
[2023-03-15 07:27] VITALS: PULSE 69; O2SAT 95
--- NOTE | 2023-03-15 08:38 | MHC.CM.PN ---
Addendum entered by Tiny King RN 03/15/23 09:38: O.T RECOMMENDING HOME SERVICES, [facility] OFFERING AND PT AGREEABLE, PT REQUESTING ASSISTANCE W/TRANSPORTATION. Original Note: CM SENT FOLLOW UP MESSAGE TO [facility] TO DETERMINE IF PT CAN QUALIFY FOR FREE DAYS AT [facility] W/OUT MEETING 3MIDNIGHT RULE, OT ORDER PENDING, CM WILL REQUEST FROM ED PROVIDER, CM WILL CONT TO FOLLOW FOR RECOMENDATIONS.
[2023-03-15] MEDS: Tamsulosin HCL 0.4 MG CAPSULE PO (09:19)
[2023-03-15] MEDS: Levothyroxine Sodium 150 MCG TABLET PO (09:19)
[2023-03-15] MEDS: amLODIPine Besylate 10 MG TABLET PO (09:19)
[2023-03-15] MEDS: Furosemide 20 MG TABLET PO (09:19)
[2023-03-15] MEDS: Gabapentin 100 MG CAPSULE 200 MG PO (09:40)
[2023-03-15] MEDS: carBAMazepine 200 MG TABLET PO (09:40)
[2023-03-15 09:54] VITALS: BP 162/87; PULSE 66; RESP 16; O2SAT 97
== END 2023-03-15 10:55 | disposition home or self-care (01) ==
PROVIDERS: Physician Assistant Medical; Emergency Provider Emergency Medicine; PCP Internal Medicine
DX: M19.012 Primary osteoarthritis, left shoulder (principal); M75.102 Unspecified rotator cuff tear or rupture of left shoulder, not specified as traumatic; Z20.822 Contact with and (suspected) exposure to COVID-19; Z20.828 Contact with and (suspected) exposure to other viral communicable diseases; I10 Essential (primary) hypertension; I48.91 Unspecified atrial fibrillation; Z86.73 Personal history of transient ischemic attack (TIA), and cerebral infarction without residual deficits; Z87.891 Personal history of nicotine dependence; Z79.01 Long term (current) use of anticoagulants; Z79.899 Other long term (current) drug therapy
CPT/HCPCS: 0241U; 36415; 73030; 80053; 81003; 83735; 85025; 85610; 85730; 93005; 97162; 97166; 99285

== ENCOUNTER → 2023-03-14 07:48 | Outpatient (BNV) | payer MEDICARE, SELFPAY | PROVIDERS: Emergency Provider Emergency Medicine; PCP Internal Medicine; Visit Provider Internal Medicine | DX: I48.91 Unspecified atrial fibrillation (principal); R94.31 Abnormal electrocardiogram [ECG] [EKG] | CPT/HCPCS: 93010 ==

== ENCOUNTER 2023-09-27 19:04 | Emergency (ER) | payer MEDICARE, SELFPAY ==
--- NOTE | ~2023-09-27 | CT_ITS ---
Examination: CT brain and CT cervical spine without contrast. CLINICAL INDICATION: Fall with head strike. COMPARISON: CT brain the brain 02/11/[address] cervical spine 01/29/2022. TECHNIQUE: 5 mm thin axial and reformatted 2 mm thin sagittal coronal images of brain were obtained. Subsequently axial 3 mm thin and reformatted 2 mm thin sagittal coronal images of cervical spine were obtained. This CT examination was performed using dose optimization technique as appropriate, variously including the following: Automated exposure control Adjustment of MA and/or KV according to patient size(this includes techniques or standardized protocols for targeted exams where dose is matched to indication/reason for exam; extremities or head. Use of iterative reconstruction techniques. DLP 1449. FINDINGS: Brain: There is no acute intra-axial, extra-axial bleed, masses or midline shift. There is no acute infarction evolution. There is no edema. There is mild periventricular hypodensity suggestive chronic small vessel ischemic changes. The lateral ventricles are symmetrical but enlarged. Bone windows reveal no calvarial abnormality. There is no scalp soft tissue abnormality. 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 Cervical spine: There is mild straightening of cervical lordosis. There is grade 1 anterolisthesis C3 over C4. Rest of the vertebral alignment is normal. There is no visible acute fracture, dislocation or subluxation. The craniovertebral junction and C1-C2 alignment is preserved. There is moderate left C3 3-4, bilateral C4-C5 facet joint arthropathy and hypertrophy. There is no visible acute fracture, dislocation or subluxation seen. The lung apices are clear. CT/CT cervical spine wo IV con IMPRESSION: 1. No acute intracranial process seen. 2. There is no acute fracture, dislocation or subluxation seen in cervical spine. There is grade 1 anterolisthesis C3 over C4. There are degenerative disc changes C3-C4 and C4-C5 facet joint arthropathy and hypertrophy.
[2023-09-27 19:07] VITALS: BP 132/67; BP 138/88; PULSE 64; PULSE 75; RESP 14; TEMP 36.6; O2SAT 97; O2SAT 98; BMI 38.9
[2023-09-27 19:13] VITALS: BP 132/67; PULSE 65; RESP 15; TEMP 36.6; O2SAT 98
--- NOTE | 2023-09-27 19:16 | ECG_ITS ---
Test Reason : FALL Blood Pressure : / mmHG Vent. Rate : 054 BPM Atrial Rate : 000 BPM P-R Int : 000 ms QRS Dur : 084 ms QT Int : 418 ms P-R-T Axes : 000 041 052 degrees QTc Int : 396 ms Atrial fibrillation with slow ventricular response Abnormal ECG When compared with ECG of 14-MAR-2023 08:03, No significant change was found Referred By: Generic ED Physician Electronically Signed By:ANTONI CRANDALL MD
[2023-09-27 19:38] LABS: MANUAL DIFF FLAG NO
[2023-09-27 19:41] LABS: Basophils Percent Auto 0.5 % (0-2); Eosinophils Absolute Auto 0.1 X10*3/uL (0.0-0.4); Eosinophils Percent Auto 2.2 % (0-4); Hematocrit 28.1 % (42.0-52.0); Hemoglobin 8.5 g/dl (14.0-18.0); Imm Gran Abs Auto 0.02 X10*3/uL (0.00-0.03); Imm Gran Pct Auto 0.3 % (0.0-0.4); Lymphocytes Absolute Auto 1.3 X10*3/uL (1.2-4.9); Lymphocytes Percent Auto 19.7 % (20-40); Mean Corpuscular HGB Conc 30.2 g/dl (31.0-36.0); Mean Corpuscular Hemoglobin 23.7 pg (27.0-33.0); Mean Corpuscular Volume 78.3 fL (80.0-98.0); Mean Platelet Volume 9.2 fL (9.4-12.4); Monocytes Absolute Auto 0.6 X10*3/uL (0.1-1.2); Monocytes Percent Auto 9.4 % (2-11); Neutrophils Absolute Auto 4.4 x10*3/uL (2.0-8.3); Neutrophils Percent Auto 67.9 % (45-73); Platelet Count 244 X10*3/uL (160-400); Red Blood Count 3.59 X10*6/uL (4.60-5.80); Red Cell Distribution Width 17.6 % (11.0-16.0); White Blood Count 6.4 X10*3/uL (4.8-10.8)
[2023-09-27 19:58] LABS: Alanine Aminotransferase 11 U/L (0-40); Albumin Level 3.5 g/dL (3.5-5.0); Alkaline Phosphatase 130 U/L (39-117); Anion Gap 12 (12-20); Aspartate Amino Transferase 12 U/L (5-37); Bilirubin Total 0.2 mg/dL (0.0-1.0); Blood Urea Nitrogen 18 mg/dL (9-16); Calcium 8.7 mg/dL (8.4-10.2); Carbon Dioxide 27 mmol/L (22-29); Chloride 107 mmol/L (96-108); Creatinine Clr Calc Pharmacy 76.5; Estimated Glomerular Filt Rate > 60; Glucose Random 173 mg/dL (60-115); Potassium 4.8 mmol/L (3.3-5.1); Sodium 141 mmol/L (135-145); Total Protein 6.3 g/dL (6.5-8.0)
[2023-09-27 20:05] LABS: Troponin-I High Sensitivity 4.1 ng/L (<3.5-35.0)
[2023-09-27 20:23] LABS: Appearance Urine Clear; Color Urine Yellow; Glucose Urine UA Negative (Negative); Leukocyte Esterase Urine Negative (Negative); Nitrite Urine Negative (Negative); PH 6.5 (5.0-9.0); Urine Blood Negative (Negative); Urine Ketones Negative (Negative); Urine Protein Negative (Neg-Trace)
[2023-09-27 20:25] LABS: Bacteria Urine None Seen (None Seen); Hyaline Casts Urine 0-2 /LPF (0-2); RBC Urine 0-2 /HPF (0-2); Squamous Epithelial Cell Urine 0-2 /HPF (0-2); WBC Urine 0-5 /HPF (0-5)
[2023-09-27 20:56] VITALS: BP 136/70; PULSE 60; RESP 13; TEMP 36.6; O2SAT 98
[2023-09-27 21:57] LABS: OBS Int Ctl Valid YES; OBS1 NEGATIVE (NEGATIVE)
[2023-09-27] MEDS: Acetaminophen 325 MG TABLET 975 MG PO (22:31)
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
--- NOTE | 2023-09-27 23:07 | PC.NURSE ---
Spoke with charge nurse at [facility] and informed them of the plan of care for this patient. RN verbalized understanding.
[2023-09-27 23:33] VITALS: BP 153/71; PULSE 57; RESP 20; TEMP 36.6; O2SAT 98
== END 2023-09-27 23:38 | disposition home or self-care (01) ==
PROVIDERS: Emergency Provider Emergency Medicine; PCP Internal Medicine
DX: S00.91XA Abrasion of unspecified part of head, initial encounter (principal); D64.9 Anemia, unspecified; I48.91 Unspecified atrial fibrillation; R51.9 Headache, unspecified; M54.2 Cervicalgia; W01.10XA Fall on same level from slipping, tripping and stumbling with subsequent striking against unspecified object, initial encounter; Y93.01 Activity, walking, marching and hiking; Y92.128 Other place in nursing home as the place of occurrence of the external cause; Y99.8 Other external cause status; Z79.899 Other long term (current) drug therapy
CPT/HCPCS: 36415; 70450; 72125; 80053; 81001; 82272; 84484; 85025; 93005; 99284; 99285

== ENCOUNTER → 2023-09-27 19:16 | Outpatient (BNV) | payer MEDICARE, SELFPAY | PROVIDERS: Emergency Provider Emergency Medicine; PCP Internal Medicine; Visit Provider Internal Medicine Cardiovascular Disease | DX: R94.31 Abnormal electrocardiogram [ECG] [EKG] (principal) | CPT/HCPCS: 93010 ==

== ENCOUNTER 2024-04-25 08:30 | Outpatient (REF) | payer MEDICARE, SELFPAY ==
--- OUTSIDE RECORDS SUMMARY | 2024-04-25 09:14 | XMS_ITS | Data Portability ---
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 REVIEW OF PRIOR EXTERNAL NOTES/RESULTS, ORDERING OF TEST(S) CATEGORY 2. 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 REVIEW OF PRIOR EXTERNAL NOTES/RESULTS, ORDERING OF TEST(S) CATEGORY 2. 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) MDM MODERATE MUST MEET 2 OUT OF 3 ELEMENTS: PROBLEMS, DATA OR RISK ELEMENT 1: PROBLEMS ADDRESSED 1 OR MORE CHRONIC ILLNESS WITH EXACERBATION OR 2 OR MORE STABLE CHRONIC ILLNESSES OR 1 UNDIAGNOSED NEW PROBLEM OR 1 ACUTE ILLNESS W/SYMPTOMS OR 1 ACUTE COMPLICATED INJURY ELEMENT 2: DATA MUST MEET 1 OF 3 CATEGORIES CATEGORY 1: REVIEW OF PRIOR EXTERNAL NOTES, REVIEW OF RESULTS, ORDERING OF EACH TEST, ASSESSMENT REQUIRING INDEPENDENT HISTORIAN OR CATEGORY 2: INDEPENDENT INTERPRETATION OF TESTS BY ANOTHER PHYSICIAN OR SPECIALIST OR CATEGORY 3: DISCUSSION OF MGT OR TEST INTERPRETATION W/EXTERNAL PHYSICIAN OR SPECIALIST ELEMENT 3: RISK RISK OF COMPLICATIONS AND/OR MORBIDITY OR MORTALITY OF PATIENT MANAGEMENT PROVIDER MUST THOROUGHLY DOCUMENT EACH ELEMENT THAT IS COVERED Not available 02/01/2024 14:38:27 Plan of Treatment Reminders Order Date Submit Date Provider Last Modified By Organization Details Last Modified Time Details Appointments None recorded. Lab CBC w/ auto diff 2022 023 [facility], [address] [place] [address], [address], 3 12:55:27 CMP, serum or plasma 2022 023 [facility], [address] [place] [address], [address], 3 12:55:27 PT/INR 2022 023 [facility], [address] [place] [address], [address], 3 14:45:36 TSH + free T4, serum 2022 023 [facility], [address] [place] [address], [address], 3 12:55:27 Referral None recorded. Procedures None recorded. Surgeries None recorded. Imaging None recorded. Medication Orders doxycyclin e hyclate 100 mg capsule 2023 024 [facility], [address] [place], [address], 11:07:39 neomycin-p olymyxin-h ydrocort 3.5 mg-10,000 unit/mL-1 % ear drops,susp 2023 024 [facility], [address] [place], [address], 16:16:04 Patient TargetsNo targets recorded. Patient Instructions Encounter Date Encounter Id Patient Instructions Last Modified By Organization Details Last Modified Time 11/22/2022 [id number] pulse oximetry* Not available 11/22/2022 14:37:40 02/01/2024 [id number] earwax blockage: care instructions Not available 02/01/2024 14:38:32 learning about asthma Not available 02/01/2024 14:38:32 pulse oximetry* Not available 02/01/2024 14:38:32 atrial fibrillation: care instructions Not available 02/01/2024 14:38:32 hypothyroidism: care instructions Not available 02/01/2024 14:38:32 Reason for Referral None Reported. Results Created Date Observation Date Name Description Value Unit Range Abnormal Flag Note LastModifiedBy Organization Detail LastModifiedTime 11/23/1911/22/2022 pulse oxime try* Result 98 Not Available [facility] [address] [place] [address], [phone], 11/18/2022 16:42:24 02/01/20 24 02/01/2024 pulse oxime try* Result 97 Not Available [facility] [address] [place] [address] [place], [address], 01/31/2024 12:02:58 01/27/20 23 01/26/2023 XR, hand, 3 or more view No observ ation record ed. [email or web address] [address] [place], [address], 01/26/2023 15:07:35 03/14/19 24 03/14/2023 XR, shoul lili No observ ation record ed. [facility] (Medical Records) [address] [place], [address], 03/14/2023 13:09:17 09/27/19 24 09/27/2023 CT, head + brain , w/wo contr ast No observ ation record ed. [email or web address] [facility] (Medical Records) [address] [place], [address], 09/28/2023 08:15:41 09/27/19 24 09/27/2023 CT, cervi michael spine , w/o contr ast No observ ation record ed. [address] (Medical Records) [address] [place], [address], 09/28/2023 08:15:14 Result Notes None recorded. 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/23/11 chronic Not Available [facility] 10:28:53 Venous stasis 14386685 Active 2018 Not Available [facility] 10:28:53 Multiple sclerosi s 63098762 Active 2018 Not Available [facility] 10:28:53 COVID-19 688757602 Active 202004/04/20 Not Available [facility] 10:28:53 Memory impairme nt 029150845 Active 2020 ELISA PEDERSON [address] [place] [address], [address], [facility] 11:17:16 Edema of lower extremit y 187932984 Active 2021 ELISA PEDERSON [address] [place], [address], [facility] 2 10:46:37 Cellulit is of right foot 45615682944 487174 Active 2021 ELISA PEDERSON [address] [place], [address], [facility] 2 10:47:06 Stasis dermatit is 05641257 Active 2021 ELISA PEDERSON [address] [place], [address], [facility] 2 14:27:52 Paroxysm al atrial fibrilla tion 315779361 Active 2021 ELISA PEDERSON [address] [place] [address], [address], [facility] 2 13:47:31 Peripher al vascular disease 078422150 Active 2021 ELISA PEDERSON [address] [place] [address], [address], [facility] 2 13:49:38 Pain of right knee joint 76881622277 4100 Active 2022 ELISA PEDERSON [address] [place] [address], [address], [facility] 3 10:38:50 Traumati c subdural hematoma 064755067 Active 2022 Tres Crum DO [address] [place] [address], [address], [facility] 3 12:33:29 Venous stasis ulcer of leg 003421478 Active 2022 Tres Crum DO [address] [place] [address], [address], [facility] 3 12:36:38 Bilatera l tinnitus 25985616854 02 Active 2022 Tres Crum DO [address] [place] [address], [address], [facility] 3 14:39:58 Injury of hand 194870752 Active 2022 Tres Crum DO [address] [place] [address], [address], [facility] 3 16:38:19 Furuncle 241765559 Active 2023 Tres rCum DO [address] [place] [address], [address], [facility] 4 11:05:03 Dysphagi a 31805007 Active 2023 Tres Crum DO [address] [place] [address], [address], [facility] 4 21:19:44 Weakness of bilatera l lower limb Active 2023 Tres Crum DO [address] [place] [address], [address], [facility] 4 21:21:44 Strictur e of esophagu s 61065536 Active 2023 Tres Crum DO [address] [place] [address], [address], [facility] 4 23:12:11 Otitis externa 8787319 Active 2023 Tres Crum DO [address] [place] [address], [address], [facility] 4 11:42:56 Trigemin al neuralgi a 18389266 Active 2017 Not Available [facility] 10:28:53 Obesity 006441401 Active 2017 Not Available [facility] 10:28:53 Hypothyr oidism 19317738 Active 2017 Not Available [facility] 10:28:53 Impacted cerumen 45246568 Active 2023 Tres Crum DO [address] [place] [address], [address], [facility] 4 14:34:47 Hypercho lesterol emia 21621052 Active 2017 Not Available [facility] 10:28:53 Atrial fibrilla tion 55713288 Active 2017 Not Available [facility] 10:28:53 Esophage al dysmotil ity 884863957 Active 2017 Not Available [facility] 10:28:53 Sliding hiatus hernia 661570541 Active 2017 small Not Available [facility] 10:28:53 Asthma 223437401 Active 2017 Not Available [facility] 10:28:53 Arthriti s 2002696 Active 2017 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 Procedures Surgical History Date Name Laterality Status Provider Name and Address Organization Details Recorded Time 03/09/20 24 Colonoscopy completed Tres Crum, DO [address] [facility], [place], [address], [facility] 03/16/2024 07:00:15 Thyroid Surgery completed Roxana Chao [facility] 06/29/2017 08:17:05 Imaging Results Imaging Date Name Status LastModified by Organiz ation Details LastModified Time 01/26/2023 XR, hand, 3 or more view completed [email or web address] [facility] (Medical Records) [address] [place], [address], 01/26/2023 15:07:35 03/14/2023 XR, shoulder completed [facility] (Medical Records) [address] [place], [address], 03/14/2023 13:09:17 09/27/2023 CT, head + brain, w/wo contrast completed [address] (Medical Records) [address] [place], [address], 09/28/2023 08:15:41 09/27/2023 CT, cervical spine, w/o contrast completed [address] (Medical Records) [address] [place], [address], 09/28/2023 08:15:14 Procedure Notes None recorded. Medical Equipment Implant [employer] Issuing Agency Serial Number Lot Number Status Provider Name and Address Organization Details Recorded Time penile FDA Y Roxana Zhanna gill [facility] 06/29/2017 08:15:54 Allergies No known drug allergies Medications Name Sig Start Date Stop Date Status Note LastModified by Organization Details LastModified Time terazosin 5 mg capsule TAKE 1 CAPSULE BY MOUTH AT BEDTIME FOR 30 DAYS active Managed by urologis t Not Available Not Available Not Available doxycycli ne hyclate 100 mg capsule Take 1 capsule twice a day by oral route for 10 days. active Not Available Not Available No t Available ammonium lactate 12 % lotion 02/23 completed Not Available Not Available Not Available metoprolo l succinate ER 50 mg tablet,ex tended release 24 hr TAKE 1 TABLET EVERY DAY BY ORAL ROUTE FOR 30 DAYS. active Not Available Not Available No t Available senna 8.6 mg tablet Take 2 tablets every day by oral route at bedtime for 28 days. 02/23 completed Not Available Not Available Not Available prednison e 20 mg tablet TAKE 2 TABLETS BY MOUTH EVERY DAY FOR 5 DAYS 05/27 completed Not Available Not Available Not Available melatonin 3 mg tablet Take 1 tablet every day by oral route at bedtime for 14 days. active Not Available Not Available No t Available amlodipin e 5 mg tablet TAKE 1 TABLET BY MOUTH EVERY DAY 04/24 completed Not Available Not Available Not Available aspirin 81 mg tablet,de layed release TAKE 1 TABLET BY MOUTH DAILY. 2023 active Not Available Not Available Not Avai lable simvastat in 40 mg tablet TAKE 1 TABLET BY MOUTH DAILY. 2023 active Not Available Not Available Not Avai lable bethanech ol chloride 25 mg tablet 01/25 completed Not Available Not Available Not Available carbamaze pine 200 mg tablet TAKE (2) TABLETS BY MOUTH THREE TIMES DAILY. 2023 active Not Available Not Available Not Avai lable lorazepam 0.5 mg tablet TAKE 1 TABLET BY MOUTH AT BEDTIME AND 1 TABLET 90 MINUTES PRIOR TO PROCEDUR E 02/18 completed Not Available Not Available Not Available tamsulosi n 0.4 mg capsule TAKE 1 CAPSULE BY MOUTH EVERY DAY active Not Available Not Available No t Available baclofen 10 mg tablet active Not Available Not Available Not Available amlodipin e 10 mg tablet TAKE 1 TABLET BY MOUTH DAILY. 2024 active Not Available Not Available Not Avai lable cephalexi n 500 mg capsule Take 1 capsule every 6 hours by oral route for 7 days. 01/25 completed Not Available Not Available Not Available warfarin 2 mg tablet TAKE 1 TABLET BY MOUTH EVERY DAY 02/23 completed Not Available Not Available Not Available ferrous gluconate 240 mg (27 mg iron) tablet TAKE 1 TABLET BY MOUTH DAILY. 2023 active Not Available Not Available Not Avai lable warfarin 5 mg tablet TAKE 1 TABLETS BY MOUTH EVERY DAY 01/25 completed *[facility] Not Available Not Available Not Available levothyro xine 150 mcg tablet TAKE 1 TABLET BY MOUTH ONCE DAILY IN THE MORNING 2024 active Not Available Not Available Not Avai lable docusate sodium 100 mg capsule Take 2 capsules every day by oral route for 28 days. 02/23 completed Not Available Not Available Not Available mupirocin 2 % topical ointment APPLY A SMALL AMOUNT TO AFFECTED AREA 3 TIMES A DAY 05/27 completed Not Available Not Available Not Available furosemid e 20 mg tablet TAKE 1 TABLET BY MOUTH DAILY. 2024 active Not Available Not Available Not Avai lable bethanech ol chloride 50 mg tablet TAKE 1 TABLET BY MOUTH TWICE A DAY active Not Available Not Available No t Available gabapenti n 100 mg capsule TAKE 3 CAPSULES BY MOUTH THREE TIMES DAILY. 2023 active Not Available Not Available Not Avai lable metoprolo l succinate ER 25 mg tablet,ex tended release 24 hr TAKE 1 TABLET BY MOUTH DAILY. 2024 active Not Available Not Available Not Avai lable lorazepam 1 mg tablet TAKE 1 TABLET BY MOUTH AT BEDTIME IF NEEDED 09/02 completed Not Available Not Available Not Available warfarin 1 mg tablet Take 1 tablet every day by oral route for 90 days. 05/14 completed 04/06/22 - Pt says he is not currentl y taking Not Available Not Available Not Available Tylenol-C odeine #3 300 mg-30 mg tablet Take 1 tablet every 6 hours by oral route for 14 days. 05/05 completed Not Available Not Available Not Available polyethyl roque glycol 3350 17 gram/dose oral powder 01/25 completed Not Available Not Available Not Available methylpre dnisolone 4 mg tablets in a dose pack TAKE 6 TABLETS ON DAY 1 DIRECTED ON PACKAGE AND DECREASE BY 1 TAB EACH DAY FOR A TOTAL OF 6 DAYS 05/27 completed Not Available Not Available Not Available albuterol sulfate HFA 90 mcg/actua tion aerosol inhaler INHALE 2 PUFFS EVERY 4 HOURS BY INHALATI ON ROUTE. active Not Available Not Available No t Available ketoconaz ole 2 % topical cream APPLY TO AFFECTED AREA EVERY DAY 09/02 completed Not Available Not Available Not Available sertralin e 50 mg tablet TAKE 1 TABLET BY MOUTH DAILY. 2024 active Not Available Not Available Not Avai lable neomycin- polymyxin -hydrocor t 3.5 mg-10,000 unit/mL-1 % ear drops,rayna p INSTILL 4 DROPS INTO AFFECTED EAR(S) BY OTIC ROUTE 3 TIMES PER DAY for 7 days active Not Available Not Available No t Available Oyster Shell Calcium-V itamin D3 500 mg-5 mcg (200 unit) tablet Take 2 tablets every day by oral route for 30 days. 02/23 completed Not Available Not Available Not Available enoxapari n 100 mg/mL subcutane ous syringe 01/25 completed Not Available Not Available Not Available Thera-M 27 mg-0.4 mg tablet Take 1 tablet every day by oral route. 02/23 completed Not Available Not Available Not Available cyclobenz aprine 5 mg tablet active Not Available Not Available No t Available levothyro xine 150mcg one tablet once a day 02/27 completed Not Available Not Available Not Available warfarin 5mg 1.5 tablet a day 02/19 completed Not Available Not Available Not Available metoprolo l succinate 25mg One tablet a day 02/27 completed Not Available Not Available Not Available Eliquis 5 mg tablet Take 1 tablet twice a day by oral route for 90 days. 11/15 completed Not Available Not Available Not Available Eliquis 2.5 mg tablet Take 1 tablet twice a day by oral route for 30 days. 04/02 completed Not Available Not Available Not Available baclofen 5 mg tablet Take 1 tablet twice a day by oral route as needed for 7 days. 2022 active Not Available Not Available Not Avai lable Fluad Quad (65yr up)(PF) 60 mcg (15 mcg x 4)/0.5mL IM syringe PHARMACY ADMINIST ERED 07/01 completed Not Available Not Available Not Available Vitals Date Recorded Body weight Heart rate Oxygen saturation Oxygen saturation in Arterial blood by Pulse oximetry Provider Name and Address Organization Details Last Updated DateTime 09/07/2023 831275.65 g 82 /min 97 % 97 % Gail Anand [facility] 09/07/2023 10:49:54 Date Recorded Heart rate Oxygen saturation Oxygen saturation in Arterial blood by Pulse oximetry Systolic blood pressure Diastolic blood pressure Provider Name and Address Organization Details Last Updated DateTime 4 73 /min 97 % 97 % 102 mm[Hg] 60 mm[Hg] Tres Crum, DO [address] [place], [address] , [facility] 4 14:25:43 Social History Question Answer Notes LastModified by Organizat ion Details LastModified Time Tobacco Smoking Status Former Smoker Roxana gill [facility] 06/29/2017 15:24:06 What Was The Date Of Your Most Recent Tobacco Screening? 02/01/2024 Information not available 02/01/2024 How Many Years Have You Smoked Tobacco? 15 [email or web address] Information not available 06/29/2017 Do You Or Have You Ever Used Any Other Forms Of Tobacco Or Nicotine? No Information not available 05/14/2022 Sex: Unknown Functional Status None recorded. Mental Status None recorded. Family History Nothing Reported. Medical History No medical history recorded. Immunizations Vaccine Type Date Status Note Provider Nam e and Address Organization Details Recorded Time Influenza, split virus, quadrivalent, preservative 1 completed Tres Crum, [address] [place] [address], [address], [facility] 02/05/2021 16:28:56 COVID-19, mRNA, LNP-S, PF, 30 mcg/0.3 mL dose 2 completed Gema Pineda [facility] 04/06/2022 08:05:23 influenza, unspecified formulation 2 completed Gema Pineda [facility] 04/06/2022 08:05:39 Influenza, split virus, quadrivalent, preservative 8 completed Milagros Ramirez [facility] 01/10/2018 08:18:22 Influenza, split virus, quadrivalent, preservative 7 completed Roxana Chao [facility] 09/12/2017 14:39:31 COVID-19, mRNA, LNP-S, PF, 100 mcg/0.5mL dose or 50 mcg/0.25mL dose 1 completed Kisha Montiel [facility] 07/07/2020 13:44:57 COVID-19, mRNA, LNP-S, PF, 100 mcg/0.5mL dose or 50 mcg/0.25mL dose 1 completed Mabel Roque [facility] 08/08/2020 08:08:21 Past Encounters Encounter ID Performer Location Encounter Start Date Encounter Closed Date Diagnosis/Indication Diagnosis SNOMED-CT Code Diagnosis ICD10 Code Diagnosis Note [id number] CECILLE Mcdermott [facility] [address] [facility],[place] [address] 06/29/2017 14:56:02 06/29/2017 16:12:18 Impaired fasting glycemia 658546871 R73.01 diet, exercise, weight loss discussed he was going to dilitronics, but ultimately didn't have success due to likely poor motivation . Hypercholesterolemia 136 17009 E78.00 on simvastati n 40, will recheck levels Essential hypertension 41563966 I10 stable on metoprolol Atrial fibrillation 4943 6004 I48.91 and history of PE - coumadin - goes to [facility] coumadin clinic Ataxia 67228888 R27.0 persistent for months. never had PT. sx have not changed. [id number] [address] [facility],[employer] [place] [address] 09/12/2017 14:06:17 09/12/2017 15:00:40 Adult health examination 740239796 Z00.01 has healthcare proxy - daughter gema perez done 09/2014 sees uro for prostate Hyperlipidemia 76679680 E78.5 lab order was incomplete last visit so this will need to be rechecked Asthma 410503491 J45.90 9 quiet Impaired f asting glycemia 094336681 R73.01 diet, exercise, weight loss discussed he was going to dilitronics, but ultimately didn't have success due to likely poor motivation . Active or passive immunization 566888138 Z23 Hypothyroidism 25179860 E03.9 [id number] [facility] [address] [facility],[employer] [employer] [place] [address] 02/27/2018 16:02:27 02/27/2018 16:32:11 Thoracic back pain 724327201 M54.6 caution with codeine as it can cause drowsiness would recommend avoiding lorazepam while on this med4 ice/heat/r est stretch fu if sx change or worsen Obesity 496475733 E66.9 Atrial fibrillation 4943 6004 I48.91 and history of PE - coumadin - goes to [facility] coumadin clinic [id number] Marisol Sharron, [facility] [address] [facility],[place] [address] 03/15/2018 14:10:27 03/15/2018 17:04:00 Thoracic back pain 376890846 M54.6 chronic with worsening compressio n deformity of t10-12 will monitor, if progress stalls will consider PT Obesity 368444113 E66.9 continue healthy diet and exercise has lost about 15 pounds since 06/2017 Atrial fibrillation 4943 6004 I48.91 and history of PE - coumadin - goes to [facility] coumadin clinic Impaired f asting glycemia 466258405 R73.01 diet, exercise, weight loss discussed he was going to dilitronics, but ultimately didn't have success due to likely poor motivation . Hypercholesterolemia 136 64300 E78.00 on simvastati n 40, will recheck levels Essential hypertension 94383364 I10 stable on metoprolol Dyspnea on exertion 6084 5006 R06.09 more sob than usual will check echo Hypothyroidism 23427527 E03.9 [id number] [facility] [place], [facility] [address] [facility],[place] [address] 05/05/2018 11:05:39 05/05/2018 12:08:08 Pre-surgery evaluation 459451748 Z01.818 clear for this low risk procedure Cataract 704470107 H25.0 11 Asthma 702292211 J45.90 9 quiet - asymptomat ic Atrial fibrillation 4943 6004 I48.91 RRR today coumadin stable per coumadin clinic recent echo was stable from 2014[place] [id number] [facility] [place] [address] [facility],[place] [address] 09/12/2018 14:10:15 09/12/2018 15:13:46 Paresthesia of lower extremity 787929863 R20.2 sees cardio will consult vascular Pneumonia 811505870 J18. 9 resolving Slurred speech 321684793 R47.81 resolved will follow with neuro Trigeminal neuralgia 316 40873 G50.0 recent flare- improving will follow up with neuro Venous stasis [id number] I 87.8 as above Atrial fibrillation 4943 6004 I48.91 regular today Edema of l ower extremity 622629546 R60.0 as above Multiple sclerosis 52021 007 G35 possible new dx, will be followed up bu neuro [address] [facility], [place], operated by [facility] [address] [facility], [place] [address] 03/20/2019 09:57:06 03/20/2019 11:10:02 Atrial fibrillation 14177224 I48.91 very noncomplia nt with coumadin clinic due to inability to drive and now living in [place] will convert to eliquis if insurance will cover Trigeminal neuralgia 316 80366 G50.0 continues to have sx periodical ly despite carbamazep ine 200 mg 5 x per day. 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 given exam and hx Trigeminal neuralgia 316 89283 G50.0 works well for him if on the medication Chokes whe n swallowing 357472287 R09.89 told patient to take smaller bites and drink in between as he cannot feel the bottom half of his face 44249 ELISA [facility] Internal Medicine [address] [facility], [employer] [place] [address] 05/27/2020 15:23:40 05/27/2020 16:18:11 Atrial fibrillation 91083314 I48.91 will add additional warfarin 2 mg to titrate PRN, will increase dose to 12 mg (5 mg BID and 2 mg QD) Asthma 940587026 J45.90 9 oxygen level 97%, HR stable, BP elevated using albuterol PRN, with symptoms and Hypothyroidism 25560021 E03.9 needs recheck of his levels Hypercholesterolemia 136 42431 E78.00 needs recheck of his levels Trigeminal neuralgia 316 06100 G50.0 will limit his intake of carbam to 6 max pills discussed gabapentin dose, started taking it as prescribed Essential hypertension 28898508 I10 will increase his metoprolol to 50 mg 02299 ELISA [facility] Internal Medicine [address] [facility] [address], [place] [address] 07/28/2020 15:00:29 07/29/2020 10:15:10 Pain in cervical spine 677844315 M54.2 will start on small dose of muscle relaxer Fall W19.XXXD stable/res olved two falls within the span of a few hours Memory impairment 813375 006 R41.3 will fu with neuro for complete evaluation 02552 ELISA [facility] Internal Medicine [address] [facility], ite [facility] [address] 09/02/2020 15:58:26 09/02/2020 17:54:56 Multiple sclerosis 95721567 G35 stable Atrial fibrillation 4943 6004 I48.0 stay on 7 mg warfarin Venous sta sis ulcer of leg 721241998 I83.022 will send in script from [facility] 28853 [facility] Medicine [address] [facility] [place] [address] 02/18/2021 10:30:56 02/20/2021 11:49:41 Esophageal dysmotility 386844635 K22.4 will fu with GI referral for endoscopy and barium swallow and nerve testing Impaired f asting glycemia 616415721 R73.01 will check lab due to patient concern about diabetes Asthma 117364326 J45.30 oxygen level 97%, HR stable, BP elevated using albuterol PRN, with symptoms and Atrial fibrillation 4943 6004 I48.0 stay on 7 mg warfarin Multiple sclerosis 32530 007 G35 stable per patient Hypothyroidism 36739878 E03.9 needs recheck of his levels Essential hypertension 84037865 I10 not convinced he is rememberin g to take his medication s as we have had this issues before Memory impairment 318410 006 R41.3 no showed his neuro apptdid discuss with daughter who states she is no longer in contact with [place] fatherno [place] [address] ELISA [facility] Internal Medicine [address] [facility] [address], itshane [facility] [address] 04/24/2021 09:43:03 04/28/2021 08:11:49 Atrial fibrillation 91522855 I48.0 stay on 7 mg warfarinelisa grubbsnt doesn't remember to take his warfarin, was d/c for nursing checks due to non-compli ance and [facility] coumadin clinic Multiple sclerosis 78791 007 G35 stable per patient Venous sta sis ulcer of leg 096980441 I83.022 resolved Asthma 483048930 J45.30 stable Esophageal dysmotility 452781887 K22.4 will fu with GI referral for endoscopy and barium swallow and nerve testing Hypothyroidism 18788306 E03.8 stable Memory impairment 022426 006 R41.3 no shows his appt to neuro, daughter no longer talking to him and has no one to schedule his appts and take him because he doens't answer his phone Trigeminal neuralgia 316 96291 G50.0 will limit his intake of carbam to 6 max pills discussed gabapentin dose, started taking it as prescribed per patienthas a pill pack and a nurse coming in at [facility] Hypertensive disorder 38 703582 I10 will increase to amlodipine to 10 mg 67780 [facility] [address] [facility], [place] [address] 01/25/2022 13:44:47 01/26/2022 11:37:10 Atrial fibrillation 46239319 I48.0 will restart warfarin at 2 mgstating that the nurse Trigeminal neuralgia 316 62975 G50.0 would like him to see neurology for his worsening trigeminal neuralgia Stasis dermatitis 351047 05 I87.2 discussed what it is with [place] [address] ELISA [facility] [address] [facility],[place] [address] 03/09/2022 13:36:15 03/09/2022 14:04:50 Cellulitis of right foot 4555115918 1963907 L03.115 resolved Paroxysmal atrial fibrillation 523765831 I48.0 start back on warfarin, brain bleed cleared on recent imagingcan restart, only low dose Peripheral vascular disease 005430764 I73.89 will fu with vascular surgeon Stasis dermatitis 003620 05 I87.2 discussed what it is with selvin riley f/u with vascular Trigeminal neuralgia 316 49661 G50.0 would like him to see neurology for his worsening trigeminal neuralgiai s supposed to be getting 2 tablets TID for his TMJ send note to hedy per neuro to take this dosage 12211 ELISA [facility] [address] [facility], ite [facility] [address] 04/06/2022 10:15:44 04/07/2022 10:15:17 Pain of right knee joint 7329641433 [address]25[address] Macedo who patient has seen before Warfarin m onitoring status 300165733 Z51.81 a letter has been written with my concerns about patient[place] [address] Tres Crum DO [facility] Internal Medicine [address] [facility], ite [place] [address] 05/14/2022 11:28:35 05/14/2022 15:47:44 Multiple sclerosis 38481371 G35 no changes Paroxysmal atrial fibrillation 061937191 I48.0 he is doing well has been with a controlled VRcont current med Venous sta sis ulcer of leg 545603257 I83.022 legs are still swollen Peripheral vascular disease 393844299 I73.89 seems to be about the same Advance care planning 71 8577166 Z71.89 stable Traumatic subdural hematoma 998291389 S06.5X0A has stabilized is off warfarin and on asabeing extra careful with his standing etc due to falls 81806 Tres Crum DO [facility] Medicine [address] [facility], ite [place] [address] 11/22/2022 13:55:31 11/22/2022 15:14:01 Asthma 210429532 J45.30 quiet and no recent exacerbat Atrial fibrillation 4943 6004 I48.0 he is not cooperativ e with warfarin guidlines not getting INR lab unknown whether he is taking warfarin approp this is too dangerous we will stop the warf he refused eliq due to cost Hypercholesterolemia 136 28366 E78.00 no further issue Hypothyroidism 06311325 E03.8 tsh needed Multiple sclerosis 27930 007 G35 no changes Bilateral tinnitus 18570 51081 102 H93.13 known signif hearing loss will have him take audiogram and go to [facility] 337619 Tres Crum [facility] [address] [facility] [address],[place] [address] 08/10/2023 08:55:31 08/10/2023 10:21:22 Asthma 413062954 J45.30 quiet and no recent exacerbat 872469 Tres Crum [facility] [address] [facility] [address],[place] [address] 09/07/2023 10:43:49 09/07/2023 11:34:35 Depression screening 307083125 Z13.31 negative Furuncle 612611395 L02.9 2 told if this does not work to let us know and will get surg to eval 820082 Tres Carreonbalbir [facility] [address] [facility] on [address], [place] [address] 10/28/2023 11:03:32 10/28/2023 12:11:05 Otitis externa 6644047 H60.91 563954 Tres Carreonbalbir [facility] [address] [facility] [address], [place] [address] 02/01/2024 14:20:36 02/01/2024 14:40:56 Asthma 768042765 J45.30 quiet and no recent exacerbat Atrial fibrillation 4943 6004 I48.0 he is not cooperativ e with warfarin guidlines not getting INR lab unknown whether he is taking warfarin approp this is too dangerous we will stop the warf he refused eliq due to cost Hypothyroidism 22707696 E03.8 tsh needed Memory impairment 446179 006 R41.3 seems to be stable Impacted cerumen 7447994 6 H61.21 not impacted but some wax lefthe will get ear wax removal kitand clean his ears periodical ly Health Concerns Section Related Observation LastModified by Organization Detai ls LastModified Time None Recorded Concern Status LastModified by Organization Details LastModified Time None Recorded Advance Directives Directive None Recorded Payers Encounter Date Sequence Insurance Name Policy Number Policy Gonzales Covered Member ID Gonzales Member ID Guarantor Name 11/22/2022 1 [place] [employer] Abelardo Stone [id number] Abelardo Stone 08/10/2023 1 [place] [employer] Abelardo Stone [id number] Abelardo Stone 09/07/2023 1 [place] [facility] Abelardo Marvinoznhan [id number] Abelardo Andradeliozzi 10/28/2023 1 [place] [facility] Abelardo Marvinozzi [id number] Abelardo Andradeliozzi 02/01/2024 1 [place] [facility] Abelardo Marvinozzi [id number] Abelardo Stone Notes Date Note Type Note Provider Name and Address Organization Details Recorded Time 11/23/19 23 text/htm l relates he is about the samehad been having trouble until place don terazosin for bphhas a fes skin lesions on his scalpthese are SKalso has been having a great deal of tinnitus and it is bothersome and is having a hard time with hearing see [employer] noteno cp no palpitations easily winded but this is standard Tres Crum DO [address] [place] [address], [address], [facility] Medicine 11/22/2022 14:43:22 09/07/19 24 text/htm l has had a bump on his buttock for 3 months told the nurse at his facility who told him to use vaselinehe says this has not helpedhe relates it is uncomfortable Tres Crum DO [address] [place], [address], [facility] 09/07/2023 11:06:52 10/28/19 24 text/htm l ear irrigated successfulunfortunately he has some blockage sensation since Tres Crum DO [address] [place], [address], [facility] 10/28/2023 11:44:52 02/01/20 24 text/htm l here for rechk of his ear relates that his ear feels much better Tres Crum DO [address] [place], [address], [facility] Medicine 02/01/2024 14:38:49
--- OUTSIDE RECORDS SUMMARY | 2024-04-25 09:14 | XMS_ITS | Clinical Summary ---
Author Organization [facility] ity Address [address] [place] [address] Care Team Providers Care Landcare Officer Name Role Phone Unavailable Primary Care Provider Unavailabl e Social History Tobacco Use Types Packs/Day Years Used Date Smoking Tobacco: Never Assessed Sex and Gender Information Value Date Recorded Sex Assigned at Not on file Legal Sex Male 12:32 AM EST Gender Identity Not on file Sexual Orientation Not on file Plan of Treatment Health Maintenance Due Date Last Done Comments DTaP,Tdap,and Td Vaccines (1 - Tdap) 1960 Pneumococcal Vaccine: 50+ Ye ars (1 of 1 - PCV) 08/28/1991 Zoster Vaccines (1 of 2) 08/28/1991 RSV Immunization Patients 60 + Years Old (1 - 1-dose 75+ series) 2016 Cholesterol Screening (Lipid Panel) 02/14/2022 Depression Screening 02/14/2022 Falls Risk Assessment 02/14/2022 Social Influencers of Health Screening 02/14/2022 COVID-19 Vaccine ( - 2023-2 5 season) 2023 Influenza Vaccine (#1) 2023 HIB Vaccines Aged Out No longer eligi ble based on patient's age to complete this topic HPV Vaccines Aged Out No longer eligi ble based on patient's age to complete this topic Hepatitis A Vaccines Aged Out No long er eligible based on patient's age to complete this topic Hepatitis B Vaccines Aged Out No long er eligible based on patient's age to complete this topic IPV Vaccines Aged Out No longer eligi ble based on patient's age to complete this topic MMR Vaccines Aged Out No longer eligi ble based on patient's age to complete this topic Meningococcal ACWY Vaccine Aged Out N o longer eligible based on patient's age to complete this topic Meningococcal B Vacine Aged Out No lo nger eligible based on patient's age to complete this topic RSV Immunization Patients Un lili 20 months Aged Out No longer eligible b ased on patient's age to complete this topic Varicella Vaccines Aged Out No longer eligible based on patient's age to complete this topic
--- OUTSIDE RECORDS SUMMARY | 2024-04-25 09:14 | XMS_ITS ---
Author Organization [facility] Address Unknown Problems Problem Status Start Date End Date HEMIPLEGIA AND HEMIPARESIS F OLLOWING CEREBRAL INFARCTION AFFECTING LEFT NON-DOMINANT SIDE (Primary) (I69.354 - ICD-10-CM) ACTIVE 11/29/2021 COVID-19 (U07.1 - ICD-10-CM) ACTIVE 12/10/2021 OTHER PULMONARY EMBOLISM WIT HOUT ACUTE COR PULMONALE (I26.99 - ICD-10-CM) ACTIVE 11/29/2021 RETENTION OF URINE, UNSPECIFIED (R33.9 - ICD-10-CM) AC TIVE 11/29/2021 HYPOTHYROIDISM, UNSPECIFIED (E03.9 - ICD-10-CM) ACTIVE 11/29/2021 UNSPECIFIED ATRIAL FIBRILLATION (I48.91 - ICD-10-CM) A CTIVE 11/29/2021 TRIGEMINAL NEURALGIA (G50.0 - ICD-10-CM) ACTIVE 11/29/2021 MAJOR DEPRESSIVE DISORDER, S KRANTHI EPISODE, UNSPECIFIED (F32.9 - ICD-10-CM) ACTIVE 11/29/2021 OTHER LACK OF COORDINATION (R27.8 - ICD-10-CM) ACTIVE 11/29/2021 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 -CM) ACTIVE 11/29/2021 HYPERLIPIDEMIA, UNSPECIFIED (E78.5 - ICD-10-CM) ACTIVE 11/29/2021 ESSENTIAL (PRIMARY) HYPERTENSION (I10 - ICD-10-CM) ACT OK 11/29/2021 ACUTE INTERSTITIAL PNEUMONITIS (J84.114 - ICD-10-CM) A CTIVE 11/29/2021 ACUTE BRONCHITIS, UNSPECIFIED (J20.9 - ICD-10-CM) ACTI VE 11/29/2021 ACUTE PULMONARY EDEMA (J81.0 - ICD-10-CM) ACTIVE 11/29/2021 OTHER SPECIFIED ANXIETY DISORDERS (F41.8 - ICD-10-CM) ACTIVE 11/29/2021 MORBID (SEVERE) OBESITY DUE TO EXCESS CALORIES (E66.01 - ICD-10-CM) ACTIVE 11/29/2021 Encounters Encounter Performer Performer Role Encounter Diagnoses Location Date Discharge - Discharged to home or self care - Other - Other [facility] 2 12:55 pm EDT - 2 11:37 am EDT Immunizations Vaccine Date Influenza 02/03/2021 12:00 am EST SARS-COV-2 (COVID-19) 08/02/2020 12:00 a m EDT SARS-COV-2 (COVID-19) 07/05/2020 12:00 a m EDT Pfizer Covid-19 Booster (SARS-COV-2) vac cine 08/14/2021 12:00 am EDT Social History
--- OUTSIDE RECORDS SUMMARY | 2024-04-25 09:14 | XMS_ITS | Clinical Summary ---
Author Organization [employer] Address [address] [facility] [address] [place] [address] Care Team Providers Care Metal Melter Name Role Phone Unavailable Primary Care Provider Unavailabl e Immunizations Name Administration Dates Next Due Pfizer Covid-19 Vaccine 12+ 12/29/2022 Social History Tobacco Use Types Packs/Day Years Used Date Smoking Tobacco: Never Assessed Sex and Gender Information Value Date Recorded Sex Assigned at Male 12/29/2022 3:56 PM EDT Legal Sex Male 2:05 PM EDT Gender Identity Male 12/29/2022 3:56 PM EDT Sexual Orientation Straight 12/29/2022 3: 56 PM EDT Plan of Treatment Health Maintenance Due Date Last Done Comments Depression Screening 1941 Lipid Panel 1941 SDOH Screening 1941 Alcohol/Substance Use Screening 1953 Tobacco Screening 1952 DTaP/Tdap/Td Vaccines (1 - Tdap) 1960 Zoster Vaccines (1 of 2) 08/28/1991 Pneumococcal Vaccine: 50+ Years (2 of 2 - PCV) 08/31/2014 08/31/2013 RSV Patients and Patients Aged 60 years or older (1 - 1-dose 75+ series) 2016 COVID-19 Vaccine ( season) 2023 12/29/2022, 08/14/2021, 04/22/2021, Additional history exists Influenza Vaccine (#1) 2023 , 01/30/2022, 02/03/2021, Additional history exists HIB Vaccines Aged Out No longer eligi [...] patient's age to complete this topic Meningococcal Vaccine Aged Out No chaya ge eligible based on patient's age to complete this topic RSV under 20 months Aged Out No longe r eligible based on patient's age to complete this topic Rotavirus Vaccines Aged Out No longer eligible based on patient's age to complete this topic Insurance [facility]ly [facility] [place] [address] MEDICARE Member Subscriber Plan / Payer (Ef fective 2022-Present) Name:Abelardo Stone Member ID:[id number] Relation to Subscriber:Self Name:Abelardo Stone Subscriber ID:[id number] Payer ID:STATE Group ID:Not on file Type:Medicare Address: [place] [employer], [facility]. [address] [facility] [place] [address]
[2024-04-25 09:21] LABS: MANUAL DIFF FLAG NO
[2024-04-25 10:51] LABS: Basophils Percent Auto 0.4 % (0-2); Eosinophils Absolute Auto 0.2 X10*3/uL (0.0-0.4); Eosinophils Percent Auto 2.5 % (0-4); Hemoglobin 12.2 g/dl (14.0-18.0); Imm Gran Abs Auto 0.03 X10*3/uL (0.00-0.03); Imm Gran Pct Auto 0.4 % (0.0-0.4); Lymphocytes Absolute Auto 1.8 X10*3/uL (1.2-4.9); Lymphocytes Percent Auto 25.1 % (20-40); Mean Corpuscular HGB Conc 32.1 g/dl (31.0-36.0); Mean Corpuscular Hemoglobin 29.6 pg (27.0-33.0); Mean Corpuscular Volume 92.2 fL (80.0-98.0); Mean Platelet Volume 9.7 fL (9.4-12.4); Monocytes Absolute Auto 0.6 X10*3/uL (0.1-1.2); Monocytes Percent Auto 7.9 % (2-11); Neutrophils Absolute Auto 4.5 x10*3/uL (2.0-8.3); Neutrophils Percent Auto 63.7 % (45-73); Platelet Count 258 X10*3/uL (160-400); Red Blood Count 4.12 X10*6/uL (4.60-5.80); Red Cell Distribution Width 13.8 % (11.0-16.0); White Blood Count 7.1 X10*3/uL (4.8-10.8)
[2024-04-25 11:22] LABS: Anion Gap 11 (12-20)
[2024-04-25 11:23] LABS: Alanine Aminotransferase 22 U/L (0-40); Albumin Level 3.7 g/dL (3.5-5.0); Alkaline Phosphatase 108 U/L (39-117); Aspartate Amino Transferase 22 U/L (5-37); Bilirubin Total 0.3 mg/dL (0.0-1.0); Blood Urea Nitrogen 22 mg/dL (9-16); Calcium 8.8 mg/dL (8.4-10.2); Carbon Dioxide 28 mmol/L (22-29); Chloride 108 mmol/L (96-108); Estimated Glomerular Filt Rate > 60; Glucose Random 102 mg/dL (60-115); Potassium 4.9 mmol/L (3.3-5.1); Sodium 142 mmol/L (135-145)
== END 2024-04-25 08:31 | disposition home or self-care (01) ==
LOC: HO.LAB 08:30
PROVIDERS: PCP Internal Medicine; Visit Provider Specialist
DX: C18.9 Malignant neoplasm of colon, unspecified (principal)
CPT/HCPCS: 36415; 80053; 82378; 85025

== ENCOUNTER 2024-06-11 13:53 | Inpatient (IN) | payer MEDICARE, SELFPAY ==
[2024-06-11] VITALS (25 sets, daily range): BP systolic 99–171; BP diastolic 57–87; PULSE 51–66; RESP 12–16; TEMP 36.4–36.7; O2SAT 95–100; BMI 35.9; BMI 35.2; BMI 34.8
--- NOTE | ~2024-06-11 | MR_ITS ---
EXAMINATION: MR BRAIN WITHOUT IV CONTRAST HISTORY: CVA s/p TNK TECHNIQUE: Sagittal T1, and axial T1, FLAIR, T2, gradient echo, and diffusion weighted MR images of the brain were obtained. COMPARISON: Correlation is made of multiple unenhanced CT scans of the head dating back to 2021. FINDINGS: There is diffuse prominence of the ventricular system and cortical sulci, consistent with atrophy. Periventricular and subcortical white matter hyperintensities are noted on the FLAIR and T2-weighted images which are nonspecific, but often seen in the setting of small vessel ischemic disease. There is no mass effect or midline shift. There are chronic bilateral subdural fluid collections measuring up to 3 mm in thickness on the right and 5 mm in thickness on the left. These have been stable since 2021. There is no evidence of acute intracranial hemorrhage. There are no foci of restricted diffusion. Normal vascular flow voids are noted in the basilar and carotid arteries. There is opacification of the left maxillary sinus. MR/MR head/brain wo con IMPRESSION: 1. No evidence of an acute infarct. 2. Chronic bilateral subdural fluid collections as described. No evidence of acute intracranial hemorrhage. Electronically signed by: Dany Ferguson MD 06/12/2024 01:27 PM EDT
--- NOTE | ~2024-06-11 | CT_ITS ---
EXAMINATION: CT HEAD WITHOUT CONTRAST (STROKE PROTOCOL) CLINICAL INFORMATION: Stroke protocol. Dysarthria. COMPARISON: Numerous priors, most recently 09/27/2023. TECHNIQUE: Contiguous axial imaging was performed from the skull base to vertex without intravenous administration of contrast. This CT examination was performed using dose optimization techniques as appropriate, variously including the following: *Automated exposure control *Adjustment of mA and/or kV according to patient size (this includes techniques or standardized protocols for targeted exams where dose is matched to indication/reason for exam; i.e. extremities or head) *Use of iterative reconstruction technique FINDINGS: Moderate motion degradation, limiting sensitivity of the examination. There are small low-density chronic subdural collections overlying the hemispheres measuring up to 4 mm on the left and 3 mm on the right. These extend to involve the anterior and posterior falx. No associated mass effect. There is no intraparenchymal or intraventricular hemorrhage or subarachnoid hemorrhage. There is no mass effect, or edema. No CT evidence of acute territorial infarct. Ventricles, sulci, and cisterns are normal in size and configuration for patient age. No hydrocephalus. No midline shift. Negative hyperdense MCA sign. Negative insular ribbon sign. Patchy periventricular and deep white matter hypoattenuation is consistent with moderate small vessel ischemic changes. Old lacunar type infarction left caudate body. Mild atheromatous calcification of the bilateral carotid siphons and V4 segments vertebral arteries bilaterally. Globes and orbital contents image normally. There are bilateral lens replacements. No extracranial soft tissue abnormalities. Paranasal sinuses demonstrate a diminutive, opacified left maxillary sinus in keeping with silent sinus syndrome. Paranasal sinuses are otherwise well pneumatized. Mastoids and tympanic spaces pneumatized. No suspicious bony abnormalities. There are no acute fractures evident. CT/CT head for STROKE IMPRESSION: Significant motion degraded exam, limiting sensitivity of the study. 1. There are small chronic appearing low density subdural collections overlying the hemispheres, measuring 3 mm on the right and 4 mm on the left. These extend to involve the falx. No significant mass effect. 2. There is no acute territorial infarction, intraparenchymal hemorrhage, or subarachnoid hemorrhage. Negative hyperdense MCA sign or insular ribbon sign. Findings discussed with Christiane Owens MD of the [place] [facility] at 2:27 PM, 06/11/2024. Electronically signed by: Wilder Brown MD 06/11/2024 02:32 PM EDT RP
--- NOTE | ~2024-06-11 | CT_ITS ---
EXAMINATION: CTA NECK WITH CONTRAST (STROKE) CTA BRAIN WITH CONTRAST (STROKE) CLINICAL INFORMATION: Dysarthria. COMPARISON: November 23, 2021. TECHNIQUE: CTA of the head and neck was performed in the axial plane from the mediastinum to the skull vertex using 70 mL Omnipaque 350 intravenous contrast. Additional reformatted multiplanar images including maximum intensity projection MIP images are generated on the CT workstation. This CT examination was performed using dose optimization techniques as appropriate, variously including the following: *Automated exposure control *Adjustment of mA and/or kV according to patient size (this includes techniques or standardized protocols for targeted exams where dose is matched to indication/reason for exam; i.e. extremities or head) *Use of iterative reconstruction technique. 701 mGy centimeter. FINDINGS: The degree of stenosis determined by criteria similar to NASCET. Chest CTA: Thoracic aortic arch demonstrates calcified plaque without focal stenosis or intimal flap or IV contrast extravasation. Calcified plaques in the left subclavian artery. Intraluminal filling defects within the distal right main pulmonary artery and to the subsegmental branches. Neck CTA: Right CCA: Normal patency. No focal stenosis. No intimal flap. Known calcified plaque in a circumferential fashion and distal segment. Right ICA: Normal patency. Mixed plaques. No high degree stenosis. No intimal flap. Tortuosity in the distal segment. Left CCA: Normal patency. No focal stenosis. No intimal flap. Left ICA: Normal patency. Mixed plaques. No high degree stenosis. No intimal flap. Tortuosity in the distal segment. V1/V2 segments of the vertebral arteries are patent without focal stenosis or intimal flap. Left vertebral artery slightly dominant. Tortuosity in the origin of both vertebral arteries. Brain CTA: Anterior cerebral circulation: ICAs: Normal patency. No focal stenosis. No abrupt cut off. Ophthalmic arteries are patent. Posterior communicating arteries are small with faint enhancement. MCA's: Normal patency. Contour irregularity in the left M1 M2 segment. No abrupt cut off. Bifurcation/trifurcation demonstrated normal vascular irregularity. ACAs: Normal patency. No focal stenosis. No abrupt cut off. Anterior communicating artery is patent. Posterior cerebral circulation: V3/V4 segments: Normal patency. No focal stenosis. No intimal flap. Posterior inferior cerebral arteries are patent without gross abnormality. Basilar artery: Normal patency. No focal stenosis. No abrupt cut off. No intimal flap. Superior cerebellar arteries are patent. code machine operator: Normal patency. No focal stenosis. No abrupt cut off. There is an irregular vascular enhancing abnormality between the left superior cerebellar arteries and the anterior inferior cerebral arteries with a 5 mm maximum diameter in the left cerebellopontine angle cistern Ancillary findings: 4.5 cm dominant nodule, left thyroid lobe extending into the anterior superior mediastinum. There is volume loss with the mucosal thickening and secretion of the left maxillary sinus. Multilevel cervical spondylosis C4 C7. CT/CT angio head neck STROKE IMPRESSION: No high degree stenosis or dissection. No main cerebral artery occlusion or embolus. Concerning acute pulmonary artery emboli, distal right main pulmonary artery and subsegmental branches. 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 4.5 cm dominant nodule, left thyroid lobe. This critical test result is communicated to: Dr. Christiane Owens at 2:25 PM on June 11, 2024. Electronically signed by: Reza Perez MD 06/11/2024 02:59 PM EDT
--- NOTE | 2024-06-11 14:00 | ECG_ITS ---
Test Reason : ? stroke Blood Pressure : */* mmHG Vent. Rate : 66 BPM Atrial Rate : * BPM P-R Int : * ms QRS Dur : 92 ms QT Int : 432 ms P-R-T Axes : * 29 33 degrees QTcB Int : 452 ms Atrial fibrillation Abnormal ECG When compared with ECG of 27-Sep-2023 19:17, No significant changes seen Referred By: Christiane Owens Electronically Signed By: ROGER MURRAY
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
[2024-06-11 14:15] LABS: Glucose, Whole Blood 189 mg/dL (60-115)
[2024-06-11 14:15] LABS: Prothrombin Time Whole Bld POC 12.5 sec (11.1-13.5)
[2024-06-11] MEDS: iohexoL 350 MG/ML 100 ML INFUS..BTL 70 ML IV (14:18)
[2024-06-11] MEDS: Tenecteplase 50 MG/10 ML KIT 25 MG IVPUSH (14:38)
--- NOTE | 2024-06-11 14:39 | MHC.EDTECH ---
Stroke INR delayed due to QC testing needed to be done, INR 1.0/PT 12.5, POC 189, DR Owens and RN aware, EKG completed per order and signed by provider, Patient was changed into hospital attire,placed on the farm butcher,vitals taken.
[2024-06-11 14:41] LABS: MANUAL DIFF FLAG NO
[2024-06-11 14:43] LABS: Basophils Percent Auto 0.5 % (0-2); Eosinophils Absolute Auto 0.4 X10*3/uL (0.0-0.4); Eosinophils Percent Auto 6.7 % (0-4); Hematocrit 35.2 % (42.0-52.0); Hemoglobin 11.3 g/dl (14.0-18.0); Imm Gran Abs Auto 0.01 X10*3/uL (0.00-0.03); Imm Gran Pct Auto 0.2 % (0.0-0.4); Lymphocytes Absolute Auto 1.2 X10*3/uL (1.2-4.9); Lymphocytes Percent Auto 19.7 % (20-40); Mean Corpuscular HGB Conc 32.1 g/dl (31.0-36.0); Mean Corpuscular Hemoglobin 29.3 pg (27.0-33.0); Mean Corpuscular Volume 91.2 fL (80.0-98.0); Mean Platelet Volume 10.1 fL (9.4-12.4); Monocytes Absolute Auto 0.4 X10*3/uL (0.1-1.2); Monocytes Percent Auto 6.9 % (2-11); Platelet Count 169 X10*3/uL (160-400); Red Blood Count 3.86 X10*6/uL (4.60-5.80); Red Cell Distribution Width 13.3 % (11.0-16.0); White Blood Count 6.1 X10*3/uL (4.8-10.8)
[2024-06-11 14:59] LABS: Ethanol < 10 mg/dL
[2024-06-11 15:02] LABS: Troponin-I High Sensitivity 4.4 ng/L (<3.5-35.0)
[2024-06-11 15:11] LABS: Alanine Aminotransferase 28 U/L (0-40); Albumin Level 3.6 g/dL (3.5-5.0); Alkaline Phosphatase 104 U/L (39-117); Anion Gap 10 (12-20); Aspartate Amino Transferase 42 U/L (5-37); Bilirubin Direct 0.1 mg/dL (0.0-0.5); Bilirubin Total 0.3 mg/dL (0.0-1.0); Blood Urea Nitrogen 23 mg/dL (9-16); Calcium 8.6 mg/dL (8.4-10.2); Carbon Dioxide 25 mmol/L (22-29); Chloride 109 mmol/L (96-108); Creatinine Clr Calc Pharmacy 79.2; Estimated Glomerular Filt Rate > 60; Glucose Random 110 mg/dL (60-115); Potassium 5.1 mmol/L (3.3-5.1); Sodium 139 mmol/L (135-145); Total Protein 6.7 g/dL (6.5-8.0)
[2024-06-11] MEDS: 0.9 % Sodium Chloride Flush 3 ML SYRINGE IVFLUSH (15:17)
--- NOTE | 2024-06-11 15:39 | PC.NURSE ---
pt brought to bed [address] scan, lt arm weakness noted, lt facial droop noted, pt had equal strength BLE, IVs were inserted to bilateral arms, labs drawn, ekg performed, cardiac cath tech applied- pt afib on monitor. dental financial coordinator was at bedside, tnk was given. pt was awake/speaking but had notable difficulty with word finding. TNK was given per order. Presently pt is sleeping, wakes to verbal stimulus, is alert to person only, lt arm continues to have lt arm weakness, lt facial droop has lessoned, equal strength continues to BLE. afib on cardiac cath tech. denies current pain/discomfort, call [facility] within reach, plan of care ongoing.
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
--- NOTE | 2024-06-11 16:12 | MHC.STROKE ---
Notified of stroke protocol in ED. Pt in CT scan upon my arrival. Pt slightly confused, mild left sided facial droop, speech slow. Last known well time per DBV was 1300. Dr. Bartlett notified by Dr. Owens of stroke protocol in ED Radiologist called and made Dr. Owens aware of old, chronic bilateral subdural hematomas approx 3mm. There was no evidence of fall or trauma. Dr. Bartlett notified of updated results. Discussion between ED provider and neurologist regarding TNK administration. Plan was to move forward with the TNK as hematomas were chronic and patient continued with speech disturbances, confusion, left sided facial droop, and slight drift noted on left side. Slight delay on TNK administration due to the findings on CT as above. Once the ED provider spoke with Dr. Bartlett for the second time and confirmed TNK administration, the medication was admin. to patient. Stroke Education reviewed with patient although reinforcement will be needed. Fail swallow s/p TNK. Will reassess. Will continue to assist as needed.
--- NOTE | 2024-06-11 16:13 | PHA.MEDREC ---
Pharmacy Consult ? Medication Reconciliation Pharmacy has completed the medication reconciliation. List obtained from [facility]. [facility] also sent list.
[2024-06-11 16:31] LABS: Appearance Urine Clear; Color Urine Yellow; Glucose Urine UA Negative (Negative); Leukocyte Esterase Urine Negative (Negative); Nitrite Urine Negative (Negative); PH 5.5 (5.0-9.0); Specific Gravity - Urine >= 1.030 (1.005-1.025); Urine Blood Negative (Negative); Urine Ketones Negative (Negative); Urine Protein Negative (Neg-Trace)
--- OUTSIDE RECORDS SUMMARY | 2024-06-11 16:36 | XMS_ITS | Encounter Summary ---
Author Organization [facility] Address [id number] [place] [id number] Care Team Providers Care Sitecore Developer Name Role Phone Mamta Klein MD Primary Care Provider [phone] Encounter Details Date Type Department Care Team (Late st Contact Info) Description 05/31/[address] [facility] Lab [address] [facility] [place] [address] Mamta Klein MD [address] [place], [place] [id number] Anemia, unspecified; Vitamin B12 deficiency anemia, unspecified; Hypothyroidism, unspecified; Hyperlipidemia, unspecified; Malignant neoplasm of colon, unspecified (CMS/HCC); Vitamin D deficiency, unspecified Social History Tobacco Use Types Packs/Day Years Used Date Smoking Tobacco: Never Assessed Sex and Gender Information Value Date Recorded Sex Assigned at Not on file Legal Sex Male 12:32 AM EST Gender Identity Not on file Sexual Orientation Not on file documented as of this encounter Plan of Treatment Not on file documented as of this encounter Procedures Procedure Name Priority Date/Time Associated Diagnosis Comments COMPLETE BLOOD COUNT Routine 06/01/2024 7:30 AM EDT Anemia, unspecified Vitamin B12 deficiency anemia, unspecified Hypothyroidism, unspecified Hyperlipidemia, unspecified Malignant neoplasm of colon, unspecified Vitamin D deficiency, unspecified BASIC METABOLIC PANEL Routine 06/01/2024 7:30 AM EDT Anemia, unspecified Vitamin B12 deficiency anemia, unspecified Hypothyroidism, unspecified Hyperlipidemia, unspecified Malignant neoplasm of colon, unspecified Vitamin D deficiency, unspecified documented in this encounter Results * (ABNORMAL) Basic metabolic panel (06/01/2024 7:30 AM EDT) Sodium 144 133 - 145 mmol/L LAB CHEMISTRY METHOD 06/01/2024 10:54 AM [facility] Potassium 4.6 3.5 - 5.5 mmol/L LAB CHEMISTRY METHOD 06/01/2024 10:54 AM [facility] Chloride 111(H) 96 - 110 mmol/L LAB CHEMISTRY METHOD 06/01/2024 10:54 AM [facility] CO2 30 21 - 32 mmol/L LAB CHEMISTRY METHOD 06/01/2024 10:54 AM [facility] Anion Gap 3 3 - 11 LAB CHEMISTRY METHOD 06/01/2024 10:54 AM [facility] Glucose 105(H) 70 - 100 mg/dL LAB CHEMISTRY METHOD 06/01/2024 10:54 AM [facility] BUN 15 5 - 25 mg/dL LAB CHEMISTRY METHOD 06/01/2024 10:54 AM [facility] Creatinine 0.78 0.70 - 1.30 mg/dL LAB CHEMISTRY METHOD 06/01/2024 10:54 AM [facility] eGFR 89 >=60 mL/min/1. 73m2 LAB CHEMISTRY METHOD 06/01/2024 10:54 AM [facility] Comment:Calculation based on the??Chronic Kidney Disease Epidemiology Collaboration (CKD-EPI) equation refit??without adjustment for race. BUN/Creatinine Ratio 19.2 LAB CHEMISTRY METHOD 06/01/2024 10:54 AM [facility] Calcium 8.9 8.5 - 10.5 mg/dL LAB CHEMISTRY METHOD 06/01/2024 10:54 AM [facility] Blood Venous blood specimen / Unknown Venipuncture / Unknown 06/01/2024 7:30 AM EDT 06/01/2024 9:55 AM EDT us Mamta Klein MD LAB BLOOD ORDERABLES Final Resul t [facility] [address] [place] [address], * (ABNORMAL) Complete blood count (06/01/2024 7:30 AM EDT) WBC 5.3 4.8 - 10.8 K/mcL LAB HEMETOLOGY METHOD 06/01/2024 10:06 AM EDT [facility] RBC 3.70(L) 4.50 - 5.50 M/mcL LAB HEMETOLOGY METHOD 06/01/2024 10:06 AM [facility] Hemoglobin 10.8(L) 13.5 - 17.5 g/dL LAB HEMETOLOGY METHOD 06/01/2024 10:06 AM [facility] Hematocrit 34.9(L) 42.0 - 54.0 % LAB HEMETOLOGY [facility]24 [facility] MCV 94.6 79.0 - 98.0 FL LAB HEMETOLOGY METHOD 06/01/2024 10:06 AM [facility] MCH 29.3 27.0 - 32.0 pcg LAB HEMETOLOGY METHOD 06/01/2024 10:06 AM [facility] MCHC 30.9(L) 32.0 - 37.0 g/dL LAB HEMETOLOGY METHOD [facility]/01[facility]2024 10[facility] RDW 12.8 11.0 - 15.0 % LAB HEMETOLOGY METHOD 06/01/2024 10:06 AM [facility] Platelets 239 130 - 400 K/mcL LAB HEMETOLOGY METHOD 06/01/2024 10:06 AM [facility] MPV 10.7 7.0 - 11.0 FL LAB HEMETOLOGY METHOD 06/01/2024 10:06 AM EDT [facility] NRBC 0.0 <1.0 % LAB HEMETOLOGY METHOD 06/01/2024 10:06 AM EDT [facility] NRBC Absolute 0.00 <0.10 K/mcL LAB HEMETOLOGY METHOD 06/01/2024 10:06 AM EDT [facility] Blood Venous blood specimen / Unknown Venipuncture / Unknown 06/01/2024 7:30 AM EDT 06/01/2024 9:55 AM EDT Mamta Klein MD LAB BLOOD ORDERABLES Final Resul t [facility] [address] [place] [address], documented in this encounter Visit Diagnoses Diagnosis Anemia, unspecified Vitamin B12 deficiency anemia, unspecified Hypothyroidism, unspecified Hyperlipidemia, unspecified Malignant neoplasm of colon, unspecified Vitamin D deficiency, unspecified documented in this encounter Care Teams Sitecore Developer Relationship Specialty Start Date End Date Mamta Klein MD [address] [place] [address] [address] [place] [address] PCP - General Geriatric Medicine 05/18/24 documented as of this encounter
--- OUTSIDE RECORDS SUMMARY | 2024-06-11 16:36 | XMS_ITS | Encounter Summary ---
Author Organization [facility] Address [address] [place] [phone] Care Team Providers Care Wildland Fire Fighter Name Role Phone Mamta Klein MD Primary Care Provider [phone] Encounter Details Date Type Department Care Team (Late st Contact Info) Description 05/18/2024 Lab Requisition [facility] - Main Lab 299 [facility] [place] [address] Mamta Klein MD [address] [place] [address] Hyperlipidemia, unspecified; Hypothyroidism, unspecified; Vitamin D deficiency, unspecified; Anemia, unspecified; Vitamin B12 deficiency anemia, unspecified Social History Tobacco Use Types Packs/Day [...] Procedure Name Priority Date/Time Associated Diagnosis Comments THYROID STIMULATING HORMONE WITH REFLEX TO FREE T4 AND FREE T3 Routine 05/18/2024 7:38 AM EST Hyperlipidemia, unspecified Hypothyroidism, unspecified Vitamin D deficiency, unspecified Anemia, unspecified Vitamin B12 deficiency anemia, unspecified LIPID PANEL WITH REFLEX TO DIRECT LDL Routine 05/18/2024 7:38 AM EST Hyperlipidemia, unspecified Hypothyroidism, unspecified Vitamin D deficiency, unspecified Anemia, unspecified Vitamin B12 deficiency anemia, unspecified VITAMIN D 25 HYDROXY Routine 05/18/2024 7:38 AM EST Hyperlipidemia, unspecified Hypothyroidism, unspecified Vitamin D deficiency, unspecified Anemia, unspecified Vitamin B12 deficiency anemia, unspecified COMPLETE BLOOD COUNT Routine 05/18/2024 7:38 AM EST Hyperlipidemia, unspecified Hypothyroidism, unspecified Vitamin D deficiency, unspecified Anemia, unspecified Vitamin B12 deficiency anemia, unspecified IRON Routine 05/18/2024 7:38 AM EST Hyperlipidemia, unspecified Hypothyroidism, unspecified Vitamin D deficiency, unspecified Anemia, unspecified Vitamin B12 deficiency anemia, unspecified FOLATE Routine 05/18/2024 7:38 AM EST Hyperlipidemia, unspecified Hypothyroidism, unspecified Vitamin D deficiency, unspecified Anemia, unspecified Vitamin B12 deficiency anemia, unspecified VITAMIN B12 Routine 05/18/2024 7:38 AM EST Hyperlipidemia, unspecified Hypothyroidism, unspecified Vitamin D deficiency, unspecified Anemia, unspecified Vitamin B12 deficiency anemia, unspecified COMPREHENSIVE METABOLIC PANEL Routine 05/18/2024 7:38 AM EST Hyperlipidemia, unspecified Hypothyroidism, unspecified Vitamin D deficiency, unspecified Anemia, unspecified Vitamin B12 deficiency anemia, unspecified documented in this encounter Results * Thyroid stimulating hormone with reflex to free t4 and free t3 (05/18/2024 7:38 AM EST) [facility] TSH 1.43 0.40 - 4.00 mcIU/mL LAB CHEMISTRY METHOD 05/18/2024 12:24 PM EST [facility] Blood Venous blood specimen / Unknown Venipuncture / Unknown 05/18/2024 7:38 AM EST 05/18/2024 11:06 AM EST us Mamta Klein MD LAB BLOOD ORDERABLES Final Resul t [facility] [address] [place] [address], * (ABNORMAL) Iron (05/18/2024 7:38 AM EST) Pathologist [facility] Iron 34(L) 50 - 160 mcg/dL LAB CHEMISTRY METHOD 05/18/2024 12:44 PM EST [facility] Blood Venous blood specimen / Unknown Venipuncture / Unknown 05/18/2024 7:38 AM EST 05/18/2024 11:06 AM EST us Mamta Klein MD LAB BLOOD ORDERABLES Final Resul t Performing Organization Address City/[facility]/ZIP Co de Phone Number [facility] [address] [place] [address], [place] [phone] * Folate (05/18/2024 7:38 AM EST) [facility] Folate 7.1 2.8 - 17.0 ng/ml LAB CHEMISTRY METHOD 05/18/2024 12:44 PM EST [facility] Blood Venous blood specimen / Unknown Venipuncture / Unknown 05/18/2024 7:38 AM EST 05/18/2024 11:06 AM EST us Mamta Klein MD LAB BLOOD ORDERABLES Final Resul t Performing Organization Address [facility] de Phone Number [facility] [address] [place] [address], [place] [phone] * (ABNORMAL) Vitamin D 25 hydroxy (05/18/2024 7:38 AM EST) [facility] Vit D, 25-Hydroxy 6.2(L) 30.0 - 80.0 ng/mL LAB CHEMISTRY METHOD 05/18/2024 12:30 PM EST [facility] Blood Venous blood specimen / Unknown Venipuncture / Unknown 05/18/2024 7:38 AM EST 05/18/2024 11:06 AM EST us Mamta Klein MD LAB BLOOD ORDERABLES Final Resul t Performing Organization Address City/[facility] Co de Phone Number [facility] [address] [place] [address], [place] [phone] * Vitamin B12 (05/18/2024 7:38 AM EST) [facility] Vitamin B-12 355 250 - 900 pcg/mL LAB CHEMISTRY METHOD 05/18/2024 12:44 PM [facility] Blood Venous blood specimen / Unknown Venipuncture / Unknown 05/18/2024 7:38 AM EST 05/18/2024 11:06 AM EST us Mamta Klein MD LAB BLOOD ORDERABLES Final Resul t [facility] [address] [place] [address], [place] [phone] * (ABNORMAL) Lipid panel with reflex to direct LDL (05/18/2024 7:38 AM EST) [facility] Cholesterol 190 0 - 200 mg/dL LAB CHEMISTRY METHOD 05/18/2024 12:44 PM [facility] Triglycerides 161(H) 0 - 150 mg/dL LAB CHEMISTRY METHOD 05/18/2024 12:44 PM [facility] HDL 64 >=40 mg/dL LAB CHEMISTRY METHOD 05/18/2024 12:44 PM [facility] LDL Calculated 94 0 - 100 mg/dL LAB CHEMISTRY METHOD 05/18/2024 12:44 PM [facility] VLDL Cholesterol Krzysztof 32.2 mg/dL LAB CHEMISTRY METHOD 05/18/2024 12:44 PM [facility] Non HDL Chol. (LDL+VLDL) 126 <145 mg/dL LAB CHEMISTRY METHOD 05/18/2024 12:44 PM [facility] Chol/HDL Ratio 3.0 0.0 - 4.4 LAB CHEMISTRY METHOD 05/18/2024 12:44 PM [facility] Blood Venous blood specimen / Unknown Venipuncture / Unknown 05/18/2024 7:38 AM EST 05/18/2024 11:06 AM EST us Mamta Klein MD LAB BLOOD ORDERABLES Final Resul t [facility] [address] [place] [address], [place] [phone] * (ABNORMAL) Comprehensive metabolic panel (05/18/2024 7:38 AM EST) Pathologist [facility] Sodium 140 133 - 145 mmol/L LAB CHEMISTRY METHOD 05/18/2024 12:44 PM [facility] Potassium 4.2 3.5 - 5.5 mmol/L LAB CHEMISTRY METHOD 05/18/2024 12:44 PM [facility] Chloride 103 96 - 110 mmol/L LAB CHEMISTRY METHOD 05/18/2024 12:44 PM [facility] CO2 24 21 - 32 mmol/L LAB CHEMISTRY METHOD 05/18/2024 12:44 PM [facility] Anion Gap 13(H) 3 - 11 LAB CHEMISTRY METHOD 05/18/2024 12:44 PM [facility] Glucose 103(H) 70 - 100 mg/dL LAB CHEMISTRY METHOD 05/18/2024 12:44 PM [facility] BUN 9 5 - 25 mg/dL LAB CHEMISTRY METHOD 05/18/2024 12:44 PM [facility] Creatinine 0.72 0.70 - 1.30 mg/dL LAB CHEMISTRY METHOD 05/18/2024 12:44 PM [facility] eGFR 91 >=60 mL/min/1. 73m2 LAB CHEMISTRY METHOD 05/18/2024 12:44 PM [facility] Comment:Calculation based on the??Chronic Kidney Disease Epidemiology Collaboration (CKD-EPI) equation refit??without adjustment for race. BUN/Creatinine Ratio 12.5 LAB CHEMISTRY METHOD 05/18/2024 12:44 PM [facility] Calcium 8.7 8.5 - 10.5 mg/dL LAB CHEMISTRY METHOD 05/18/2024 12:44 PM [facility] AST (SGOT) 17 10 - 42 unit/L LAB CHEMISTRY METHOD 05/18/2024 12:44 PM [facility] ALT (SGPT) 19 10 - 60 unit/L LAB CHEMISTRY METHOD 05/18/2024 12:44 PM [facility] Alkaline Phosphatase 113 42 - 121 unit/L LAB CHEMISTRY METHOD 05/18/2024 12:44 PM [facility] Total Protein 6.7 6.0 - 8.0 g/dL LAB CHEMISTRY METHOD 05/18/2024 12:44 PM [facility] Albumin 3.3 3.2 - 5.0 g/dL LAB CHEMISTRY METHOD 05/18/2024 12:44 PM [facility] Total Bilirubin 0.4 0.0 - 1.4 mg/dL LAB CHEMISTRY METHOD 05/18/2024 12:44 PM [facility] Blood Venous blood specimen / Unknown Venipuncture / Unknown 05/18/2024 7:38 AM EST 05/18/2024 11:06 AM EST us Mamta Klein MD LAB BLOOD ORDERABLES Final Resul t [facility] [address] [place] [address], * (ABNORMAL) Complete blood count (05/18/2024 7:38 AM EST) WBC 8.7 4.8 - 10.8 K/mcL LAB HEMETOLOGY METHOD 05/18/2024 11:38 AM [facility] RBC 4.10(L) 4.50 - 5.50 M/mcL LAB HEMETOLOGY METHOD 05/18/2024 11:38 AM [facility] Hemoglobin 12.0(L) 13.5 - 17.5 g/dL LAB HEMETOLOGY METHOD 05/18/2024 11:38 AM [facility] Hematocrit 37.0(L) 42.0 - 54.0 % LAB HEMETOLOGY METHOD 05/18/2024 11:38 AM [facility] MCV 91.4 79.0 - 98.0 FL LAB HEMETOLOGY METHOD 05/18/2024 11:38 AM [facility] MCH 29.6 27.0 - 32.0 pcg LAB HEMETOLOGY METHOD 05/18/2024 11:38 AM [facility] MCHC 32.4 32.0 - 37.0 g/dL LAB HEMETOLOGY METHOD 05/18/2024 11:38 AM [facility] RDW 12.8 11.0 - 15.0 % LAB HEMETOLOGY METHOD 05/18/2024 11:38 AM [facility] Platelets 298 130 - 400 K/mcL LAB HEMETOLOGY METHOD 05/18/2024 11:38 AM [facility] MPV 9.9 7.0 - 11.0 FL LAB HEMETOLOGY METHOD 05/18/2024 11:38 AM [facility] NRBC 0.0 <1.0 % LAB HEMETOLOGY METHOD 05/18/2024 11:38 AM [facility] NRBC Absolute 0.00 <0.10 K/mcL LAB HEMETOLOGY METHOD 05/18/2024 11:38 AM [facility] Blood Venous blood specimen / Unknown Venipuncture / Unknown 05/18/2024 7:38 AM EST 05/18/2024 11:06 AM EST us Mamta Klein MD LAB BLOOD ORDERABLES Final Resul t [facility] [address] [place] [address], documented in this encounter Visit Diagnoses Diagnosis Hyperlipidemia, unspecified Hypothyroidism, unspecified Vitamin D deficiency, unspecified Anemia, unspecified Vitamin B12 deficiency anemia, unspecified documented in this encounter Care Teams Wildland Fire Fighter Relationship Specialty Start Date End Date Mamta Klein MD [address] [place] [address] [address] [place] [address] PCP - General Geriatric Medicine 05/18/24 documented as of this encounter
--- OUTSIDE RECORDS SUMMARY | 2024-06-11 16:36 | XMS_ITS | Clinical Summary ---
Author Organization [employer] Address [address] [facility] [address] [place] [address] Care Team Providers Care Tyre Finisher And Examiner Name Role Phone Unavailable Primary Care Provider [...] patient's age to complete this topic Insurance [facility] [place] [address] MEDICARE
--- OUTSIDE RECORDS SUMMARY | 2024-06-11 16:36 | XMS_ITS | Encounter Summary ---
Author Organization [facility] Address [address] [place] [phone] Care Team Providers Care Conditioning Yard Supervisor Name Role Phone Mamta Klein MD Primary Care Provider [phone] Encounter Details Date Type Department Care Team (Late st Contact Info) Description 06/07/2024 Lab Requisition [facility] - Main Lab [address] [facility] [email or web address] [phone] Mamta Klein MD [address] [place] [address] Chronic kidney disease, unspecified; Hyperlipidemia, unspecified; Vitamin D deficiency, unspecified; Anemia, unspecified; [...] on file documented as of this encounter Visit Diagnoses Diagnosis Chronic kidney disease, unspecified Hyperlipidemia, unspecified Vitamin D deficiency, unspecified Anemia, unspecified Vitamin B12 deficiency anemia, unspecified documented in this encounter Care Teams Conditioning Yard Supervisor Relationship Specialty Start Date End Date Mamta Klein MD [address] [place] [address] PCP - General Geriatric Medicine 05/18/24 documented as of this encounter
--- OUTSIDE RECORDS SUMMARY | 2024-06-11 16:36 | XMS_ITS | Encounter Summary ---
Author Organization [facility] Address [address] [phone] Care Team Providers Care Dressage Instructor Name Role Phone Mamta Klein MD Primary Care Provider [phone] Encounter Details Date Type Department Care Team (Late st Contact Info) Description 05/24/2024 Lab Requisition [facility] - Main Lab 299 [facility] [place] [address] Mamta Klein MD [address] [place], [place] [id number] Anemia, unspecified; Vitamin B12 deficiency anemia, unspecified; [...] Associated Diagnosis Comments COMPLETE BLOOD COUNT Routine 05/25/2024 4:50 AM EDT Anemia, unspecified Vitamin B12 deficiency anemia, unspecified Hypothyroidism, unspecified Hyperlipidemia, unspecified Malignant neoplasm of colon, unspecified (CMS/HCC) Vitamin D deficiency, unspecified BASIC METABOLIC PANEL Routine 05/25/2024 4:50 AM EDT Anemia, unspecified Vitamin B12 deficiency anemia, unspecified Hypothyroidism, unspecified Hyperlipidemia, unspecified Malignant neoplasm of colon, unspecified (CMS/HCC) Vitamin D deficiency, unspecified documented in this encounter Results * (ABNORMAL) Basic metabolic panel (05/25/2024 4:50 AM EDT) Sodium 141 133 - 145 mmol/L LAB CHEMISTRY METHOD 05/25/2024 11:31 AM [facility] Potassium 4.5 3.5 - 5.5 mmol/L LAB CHEMISTRY METHOD 05/25/2024 11:31 AM [facility] Chloride 109 96 - 110 mmol/L LAB CHEMISTRY METHOD 05/25/2024 11:31 AM [facility] CO2 26 21 - 32 mmol/L LAB CHEMISTRY METHOD 05/25/2024 11:31 AM [facility] Anion Gap 6 3 - 11 LAB CHEMISTRY METHOD 05/25/2024 11:31 AM [facility] Glucose 94 70 - 100 mg/dL LAB CHEMISTRY METHOD 05/25/2024 11:31 AM [facility] BUN 19 5 - 25 mg/dL LAB CHEMISTRY METHOD 05/25/2024 11:31 AM [facility] Creatinine 0.67(L) 0.70 - 1.30 mg/dL LAB CHEMISTRY METHOD 05/25/2024 11:31 AM [facility] eGFR 93 >=60 mL/min/1. 73m2 LAB CHEMISTRY METHOD 05/25/2024 11:31 AM [facility] Comment:Calculation based on the??Chronic Kidney Disease Epidemiology Collaboration (CKD-EPI) equation refit??without adjustment for race. BUN/Creatinine Ratio 28.4 LAB CHEMISTRY METHOD 05/25/2024 11:31 AM [facility] Calcium 8.6 8.5 - 10.5 mg/dL LAB CHEMISTRY METHOD 05/25/2024 11:31 AM [facility] Blood Venous blood specimen / Unknown Venipuncture / Unknown 05/25/2024 4:50 AM EDT 05/25/2024 10:20 AM EDT us Mamta Klein MD LAB BLOOD ORDERABLES Final Resul t [facility] [address] [place] [address], * (ABNORMAL) Complete blood count (05/25/2024 4:50 AM EDT) WBC 5.9 4.8 - 10.8 K/mcL LAB HEMETOLOGY METHOD 05/25/2024 10:46 AM EDT [facility] RBC 3.80(L) 4.50 - 5.50 M/mcL LAB HEMETOLOGY METHOD 05/25/2024 10:46 AM EDT [facility] Hemoglobin 11.1(L) 13.5 - 17.5 g/dL LAB HEMETOLOGY METHOD 05/25/2024 10:46 AM EDT [facility] Hematocrit 35.8(L) 42.0 - 54.0 % LAB HEMETOLOGY METHOD 05/25/2024 10:46 AM EDT [facility] MCV 95.0 79.0 - 98.0 FL LAB HEMETOLOGY METHOD 05/25/2024 10:46 AM EDT [facility] MCH 29.4 27.0 - 32.0 pcg LAB HEMETOLOGY METHOD 05/25/2024 10:46 AM EDT [facility] MCHC 31.0(L) 32.0 - 37.0 g/dL LAB HEMETOLOGY METHOD 05/25/2024 10:46 AM EDT [facility] RDW 12.7 11.0 - 15.0 % LAB HEMETOLOGY METHOD 05/25/2024 10:46 AM EDT [facility] Platelets 229 130 - 400 K/mcL LAB HEMETOLOGY METHOD 05/25/2024 10:46 AM EDT [facility] MPV 10.5 7.0 - 11.0 FL LAB HEMETOLOGY METHOD 05/25/2024 10:46 AM EDT [facility] NRBC 0.0 <1.0 % LAB HEMETOLOGY METHOD 05/25/2024 10:46 AM EDT [facility] NRBC Absolute 0.00 <0.10 K/mcL LAB HEMETOLOGY METHOD 05/25/2024 10:46 AM EDT [facility] Blood Venous blood specimen / Unknown Venipuncture / Unknown 05/25/2024 4:50 AM EDT 05/25/2024 10:20 AM EDT Mamta Klein MD LAB BLOOD ORDERABLES Final Resul t [facility] [address] [place] [address], documented in this encounter Visit Diagnoses Diagnosis Anemia, unspecified Vitamin B12 deficiency anemia, unspecified Hypothyroidism, unspecified Hyperlipidemia, unspecified Malignant neoplasm of colon, unspecified Vitamin D deficiency, unspecified documented in this encounter Care Teams Dressage Instructor Relationship Specialty Start Date End Date Mamta Klein MD [address] [place] [address] [address] [place] [address] PCP - General Geriatric Medicine 05/18/24 documented as of this encounter
--- OUTSIDE RECORDS SUMMARY | 2024-06-11 16:36 | XMS_ITS | Data Portability ---
Author Organization [facility] Home Service Address [address] [place] [address] Assessment Encounter Date Assessment Date Assessment LastModified by Organization Details LastModified Time 08/10/2023 08/10/2023 [id number] [place] [id number] (SALAD CHEF) : [facility] LOW MUST MEET 2 OF [...] COVERED Not available 08/10/2023 09:27:59 10/28/2023 10/28/2023 [id number] [place] [id number] (SALAD CHEF) : [facility] LOW MUST MEET 2 OF 3 [...] COVERED Not available 10/28/2023 11:42:36 02/01/2024 02/01/2024 [id number] [place] [address] (SALAD CHEF) MDM MODERATE MUST MEET 2 OUT OF [...] Organization Details Last Modified Time Details Appointments Hospital F/U 2024 03:45P M DR JACOME Not available Not available Not available Lab CBC w/ auto diff 2022 023 [facility], [address] [place] [address], [place], [address], 11/23/2022 12:55:27 CMP, serum or plasma 2022 023 [facility], [address] [place] [address], [address], 11/23/2022 12:55:27 PT/INR 2022 023 [facility], [address] [place] [address], [address], 11/22/2022 14:45:36 TSH + free T4, serum 2022 023 [facility], [address] [place] [address], [address], 11/23/2022 12:55:27 Referral None recorded. Procedures None recorded. Surgeries None recorded. Imaging None recorded. Medication Orders neomycin- polymyxin -hydrocor t 3.5 mg-10,000 unit/mL-1 % ear drops,rayna p 2023 024 [facility], [address] [place], [address], 10/28/2023 16:16:04 doxycycli ne hyclate 100 mg capsule 2023 024 SEAN Abelardo [facility], [address] [place], [address], 09/07/2023 11:07:39 Patient TargetsNo targets recorded. Patient Instructions Encounter Date Encounter Id Patient Instructions Last Modified By Organization Details Last Modified Time 11/22/2022 [id number] pulse oximetry* Not available 11/22/2022 14:37:40 02/01/2024 [id number] earwax blockage: care instructions Not available 02/01/2024 [...] pulse oxime try* Result 98 Not Available [facility] [address] [place] [address] [address], [place], [address], 11/18/2022 16:42:24 02/01/20 24 02/01/2024 pulse oxime try* Result 97 Not Available [facility] [address] [place] [address] [address], [place], [address], 01/31/2024 12:02:58 01/27/20 23 01/26/2023 XR, hand, 3 or more view No observ ation record ed. [email or web address] [facility] (Medical Records) [address] [place], [address], 01/26/2023 15:07:35 03/14/19 24 03/14/2023 XR, shoul lili No observ ation record ed. [facility] (Medical Records) [address] [facility] [place], [address], 03/14/2023 13:09:17 09/27/19 24 09/27/2023 CT, head + brain , w/wo contr ast No observ ation record ed. [address] (Medical Records) [address] [facility] [place], [address], 09/28/2023 08:15:41 09/27/19 24 09/27/2023 CT, cervi michael spine , w/o contr ast No observ ation record ed. [email or web address] (Medical Records) [address] [place], [address], 09/28/2023 08:15:14 06/12/19 25 06/11/2024 CT, angio gram, head + neck, w/ contr ast No observ ation record ed. [email or web address] [facility] (Medical Records) [address] [place], [address], 06/11/2024 15:06:42 Result Notes None recorded. 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 of 12/23/11 chronic Not Available [facility] 10:28:53 Venous stasis 13594128 Active 2018 Not Available [facility] 10:28:53 Multiple sclerosi s 57650331 Active 2018 Not Available [facility] 10:28:53 COVID-19 662171170 Active 202004/04/20 Not Available [facility] 11/25/202 1 10:28:53 Memory impairme nt 032456865 Active 2020 HEMANT PEDERSON [address] [place], [address], [facility] 1 11:17:16 Edema of lower extremit y 308473855 Active 2021 HEMANT PEDERSON [address] [place], [address], [facility] 2 10:46:37 Cellulit is of right foot 50961799858 695373 Active 2021 HEMANT PEDERSON [address] [place], [address], [facility] 2 10:47:06 Stasis dermatit is 96985348 Active 2021 HEMANT PEDERSON [address] [place], [address], [facility] 2 14:27:52 Paroxysm al atrial fibrilla tion 681335164 Active 2021 HEMANT PEDERSON [address] [place], [address], [facility] 2 13:47:31 Peripher al vascular disease 864632572 Active 2021 HEMANT PEDERSON [address] [place], [address], [facility] 2 13:49:38 Pain of right knee joint 12072872880 4100 Active 2022 HEMANT PEDERSON [address] [place], [address], [facility] 3 10:38:50 Traumati c subdural hematoma 539382971 Active 2022 Tres Jacome DO [address] [place], [address], [facility] 3 12:33:29 Venous stasis ulcer of leg 512588817 Active 2022 Tres Jacome, DO [address] [place] [address], [address], [facility] 3 12:36:38 Bilatera l tinnitus 01485859983 02 Active 2022 Tres Jacome, DO [address] [place] [address], [address], [facility] 3 14:39:58 Injury of hand 589974306 Active 2022 Tres Jacome, DO [address] [place] [address], [address], [facility] 3 16:38:19 Furuncle 148595031 Active 2023 Tres Jacome DO [address] [place] [address], [address], [facility] 4 11:05:03 Dysphagi a 65459286 Active 2023 Tres Jacome, DO [address] [place] [address], [address], [facility] 4 21:19:44 Weakness of bilatera l lower limb Active 2023 Tres Jacome, DO [address] [place] [address], [address], [facility] 4 21:21:44 Strictur e of esophagu s 38866384 Active 2023 Tres Jacome, DO [address] [place] [address], [address], [facility] 4 23:12:11 Otitis externa 7147749 Active 2023 Tres Jacome, DO [address] [place] [address], [address], [facility] 4 11:42:56 Trigemin al neuralgi a 53843667 Active 2017 Not Available [facility] 10:28:53 Obesity 551643185 Active 2017 Not Available [facility] 10:28:53 Hypothyr oidism 57433439 Active 2017 Not Available [facility] 10:28:53 Impacted cerumen 68976891 Active 2023 Tres JasminaCornelius Jacome, DO [address] [place] [address], [address], [facility] 4 14:34:47 Hypercho lesterol emia 86028827 Active 2017 Not Available [facility] 10:28:53 Atrial fibrilla tion 79717052 Active 2017 Not Available [facility] 10:28:53 Esophage al dysmotil ity 013785122 Active 2017 Not Available [facility] 10:28:53 Sliding hiatus hernia 175266672 Active 2017 small Not Available [facility] 10:28:53 Asthma 762081245 Active 2017 Not Available [facility] 10:28:53 Arthriti s 4389969 Active 2017 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 Procedures Surgical History Date Name Laterality Status Provider Name and Address Organization Details Recorded Time 03/09/20 24 Colonoscopy completed Tres Jacome, DO [address] [place] [address], [address], [facility] 03/16/2024 07:00:15 Thyroid Surgery completed Roxana Chao [facility] 06/29/2017 08:17:05 Imaging Results Imaging Date Name Status LastModified by Organiz ation Details LastModified Time 01/26/2023 XR, hand, 3 or more view completed [facility] (Medical Records) [address] [place] [address], [address], 01/26/2023 15:07:35 03/14/2023 XR, shoulder completed [facility] (Medical Records) [address] [place], [address], 03/14/2023 13:09:17 09/27/2023 CT, head + brain, w/wo contrast completed [address] (Medical Records) [address] [place] [address], [address], 09/28/2023 08:15:41 09/27/2023 CT, cervical spine, w/o contrast completed [address] (Medical Records) [address] [place] [address], [address], 09/28/2023 08:15:14 06/11/2024 CT, angiogram, head + neck, w/ contrast completed [email or web address] [facility] (Medical Records) [address] [place] [address], [address], 06/11/2024 15:06:42 Procedure Notes None recorded. Medical Equipment Implant [employer] Issuing Agency Serial Number Lot Number Status Provider Name and Address Organization Details Recorded Time penile [employer] Y Roxana gill [facility] 06/29/2017 08:15:54 Allergies No known [...] (2) TABLETS BY MOUTH THREE TIMES DAILY. 2024 active Not Available Not Available [...] 3 CAPSULES BY MOUTH THREE TIMES DAILY. 2024 active Not Available Not Available [...] Address Organization Details Last Updated DateTime 09/07/2023 213329.65 g 82 /min 97 % 97 % [facility] 09/07/2023 10:49:54 Date Recorded Heart rate Oxygen saturation Oxygen saturation in Arterial blood by Pulse oximetry Systolic blood pressure Diastolic blood pressure Provider Name and Address Organization Details Last Updated DateTime 73 /min 97 % 97 % 102 mm[Hg] 60 mm[Hg] Tres Jacome, DO [address] [place], [address], [facility] 4 14:25:43 Social History Question Answer Notes LastModified by Organizat ion Details LastModified Time Tobacco Smoking Status Former Smoker Roxana Chao [facility] 06/29/2017 15:24:06 What Was The Date Of [...] split virus, quadrivalent, preservative 1 completed Tres Jacome, DO [address] [place], [address], [facility] 02/05/2021 16:28:56 COVID-19, mRNA, LNP-S, PF, 30 mcg/0.3 mL dose 2 completed Gema Pineda [facility] 04/06/2022 08:05:23 influenza, unspecified formulation 2 completed Gema Pineda [facility] 04/06/2022 08:05:39 Influenza, split virus, quadrivalent, preservative 8 completed Milagros Ramirez [facility] 01/10/2018 08:18:22 Influenza, split virus, quadrivalent, preservative 7 completed Roxana Chao [facility] 09/12/2017 14:39:31 COVID-19, mRNA, LNP-S, PF, 100 mcg/0.5mL dose or 50 mcg/0.25mL dose 1 completed Kisha Montiel [facility] 07/07/2020 13:44:57 COVID-19, mRNA, LNP-S, PF, 100 mcg/0.5mL dose or 50 mcg/0.25mL dose [facility] 08/08/[facility] 08:08:21 Past Encounters Encounter ID Performer Location Encounter Start Date Encounter Closed Date Diagnosis/Indication Diagnosis SNOMED-CT Code Diagnosis ICD10 Code Diagnosis Note [id number] Marisol Sharron, [facility] [address] [facility] [place] [address] 06/29/2017 14:56:02 06/29/2017 16:12:18 Impaired fasting glycemia 146531401 R73.01 diet, exercise, weight loss discussed he was going to [facility], but ultimately didn't have success due to likely poor motivation . Hypercholesterolemia 136 10475 E78.00 on simvastati n 40, will recheck levels Essential hypertension 30759763 I10 stable on metoprolol Atrial fibrillation 4943 6004 I48.91 and history of PE - coumadin - goes to [facility] Ataxia 96712816 R27.0 persistent for months. never had PT. sx have not changed. [id number] [facility] [address] [facility],[place] [address] 09/12/2017 14:06:17 09/12/2017 15:00:40 Adult health examination 016857162 Z00.01 has healthcare proxy - daughter gema perez done 09/2014 sees uro for prostate Hyperlipidemia 97509682 E78.5 lab order was incomplete last visit so this will need to be rechecked Asthma 541180760 J45.90 9 quiet Impaired f asting glycemia 205872791 R73.01 diet, exercise, weight loss discussed he was going to [facility], but ultimately didn't have success due to likely poor motivation . Active or passive immunization 997171266 Z23 Hypothyroidism 19134997 E03.9 [id number] [facility] [address] [facility] [address] 02/27/2018 16:02:27 02/27/2018 16:32:11 Thoracic back pain 599080540 M54.6 caution with codeine as it can cause drowsiness would recommend avoiding lorazepam while on this med4 ice/heat/r est stretch fu if sx change or worsen Obesity 097352054 E66.9 Atrial fibrillation 4943 6004 I48.91 and history of PE - coumadin - goes to [facility] [id number] [facility] [address] [facility], lucretia Wyman [facility] [place] [address] 03/15/2018 14:10:27 03/15/2018 17:04:00 Thoracic back pain 611150078 M54.6 chronic with worsening compressio n deformity of t10-12 will monitor, if progress stalls will consider PT Obesity 345996967 E66.9 continue healthy diet and exercise has lost about 15 pounds since 06/2017 Atrial fibrillation 4943 6004 I48.91 and history of PE - coumadin - goes to [facility] Impaired f asting glycemia 865033714 R73.01 diet, exercise, weight loss discussed he was going to [facility], but ultimately didn't have success due to likely poor motivation . Hypercholesterolemia 136 06740 E78.00 on simvastati n 40, will recheck levels Essential hypertension 27034343 I10 stable on metoprolol Dyspnea on exertion 6084 5006 R06.09 more sob than usual will check echo Hypothyroidism 48347549 E03.9 [id number] [facility] [address] [facility], lucretia Wyman [facility] [place] [address] 05/05/2018 11:05:39 05/05/2018 12:08:08 Pre-surgery evaluation 825384542 Z01.818 clear for this low risk procedure Cataract 308747834 H25.0 11 Asthma 572026343 J45.90 9 quiet - asymptomat ic Atrial fibrillation 4943 6004 I48.91 RRR today coumadin stable per coumadin clinic recent echo [place] from 2013[place] [id number] [facility] [address] [facility],Sams lucretia Wyman [facility] [place] [address] 09/12/2018 14:10:15 09/12/2018 15:13:46 Paresthesia of lower extremity 073434033 R20.2 sees cardio will consult vascular Pneumonia 792274929 J18. 9 resolving Slurred speech 808114310 R47.81 resolved will follow with neuro Trigeminal neuralgia 316 47371 G50.0 recent flare- improving will follow up with neuro Venous stasis 34408883 I 87.8 as above Atrial fibrillation 4943 6004 I48.91 regular today Edema of l ower extremity 573717209 R60.0 as above Multiple sclerosis 53386 007 G35 possible new dx, will be followed up bu neuro [id number] June CECILLE Mcdermott [facility] [address] [facility],[place] [address] 03/20/2019 09:57:06 03/20/2019 11:10:02 Atrial fibrillation 61480013 I48.91 very noncomplia nt with coumadin clinic due to inability to drive and now living in [place] will convert to [facility] if insurance will cover Trigeminal neuralgia 316 [address]6095 G50.0 continues to have sx periodical ly despite carbamazep ine 200 mg 5 x per day. will increase from 1000 mg per day to 1200 mg per day in three divided doses then will have pt check his level Multiple sclerosis 98107 007 G35 possible new dx, will be followed up by neuro Diarrhea 15577676 R19.7 resolved Dehydration 50239739 E86 .0 resolved [id number] HEMANT PEDERSON [facility] [address] [facility],[place] [address] 11/21/2019 09:33:38 11/21/2019 11:36:21 Asthma 213831395 J45.909 stable per patient Dermal mycosis 84331248 B36.9 most likely fungal infection given exam and hx Trigeminal neuralgia 316 79603 G50.0 works well for him if on the medication Chokes whe n swallowing 945726226 R09.89 told patient to take smaller bites and drink in between as he cannot feel the bottom half of his face [id number] HEMANT PEDERSON [facility] [address] [facility],[place] [address] 05/27/2020 15:23:40 05/27/2020 16:18:11 Atrial fibrillation 72034822 I48.91 will add additional warfarin 2 mg to titrate PRN, will increase dose to 12 mg (5 mg BID and 2 mg QD) Asthma 451822160 J45.90 9 oxygen level 97%, HR stable, BP elevated using albuterol PRN, with symptoms and Hypothyroidism 23666844 E03.9 needs recheck of his levels Hypercholesterolemia 136 71583 E78.00 needs recheck of his levels Trigeminal neuralgia 316 77271 G50.0 will limit his intake of carbam to 6 max pills discussed gabapentin dose, started taking it as prescribed Essential hypertension 02908627 I10 will increase his metoprolol to 50 mg [id number] [facility] P[facility]ERSON [facility] [address] [facility],[place] [address] 07/28/2020 15:00:29 07/29/2020 10:15:10 Pain in cervical spine 549242342 M54.2 will start on small dose of muscle relaxer Fall W19.XXXD stable/res olved two falls within the span of a few hours Memory impairment 307384 006 R41.3 will fu with neuro for complete evaluation [id number] [facility]ANT PEDERSON [facility] [address] [facility],[place] [address] 09/02/2020 15:58:26 09/02/2020 17:54:56 Multiple sclerosis 02003928 G35 stable Atrial fibrillation 4943 6004 I48.0 stay on 7 mg warfarin Venous sta sis ulcer of leg 367115795 I83.022 will send in script from [facility] [id number] HEMANT PEDERSON [facility] [address] [facility],[place] [address] 02/18/2021 10:30:56 02/20/2021 11:49:41 Esophageal dysmotility 035097886 K22.4 will fu with GI referral for endoscopy and barium swallow and nerve testing Impaired f asting glycemia 479142936 R73.01 will check lab due to patient concern about diabetes Asthma 296155836 J45.30 oxygen level 97%, HR stable, BP elevated using albuterol PRN, with symptoms and Atrial fibrillation 4943 6004 I48.0 stay on 7 mg warfarin Multiple sclerosis 63101 007 G35 stable per patient Hypothyroidism 26766707 E03.9 needs recheck of his levels Essential hypertension 32885400 I10 not convinced he is rememberin g to take his medication s as we have had this issues before Memory impairment 054770 006 R41.3 no showed his neuro apptdid discuss with daughter who states she is no longer in contact with her fatherno others [place] concerns [place] [id number] HEM[facility] PEDERSON [facility] [address] [facility],[place] [address] 04/24/2021 09:43:03 04/28/2021 08:11:49 Atrial fibrillation 13214804 I48.0 stay on 7 mg warfarinpa mary grace doesn't remember to take his warfarin, was d/c for nursing checks due to non-compli ance and [facility] coumadin clinic Multiple sclerosis 08647 007 G35 stable per patient Venous sta sis ulcer of leg 740054287 I83.022 resolved Asthma 304285727 J45.30 stable Esophageal dysmotility 906972742 K22.4 will fu with GI referral for endoscopy and barium swallow and nerve testing Hypothyroidism 94765283 E03.8 stable Memory impairment 592585 006 R41.3 no shows his appt to neuro, daughter no longer talking to him and has no one to schedule his appts and take him because he doens't answer his phone Trigeminal neuralgia 316 01794 G50.0 will limit his intake of carbam to 6 max pills discussed gabapentin dose, started taking it as prescribed per patienthas a pill pack and a nurse coming in [facility] Hypertensive disorder 38 690827 I10 will increase to amlodipine to 10 mg [id number] HEMANT PEDERSON [facility] [address] [facility] [facility] [place] [facility] 01/25/2022 13:44:47 01/26/2022 11:37:10 Atrial fibrillation 41576953 I48.0 will restart warfarin at 2 mgstating that the nurse Trigeminal neuralgia 316 27657 G50.0 would like him to see neurology for his worsening trigeminal neuralgia Stasis dermatitis 394675 05 I87.2 discussed what it is with selvin riley fu [place] [id number] HEMANT PEDERSON [facility] [address] [facility],[place] [address] 03/09/2022 13:36:15 03/09/2022 14:04:50 Cellulitis of right foot 0246502922 0759560 L03.115 resolved Paroxysmal atrial fibrillation 288355528 I48.0 start back on warfarin, brain bleed cleared on recent imagingcan restart, only low dose Peripheral vascular disease 092613226 I73.89 will fu with vascular surgeon Stasis dermatitis 941134 05 I87.2 discussed what it is with selvin riley f/u with vascular Trigeminal neuralgia 316 44005 G50.0 would like him to see neurology for his worsening trigeminal neuralgiai s supposed to be getting 2 tablets TID for his TMJ send note to [facility] per neuro to take this dosage [id number] HEMANT PEDERSON [facility] [address] [facility] [address] 04/06/2022 10:15:44 04/07/2022 10:15:17 Pain of right knee joint 0584272063 [address] Macedo who patient has seen before Warfarin m onitoring status 388480091 Z51.81 a letter has been written with my concerns about [place] [id number] Ters Jacome DO [facility] [address] [facility], [employer] [place] [address] 05/14/2022 11:28:35 05/14/2022 15:47:44 Multiple sclerosis 16005995 G35 no changes Paroxysmal atrial fibrillation 427142856 I48.0 he is doing well has been with a controlled VRcont current med Venous sta sis ulcer of leg 959823200 I83.022 legs are still swollen Peripheral vascular disease 255983889 I73.89 seems to be about the same Advance care planning 71 0261839 Z71.89 stable Traumatic subdural hematoma 177816673 S06.5X0A has stabilized is off warfarin and on asabeing extra careful with his standing etc due to falls [id number] Tres Jacome DO [facility] [address] [facility],[place] [address] 11/22/2022 13:55:31 11/22/2022 15:14:01 Asthma 024238587 J45.30 quiet and no recent exacerbat Atrial fibrillation 4943 6004 I48.0 he is not cooperativ e with warfarin guidlines not getting INR lab unknown whether he is taking warfarin approp this is too dangerous we will stop the warf he refused eliq due to cost Hypercholesterolemia 136 26228 E78.00 no further issue Hypothyroidism 44647624 E03.8 tsh needed Multiple sclerosis 70457 007 G35 no changes Bilateral tinnitus 69128 94233 102 H93.13 known signif hearing loss will have him take audiogram and [facility] [id number] Tres Jacome [facility] [address] [facility],[place] [address] 08/10/2023 08:55:31 08/10/2023 10:21:22 Asthma 259799045 J45.30 quiet and no recent exacerbat [id number] Tres Jacome [facility] [address] [facility],[place] [address] 09/07/2023 10:43:49 09/07/2023 11:34:35 Depression screening 385540334 Z13.31 negative Furuncle 899876935 L02.9 2 told if this does not work to let us know and will get surg to eval [id number] Tres Jacome [facility] [address] [facility],[place] [address] 10/28/2023 11:03:32 10/28/2023 12:11:05 Otitis externa 8298820 H60.91 [id number] Tres Jacome [facility] [address] [facility],[place] [address] 02/01/2024 14:20:36 02/01/2024 14:40:56 Asthma 706647321 J45.30 quiet and no recent exacerbat Atrial fibrillation 4943 6004 I48.0 he is not cooperativ e with warfarin guidlines not getting INR lab unknown whether he is taking warfarin approp this is too dangerous we will stop the warf he refused eliq due to cost Hypothyroidism 69991198 E03.8 tsh needed Memory impairment 393854 006 R41.3 seems to be stable Impacted cerumen 1381006 6 H61.21 not impacted but some wax [...] Member ID Guarantor Name 11/22/2022 1 [place] [employer] Abelardo P Migliozzi [id number] 98 Abelardo Migliozzi 08/10/2023 1 [place] [employer] Abelardo P Migliozzi [id number] 98 Abelardo Migliozzi 09/07/2023 1 [place] [employer] Abelardo P Migliozzi [id number] 98 Abelardo Migliozzi 10/28/2023 1 [place] [employer] Abelardo P Migliozzi [id number] 98 Abelardo Migliozzi 02/01/2024 1 [place] [employer] Abelardo P Migliozzi [id number] 98 Abelardo Migliozzi Notes Date Note Type Note Provider Name and Address Organization Details Recorded Time 11/23/19 23 text/htm l relates he is about the samehad been having trouble until place don terazosin for bphhas a fes skin lesions on his scalpthese are SKalso has been having a great deal of tinnitus and it is bothersome and is having a hard time with hearing see [employer] S[employer] noteno cp no palpitations easily winded but this is standard Tres Jacome DO [address] [place], [address], [facility] 11/22/2022 14:43:22 09/07/19 24 text/htm osvaldo has had a bump on his buttock for 3 months told the nurse at his facility who told him to use vaselinehe says this has not helpedhe relates it is uncomfortable Tres Jacome DO [address] [place], [phone], [facility] 09/07/2023 11:06:52 10/28/19 24 text/htm l ear irrigated successfulunfortunately he has some blockage sensation since Tres Jacome DO [address] [place] [address], [phone], [facility] 10/28/2023 11:44:52 02/01/20 24 text/htm l here for rechk of his ear relates that his ear feels much better Tres Jacome DO [address] [place] [address], [phone], [facility] 02/01/2024 14:38:49
--- OUTSIDE RECORDS SUMMARY | 2024-06-11 16:36 | XMS_ITS ---
Author Organization [facility] Care Team Providers Care Transportation Planning Engineer Name Role Phone Jaleel Hsu Unavailable Unavailable Allergies and adverse reactions No Known Allergies Care Team Name Role Address Phone Organization Dates Jaleel Hsu PCP [address], [place], [address], [place] States (Office): : [facility] 11/29/2021 - 12/25/2021 Goals Section Description Status Target Date I will be free from s/sx of hypothyroidism through the review date. Active 03/14/2022 I will be free from s/sx of complications of cardiac problems through the review date. Active 03/14/2022 I will remain free of compli cations or discomfort related to Hemiplegia/Hemiparesis (specify) through next review date. Active 03/14/2022 I will remain free of compli cations related to anticoagulant therapy through review date. Active 03/14/2022 I will have intact skin, franklin e of redness, blisters or discoloration by/through review date. Active 03/14/2022 I will maintain weight and n utritional balance through the review date. Weight stable 5%+/- 250#. Po intakes >/= 50% most meals Active 03/14/2022 I will be able to function a t the fullest potential possible as outlined by the interdisciplinary team through the review date.?? Active 03/14/2022 I will be able to make my ne eds known on a daily basis through the review date. Active 03/14/2022 I will be content with items provided for my leisure through next review. Active 03/14/2022 I will be free from discomfo rt or adverse reactions related to anticoagulant use through the review date. Active 03/14/2022 I will be free from discomfo rt or adverse reactions related to antidepressant therapy through the review date. Active 03/14/2022 I will be free of injury through the next review date. Active 03/14/2022 I will continue to be indepe ndent and pursue activities of interest through next review. Active 03/14/2022 I will express my need to cr eate an advance directive if I change my mind. Active 03/14/2022 I will have no ill effects o r injuries related to side rail(s)?? Active 03/14/2022 I will improve current level of function through the review date. Active 03/14/2022 I will remain free from skin breakdown due to incontinence and brief use through the review date. Active 03/14/2022 I will verbalize adequate re lief of pain or ability to cope with incompletely relieved pain through the review date. Active I will verbalize/communicate and understanding of the discharge plan and describe the desired outcome by the review date.?? Active 03/14/2022 Resident will be monitored for signs/symptoms of COVID -19. Active 03/14/2022 Immunizations Immunization Status Vaccine Details Vaccine Code CodeSystem Gunnar e Notes Influenza completed Influenza, split virus, trivalent, injectable, contains preservative 141 CVX created date: 12/14/2021 administered date: 02/03/2021 SARS-COV-2 (COVID-19) completed SARS-COV-2 (COVID-19) vaccine, mRNA, spike protein, LNP, preservative free, 30 mcg/0.3mL dose Step 2 of Multi-step with next step required 208 CVX created date: 12/11/2021 administered date: 08/02/2020 SARS-COV-2 (COVID-19) completed SARS-COV-2 (COVID-19) vaccine, mRNA, spike protein, LNP, preservative free, 3 mcg/0.2mL dose, maddy-sucrose formulation Step 1 of Multi-step with next step required 219 CVX created date: 12/11/2021 administered date: 07/05/2020 [facility] Covid-19 Booster (SARS-COV-2) vaccine completed SARS-COV-2 (COVID-19) vaccine, mRNA, spike protein, LNP, preservative free, 30 mcg/0.3mL dose 208 CVX created date: 12/11/2021 administered date: 08/14/2021 Mental Status Section Date Assessment Total Score Description 12/25/2021 BIMS 14 cognitively int act CAM 0 No delirium ind icated PHQ-9 01 minimal depress ion 12/10/2021 BIMS 14 cognitively int act PHQ-9 04 minimal depress ion Problems Problem # Description Date of onset Resolved Date Code CodeSystem Concern Status 1 COVID-19 12/10/[address] active 2 ACUTE BRONCHITIS, UNSPECIFIED 11/29/[address] active 3 ACUTE INTERSTITIAL PNEUMONITIS 11/29/[address] active 4 ACUTE PULMONARY EDEMA 11/29/[address] active 5 ESSENTIAL (PRIMARY) HYPERTENSION 11/29/[address] active 6 HEMIPLEGIA AND HEMIPARESIS FOLLOWING CEREBRAL INFARCTION AFFECTING LEFT NON-DOMINANT SIDE 11/29/[address] active 7 HYPERLIPIDEMIA, UNSPECIFIED 11/29/[address] active 8 HYPOTHYROIDISM, UNSPECIFIED 11/29/[address] active 9 MAJOR DEPRESSIVE DISORDER, SINGLE EPISODE, UNSPECIFIED 11/29/[address] active 10 MORBID (SEVERE) OBESITY DUE TO EXCESS CALORIES 11/29/[address] active 11 OTHER LACK OF COORDINATION 11/29/[address] active 12 OTHER PULMONARY EMBOLISM WITHOUT ACUTE COR PULMONALE 11/29/[address] active 13 OTHER SPECIFIED ANXIETY DISORDERS 11/29/[address] active 14 RETENTION OF URINE, UNSPECIFIED 11/29/[address] active 15 TRIGEMINAL NEURALGIA 11/29/[address] active 16 UNSPECIFIED ATRIAL FIBRILLATION 11/29/[address] active 17 UNSPECIFIED PROTEIN-CALORIE MALNUTRITION 11/29/[address] active Reason for Referral No Reasons for Referral Entered Social History Social History Observation Description Start Date End Date Code Code System Current Smoking Status Tobacco smoking consumption unknown 197136728 SNOMED CT Sex Assigned At Male 1940 93270-9 [facility] Vital Signs Code Code System Vitals Name Values and Units Timing Information 9279-1 [facility] Respiratory Rate Value=18.0 Units=/m in 12/25/2021 8462-4 [facility] Blood Pressure-Diastolic Value=83 Un its=mmHg 12/25/2021 8480-6 [facility] Blood Pressure-Systolic Shtkm=647 Un its=mmHg 12/25/2021 8310-5 [facility] Body Temperature Value=97.6 Units=?? F 12/25/2021 8867-4 [facility] Heart rate Value=74.0 Units=/min 67193-9 [facility] O2 % BldC Oximetry Value=98.0 Units= % 12/25/2021 14953-9 [facility] Pain Level Value=0.0 12/22/2021 67233-3 [facility] Weight Yirba=443.6 Units=Lbs 8302-2 [facility] Height Value=69.0 Units=Inches 11/29/2021
--- OUTSIDE RECORDS SUMMARY | 2024-06-11 16:36 | XMS_ITS | Clinical Summary ---
Author Organization [address] Address [address] [place] [phone] Phone Care Team Providers Care Flour Mixer Name Role Phone Mamta Klein MD Primary Care Provider [phone] Encounters Date Type Department Care Team Description 06/07/2024 Lab Requisition [facility] [address] [place] [phone] Mamta Klein MD Chronic kidney disease, unspecified; Hyperlipidemia, unspecified; Vitamin D deficiency, unspecified; Anemia, unspecified; Vitamin B12 deficiency anemia, unspecified 05/31/2024 Lab Requisition [facility] [address] [place] [phone] Mamta Klein MD Anemia, unspecified; Vitamin B12 deficiency anemia, unspecified; Hypothyroidism, unspecified; Hyperlipidemia, unspecified; Malignant neoplasm of colon, unspecified (CMS/HCC); Vitamin D deficiency, unspecified 05/24/2024 Lab Requisition [facility] [address] [place] [phone] Mamta Klein MD Anemia, unspecified; Vitamin B12 deficiency anemia, unspecified; Hypothyroidism, unspecified; Hyperlipidemia, unspecified; Malignant neoplasm of colon, unspecified (CMS/HCC); Vitamin D deficiency, unspecified 05/18/2024 Lab Requisition [facility] [address] [place] [phone] Mamta Klein MD Hyperlipidemia, unspecified; Hypothyroidism, unspecified; Vitamin D deficiency, unspecified; Anemia, unspecified; Vitamin B12 deficiency anemia, unspecified from Last 3 Months Social History Tobacco Use Types Packs/Day Years Used Date Smoking Tobacco: Never Assessed Sex and Gender Information Value Date Recorded Sex Assigned at Not on file Legal Sex Male 12:32 AM EST Gender Identity Not on file Sexual Orientation Not on file Plan of Treatment Health Maintenance Due Date Last Done Comments DTaP,Tdap,and Td Vaccines (1 - Tdap) 1959 Zoster Vaccines (1 of 2) 1959 Pneumococcal Vaccine: 50+ Years (2 of 2 - PCV) 08/31/2014 08/31/2013 RSV Immunization Patients 60+ Years Old (1 - 1-dose 75+ series) 2016 Depression Screening 02/14/2022 Falls Risk Assessment 02/14/2022 Medicare Annual Wellness Visit 02/14/2022 Social Influencers of Health Screening 02/14/2022 COVID-19 Vaccine ( season) 2023 12/29/2022, 08/14/2021, 04/22/2021, Additional history exists Influenza Vaccine (#1) 2023 , 02/03/2021, 01/22/2019, Additional history exists Hypertension/CHF/CAD Annual BMP Blood Test 06/01/2025 06/01/2024, 05/25/2024, 05/18/2024, Additional history exists Cholesterol Screening (Lipid Panel) 05/18/2029 05/18/2024 HIB Vaccines Aged Out No longer eligi [...] to complete this topic RSV Immunization Patients Under 20 months Aged Out No longer eligible based on patient's age to complete this topic Varicella Vaccines Aged Out No longer eligible based on patient's age to complete this topic Procedures Procedure Name Priority Date/Time Associated Diagnosis Comments BASIC METABOLIC PANEL Routine 06/01/2024 7:30 AM EDT Anemia, unspecified Vitamin B12 deficiency anemia, unspecified Hypothyroidism, unspecified Hyperlipidemia, unspecified Malignant neoplasm of colon, unspecified Vitamin D deficiency, unspecified COMPLETE BLOOD COUNT Routine 06/01/2024 7:30 AM EDT Anemia, unspecified Vitamin B12 deficiency anemia, unspecified Hypothyroidism, unspecified Hyperlipidemia, unspecified Malignant neoplasm of colon, unspecified Vitamin D deficiency, unspecified BASIC METABOLIC PANEL Routine 05/25/2024 4:50 AM EDT Anemia, unspecified Vitamin B12 deficiency anemia, unspecified Hypothyroidism, unspecified Hyperlipidemia, unspecified Malignant neoplasm of colon, unspecified (CMS/HCC) Vitamin D deficiency, unspecified COMPLETE BLOOD COUNT Routine 05/25/2024 4:50 AM EDT Anemia, unspecified Vitamin B12 deficiency anemia, unspecified Hypothyroidism, unspecified Hyperlipidemia, unspecified Malignant neoplasm of colon, unspecified (CMS/HCC) Vitamin D deficiency, unspecified THYROID STIMULATING HORMONE WITH REFLEX TO FREE [...] Anemia, unspecified Vitamin B12 deficiency anemia, unspecified from Last 3 Months Results * (ABNORMAL) Complete blood count (06/01/2024 7:30 AM EDT) Only the most recent of3 resultswithin the time period is included. [facility] WBC 5.3 4.8 - 10.8 K/mcL LAB HEMETOLOGY METHOD 06/01/2024 10:06 AM [facility] RBC 3.70(L) 4.50 - 5.50 M/mcL LAB HEMETOLOGY METHOD 06/01/2024 10:06 AM [facility] Hemoglobin 10.8(L) 13.5 - 17.5 g/dL LAB HEMETOLOGY METHOD 06/01/2024 10:06 AM [facility] Hematocrit 34.9(L) 42.0 - 54.0 % LAB HEMETOLOGY METHOD 06/01/2024 10:06 AM [facility] MCV 94.6 79.0 - 98.0 FL LAB HEMETOLOGY METHOD 06/01/2024 10:06 AM [facility] MCH 29.3 27.0 - 32.0 pcg LAB HEMETOLOGY METHOD 06/01/2024 10:06 AM EDT [facility] MCHC 30.9(L) 32.0 - 37.0 g/dL LAB HEMETOLOGY METHOD 06/01/2024 10:06 AM EDT [facility] RDW 12.8 11.0 - 15.0 % LAB HEMETOLOGY METHOD 06/01/2024 10:06 AM EDT [facility] Platelets 239 130 - 400 K/mcL LAB HEMETOLOGY METHOD 06/01/2024 10:06 AM EDT [facility] MPV 10.7 7.0 - 11.0 FL LAB HEMETOLOGY METHOD 06/01/2024 10:06 AM EDT [facility] NRBC 0.0 <1.0 % LAB HEMETOLOGY METHOD 06/01/2024 10:06 AM EDT [facility] NRBC Absolute 0.00 <0.10 K/mcL LAB HEMETOLOGY METHOD 06/01/2024 10:06 AM T [facility] Blood Venous blood specimen / Unknown Venipuncture / Unknown 06/01/2024 7:30 AM EDT 06/01/2024 9:55 AM EDT us Mamta Klein MD LAB BLOOD ORDERABLES Final Resul t [facility] [address] [place] [address], * (ABNORMAL) Basic metabolic panel (06/01/2024 7:30 AM EDT) Only the most recent of2 resultswithin the time period is included. Sodium 144 133 - 145 mmol/L LAB CHEMISTRY METHOD 06/01/2024 10:54 AM T [facility] Potassium 4.6 3.5 - 5.5 mmol/L LAB CHEMISTRY METHOD 06/01/2024 10:54 AM T [facility] Chloride 111(H) 96 - 110 mmol/L LAB CHEMISTRY METHOD 06/01/2024 10:54 AM [facility] CO2 30 21 - 32 mmol/L LAB CHEMISTRY METHOD 06/01/2024 10:54 AM [facility] Anion Gap 3 3 - 11 LAB CHEMISTRY METHOD 06/01/2024 10:54 AM [facility] Glucose 105(H) 70 - 100 mg/dL LAB CHEMISTRY METHOD 06/01/2024 10:54 AM [facility] BUN 15 5 - 25 mg/dL LAB CHEMISTRY METHOD 06/01/2024 10:54 AM [facility] Creatinine 0.78 0.70 - 1.30 mg/dL LAB CHEMISTRY METHOD 06/01/2024 10:54 AM [facility] eGFR 89 >=60 mL/min/1. 73m2 LAB CHEMISTRY METHOD 06/01/2024 10:54 AM [facility] Comment:Calculation based on the??Chronic Kidney Disease Epidemiology Collaboration (CKD-EPI) equation refit??without adjustment for race. BUN/Creatinine Ratio 19.2 LAB CHEMISTRY METHOD 06/01/2024 10:54 AM [facility] Calcium 8.9 8.5 - 10.5 mg/dL LAB CHEMISTRY METHOD 06/01/2024 10:54 AM [facility] Blood Venous blood specimen / Unknown Venipuncture / Unknown 06/01/2024 7:30 AM EDT 06/01/2024 9:55 AM EDT us Mamta Klein MD LAB BLOOD ORDERABLES Final Resul t [facility] [address] [place] [address], * Thyroid stimulating hormone with reflex to free t4 and free t3 (05/18/2024 7:38 AM EST) Pathologist [facility] TSH 1.43 0.40 - 4.00 mcIU/mL LAB CHEMISTRY METHOD 05/18/2024 12:24 PM [facility] Blood Venous blood specimen / Unknown Venipuncture / Unknown 05/18/2024 7:38 AM EST 05/18/2024 11:06 AM EST us Mamta Klein MD LAB BLOOD ORDERABLES Final Resul t [facility] [address] [place] [address], [place] [phone] * (ABNORMAL) Lipid panel with reflex to direct LDL (05/18/2024 7:38 AM EST) [facility] Cholesterol 190 0 - 200 mg/dL LAB CHEMISTRY METHOD 05/18/2024 12:44 PM [facility] Triglycerides 161(H) 0 - 150 mg/dL LAB CHEMISTRY METHOD 05/18/2024 12:44 PM [facility] HDL 64 >=40 mg/dL LAB CHEMISTRY METHOD 05/18/2024 12:44 PM [facility] LDL Calculated 94 0 - 100 mg/dL LAB CHEMISTRY METHOD 05/18/2024 12:44 PM [facility] VLDL Cholesterol Krzysztof 32.2 mg/dL LAB CHEMISTRY METHOD 05/18/2024 12:44 PM [facility] Non HDL Chol. (LDL+VLDL) 126 <145 mg/dL LAB CHEMISTRY METHOD 05/18/2024 12:44 PM [facility] Chol/HDL Ratio 3.0 0.0 - 4.4 LAB CHEMISTRY METHOD 05/18/2024 12:44 PM [facility] Blood Venous blood specimen / Unknown Venipuncture / Unknown 05/18/2024 7:38 AM EST 05/18/2024 11:06 AM EST us Fahim A Latoya MD LAB BLOOD ORDERABLES Final Resul t Performing Organization Address [facility]/ZIP Co de Phone Number [facility] [address] [place] [address], [place] [phone] * (ABNORMAL) Vitamin D 25 hydroxy (05/18/2024 7:38 AM EST) Vit D, 25-Hydroxy 6.2(L) 30.0 - 80.0 ng/mL LAB CHEMISTRY METHOD 05/18/2024 12:30 PM EST [facility] Blood Venous blood specimen / Unknown Venipuncture / Unknown 05/18/2024 7:38 AM EST 05/18/2024 11:06 AM EST us Mamta Klein MD LAB BLOOD ORDERABLES Final Resul t Performing Organization Address [facility] Co de Phone Number [facility] [address] [place] [address], [place] [phone] * (ABNORMAL) Iron (05/18/2024 7:38 AM EST) [facility] Iron 34(L) 50 - 160 mcg/dL LAB CHEMISTRY METHOD 05/18/2024 12:44 PM EST [facility] Blood Venous blood specimen / Unknown Venipuncture / Unknown 05/18/2024 7:38 AM EST 05/18/2024 11:06 AM EST us Mamta Klein MD LAB BLOOD ORDERABLES Final Resul t Performing Organization Address [facility]/ZIP Co de Phone Number [facility] [address] [place] [address], [place] [phone] * Folate (05/18/2024 7:38 AM EST) Pathologist [facility] Folate 7.1 2.8 - 17.0 ng/ml LAB CHEMISTRY METHOD 05/18/2024 12:44 PM EST [facility] Blood Venous blood specimen / Unknown Venipuncture / Unknown 05/18/2024 7:38 AM EST 05/18/2024 11:06 AM EST us Mamta Klein MD LAB BLOOD ORDERABLES Final Resul t Performing Organization Address [facility]/ZIP Co de Phone Number [facility] [address] [place] [address], [place] [phone] * Vitamin B12 (05/18/2024 7:38 AM EST) Pathologist [facility] Vitamin B-12 355 250 - 900 pcg/mL LAB CHEMISTRY METHOD 05/18/2024 12:44 PM [facility] Blood Venous blood specimen / Unknown Venipuncture / Unknown 05/18/2024 7:38 AM EST 05/18/2024 11:06 AM EST us Mamta Klein MD LAB BLOOD ORDERABLES Final Resul t Performing Organization Address [facility] Co de Phone Number [facility] [address] [place] [address], [place] [phone] * (ABNORMAL) Comprehensive metabolic panel (05/18/2024 7:38 AM EST) [facility] Sodium 140 133 - 145 mmol/L LAB CHEMISTRY METHOD 05/18/2024 12:44 PM [facility] Potassium 4.2 3.5 - 5.5 mmol/L LAB CHEMISTRY METHOD 05/18/2024 12:44 PM [facility] Chloride 103 96 - 110 mmol/L LAB CHEMISTRY METHOD 05/18/2024 12:44 PM [facility] CO2 24 21 - 32 mmol/L LAB CHEMISTRY METHOD 05/18/2024 12:44 PM [facility] Anion Gap 13(H) 3 - 11 LAB CHEMISTRY METHOD 05/18/2024 12:44 PM [facility] Glucose 103(H) 70 - 100 mg/dL LAB CHEMISTRY METHOD 05/18/2024 12:44 PM [facility] BUN 9 5 - 25 mg/dL LAB CHEMISTRY METHOD 05/18/2024 12:44 PM [facility] Creatinine 0.72 0.70 - 1.30 mg/dL LAB CHEMISTRY METHOD 05/18/2024 12:44 PM [facility] eGFR 91 >=60 mL/min/1. 73m2 LAB CHEMISTRY METHOD 05/18/2024 12:44 PM [facility] Comment:Calculation based on the??Chronic Kidney Disease Epidemiology Collaboration (CKD-EPI) equation refit??without adjustment for race. BUN/Creatinine Ratio 12.5 LAB CHEMISTRY METHOD 05/18/2024 12:44 PM [facility] Calcium 8.7 8.5 - 10.5 mg/dL LAB CHEMISTRY METHOD 05/18/2024 12:44 PM [facility] AST (SGOT) 17 10 - 42 unit/L LAB CHEMISTRY METHOD 05/18/2024 12:44 PM [facility] ALT (SGPT) 19 10 - 60 unit/L LAB CHEMISTRY METHOD 05/18/2024 12:44 PM [facility] Alkaline Phosphatase 113 42 - 121 unit/L LAB CHEMISTRY METHOD 05/18/2024 12:44 PM [facility] Total Protein 6.7 6.0 - 8.0 g/dL LAB CHEMISTRY METHOD 05/18/2024 12:44 PM [facility] Albumin 3.3 3.2 - 5.0 g/dL LAB CHEMISTRY METHOD 05/18/2024 12:44 PM [facility] Total Bilirubin 0.4 0.0 - 1.4 mg/dL LAB CHEMISTRY METHOD 05/18/2024 12:44 PM [facility] Blood Venous blood specimen / Unknown Venipuncture / Unknown 05/18/2024 7:38 AM EST 05/18/2024 11:06 AM EST us Mamta Klein MD LAB BLOOD ORDERABLES Final Resul t [facility] ([facility]) [facility] [address] [place] [address], [place] [phone] from Last 3 Months Insurance MEDICARE Care Teams Flour Mixer Relationship Specialty Start Date End Date Mamta Klein MD [address] [place] [address] [address] [place] [address] PCP - General Geriatric Medicine 05/18/24
--- NOTE | 2024-06-11 16:46 | PC.NURSE ---
pt awake-speaking with daughter at bedside- pt having difficulty with word finding and having random thoughts, laboratory monitor intact, vitals continue to be stable. denies pain at this time, call [facility] within reach, plan of care ongoing
[2024-06-11 16:47] LABS: Amphetamine Screen Urine Not Detected (Not Detect); Barbiturates, Urine Not Detected (Not Detect); Benzodiazepines Screen Urine Not Detected (Not Detect); Buprenorphine Scr Not Detected (Not Detect); Cannabinoid Screen Urine POSITIVE (Not Detect); Cocaine Screen Urine Not Detected (Not Detect); Fentanyl, urine Not Detected (Not Detect); Methadone Screen, Urine Not Detected (Not Detect); Opiate Screen Urine Not Detected (Not Detect); Oxycodone Screen Urine Not Detected (Not Detect); Phencyclidine Screen Urine Not Detected (Not Detect)
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
[2024-06-12] VITALS (13 sets, daily range): BP systolic 121–168; BP diastolic 67–87; PULSE 54–81; RESP 14–21; TEMP 36.3–37.3; O2SAT 95–100; BMI 34.8
[2024-06-12] MEDS: 0.9 % Sodium Chloride Flush 3 ML SYRINGE IVFLUSH ×4 (00:16→20:03)
[2024-06-12 01:18] LABS: Glucose, Whole Blood 104 mg/dL (60-115)
[2024-06-12 05:47] LABS: MANUAL DIFF FLAG NO
[2024-06-12 05:49] LABS: Basophils Percent Auto 0.3 % (0-2); Eosinophils Absolute Auto 0.4 X10*3/uL (0.0-0.4); Eosinophils Percent Auto 6.9 % (0-4); Hematocrit 36.4 % (42.0-52.0); Hemoglobin 11.9 g/dl (14.0-18.0); Imm Gran Abs Auto 0.03 X10*3/uL (0.00-0.03); Imm Gran Pct Auto 0.5 % (0.0-0.4); Lymphocytes Absolute Auto 1.4 X10*3/uL (1.2-4.9); Lymphocytes Percent Auto 23.3 % (20-40); Mean Corpuscular HGB Conc 32.7 g/dl (31.0-36.0); Mean Corpuscular Hemoglobin 29.1 pg (27.0-33.0); Mean Platelet Volume 9.8 fL (9.4-12.4); Monocytes Absolute Auto 0.4 X10*3/uL (0.1-1.2); Monocytes Percent Auto 7.1 % (2-11); Neutrophils Absolute Auto 3.7 x10*3/uL (2.0-8.3); Neutrophils Percent Auto 61.9 % (45-73); Platelet Count 157 X10*3/uL (160-400); Red Blood Count 4.09 X10*6/uL (4.60-5.80); White Blood Count 6.1 X10*3/uL (4.8-10.8)
[2024-06-12 06:03] LABS: Albumin Level 3.5 g/dL (3.5-5.0); Anion Gap 12 (12-20); Blood Urea Nitrogen 15 mg/dL (9-16); Calcium 8.7 mg/dL (8.4-10.2); Carbon Dioxide 23 mmol/L (22-29); Chloride 110 mmol/L (96-108); Creatinine Clr Calc Pharmacy 100.8; Estimated Glomerular Filt Rate > 60; Glucose Random 108 mg/dL (60-115); Magnesium 1.9 mg/dL (1.6-2.6); Phosphorus 3.5 mg/dL (2.7-4.5); Potassium 4.1 mmol/L (3.3-5.1); Sodium 141 mmol/L (135-145)
[2024-06-12 06:13] LABS: Cholesterol 181 mg/dL (<200); HDL Cholesterol 54 mg/dL (>40); LDL Cholesterol Calculated 105 mg/dL (<100); Triglycerides 110 mg/dL (<150)
--- NOTE | 2024-06-12 07:00 | CA_ITS ---
Transthoracic Echocardiogram Patient (Last, First, Middle): Abelardo Stone P Gender: Male Date of : 1940 Age: 83 Procedure Date: 06/12/2024 Procedure Type: Transthoracic [place] [facility] [place]: 175. cm Weight: 106.6 kg BSA: 2.21 m2 Heart Rate: bpm BP: 160 / 80 mmHg Psychologist: Referring MD: Surya Cardenas MD Symptoms: CVA s/p TNK Study Quality: Adequate ECG Rhythm: Atrial Fibrillation Conclusions: - The left ventricular systolic function is normal. The calculated ejection fraction is 65% by biplane method. - There is moderate calcification of the aortic valve. Findings Left Ventricle Normal left ventricular cavity size. The left ventricular systolic function is normal. The calculated ejection fraction is 65% by biplane method. There is no evidence of regional wall motion abnormalities. Moderate focal hypertrophy of the basal septum. Right Ventricle Normal right ventricular cavity size and systolic function. Atria The left atrium is moderately dilated. The right atrium is normal in size. Aortic Valve There is moderate calcification of the aortic valve. There is no aortic valve stenosis. There is mild aortic valve regurgitation. Mitral Valve There is mild mitral annular calcification. There is no mitral valve regurgitation. There is no mitral valve stenosis. Pulmonic Valve The pulmonic valve is likely normal. Tricuspid Valve There is trace tricuspid valve regurgitation. There is no evidence of pulmonary hypertension. Great Vessels The asc aorta is normal in size. Venous The inferior vena cava is mildly dilated and collapses greater than 50% with inspiration. Pericardium/Pleural There is no evidence of pericardial effusion. Prior Study Comparison No significant change compared to prior study dated: 11/24/2021. Measurements 2D Linear Measurements IVSd: 1.05 0.6-0.9/0.6-1.0 cm LVIDd: 4.40 3.9-5.3/4.2-5.9 cm LVIDd Index: 1.99 2.4-3.2/2.2-3.1 cm/m2 LVIDs: 2.59 2.0-3.6 cm LVPWd: 1.15 0.7-1.1 cm Ao Root: 3.80 2.1-3.5 cm LA Diam: 4.50 2.7-3.8/3.0-4.0 cm LAIDs Index: 2.04 1.5-2.3 cm/m2 LV Mass: 210.40 67-162/88-224 g LV Mass Index: 95.21 43-95/49-115 g/m2 LVOT Diam: 2.30 3.0+(-)1.3 cm 2D Systolic Function EF 4C: 68.50 >55% EF 2C: 60.90 >55% EF BiP: 64.80 >55% Mitral Valve MV Pk E: 1.20 MV Decel Time: 204.00 E'Lateral: 9.61 E'Medial: 5.87 E/E' Med: 20.40 E/E' Lat: 12.50 PHT: 59.00 MVA PHT: 3.73 Decel [place]: 6.13 Aortic Valve AoV Pk Harley: 1.79 AoV Mn Harley: 1.19 AoV VTI: 0.38 AoV Pk Grad: 13.00 Aov Mn Grad: 7.00 EULA Cont.VTI: 2.63 AI Pk [place]: 3.60 AI [place]: 1.32 LVOT LVOT Pk Harley: 1.09 LVOT Mn Harley: 0.74 LVOT VTI: 0.24 LVOT Pk Grad: 5.00 LVOT Mn Grad: 3.00 LVOT Diam: 2.30 LVOT Area: 4.15 Diastolic Function MV Pk E: 1.20 E'Medial: 5.87 E/E' Med: 20.40 E' Laterial: 9.61 E/E' Lat: 12.50 Right Ventricle TAPSE (mm): 17.00 TVS' Harley: 12.00 Tricuspid Valve TR Pk Harley: 1.89 TR Pk Grad: 14.00 RA Press: 8.00 RVSP: 22.00 Great Vessels Aorta Ao Root-2D: 3.80 2.0-3.7 cm Ao Asc: 3.70 2.1-3.4 cm Pulmonary Valve PV Pk Harley: 0.73 Peak PV Grad: 2.00 Updated in Other Vendor System with Status of Final Simone Mann MD electronically signed on 06/12/2024 4:12:00 PM with status of Final
[2024-06-12 07:57] LABS: Glucose, Whole Blood 111 mg/dL (60-115)
--- NOTE | 2024-06-12 09:32 | MHC.SLORD ---
Speech Language Pathology Order Status: Per MD, pt passed bedside swallow screen w/ RN and no concerns for speech; therefore DIGITAL RECRUITER order to be CX.
--- NOTE | 2024-06-12 09:55 | P.PNCC_ITS ---
Subjective Subjective Date of Service: 06/12/24 Interval History: 83-year-old gentleman with underlying history of severe, pulmonary embolus, hypertension, AFib not on anticoagulation admitted on 06/11/2024 with acute onset of left-sided mouth droop, dysarthria, and confusion. Neurology was consulted in the emergency room and patient was administered TNK with improvement in his neurological symptoms. Of note, his CT angio neck/chest demonstrated what appears to be acute pulmonary emboli. He was admitted to intensive care unit for close monitoring. No events overnight. Passed bedside swallow evaluation. Critical Care Time (minutes): 0 Physical Exam 2 Vital Signs: Vital Signs: Last Vital Signs Temp 97.5 F 06/12/24 08:00 Pulse 58 06/12/24 08:00 Resp 18 06/12/24 08:00 BP 141/85 H 06/12/24 08:00 Pulse Ox 99 06/12/24 08:00 O2 Del Method Room Air 06/12/24 08:00 BMI result Body Mass Index 34.8 Const: General: no acute distress, alert and awake Eyes: Sclerae: sclerae normal EOM: EOMs intact bilaterally Neck: Neck: Yes no lymphadenopathy, Yes trachea midline and Yes supple Resp: Effort & Inspection: normal respiratory effort and no respiratory distress Auscultation: clear to auscultation bilaterally Cardio: Rate: regular rate Rhythm: regular rhythm Heart sounds: no gallops, no murmurs and no rubs GI: Palpation (GI): Soft to palpation and Other GI palpation findings present ( Nontender) Auscultation: normal bowel sounds Neuro: Other: Strength upper and lower extremities 5/5 bilateral, cranial nerves intact except very mild left facial droop, speech is normal Extrem: General: Yes no pedal edema, No clubbing and No cyanosis Objective Data Labs 06/12/24 05:33 06/12/24 05:33 Labs: Laboratory Results - last 24 hr 06/11/24 06/11/24 06/11/24 14:00 14:10 14:37 WBC 6.1 RBC 3.86 L Hgb 11.3 L Hct 35.2 L MCV 91.2 MCH 29.3 MCHC 32.1 RDW 13.3 Plt Count 169 D MPV 10.1 Immature Gran % (Auto) 0.2 Neut % (Auto) 66.0 Lymph % (Auto) 19.7 L [place] % (Auto) 6.9 Eos % (Auto) 6.7 H Baso % (Auto) 0.5 Lymph # (Auto) 1.2 [place] # (Auto) 0.4 Eos # (Auto) 0.4 Baso # (Auto) 0.0 Abs Immat Gran (auto) 0.01 Absolute Neuts (auto) 4.0 Absolute Nucleated RBC 0.000 Nucleated RBC % (auto) 0.0 Whole Blood PT 12.5 Whole Blood INR 1.0 Sodium 139 Potassium 5.1 Chloride 109 H Carbon Dioxide 25 Anion Gap 10 L BUN 23 H Creatinine 0.87 Estim Creat Clear Calc 79.2 Estimated GFR > 60 POC Glucose 189 H Random Glucose 110 Calcium 8.6 Phosphorus Magnesium 2.0 Total Bilirubin 0.3 Direct Bilirubin 0.1 AST 42 H ALT 28 Alkaline Phosphatase 104 Troponin I High Sens 4.4 Total Protein 6.7 Albumin 3.6 Triglycerides Cholesterol LDL Cholesterol, Calc HDL Cholesterol TSH Urine Color Urine Appearance Urine pH Ur Specific [place] Urine Protein Urine Glucose (UA) Urine Ketones Urine Blood Urine Nitrite Ur Leukocyte Esterase Urine Opiates Screen Ur Buprenorphine Scrn Ur Oxycodone Screen Urine Methadone Screen Urine Fentanyl Screen Ur Barbiturates Screen Ur Phencyclidine Scrn Ur Amphetamines Screen U Benzodiazepines Scrn Urine Cocaine Screen U Marijuana (THC) Screen Ethyl Alcohol < 10 06/11/24 06/11/24 06/12/24 16:21 23:27 05:33 WBC 6.1 RBC 4.09 L Hgb 11.9 L Hct 36.4 L MCV 89.0 MCH 29.1 MCHC 32.7 RDW 13.0 Plt Count 157 L MPV 9.8 Immature Gran % (Auto) 0.5 H Neut % (Auto) 61.9 Lymph % (Auto) 23.3 [place] % (Auto) 7.1 Eos % (Auto) 6.9 H Baso % (Auto) 0.3 Lymph # (Auto) 1.4 [place] # (Auto) 0.4 Eos # (Auto) 0.4 Baso # (Auto) 0.0 Abs Immat Gran (auto) 0.03 Absolute Neuts (auto) 3.7 Absolute Nucleated RBC 0.000 Nucleated RBC % (auto) 0.0 Whole Blood PT Whole Blood INR Sodium 141 Potassium 4.1 Chloride 110 H Carbon Dioxide 23 Anion Gap 12 BUN 15 Creatinine 0.68 Estim Creat Clear Calc 100.8 Estimated GFR > 60 POC Glucose 104 Random Glucose 108 Calcium 8.7 Phosphorus 3.5 Magnesium 1.9 Total Bilirubin Direct Bilirubin AST ALT Alkaline Phosphatase Troponin I High Sens Total Protein Albumin 3.5 Triglycerides 110 Cholesterol 181 LDL Cholesterol, Calc 105 H HDL Cholesterol 54 TSH 1.10 Urine Color Yellow Urine Appearance Clear Urine pH 5.5 Ur Specific [place] >= 1.030 H Urine Protein Negative Urine Glucose (UA) Negative Urine Ketones Negative Urine Blood Negative Urine Nitrite Negative Ur Leukocyte Esterase Negative Urine Opiates Screen Not Detected Ur Buprenorphine Scrn Not Detected Ur Oxycodone Screen Not Detected Urine Methadone Screen Not Detected Urine Fentanyl Screen Not Detected Ur Barbiturates Screen Not Detected Ur Phencyclidine Scrn Not Detected Ur Amphetamines Screen Not Detected U Benzodiazepines Scrn Not Detected Urine Cocaine Screen Not Detected U Marijuana (THC) Screen POSITIVE H Ethyl Alcohol 06/12/24 07:27 WBC RBC Hgb Hct MCV MCH MCHC RDW Plt Count MPV Immature Gran % (Auto) Neut % (Auto) Lymph % (Auto) [place] % (Auto) Eos % (Auto) Baso % (Auto) Lymph # (Auto) [place] # (Auto) Eos # (Auto) Baso # (Auto) Abs Immat Gran (auto) Absolute Neuts (auto) Absolute Nucleated RBC Nucleated RBC % (auto) Whole Blood PT Whole Blood INR Sodium Potassium Chloride Carbon Dioxide Anion Gap BUN Creatinine Estim Creat Clear Calc Estimated GFR POC Glucose 111 Random Glucose Calcium Phosphorus Magnesium Total Bilirubin Direct Bilirubin AST ALT Alkaline Phosphatase Troponin I High Sens Total Protein Albumin Triglycerides Cholesterol LDL Cholesterol, Calc HDL Cholesterol TSH Urine Color Urine Appearance Urine pH Ur Specific [place] Urine Protein Urine Glucose (UA) Urine Ketones Urine Blood Urine Nitrite Ur Leukocyte Esterase Urine Opiates Screen Ur Buprenorphine Scrn Ur Oxycodone Screen Urine Methadone Screen Urine Fentanyl Screen Ur Barbiturates Screen Ur Phencyclidine Scrn Ur Amphetamines Screen U Benzodiazepines Scrn Urine Cocaine Screen U Marijuana (THC) Screen Ethyl Alcohol Progress Note: A&P Assessment and plan (1) Acute CVA (cerebrovascular accident): Status: Acute (2) Hypothyroid: Status: Acute (3) A-fib: Status: Acute Plan Assessment: 83-year-old gentleman Plan: Neuro: Acute CVA status post TNK with improvement of symptoms. Neurology evaluation requested. MRI brain is pending. Cardiac: No acute issues. Pulmonary: Likely acute pulmonary emboli, now status post TNK, start on apixaban. Renal: No acute issues. Endo: No acute issues. GI: No acute issues. ID: No acute issues Heme/Onc: No acute issues. Psych: No acute issues. Miscellaneous: No acute issues. Prophylaxis: Apixaban Diet: Regular Quality Stroke Does the patient have a stroke diagnosis?: Yes Reason for No Anti-thrombotic by Day Two: N/A - Med Ordered VTE Prior VTE?: Yes VTE Risk Level:: Medical - moderate - high VTE Device Contraindication: Treatment Not Indicated VTE Drug Contraindication: N/A - Med Ordered
[2024-06-12 11:50] LABS: Glucose, Whole Blood 127 mg/dL (60-115)
--- NOTE | 2024-06-12 12:14 | PC.NURSE ---
The patient was admitted to? ICU due to CVA s/p TNK administration and need for close neurologic and hemodynamic monitoring. Upon assessment pt Alert & oriented,? Neuro checks per stroke protocol. On RA, Breath sounds clear bilaterally. Afib on tele, HR drops to 40?s occasionally, Dr. Cardenas is aware. Utilizing the urinal, LBM 06/11, passed bedside swallow, now on regular diet. Speech, PT & OT following. Peripheral IV x2. Plan: Transfer to [facility]. No longer requiring ICU-level care.
--- NOTE | 2024-06-12 12:30 | PM.EVENT ---
Event Note Date of Service: 06/12/24 Event Note: ICU transfer. Discussed with ICU attending physician. Treated for acute CVA Time Spent With Patient Time: Total time managing care of this patient today ____ minutes.
--- NOTE | 2024-06-12 14:35 | MHC.CM.PN ---
Met w/pt to review d/c planning needs: pt resides in independent living at [facility] in the [facility]. He has a walker, no services and states [facility] has a shuttle that assists w/transportation M-Th. HCP on file and verified: IMM delivered. Pt may need assistance w/transportation to home. He stated to contact Raj Voss at [facility] to coordinate shuttle if needed. Unsure of pt's medical needs at this time. CM to follow.
[2024-06-12] MEDS: Atorvastatin Calcium 80 MG TABLET PO (15:54)
[2024-06-12] MEDS: Levothyroxine Sodium 150 MCG TABLET PO (15:54)
[2024-06-12 16:25] LABS: Glucose, Whole Blood 120 mg/dL (60-115)
[2024-06-12] MEDS: Apixaban 5 MG TABLET 10 MG PO (19:35)
[2024-06-12] MEDS: Gabapentin 300 MG CAPSULE PO (19:59)
[2024-06-12] MEDS: carBAMazepine 100 MG TAB.CHEW 400 MG PO (20:00)
[2024-06-12 20:10] LABS: Glucose, Whole Blood 112 mg/dL (60-115)
[2024-06-13] VITALS: BP 154/74; PULSE 55; RESP 18; TEMP 36.3; O2SAT 99
[2024-06-13 03:34] VITALS: BP 169/88; PULSE 59; RESP 17; TEMP 36.6; O2SAT 100
[2024-06-13] MEDS: Levothyroxine Sodium 150 MCG TABLET PO (05:07)
[2024-06-13 06:00] VITALS: BMI 34.8
[2024-06-13 06:59] VITALS: BP 162/89; PULSE 52; RESP 17; TEMP 36.2; O2SAT 98
[2024-06-13 07:07] LABS: Glucose, Whole Blood 103 mg/dL (60-115)
[2024-06-13 07:33] LABS: MANUAL DIFF FLAG NO
[2024-06-13 07:44] LABS: Basophils Percent Auto 0.5 % (0-2); Eosinophils Absolute Auto 0.5 X10*3/uL (0.0-0.4); Eosinophils Percent Auto 8.5 % (0-4); Hematocrit 36.9 % (42.0-52.0); Hemoglobin 11.9 g/dl (14.0-18.0); Imm Gran Abs Auto 0.01 X10*3/uL (0.00-0.03); Imm Gran Pct Auto 0.2 % (0.0-0.4); Lymphocytes Absolute Auto 1.8 X10*3/uL (1.2-4.9); Lymphocytes Percent Auto 28.2 % (20-40); Mean Corpuscular HGB Conc 32.2 g/dl (31.0-36.0); Mean Corpuscular Hemoglobin 29.2 pg (27.0-33.0); Mean Corpuscular Volume 90.4 fL (80.0-98.0); Mean Platelet Volume 10.4 fL (9.4-12.4); Monocytes Absolute Auto 0.5 X10*3/uL (0.1-1.2); Monocytes Percent Auto 8.6 % (2-11); Neutrophils Absolute Auto 3.4 x10*3/uL (2.0-8.3); Platelet Count 170 X10*3/uL (160-400); Red Blood Count 4.08 X10*6/uL (4.60-5.80); Red Cell Distribution Width 13.2 % (11.0-16.0); White Blood Count 6.3 X10*3/uL (4.8-10.8)
[2024-06-13 08:03] LABS: Albumin Level 3.4 g/dL (3.5-5.0); Anion Gap 10 (12-20); Blood Urea Nitrogen 12 mg/dL (9-16); Calcium 8.6 mg/dL (8.4-10.2); Carbon Dioxide 26 mmol/L (22-29); Chloride 110 mmol/L (96-108); Creatinine Clr Calc Pharmacy 97.9; Estimated Glomerular Filt Rate > 60; Glucose Random 101 mg/dL (60-115); Magnesium 2.1 mg/dL (1.6-2.6); Phosphorus 3.6 mg/dL (2.7-4.5); Potassium 3.8 mmol/L (3.3-5.1); Sodium 142 mmol/L (135-145)
[2024-06-13] MEDS: Apixaban 5 MG TABLET 10 MG PO (08:38)
[2024-06-13] MEDS: Atorvastatin Calcium 80 MG TABLET PO (08:39)
[2024-06-13] MEDS: 0.9 % Sodium Chloride Flush 3 ML SYRINGE IVFLUSH (08:50)
[2024-06-13 11:17] VITALS: BP 102/64; PULSE 58; RESP 18; TEMP 36.2; O2SAT 97
[2024-06-13 11:19] LABS: Glucose, Whole Blood 101 mg/dL (60-115)
--- NOTE | 2024-06-13 11:21 | P.DS_ITS ---
DS: Providers Provider Date of Service: 06/13/24 Date of admission: 06/11/24 14:58 Date of discharge: 06/13/24 Primary care physician: Tres Crum MD Consults: 06/11/24 14:58 Consult to Neurology Routine Consulting Provider: Neurology [facility] Reason for consultation: CVA s/p TNK 06/13/24 07:40 Consult to Neurology Routine Consulting Provider: Neurology [facility] Reason for consultation: s/p MRI for stroke symptoms Has provider been notified: No DS: Diagnosis Discharge Diagnosis (1) Acute CVA (cerebrovascular accident): Status: Acute (2) Hypothyroid: Status: Acute (3) A-fib: Status: Acute DS: Summary Hospital Course Hospital Course: History and physical as per admitting provider. Mr. Stone is a 83-year-old male with history of past CVA, past PE (unknown date), hypertension, hypothyroidism, AFib not currently on anticoagulation who presented to the ER from his assisted living facility with sudden onset of dysarthria, aphasia, left-sided mouth droop, and confusion.? Last known well time 13:00 hours. On arrival to the ED,? the patient was immediately taken to CAT scan per stroke protocol.? His blood pressure? 111/61, heart rate 57, O2 sat 98% on room air. Laboratory data significant? for hemoglobin 11.3, hematocrit 35.2, BUN 23, AST 42.? UDS positive for THC. Imaging: CT angio head and neck concerning for acute PE in the distal right main pulmonary artery and subsegmental branches.? 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 ED course: During the course of the patient?s ER stay, he became more confused, had increased dysarthria and aphasia, and more obvious left sided arm drift. TNK 25 mg was given at 14:38 per neurology recommendation.? 83-year-old man treated for acute onset left-sided mouth droop, dysarthria and confusion. Neurology evaluated initially while patient was in emergency department and recommended TNK. Patient did have improvement in his neurological symptoms. Head and neck CTA demonstrated what appeared to be acute pulmonary emboli he was admitted to intensive care unit for monitoring after TNK. MRI on 06/12/2024 showed no evidence of acute infarct with chronic bilateral subdural fluid collection with no evidence of acute intracranial hemorrhage. Echocardiogram with normal EF and no valvular abnormalities. He was started on aspirin and statin. He had no deficits noted and was able to ambulate with physical therapy. He reported a history of trigeminal neuralgia since 1990 with noted facial droop and 6 speech. He reported that over the years it would get better or get worse. It is possible his symptoms could have been related to that neurology mentioned that it may also be related to an aborted stroke. In any case patient should continue aspirin and statin, Eliquis for atrial fibrillation and pulmonary embolus. Patient should continue his amlodipine for blood pressure. Plan is for him to be discharged home with physical therapy. Hypothyroidism. Continue levothyroxine Mental health. Continue sertraline, carbamazepine Time Attestation Discharge Coordination Time (in mins): 42 Quality: Safe Use of Opioids Does Pt have an Active Cancer Diagnosis on the Problem List?: No Quality: Stroke Does the patient have a stroke diagnosis?: No Physical Exam Vital Signs: Vital Signs: Last Vital Signs Temp 97.1 F 06/13/24 11:17 Pulse 58 06/13/24 11:17 Resp 18 06/13/24 11:17 BP 102/64 06/13/24 11:17 Pulse Ox 97 06/13/24 11:17 O2 Del Method Room Air 06/13/24 11:17 BMI result Body Mass Index 34.8 Appearing in no acute distress head is normocephalic atraumatic eyes pupils are PERRLA sclera is anicteric mouth throat mucous membranes are intact and moist neck is supple no lymphadenopathy, no JVD noted lung sounds are clear to auscultation heart regular rate rhythm, clear S1, S2 positive bowel sounds, abdomen is soft, nontender neuro patient is alert x3, no focal deficits DS: Data Data Completed and Pending Labs on day of discharge: Laboratory Results - last 24 hr 06/12/24 06/12/24 06/12/24 11:44 16:08 20:05 WBC RBC Hgb Hct MCV MCH MCHC RDW Plt Count MPV Immature Gran % (Auto) Neut % (Auto) Lymph % (Auto) [place] % (Auto) Eos % (Auto) Baso % (Auto) Lymph # (Auto) [place] # (Auto) Eos # (Auto) Baso # (Auto) Abs Immat Gran (auto) Absolute Neuts (auto) Absolute Nucleated RBC Nucleated RBC % (auto) Sodium Potassium Chloride Carbon Dioxide Anion Gap BUN Creatinine Estim Creat Clear Calc Estimated GFR POC Glucose 127 H 120 H 112 Random Glucose Calcium Phosphorus Magnesium Albumin 06/13/24 06/13/24 06/13/24 06:56 07:03 11:15 WBC 6.3 RBC 4.08 L Hgb 11.9 L Hct 36.9 L MCV 90.4 MCH 29.2 MCHC 32.2 RDW 13.2 Plt Count 170 MPV 10.4 Immature Gran % (Auto) 0.2 Neut % (Auto) 54.0 Lymph % (Auto) 28.2 [place] % (Auto) 8.6 Eos % (Auto) 8.5 H Baso % (Auto) 0.5 Lymph # (Auto) 1.8 [place] # (Auto) 0.5 Eos # (Auto) 0.5 H Baso # (Auto) 0.0 Abs Immat Gran (auto) 0.01 Absolute Neuts (auto) 3.4 Absolute Nucleated RBC 0.000 Nucleated RBC % (auto) 0.0 Sodium 142 Potassium 3.8 Chloride 110 H Carbon Dioxide 26 Anion Gap 10 L BUN 12 Creatinine 0.70 Estim Creat Clear Calc 97.9 Estimated GFR > 60 POC Glucose 103 101 Random Glucose 101 Calcium 8.6 Phosphorus 3.6 Magnesium 2.1 Albumin 3.4 L Discharge Plan Discharge Anticipated Discharge Date/Time: 06/13/24 10:47 Patient Disposition: Home Health Service Discharge Diagnosis: Dysphagia, aphasia Possible aborted stroke Atrial fibrillation History of trigeminal neuralgia Referrals: Tres Crum MD [Primary Care Provider] - 1 Week Discharge Medications: New Eliquis 5 mg Tablet 10 mg PO BID Qty: 96 0RF Rx Instructions: Take 10 mg twice daily for 12 more doses and then 5 mg twice daily atorvastatin 80 mg Tablet 80 mg PO DAILY Qty: 30 0RF Continued acetaminophen 325 mg Tablet 650 mg PO Q4H PRN (Reason: Pain) furosemide 20 mg Tablet 20 mg PO DAILY (DME) compression socks, x-large Misc See Rx Instructions .Route Qty: 2 0RF Rx Instructions: As directed (DME) compr.stocking,knee,long,x-lrg Misc See Rx Instructions .Route Qty: 2 0RF Rx Instructions: As directed amlodipine 10 mg tablet 1 tab PO DAILY simvastatin 40 mg tablet 1 tab PO BEDTIME tamsulosin 0.4 mg capsule 0.4 mg PO BEDTIME ferrous gluconate 240 mg (27 mg iron) tablet 240 mg PO DAILY Qty: 90 0RF metoprolol succinate 50 mg Tablet Extended Release 24 Hr 50 mg PO DAILY aspirin 81 mg Tablet,Delayed Release (Dr/Ec) 81 mg PO DAILY carbamazepine 200 mg tablet 300 mg PO BID@0800,1400 cyclobenzaprine 5 mg tablet 5 mg PO DAILY baclofen 10 mg tablet 10 mg PO DAILY bethanechol chloride 50 mg tablet 50 mg PO DAILY levothyroxine 150 mcg tablet 150 mcg PO DAILY@0600 gabapentin 100 mg capsule 300 mg PO TID sertraline 50 mg tablet 50 mg PO DAILY carbamazepine 200 mg tablet 400 mg PO BEDTIME Discharge Orders: Discharge Order (Routine); Ordered 06/13/24 Ordered By: Yamilka Duncan Diet: Advance to usual diet Activity on Discharge: As tolerated Stand Alone Forms: Patient Portal Discharge page Print Language: Unable To Collect Care Plan Goals: Plan for home with physical therapy Health Concerns: Dysphagia, aphasia Possible aborted stroke Atrial fibrillation History of trigeminal neuralgia Plan of Treatment: Follow-up with primary care provider as needed Take all medications as prescribed Assessment: See discharge summary
--- NOTE | 2024-06-13 14:43 | MHC.CM.PN ---
Pt has been medically cleared for DC, he will go home via the [facility] shuttle and have home care services from [facility]
== END 2024-06-13 14:13 | disposition home health service (06) | DRG 61 ==
LOC: HO.ED 15:12 → HO.EDOVER 15:24 → HO.ICU 18:27 → HO.IMC 06-12 12:10
PROVIDERS: Nurse Practitioner Family; Admitting Provider Internal Medicine Pulmonary Disease; Emergency Provider Emergency Medicine; PCP Internal Medicine; Visit Provider Nurse Practitioner Acute Care
DX: I63.9 Cerebral infarction, unspecified (principal); I26.99 Other pulmonary embolism without acute cor pulmonale; E03.9 Hypothyroidism, unspecified; R47.01 Aphasia; R13.10 Dysphagia, unspecified; R29.810 Facial weakness; R29.703 NIHSS score 3; I48.0 Paroxysmal atrial fibrillation; Z87.891 Personal history of nicotine dependence; Z86.711 Personal history of pulmonary embolism; Z79.82 Long term (current) use of aspirin; Z79.890 Hormone replacement therapy; Z79.899 Other long term (current) drug therapy
CPT/HCPCS: 36415; 70450; 70496; 70498; 70551; 80048; 80061; 80076; 80307; 81003; 82040; 82947; 83735; 84100; 84443; 84484; 85025; 85610; 93005; 93306; 97116; 97162; 97165; 97535; 99285; J3101; Q9957; Q9967

== ENCOUNTER → 2024-06-11 13:58 | Outpatient (BNV) | payer MEDICARE, SELFPAY | PROVIDERS: Emergency Provider Emergency Medicine; PCP Internal Medicine; Visit Provider Radiology Diagnostic Radiology | DX: R47.1 Dysarthria and anarthria (principal) | CPT/HCPCS: 70450; 70496; 70498 ==

== ENCOUNTER → 2024-06-11 14:00 | Outpatient (BNV) | payer MEDICARE, SELFPAY | PROVIDERS: Admitting Provider Internal Medicine Pulmonary Disease; Emergency Provider Emergency Medicine; PCP Internal Medicine; Visit Provider Internal Medicine | DX: I48.91 Unspecified atrial fibrillation (principal) | CPT/HCPCS: 93010 ==

== ENCOUNTER 2024-06-11 14:58 | Outpatient (BNV) | payer MEDICARE, SELFPAY | END 2024-06-12 14:58 | PROVIDERS: Admitting Provider Internal Medicine Pulmonary Disease; Emergency Provider Emergency Medicine; PCP Internal Medicine; Visit Provider Radiology Diagnostic Radiology | DX: I63.9 Cerebral infarction, unspecified (principal) | CPT/HCPCS: 70551 ==

== ENCOUNTER 2024-06-11 14:58 | Outpatient (BNV) | payer MEDICARE, SELFPAY | END 2024-06-12 07:00 | PROVIDERS: Admitting Provider Internal Medicine Pulmonary Disease; Emergency Provider Emergency Medicine; PCP Internal Medicine; Visit Provider Internal Medicine | DX: I35.1 Nonrheumatic aortic (valve) insufficiency (principal); I34.81 Nonrheumatic mitral (valve) annulus calcification | CPT/HCPCS: 93306 ==

== ENCOUNTER → 2024-06-11 14:58 | Outpatient (BNV) | payer MEDICARE, SELFPAY | PROVIDERS: Admitting Provider Internal Medicine Pulmonary Disease; Emergency Provider Emergency Medicine; PCP Internal Medicine; Visit Provider Nurse Practitioner Family | DX: I26.99 Other pulmonary embolism without acute cor pulmonale (principal); I63.9 Cerebral infarction, unspecified; I48.0 Paroxysmal atrial fibrillation | CPT/HCPCS: 99223 ==

== ENCOUNTER → 2024-06-11 14:58 | Outpatient (BNV) | payer MEDICARE, SELFPAY | PROVIDERS: Admitting Provider Internal Medicine Pulmonary Disease; Emergency Provider Emergency Medicine; PCP Internal Medicine; Visit Provider Psychiatry & Neurology Neurology | DX: I63.9 Cerebral infarction, unspecified (principal) | CPT/HCPCS: 99222 ==

== ENCOUNTER → 2024-06-11 14:58 | Outpatient (BNV) | payer MEDICARE, SELFPAY | PROVIDERS: Admitting Provider Internal Medicine Pulmonary Disease; Emergency Provider Emergency Medicine; PCP Internal Medicine; Visit Provider Nurse Practitioner Acute Care | DX: I63.9 Cerebral infarction, unspecified (principal); I48.0 Paroxysmal atrial fibrillation; E03.9 Hypothyroidism, unspecified | CPT/HCPCS: 99239; 99499 ==

== ENCOUNTER → 2024-06-11 14:58 | Outpatient (BNV) | payer MEDICARE, SELFPAY | PROVIDERS: Admitting Provider Internal Medicine Pulmonary Disease; Emergency Provider Emergency Medicine; PCP Internal Medicine; Visit Provider Internal Medicine Pulmonary Disease | DX: I63.9 Cerebral infarction, unspecified (principal); E03.9 Hypothyroidism, unspecified; I48.0 Paroxysmal atrial fibrillation | CPT/HCPCS: 99232 ==

== ENCOUNTER 2024-08-13 13:32 | Outpatient (REF) | payer MEDICARE, SELFPAY ==
[2024-08-13 14:11] LABS: INTERNATIONAL NORM RATIO 1.1 (0.9-1.1); Prothrombin Time 12.7 SEC (10.9-12.4)
--- OUTSIDE RECORDS SUMMARY | 2024-08-13 14:42 | XMS_ITS | Clinical Summary ---
Author Organization [address] Address [address] [place] [id number] Phone Care Team Providers Care Medical Research Scientist Name Role Phone Mamta Klein MD Primary Care Provider [phone] Encounters Date Type Department Care Team Description 06/07/2024 Lab Requisition [facility] [address] [place] [phone] Mamta Klein MD Chronic kidney disease, unspecified; Hyperlipidemia, unspecified; Vitamin D deficiency, unspecified; Anemia, unspecified; Vitamin B12 deficiency anemia, unspecified 05/31/2024 Lab Requisition [facility] [address] [place] [phone] Mamta Klein MD Anemia, unspecified; Vitamin B12 deficiency anemia, unspecified; Hypothyroidism, unspecified; Hyperlipidemia, unspecified; Malignant neoplasm of colon, unspecified (CMS/HCC V24, CMS/HCC V28); Vitamin D deficiency, unspecified 05/24/2024 Lab Requisition [facility] [address] [place] [phone] Mamta Klein MD Anemia, unspecified; Vitamin B12 deficiency anemia, unspecified; Hypothyroidism, unspecified; Hyperlipidemia, unspecified; Malignant neoplasm of colon, unspecified (CMS/HCC V24, CMS/HCC V28); Vitamin D deficiency, unspecified 05/18/2024 Lab Requisition [facility] [address] [place] [phone] Mamta Klein MD Hyperlipidemia, unspecified; Hypothyroidism, unspecified; [...] 2 - PCV) 08/31/2014 08/31/2013 RSV Immunization Adult Patients (1 - 1-dose 75+ series) 2016 Depression Screening 02/14/2022 Falls Risk Assessment 02/14/2022 Medicare Annual Wellness Visit 02/14/2022 Social Influencers of Health Screening 02/14/2022 COVID-19 Vaccine ( season) 2023 12/29/2022, 08/14/2021, 04/22/2021, Additional history exists Influenza Vaccine (Season Ended) 2024 01/30/2022, 02/03/2021, 01/22/2019, Additional history exists Hypertension/CHF/CAD Annual [...] age to complete this topic Meningococcal B Vaccine Aged Out No l onger eligible based on patient's age to complete [...] of3 resultswithin the time period is included. [facility] WBC 5.3 4.8 - 10.8 K/mcL LAB HEMETOLOGY METHOD 06/01/2024 10:06 AM [facility] RBC 3.70(L) 4.50 - 5.50 M/mcL LAB HEMETOLOGY METHOD 06/01/2024 10:06 AM [facility] Hemoglobin 10.8(L) 13.5 - 17.5 g/dL LAB HEMETOLOGY METHOD 06/01/2024 10:06 AM [facility] Hematocrit 34.9(L) 42.0 - 54.0 % LAB HEMETOLOGY METHOD 06/01/2024 10:06 AM [facility] MCV 94.6 79.0 - 98.0 FL LAB HEMETOLOGY METHOD 06/01/2024 10:06 AM [facility] MCH 29.3 27.0 - 32.0 pcg LAB HEMETOLOGY METHOD 06/01/2024 10:06 AM EDT [facility] MCHC 30.9(L) 32.0 - 37.0 g/dL LAB HEMETOLOGY METHOD 06/01/2024 10:06 AM EDT [facility] RDW 12.8 11.0 - 15.0 % LAB HEMETOLOGY METHOD 06/01/2024 10:06 AM EDT [facility] Platelets 239 130 - 400 K/mcL LAB HEMETOLOGY METHOD 06/01/2024 10:06 AM EDT [facility] MPV 10.7 7.0 - 11.0 FL LAB HEMETOLOGY METHOD 06/01/2024 10:06 AM EDT [facility] NRBC 0.0 <1.0 % LAB HEMETOLOGY METHOD 06/01/2024 10:06 AM EDT [facility] NRBC Absolute 0.00 <0.10 K/mcL LAB HEMETOLOGY METHOD 06/01/2024 10:06 AM EDT [facility] Blood Venous blood specimen / Unknown Venipuncture / Unknown 06/01/2024 7:30 AM EDT 06/01/2024 9:55 AM EDT us Mamta Klein MD LAB BLOOD ORDERABLES Final Resul t [facility] [address] [place] [address], * (ABNORMAL) Basic metabolic panel (06/01/2024 7:30 AM EDT) Only the most recent of2 resultswithin the time period is included. Sodium 144 133 - 145 mmol/L LAB CHEMISTRY METHOD 06/01/2024 10:54 AM EDT [facility] Potassium 4.6 3.5 - 5.5 mmol/L LAB CHEMISTRY METHOD 06/01/2024 10:54 AM [facility] Chloride 111(H) 96 - 110 mmol/L LAB CHEMISTRY METHOD 06/01/2024 10:54 AM [facility] CO2 30 21 - 32 mmol/L LAB CHEMISTRY METHOD 06/01/2024 10:54 AM [facility] Anion Gap 3 3 - 11 LAB CHEMISTRY METHOD 06/01/2024 10:54 AM [facility] Glucose 105(H) 70 - 100 mg/dL LAB CHEMISTRY METHOD 06/01/2024 10:54 AM [facility] BUN 15 5 - 25 mg/dL LAB CHEMISTRY METHOD 06/01/2024 10:54 AM [facility] Creatinine 0.78 0.70 - 1.30 mg/dL LAB CHEMISTRY METHOD 06/01/2024 10:54 AM [facility] eGFR 89 >=60 mL/min/1. 73m2 LAB CHEMISTRY METHOD 06/01/2024 10:54 AM [facility] Comment:Calculation based on the??Chronic Kidney Disease Epidemiology Collaboration (CKD-EPI) equation refit??without adjustment for race. BUN/Creatinine Ratio 19.2 LAB CHEMISTRY METHOD 06/01/2024 10:54 AM [facility] Calcium 8.9 8.5 - 10.5 mg/dL LAB CHEMISTRY METHOD 06/01/2024 10:54 AM [facility] Blood Venous blood specimen / Unknown Venipuncture / Unknown 06/01/2024 7:30 AM EDT 06/01/2024 9:55 AM EDT us Mamta Klein MD LAB BLOOD ORDERABLES Final Resul t [facility] [address] [place] [address], * Thyroid stimulating hormone with reflex to free t4 and free t3 (05/18/2024 7:38 AM EST) TSH 1.43 0.40 - 4.00 mcIU/mL LAB CHEMISTRY METHOD 05/18/2024 12:24 PM [facility] Blood Venous blood specimen / Unknown Venipuncture / Unknown 05/18/2024 7:38 AM EST 05/18/2024 11:06 AM EST us Mamta Klein MD LAB BLOOD ORDERABLES Final Resul t [facility] [address] [place] [address], * (ABNORMAL) Lipid panel with reflex to direct LDL (05/18/2024 7:38 AM EST) Cholesterol 190 0 - 200 mg/dL LAB CHEMISTRY METHOD 05/18/2024 12:44 PM [facility] Triglycerides 161(H) 0 - 150 mg/dL LAB CHEMISTRY METHOD 05/18/2024 12:44 PM [facility] HDL 64 >=40 mg/dL LAB CHEMISTRY METHOD 05/18/2024 12:44 PM [facility] LDL Calculated 94 0 - 100 mg/dL LAB CHEMISTRY METHOD 05/18/2024 12:44 PM [facility] VLDL Cholesterol Krzysztof 32.2 mg/dL LAB CHEMISTRY METHOD 05/18/2024 12:44 PM [facility] Non HDL Chol. (LDL+VLDL) 126 <145 mg/dL LAB CHEMISTRY METHOD 05/18/2024 12:44 PM [facility] Chol/HDL Ratio 3.0 0.0 - 4.4 LAB CHEMISTRY METHOD 05/18/2024 12:44 PM [facility] Blood Venous blood specimen / Unknown Venipuncture / Unknown 05/18/2024 7:38 AM EST 05/18/2024 11:06 AM EST us Mamta Klein MD LAB BLOOD ORDERABLES Final Resul t Performing Organization Address City/[facility]/ZIP Co de Phone Number [facility] [address] [place] [address], [place] [phone] * (ABNORMAL) Vitamin D 25 hydroxy (05/18/2024 7:38 AM EST) Vit D, 25-Hydroxy 6.2(L) 30.0 - 80.0 ng/mL LAB CHEMISTRY METHOD 05/18/2024 12:30 PM EST [facility] Blood Venous blood specimen / Unknown Venipuncture / Unknown 05/18/2024 7:38 AM EST 05/18/2024 11:06 AM EST us Mamta Klein MD LAB BLOOD ORDERABLES Final Resul t Performing Organization Address [facility] Co de Phone Number [facility] [address] [place] [address], [place] [phone] * (ABNORMAL) Iron (05/18/2024 7:38 AM EST) [facility] Iron 34(L) 50 - 160 mcg/dL LAB CHEMISTRY METHOD 05/18/2024 12:44 PM EST [facility] Blood Venous blood specimen / Unknown Venipuncture / Unknown 05/18/2024 7:38 AM EST 05/18/2024 11:06 AM EST us Mamta Klein MD LAB BLOOD ORDERABLES Final Resul t Performing Organization Address City/[facility]/ZIP Co de Phone Number [facility] [address] [place] [address], [place] [phone] * Folate (05/18/2024 7:38 AM EST) Pathologist [facility] Folate 7.1 2.8 - 17.0 ng/ml LAB CHEMISTRY METHOD 05/18/2024 12:44 PM EST [facility] Blood Venous blood specimen / Unknown Venipuncture / Unknown 05/18/2024 7:38 AM EST 05/18/2024 11:06 AM EST Mamta Klein MD LAB BLOOD ORDERABLES Final Resul t Performing Organization Address City/[facility]/ZIP Co de Phone Number [facility] [address] [place] [address], [place] [phone] * Vitamin B12 (05/18/2024 7:38 AM EST) Pathologist [facility] Vitamin B-12 355 250 - 900 pcg/mL LAB CHEMISTRY METHOD 05/18/2024 12:44 PM [facility] Blood Venous blood specimen / Unknown Venipuncture / Unknown 05/18/2024 7:38 AM EST 05/18/2024 11:06 AM EST Mamta Klein MD LAB BLOOD ORDERABLES Final Resul t Performing Organization Address City/[facility]/ZIP Co de Phone Number [facility] [address] [place] [address], [place] [phone] * (ABNORMAL) Comprehensive metabolic panel (05/18/2024 7:38 AM EST) [facility] Sodium 140 133 - 145 mmol/L LAB CHEMISTRY METHOD 05/18/2024 12:44 PM [facility] Potassium 4.2 3.5 - 5.5 mmol/L LAB CHEMISTRY METHOD 05/18/2024 12:44 PM [facility] Chloride 103 96 - 110 mmol/L LAB CHEMISTRY METHOD 05/18/2024 12:44 PM [facility] CO2 24 21 - 32 mmol/L LAB CHEMISTRY METHOD 05/18/2024 12:44 PM [facility] Anion Gap 13(H) 3 - 11 LAB CHEMISTRY METHOD 05/18/2024 12:44 PM [facility] Glucose 103(H) 70 - 100 mg/dL LAB CHEMISTRY METHOD 05/18/2024 12:44 PM [facility] BUN 9 5 - 25 mg/dL LAB CHEMISTRY METHOD 05/18/2024 12:44 PM [facility] Creatinine 0.72 0.70 - 1.30 mg/dL LAB CHEMISTRY METHOD 05/18/2024 12:44 PM [facility] eGFR 91 >=60 mL/min/1. 73m2 LAB CHEMISTRY METHOD 05/18/2024 12:44 PM [facility] Comment:Calculation based on the??Chronic Kidney Disease Epidemiology Collaboration (CKD-EPI) equation refit??without adjustment for race. BUN/Creatinine Ratio 12.5 LAB CHEMISTRY METHOD 05/18/2024 12:44 PM [facility] Calcium 8.7 8.5 - 10.5 mg/dL LAB CHEMISTRY METHOD 05/18/2024 12:44 PM [facility] AST (SGOT) 17 10 - 42 unit/L LAB CHEMISTRY METHOD 05/18/2024 12:44 PM [facility] ALT (SGPT) 19 10 - 60 unit/L LAB CHEMISTRY METHOD 05/18/2024 12:44 PM [facility] Alkaline Phosphatase 113 42 - 121 unit/L LAB CHEMISTRY METHOD 05/18/2024 12:44 PM [facility] Total Protein 6.7 6.0 - 8.0 g/dL LAB CHEMISTRY METHOD 05/18/2024 12:44 PM [facility] Albumin 3.3 3.2 - 5.0 g/dL LAB CHEMISTRY METHOD 05/18/2024 12:44 PM [facility] Total Bilirubin 0.4 0.0 - 1.4 mg/dL LAB CHEMISTRY METHOD 05/18/2024 12:44 PM [facility] Blood Venous blood specimen / Unknown Venipuncture / Unknown 05/18/2024 7:38 AM EST 05/18/2024 11:06 AM EST Mamta Klein MD LAB BLOOD ORDERABLES Final Resul t [facility] ([facility] [address] [place] [address], [place] [phone] from Last 3 Months Insurance MEDICARE Care Teams Medical Research Scientist Relationship Specialty Start Date End Date Mamta Klein MD [address] [place] [id number] [id number] [place] [address] PCP - General Geriatric Medicine 05/18/24
== END 2024-08-13 13:33 | disposition home or self-care (01) ==
LOC: HO.LABR 13:32
PROVIDERS: PCP Internal Medicine; Visit Provider Internal Medicine
DX: I48.0 Paroxysmal atrial fibrillation (principal)
CPT/HCPCS: 36415; 85610

== ENCOUNTER 2024-11-01 16:14 | Emergency (ER) | payer MEDICARE, SELFPAY ==
--- NOTE | ~2024-11-01 | CT_ITS ---
CLINICAL HISTORY: Stroke Protocol CTA of the head and neck with 3-D postprocessing Comparison: CT - CT ANGIO HEAD NECK STROKE - 11/01/24 16:22 EDT MR/VA/SR - MR HEAD/BRAIN WO CON - 06/12/24 12:[address] - CT ANGIO HEAD NECK STROKE - 11/23/21 11:49 EDT Findings: There is insufficient contrast to evaluate the vasculature. No mass, midline shift, hydrocephalus or acute hemorrhage. The lung apices are clear. Atrophic right lobe of the thyroid. The soft tissues of the head and neck are otherwise unremarkable. Impression: Nondiagnostic examination. Consider a repeat examination. This document has been electronically signed by: Delia Trujillo MD on 11/01/2024 17:29:58
--- NOTE | ~2024-11-01 | CT_ITS ---
CLINICAL HISTORY: Stroke Protocol CT head without contrast Comparison: MR/NC/SR - MR HEAD/BRAIN WO CON - 06/12/24 12:[address]/SR - CT HEAD NECK ANGIOGRAPHY WITH IV CONTRAST STROKE - 06/11/24 14:[address]/NC/SR - CT HEAD WITHOUT IV CONTRAST STROKE - 06/11/24 14:07 EDT Findings: No acute hemorrhage. Trace bilateral chronic subdural hematomas seen along convexities and falx, also seen on the prior studies. No hydrocephalus, mass-effect or herniation. Aquino-white differentiation is maintained. There is patchy hypoattenuation of the periventricular and deep white matter, which is most likely the sequela of moderate chronic small vessel ischemic disease and is similar to the prior studies. Left basal ganglia chronic lacunar infarction. No acute orbital pathology. No acute soft tissue abnormality. No fracture. Unchanged left occipital craniectomy. Unchanged complete opacification of the left maxillary sinus. The other visualized paranasal sinuses are predominantly clear. The mastoid air cells are clear. Impression: No intracranial hemorrhage or acute transcortical infarction. Chronic trace bilateral subdural hematomas without mass effect. This document has been electronically signed by: Delia Trujillo MD on 11/01/2024 17:20:21
--- NOTE | 2024-11-01 16:19 | ECG_ITS ---
Test Reason : STROKE Blood Pressure : */* mmHG Vent. Rate : 60 BPM Atrial Rate : * BPM P-R Int : * ms QRS Dur : 86 ms QT Int : 414 ms P-R-T Axes : * 38 45 degrees QTcB Int : 414 ms Atrial fibrillation Abnormal ECG When compared with ECG of 11-Jun-2024 14:30, No significant change was found Referred By: Debo Silveira Electronically Signed By: ANTONI CRANDALL MD
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
[2024-11-01 16:28] VITALS: BMI 36.1
[2024-11-01 16:30] LABS: Glucose, Whole Blood 142 mg/dL (60-115)
[2024-11-01 16:36] LABS: MANUAL DIFF FLAG NO
[2024-11-01 16:42] LABS: Hematocrit 39.1 % (42.0-52.0); Hemoglobin 13.0 g/dl (14.0-18.0); Imm Gran Abs Auto 0.06 X10*3/uL (0.00-0.03); Imm Gran Pct Auto 0.5 % (0.0-0.4); Lymphocytes Absolute Auto 1.3 X10*3/uL (1.2-4.9); Mean Corpuscular HGB Conc 33.2 g/dl (31.0-36.0); Mean Corpuscular Hemoglobin 30.5 pg (27.0-33.0); Mean Corpuscular Volume 91.8 fL (80.0-98.0); NRBC Abs Auto 0.000 X10*3/uL (0.0-0.012); NRBC Pct Auto 0.0 /100WBC (0.0-0.2); Platelet Count 172 X10*3/uL (160-400); Red Blood Count 4.26 X10*6/uL (4.60-5.80); White Blood Count 13.0 X10*3/uL (4.8-10.8)
[2024-11-01 17:01] LABS: Alanine Aminotransferase 40 U/L (0-40); Albumin Level 4.3 g/dL (3.5-5.0); Alkaline Phosphatase 95 U/L (39-117); Anion Gap 16 (12-20); Aspartate Amino Transferase 40 U/L (5-37); Blood Urea Nitrogen 26 mg/dL (9-16); Calcium 9.0 mg/dL (8.4-10.2); Carbon Dioxide 23 mmol/L (22-29); Chloride 105 mmol/L (96-108); Cholesterol 185 mg/dL (<200); Creatinine Clr Calc Pharmacy 80.4; Estimated Glomerular Filt Rate > 60; HDL Cholesterol 47 mg/dL (>40); Potassium 4.6 mmol/L (3.3-5.1); Sodium 139 mmol/L (135-145); Total Protein 7.0 g/dL (6.5-8.0); Triglycerides 139 mg/dL (<150); Troponin-I High Sensitivity 4.7 ng/L (<3.5-35.0)
[2024-11-01] MEDS: iohexoL 350 MG/ML 100 ML INFUS..BTL IV ×2 (17:21)
[2024-11-01 17:23] VITALS: BP 139/69; PULSE 65; RESP 16; TEMP 36.4; O2SAT 95
[2024-11-01 17:31] LABS: Appearance Urine Clear; Glucose Urine UA Negative (Negative); PH 7.5 (5.0-9.0); Specific Gravity - Urine >= 1.030 (1.005-1.025)
--- OUTSIDE RECORDS SUMMARY | 2024-11-01 17:40 | XMS_ITS | Clinical Summary ---
Author Organization [address] Address [address] [place] [phone] Phone Care Team Providers Care Mock Up Maker Name Role Phone Mamta Klein MD Primary Care Provider [phone] Social History Tobacco Use Types Packs/Day Years [...] Patients (1 - 1-dose 75+ series) 2016 Falls Risk Assessment 02/14/2022 Medicare Annual Wellness Visit 02/14/2022 Social Influencers of Health Screening 02/14/2022 COVID-19 Vaccine ( season) 2023 12/29/2022, 08/14/2021, 04/22/2021, Additional history exists Depression Screening 03/14/2024 Influenza Vaccine (#1) 2024 , 02/03/2021, 01/22/2019, Additional history exists Hypertension/CHF/CAD [...] of colon, unspecified Vitamin D deficiency, unspecified LIPID PANEL WITH REFLEX TO DIRECT LDL Routine 05/18/2024 7:38 AM EST Hyperlipidemia, unspecified Hypothyroidism, unspecified Vitamin D deficiency, unspecified Anemia, unspecified Vitamin B12 deficiency anemia, unspecified from Last 3 Months or Most Recently Relevant to Health Maintenance Results * (ABNORMAL) Basic metabolic panel (06/01/2024 7:30 AM EDT) Sodium 144 133 - 145 mmol/L LAB CHEMISTRY METHOD 06/01/2024 10:54 AM [facility] Potassium 4.6 3.5 - 5.5 mmol/L LAB CHEMISTRY METHOD 06/01/2024 10:54 AM [facility] Chloride 111(H) 96 - 110 mmol/L LAB CHEMISTRY METHOD 06/01/2024 10:54 AM [facility] CO2 30 21 - 32 mmol/L LAB CHEMISTRY METHOD 06/01/2024 10:54 AM [facility] Anion Gap 3 3 - 11 LAB CHEMISTRY METHOD 06/01/2024 10:54 AM EDT [facility] Glucose 105(H) 70 - 100 mg/dL LAB CHEMISTRY METHOD 06/01/2024 10:54 AM [facility] BUN 15 5 - 25 mg/dL LAB CHEMISTRY METHOD 06/01/2024 10:54 AM [facility] Creatinine 0.78 0.70 - 1.30 mg/dL LAB CHEMISTRY METHOD 06/01/2024 10:54 AM EDT [facility] eGFR 89 >=60 mL/min/1. 73m2 LAB CHEMISTRY METHOD 06/01/2024 10:54 AM [facility] Comment:Calculation based on the Chronic Kidney Disease Epidemiology Collaboration (CKD-EPI) equation refit without adjustment for race. BUN/Creatinine Ratio 19.2 LAB CHEMISTRY METHOD 06/01/2024 10:54 AM [facility] Calcium 8.9 8.5 - 10.5 mg/dL LAB CHEMISTRY METHOD 06/01/2024 10:54 AM [facility] Blood Venous blood specimen / Unknown Venipuncture / Unknown 06/01/2024 7:30 AM EDT 06/01/2024 9:55 AM EDT us Mamta Klein MD LAB BLOOD ORDERABLES Final Resul t [facility] [address] [place] [address], * (ABNORMAL) Lipid panel with reflex to direct LDL (05/18/2024 7:38 AM EST) Cholesterol 190 0 - 200 mg/dL LAB CHEMISTRY METHOD 05/18/2024 12:44 PM EST [facility] Triglycerides 161(H) 0 - 150 mg/dL LAB CHEMISTRY METHOD 05/18/2024 12:44 PM EST [facility] HDL 64 >=40 mg/dL LAB CHEMISTRY METHOD 05/18/2024 12:44 PM EST [facility] LDL Calculated 94 0 - 100 mg/dL LAB CHEMISTRY METHOD 05/18/2024 12:44 PM EST [facility] VLDL Cholesterol Krzysztof 32.2 mg/dL LAB CHEMISTRY METHOD 05/18/2024 12:44 PM [facility] Non HDL Chol. (LDL+VLDL) 126 <145 mg/dL LAB CHEMISTRY METHOD 05/18/2024 12:44 PM [facility] Chol/HDL Ratio 3.0 0.0 - 4.4 LAB CHEMISTRY METHOD 05/18/2024 12:44 PM [facility] Blood Venous blood specimen / Unknown Venipuncture / Unknown 05/18/2024 7:38 AM EST 05/18/2024 11:06 AM EST Mamta Klein MD LAB BLOOD ORDERABLES Final Resul t [facility] [address] [place] [address], from Last 3 Months or Most Recently Relevant to Health Maintenance Insurance MEDICARE Care Teams Mock Up Maker Relationship Specialty Start Date End Date Mamta Klein MD PCP - General Geriatric Medicine 05/18/24
--- OUTSIDE RECORDS SUMMARY | 2024-11-01 17:40 | XMS_ITS | Clinical Summary ---
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
[2024-11-01 17:56] LABS: VBG HCO3 24 mmol/L (22-26); VBG O2 % Saturation 92.0 %
[2024-11-01 17:56] LABS: Venous Blood Gas Refer to POC result
[2024-11-01 18:09] LABS: Ammonia 30 umol/L (13-55)
[2024-11-01 18:14] LABS: INTERNATIONAL NORM RATIO 2.9 (0.9-1.1); Partial Thromboplastin Time 42.8 SEC (26.7-34.1); Prothrombin Time 33.2 SEC (10.9-12.4)
[2024-11-01 18:35] LABS: Stroke Lab Use COMPLETE
[2024-11-01 19:43] VITALS: BP 139/69; PULSE 65; RESP 16; TEMP 36.4; O2SAT 95
[2024-11-02 14:59] LABS: Prothrombin Time Whole Bld POC 33.5 sec (11.1-13.5); ~PT, ~INR - Anti Coag Clinic 2.8 (0.9-1.1)
== END 2024-11-01 19:44 ==
PROVIDERS: Emergency Provider Student in an Organized Health Care Education/Training Program; PCP Internal Medicine
DX: R41.82 Altered mental status, unspecified (principal); E86.0 Dehydration; I69.392 Facial weakness following cerebral infarction; I69.354 Hemiplegia and hemiparesis following cerebral infarction affecting left non-dominant side; I48.91 Unspecified atrial fibrillation; Z79.01 Long term (current) use of anticoagulants; Z79.899 Other long term (current) drug therapy; Z91.81 History of falling
CPT/HCPCS: 36415; 70450; 70496; 70498; 80048; 80061; 80076; 81003; 82140; 82803; 82947; 84443; 84484; 85025; 85610; 85730; 93005; 99284; 99285; Q9967

== ENCOUNTER → 2024-11-01 16:19 | Outpatient (BNV) | payer MEDICARE, SELFPAY | PROVIDERS: Emergency Provider Student in an Organized Health Care Education/Training Program; PCP Internal Medicine; Visit Provider Radiology Diagnostic Radiology | DX: S09.90XA Unspecified injury of head, initial encounter (principal); I62.03 Nontraumatic chronic subdural hemorrhage | CPT/HCPCS: 70450; 70496; 70498 ==

== ENCOUNTER → 2024-11-01 16:19 | Outpatient (BNV) | payer MEDICARE, SELFPAY | PROVIDERS: Emergency Provider Student in an Organized Health Care Education/Training Program; PCP Internal Medicine; Visit Provider Internal Medicine Cardiovascular Disease | DX: I48.91 Unspecified atrial fibrillation (principal) | CPT/HCPCS: 93010 ==

== ENCOUNTER 2024-11-02 14:05 | Emergency (ER) | payer MEDICARE, SELFPAY ==
--- NOTE | ~2024-11-02 | CT_ITS ---
EXAMINATION: CT CERVICAL SPINE WITHOUT CONTRAST CLINICAL INFORMATION: Fall COMPARISON: None available. TECHNIQUE: Axial imaging was performed from the base of the skull through T2 without IV contrast. Coronal and sagittal reformatted images were generated from the original axial data set. ALARA: The examination used one or more of the following radiation dose reduction techniques: Automated exposure control, iterative reconstruction, and/or adjustment of mA and/or KV. DLP: 605 mGY*cm FINDINGS: There is pyrophosphate deposition within cruciate ligament posterior to the dens. There is also pyrophosphate deposition in multiple discs. There is no prevertebral edema. No fracture lines are evident. C2-C3: There is facet joint space not segmentation on the right. There is grade 1 anterolisthesis at C3-4. There is moderate severe disc space narrowing at C4-5, C5-6, and C6-7 with degenerative endplate irregularities and osteophytes. There is facet arthropathy with joint space narrowing, osteophytes, sclerosis, and vacuum phenomena, most advanced on the left in the upper cervical spine. There is enlargement of the left thyroid gland CT/CT cervical spine wo IV con IMPRESSION: No acute fracture. 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 Enlargement of left thyroid gland, follow-up with ultrasound. Electronically signed by: Daniel Singh MD 11/02/2024 03:59 PM EDT
--- NOTE | ~2024-11-02 | CT_ITS ---
EXAMINATION: CT HEAD WITHOUT CONTRAST CLINICAL INFORMATION: Fall, on warfarin. COMPARISON: 11/01/2024, 06/11/2024. TECHNIQUE: Contiguous axial imaging was performed from the skull base to vertex without intravenous administration of contrast. This CT examination was performed using dose optimization techniques as appropriate, variously including the following: *Automated exposure control *Adjustment of mA and/or kV according to patient size (this includes techniques or standardized protocols for targeted exams where dose is matched to indication/reason for exam; i.e. extremities or head) *Use of iterative reconstruction technique FINDINGS: Mild motion degradation, limiting sensitivity of the examination. Redemonstration of 3 mm vertex subdural frontoparietal subdural collections bilaterally. These are slightly smaller than previously. No hyperattenuating component. There is no mass effect or edema. There is no new extra-axial fluid collection. No CT evidence of acute territorial infarct. Ventricles, sulci, and cisterns are normal in size and configuration for patient age. No hydrocephalus. No midline shift. Negative hyperdense MCA sign. Negative insular ribbon sign. Patchy periventricular and deep white matter hypoattenuation is consistent with moderate small vessel ischemic changes. Old lacunar type infarction left caudate body. Mild atheromatous calcification of the bilateral carotid siphons and V4 segments vertebral arteries bilaterally. Globes and orbital contents image normally. There are bilateral lens replacements. No extracranial soft tissue abnormalities. Paranasal sinuses demonstrate a diminutive, opacified left maxillary sinus in keeping with silent sinus syndrome. Paranasal sinuses are otherwise well pneumatized. Mastoids and tympanic spaces pneumatized. No suspicious bony abnormalities. Left occipital craniotomy defect. There are no acute fractures evident. CT/CT head/brain wo IV con IMPRESSION: 1. There are small chronic appearing low density subdural collections overlying the hemispheres, measuring 3 mm on the right and 3 mm on the left. These are slightly less prominent than previously but persist. There is no new extra-axial collection or new intracranial hemorrhage. There is no significant mass effect or edema. 2. There is no acute territorial infarction, intraparenchymal hemorrhage, or subarachnoid hemorrhage. 3. There is no fracture evident. Stable left suboccipital craniotomy. Electronically signed by: Wilder Brown MD 11/02/2024 03:56 PM EDT
[2024-11-02 14:17] VITALS: BP 124/72; PULSE 48; O2SAT 98
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
[2024-11-02 14:44] VITALS: BP 136/61; PULSE 55; RESP 18; TEMP 36.9; O2SAT 95; BMI 39.1
--- NOTE | 2024-11-02 14:54 | ECG_ITS ---
Test Reason : SOB Blood Pressure : */* mmHG Vent. Rate : 54 BPM Atrial Rate : * BPM P-R Int : * ms QRS Dur : 90 ms QT Int : 454 ms P-R-T Axes : * 41 48 degrees QTcB Int : 430 ms Atrial fibrillation with slow ventricular response Abnormal ECG When compared with ECG of 01-Nov-2024 17:23, No significant change was found Referred By: Debo Silveira Electronically Signed By: ANTONI CRANDALL MD
[2024-11-02 15:16] VITALS: BP 136/61; PULSE 55; RESP 18; TEMP 36.9; O2SAT 95
[2024-11-02] MEDS: Lactated Ringers 1,000 ML 999 ML IV (15:45)
[2024-11-02 15:51] LABS: MANUAL DIFF FLAG NO
[2024-11-02 15:53] LABS: Hematocrit 38.4 % (42.0-52.0); Hemoglobin 12.9 g/dl (14.0-18.0); Imm Gran Abs Auto 0.03 X10*3/uL (0.00-0.03); Imm Gran Pct Auto 0.3 % (0.0-0.4); Lymphocytes Absolute Auto 1.4 X10*3/uL (1.2-4.9); Mean Corpuscular HGB Conc 33.6 g/dl (31.0-36.0); Mean Corpuscular Hemoglobin 30.6 pg (27.0-33.0); Mean Corpuscular Volume 91.0 fL (80.0-98.0); NRBC Abs Auto 0.000 X10*3/uL (0.0-0.012); NRBC Pct Auto 0.0 /100WBC (0.0-0.2); Platelet Count 163 X10*3/uL (160-400); Red Blood Count 4.22 X10*6/uL (4.60-5.80); White Blood Count 8.9 X10*3/uL (4.8-10.8)
[2024-11-02 15:56] LABS: Venous Blood Gas Refer to POC result
[2024-11-02 15:57] LABS: VBG HCO3 29 mmol/L (22-26); VBG O2 % Saturation 67.0 %
[2024-11-02 16:06] LABS: Ammonia 25 umol/L (13-55)
[2024-11-02 16:21] LABS: Troponin-I High Sensitivity 5.4 ng/L (<3.5-35.0)
[2024-11-02 16:24] LABS: Alanine Aminotransferase 37 U/L (0-40); Albumin Level 4.1 g/dL (3.5-5.0); Alkaline Phosphatase 85 U/L (39-117); Anion Gap 13 (12-20); Aspartate Amino Transferase 24 U/L (5-37); Blood Urea Nitrogen 20 mg/dL (9-16); Calcium 8.9 mg/dL (8.4-10.2); Carbon Dioxide 26 mmol/L (22-29); Chloride 105 mmol/L (96-108); Creatinine Clr Calc Pharmacy 69.2; Estimated Glomerular Filt Rate > 60; Magnesium 2.2 mg/dL (1.6-2.6); Potassium 4.0 mmol/L (3.3-5.1); Sodium 140 mmol/L (135-145); Total Protein 6.7 g/dL (6.5-8.0)
--- OUTSIDE RECORDS SUMMARY | 2024-11-02 16:30 | XMS_ITS | Encounter Summary ---
Author Organization [facility] Address [email or web address] [address] Phone Care Team Providers Care Manager Hotel Name Role Phone Tres Crum DO Primary Care Provider [phone] Tres Crum DO Primary Care Provider [phone] Ina Matos Unavailable [phone] Reason for Referral * Outpatient Procedure - Closed Specialty Diagnoses / Procedures Referred By Radha yee Referred To Contact Diagnoses Dyspnea on exertion Procedures Adult Echo TTE Marisol Mcdermott PA-C Phone: tel: fax: Referral ID Status Reason Start Date Expiration Date Visits Re quested Visits Authorized [id number] Closed 03/15/2018 03/15/2019 1 1 Encounter Details Date Type Department Care Team (Late st Contact Info) Description 03/15/2018 Ancillary Orders Virtual Department [address] [place] [address] Marisol Mcdermott PA-C [address] [place] [address] Dyspnea on exertion Social History Tobacco Use Types Packs/Day Years Used Date Smoking Tobacco: Former Cigarettes Q uit: 1977 Smokeless Tobacco: Never Alcohol Use Standard Drinks/Week Comments Yes 0 (1 standard drink = 0.6 oz pur e alcohol) Sex and Gender Information Value Date Recorded Sex Assigned at Male 09/06/2018 8:35 AM EDT Legal Sex Male 10:11 PM EDT Gender Identity Male 09/06/2018 8:35 AM EDT Sexual Orientation Not on file documented as of this encounter Plan of Treatment Upcoming Encounters Date Type Department Care Team (Late st Contact Info) Description 11/13/2024 2:20 PM EDT Office Visit [facility] [address] [place] [address] Tres Crum, [address] [facility] [place] [address] [place] [address] 01/25/2025 9:30 AM EST Appointment [facility] [address] [place] [address] 01/25/2025 10:30 AM EST Office Visit [facility] [address] [place] [address] Ina Matos MBBS [address] [place] [address] documented as of this encounter Results * TTE COMPREHENSIVE W/ LVO CONTRAST (05/02/2018 2:34 PM EST) Body Surface Area 2.3 m2 Height 175 m Weight 122 kg Systolic BP 130 mmHg Diastolic BP 80 mmHg Interventricular Septum Thickness 17 mm Left Ventricle Internal Diameter End Diastole 37 42 - 58 mm Left Ventricle Internal Diameter End Systole 24 25 - 40 mm Left Ventricular Outflow Tract Diameter 22.0 mm LVOT VTI REST 133.00 mm Left Ventricular Outflow Tract Velocity 0.8 m/s Left Ventricular Outflow Tract Gradient at Rest 2.00 mmHg Left Ventricular Posterior Wall Thickness 10 mm Ejection Fraction 63 50 - 75 Percent Left Atrium Dimension Anterior-Posterior 47 15 - 40 mm Aortic Valve Peak Velocity 126.0 cm/s Aortic Valve Peak Gradient 6.00 mmHg Aortic Sinus Diameter 33 mm Ascending Aorta Diameter 33 mm Inferior Vena Cava Diameter 17 0.0 - 21 mm Inferior Vena Cava Diameter 4 0.0 - 21 mm Mitral Valve Deceleration Time 141.00 ms Mitral Valve E Wave Speed 109.0 cm/s Right Ventricle Basal Diameter 29.10 25 - 41 mm Raw LV EF% 58 % Aortic Valve Sinus Index 1 14 20 - 32 mm Ascending Aorta Diameter 14 mm Aortic Sinus Index 14 mm Ascending Aorta Index 14 mm Anatomical Region Laterality Modality Heart Ultrasound Narrative 05/04/2018 10:07 AM EST The predominant rhythm during the study was atrial fibrillation. Left ventricular cavity size is normal and the left ventricular wall thickness is increased. There is mild concentric left ventricular hypertrophy. Left ventricular systolic function is normal. There are no segmental left ventricular wall motion abnormalities noted. The estimated ejection fraction is 63% (Normal 50-75%). The left ventricular ejection fraction was measured by the bi-plane method of discs. Left ventricular diastolic function could not be adequately assessed. The left atrium is mildly dilated. There is an insufficient tricuspid regurgitation Doppler profile to calculate a right ventricular systolic pressure. No significant valvular disease. Compared to a prior report from 08/17/2013, no important changes. Left Ventricle Left ventricular cavity size is normal and the left ventricular wall thickness is increased. There is mild concentric left ventricular hypertrophy. Left ventricular systolic function is normal. There are no segmental left ventricular wall motion abnormalities noted. The estimated ejection fraction is 63% (Normal 50-75%). The left ventricular ejection fraction was measured by the bi-plane method of discs. Left ventricular diastolic function could not be adequately assessed. There is no evidence of left ventricular thrombus. Right Ventricle The right ventricular size is normal. No evidence of right ventricular hypertrophy. The right ventricular systolic function is normal. Left Atrium The left atrium is mildly dilated. LA volume index (2CH) is 35.3 ml/m2. The left atrial anterior-posterior dimension measures 47 mm (normal 15-40 mm). Pulmonary vein connections were not well seen. Right Atrium The right atrium is not well visualized. The right atrium is mildly dilated. Mitral Valve The mitral valve appears normal. There is no evidence of mitral stenosis. Peak E is 109 cm/s. E/E' avg is 9.1.Med E' velocity is 14.5 cm/s. Lat E' velocity is 9.6 cm/s. There is posterior mitral annular calcification. There is no significant mitral regurgitation detected by spectral and color Doppler. Tricuspid Valve The tricuspid valve appears normal. There is no evidence of tricuspid stenosis. There is evidence of trace tricuspid regurgitation by color and spectral Doppler. There is an insufficient tricuspid regurgitation Doppler profile to calculate a right ventricular systolic pressure. Aortic Valve The aortic valve appears abnormal. The aortic valve is tricuspid. There is mild thickening of multiple aortic leaflets. There is no evidence of valvular aortic stenosis. The peak aortic valve gradient is 6 mmHg. There is evidence of trace aortic regurgitation by color and spectral Doppler. The visualized portions of the thoracic aorta appear normal. Pulmonic Valve Pulmonary valve was not well visualized. The pulmonary valve appears normal. There is no evidence of pulmonic stenosis. There is no evidence of pulmonary regurgitation by color and spectral Doppler. Pericardium There is no evidence of pericardial effusion. Interatrial Septum The interatrial septum appears normal. General Findings The image quality was fair (3). Technique(s) used in the evaluation: Color flow Doppler and Spectral Doppler. An echo contrast agent was administered IV, per ASE guidelines.The predominant rhythm during the study was atrial fibrillation. Comparison Findings Compared to a prior report from 08/17/2013, no important changes. June Sharron VIRAMONTES CV ECHO ORDERABLES Final Res ult documented in this encounter Visit Diagnoses Diagnosis Dyspnea on exertion Other dyspnea and respiratory abnormality Dyspnea on exertion Other dyspnea and respiratory abnormality documented in this encounter Care Teams Manager Hotel Relationship Specialty Start Date End Date Tres Crum DO PCP - General 12/30/16 05/13/24 Tres Crum DO [address] [place] [id number] PCP - General Internal Medicine 05/14/24 Ina Matos MBBS [address] [place] [id number] Primary Oncologist Medical Oncology 06/07/24 documented as of this encounter Additional Source Comments The information contained in this document represents components of the legal health record. It is not the complete legal health record.[facility]
--- OUTSIDE RECORDS SUMMARY | 2024-11-02 16:30 | XMS_ITS | Clinical Summary ---
Author Organization [address] Address [address] [place] [id number] Phone Care Team Providers Care Market Sales Manager Name Role Phone Mamta Klein MD Primary Care Provider [phone] Social History Tobacco Use Types Packs/Day Years [...] mmol/L LAB CHEMISTRY METHOD 06/01/2024 10:54 AM [facility] Potassium 4.6 3.5 - 5.5 mmol/L LAB CHEMISTRY METHOD 06/01/2024 10:54 AM [facility] Chloride 111(H) 96 - 110 mmol/L LAB CHEMISTRY METHOD 06/01/2024 10:54 AM [facility] CO2 30 21 - 32 mmol/L LAB CHEMISTRY METHOD 06/01/2024 10:54 AM [facility] Anion Gap 3 3 - 11 LAB CHEMISTRY METHOD 06/01/2024 10:54 AM EDT [facility] Glucose 105(H) 70 - 100 mg/dL LAB CHEMISTRY METHOD 06/01/2024 10:54 AM [facility] BUN 15 5 - 25 mg/dL LAB CHEMISTRY METHOD 06/01/2024 10:54 AM [facility] Creatinine 0.78 0.70 - 1.30 mg/dL LAB CHEMISTRY METHOD 06/01/2024 10:54 AM EDT [facility] eGFR 89 >=60 mL/min/1. 73m2 LAB CHEMISTRY METHOD 06/01/2024 10:54 AM [facility] Comment:Calculation based on the Chronic Kidney Disease Epidemiology Collaboration (CKD-EPI) equation refit without adjustment for race. BUN/Creatinine Ratio 19.2 LAB CHEMISTRY METHOD 06/01/2024 10:54 AM [facility] Calcium 8.9 8.5 - 10.5 mg/dL LAB CHEMISTRY METHOD 06/01/2024 10:54 AM [facility] Blood Venous blood specimen / Unknown Venipuncture / Unknown 06/01/2024 7:30 AM EDT 06/01/2024 9:55 AM EDT us Mamta Klein MD LAB BLOOD ORDERABLES Final Resul t [facility] [address] [place] [address], * (ABNORMAL) Lipid panel with reflex to direct LDL (05/18/2024 7:38 AM EST) Cholesterol 190 0 - 200 mg/dL LAB CHEMISTRY METHOD 05/18/2024 12:44 PM EST [facility] Triglycerides 161(H) 0 - 150 mg/dL LAB CHEMISTRY METHOD 05/18/2024 12:44 PM EST [facility] HDL 64 >=40 mg/dL LAB CHEMISTRY METHOD 05/18/2024 12:44 PM EST [facility] LDL Calculated 94 0 - 100 mg/dL LAB CHEMISTRY METHOD 05/18/2024 12:44 PM EST [facility] VLDL Cholesterol Krzysztof 32.2 mg/dL [...] MD LAB BLOOD ORDERABLES Final Resul t [facility] [address] [place] [address], from Last 3 Months or Most Recently Relevant to Health Maintenance Insurance MEDICARE Care Teams Market Sales Manager Relationship Specialty Start Date End Date Mamta Klein MD PCP - General Geriatric Medicine 05/18/24
--- OUTSIDE RECORDS SUMMARY | 2024-11-02 16:30 | XMS_ITS | Clinical Summary ---
Author Organization [employer] Address [address] [facility] [address] [place] [address] Care Team Providers Care Glove Turner And Former Name Role Phone Unavailable Primary Care Provider [...]
[2024-11-02 17:45] LABS: INTERNATIONAL NORM RATIO 2.9 (0.9-1.1); Prothrombin Time 32.9 SEC (10.9-12.4)
--- NOTE | 2024-11-02 18:55 | PC.NURSE ---
Back documentation Provider notified of code status paper work. PT stated he wanted to be a DNR with our ED provider. This nurse called PT health care proxy to confirm his code status change, pt health care proxy to notify resources to update paperwork.
[2024-11-02 18:57] VITALS: BP 143/69; PULSE 55; RESP 20; TEMP 37; O2SAT 98
--- NOTE | 2024-11-02 20:10 | MHC.CM.ED ---
CM met with patient to discuss discharge planning. Pt is A&Ox3. Does have periods of confusion. Thought he did not get dinner, but staff verified that he had eaten. Pt has a HX of CVA. Speech is slow and slightly thick, but understandable. He lives at [facility]. He uses a rollator. [employer] see him 3 times/day. Has all meals. Uses a rollator. Pt has had several falls recently. He does not have a qualifying stay. PT is pending. Acute referrals will be made. HCP is on file. HCP/daughter Gema ([phone]). MOLST on file-pt is a full code. Pt tells CM that he has a secondary insurance-[employer]. CM will follow for discharge planning.
[2024-11-03 06:00] VITALS: BP 154/78; PULSE 56; RESP 20; TEMP 37.1; O2SAT 96
--- NOTE | 2024-11-03 09:04 | PC.NURSE ---
Care of Pt assumed at change of shift. Pt rests quietly until arrival of breakfast. Pt assisted into recliner and independently eats breakfast. Pt seen by PT this AM for eval, and Pt assists Pt with calling daughter. Pt has large BM on commode with assistance and returns to recliner to rest. Will continue to monitor
--- NOTE | 2024-11-03 11:00 | MHC.CM.ED ---
Addendum entered by aMry Aguilar 11/03/24 13:48: [facility] are unable to offer a bed. Patient is a resident of [facility] and lives in independent living. Referral made to [facility]. Patient has 7 free rehab days available. Patient will d/c to [facility] via BLs at 330pm. Pete GALEANOS booked. [facility] with chart. Patient, daughter GemaQiana RN and Maritza MARCOS aware. Original Note: Patient remains in ER overflow. Physical therapy eval completed. Rehab is recommended. [facility] is unable to offer a bed. [facility] are still reviewing. Continue to monitor for d/c needs.
--- NOTE | 2024-11-03 11:30 | PHA.MEDREC ---
Addendum entered by Viki Roque [facility] 11/03/24 12:53: Warfarin 2mg on Fridays and 4mg every other day of the week Addendum entered by Viki Roque [facility] 11/03/24 11:43: Left message with [facility] to confirm warfarin dosage Original Note: Pharmacy Consult ? Medication Reconciliation Pharmacy has completed the medication reconciliation. Nurse Qiana completed med rec based off list by [facility], patient's warfarin unclear, however recently filled as 4mg tabs #13 x 14 DS. Patient is confused and poor historian so cannot verify warfarin dosing. Qiana noted provider is aware.
[2024-11-03 14:00] VITALS: BP 110/55; PULSE 50; RESP 18; TEMP 36.5; O2SAT 98
--- NOTE | 2024-11-03 15:03 | PC.NURSE ---
Call placed to [facility] @ [phone] for RN to RN report. Spoke with RN Zaria to complete transfer report. Zaria given opportunity for questions and all questions answered to satisfaction. Zaria advised Pt scheduled for 1530 pick up worker by EMS.
[2024-11-03 17:07] VITALS: BP 110/55; PULSE 50; RESP 18; TEMP 36.5; O2SAT 98
== END 2024-11-03 15:30 ==
PROVIDERS: Emergency Provider Student in an Organized Health Care Education/Training Program; PCP Internal Medicine
DX: R47.1 Dysarthria and anarthria (principal); R13.10 Dysphagia, unspecified; I48.91 Unspecified atrial fibrillation; R51.9 Headache, unspecified; M54.2 Cervicalgia; R06.02 Shortness of breath; R26.2 Difficulty in walking, not elsewhere classified; R11.0 Nausea; Z79.01 Long term (current) use of anticoagulants; Z79.899 Other long term (current) drug therapy; Z86.73 Personal history of transient ischemic attack (TIA), and cerebral infarction without residual deficits; Z87.891 Personal history of nicotine dependence
CPT/HCPCS: 36415; 70450; 72125; 80053; 82140; 82550; 82803; 83605; 83735; 84443; 84484; 85025; 85610; 93005; 96360; 96361; 97162; 99285; J7120

== ENCOUNTER → 2024-11-02 14:54 | Outpatient (BNV) | payer MEDICARE, SELFPAY | PROVIDERS: Emergency Provider Student in an Organized Health Care Education/Training Program; PCP Internal Medicine; Visit Provider Internal Medicine Cardiovascular Disease | DX: I48.91 Unspecified atrial fibrillation (principal) | CPT/HCPCS: 93010 ==

== ENCOUNTER → 2024-11-02 14:55 | Outpatient (BNV) | payer MEDICARE, SELFPAY | PROVIDERS: Emergency Provider Student in an Organized Health Care Education/Training Program; Visit Provider Radiology Diagnostic Radiology | DX: Z04.3 Encounter for examination and observation following other accident (principal) | CPT/HCPCS: 70450 ==

== ENCOUNTER 2024-11-19 08:09 | Inpatient (IN) | payer MEDICARE, SELFPAY ==
[2024-11-19] VITALS (11 sets, daily range): BP systolic 161–210; BP diastolic 00–99; PULSE 43–63; RESP 13–18; TEMP 36.1–36.8; O2SAT 98–99; BMI 33.9
--- NOTE | ~2024-11-19 | CT_ITS ---
CLINICAL HISTORY: pain CT leftshoulder without IV contrast. Comparison: None Findings: Moderate loss of subacromial space and superior displacement of the humerus reflecting rotator cuff pathology. No acute fractures or dislocations. 3 mm intra-articular loose body glenoid humeral joint posteriorly AC joint arthrosis no undersurface spurring. Mild joint space narrowing of the glenohumeral joint. No periostitis or bony destruction. No soft tissue masses or fluid collections. Left lung apex unremarkable. Impression: 1. Evidence of rotator cuff pathology with loss of subacromial space in mild cephalad displacement of the humerus relative to the glenoid. 2. AC joint arthrosis no undersurface spurring. 3. 3 mm intra-articular loose body glenohumeral joint posteriorly. This document has been electronically signed by: Sergio Helton MD on 11/23/2024 05:09:46
--- NOTE | ~2024-11-19 | CT_ITS ---
EXAMINATION: CT CERVICAL SPINE WITHOUT CONTRAST CLINICAL INFORMATION: Status post fall. COMPARISON: November 02, 2024 TECHNIQUE: Contiguous axial images through the cervical spine using 3 mm collimation with bone and soft tissue algorithm. Sagittal and coronal reformatted images acquired. DLP: 607.[address] examination was performed using dose optimization techniques as appropriate, variously including the following: *Automated exposure control *Adjustment of mA and/or kV according to patient size (this includes techniques or standardized protocols for targeted exams where dose is matched to indication/reason for exam; i.e. extremities or head) *Use of iterative reconstruction technique FINDINGS: Craniocervical junction is intact with normal alignment between the occipital condyles and the lateral masses of C1. Degenerative changes in the periodontal C1 region with a partially calcified pannus formation. Marginal osteophyte formation and endplate sclerosis subchondral cyst formation and decreased intervertebral disc height C4-5, C5-6 and C6-7 levels. Chondrocalcinosis in the intervertebral discs C3-4. Grade 1 anterolisthesis C3-4. Facet joint hypertrophy at multiple levels bilaterally resulting in ankylosis on the right C2-3. C1 is intact. C2 is intact. C3 is intact. C4 is intact. C5 is intact. C6 is intact. C7 is intact. No prevertebral compartment hematoma. Absent right thyroid lobe. There is a prominent/enlarged left thyroid lobe. Calcified plaques in the thoracic aortic arch and its main branches. There is an 11 mm extra-axial partially calcified hyperdensity in the left cerebellopontine angle cistern near the cisternal segment of the left trigeminal current nerve. Tympanic cavities and mastoid cells are aerated. Craniectomy, left occipital, unchanged. CT/CT cervical spine wo IV con IMPRESSION: Multilevel cervical spondylosis, C3 C7, resulting in grade 1 anterolisthesis C3-4 without acute fracture or trauma-related listhesis. Fleischner guidelines were followed. Electronically signed by: Reza Perez MD 11/19/2024 09:19 AM EDT
--- NOTE | ~2024-11-19 | CT_ITS ---
EXAMINATION: CTA NECK WITH CONTRAST (STROKE) CTA BRAIN WITH CONTRAST (STROKE) CLINICAL INFORMATION: New onset right-sided weakness. Status post fall. Patient on anticorrelation therapy. Recent noncontrast CT concerning for acute stroke left MCA territory. COMPARISON: November 01, 2024 TECHNIQUE: CTA of the head and neck was performed in the axial plane from the mediastinum to the skull vertex using 70 mL Omnipaque 350 intravenous contrast. Additional reformatted multiplanar images including maximum intensity projection MIP images are generated on the CT workstation. This CT examination was performed using dose optimization techniques as appropriate, variously including the following: *Automated exposure control *Adjustment of mA and/or kV according to patient size (this includes techniques or standardized protocols for targeted exams where dose is matched to indication/reason for exam; i.e. extremities or head) *Use of iterative reconstruction technique. DLP: 666 mGy centimeter. FINDINGS: The degree of stenosis determined by criteria similar to NASCET. Chest CTA: No aneurysm or dissection. No focal stenosis. Calcified plaque in the inferior aspect of the aortic arch wall. Calcified plaque at the origin of the left subclavian artery. Neck CTA: Right CCA: Mixed plaques in the distal segment. Normal patency. No focal stenosis. No intimal flap. Right ICA: Mixed plaques. Normal patency. No focal stenosis. No intimal flap. Tortuosity. Left CCA: Normal patency. Tortuosity. No focal stenosis. No intimal flap. Left ICA: Normal patency. Mixed plaque. No focal stenosis. No intimal flap. Tortuosity. V1/V2 segments: Normal patency. No focal stenosis. No intimal flap. Left vertebral artery is dominant. The vertebral arteries origin is from the subclavian arteries. Brain CTA: Anterior cerebral circulation: ICAs: Normal patency. No focal stenosis. No abrupt cut off. MCA's: Irregular morphology of the left M1 M2 segments with an abrupt cut off at the bifurcation/trifurcation of the left MCA. There is IV contrast enhancement in the anterior opercular branches, left MCA. Right MCA demonstrates normal patency without focal stenosis or abrupt cut off. Bifurcation/trifurcation right MCA is normal. GERARD: Small-caliber right A1 segment. No focal stenosis. No abrupt cut off. Anterior communicating artery is patent. Ophthalmic arteries are patent. I do not see the posterior communicating arteries. Posterior cerebral circulation: V3/V4 segments are patent without focal stenosis or intimal flap. Left vertebral artery is dominant. Posterior inferior cerebral arteries are patent. Basilar artery is patent without focal stenosis or intimal flap. Superior cerebellar arteries are patent. Anterior inferior cerebral arteries are patent. deputy county clerk: Normal patency. No focal stenosis. No abrupt cut off. Ancillary findings: There is a questionable 1.5 mm enhancing abnormality in the 8 mm extra-axial hyperdensity left middle cranial fossa. There is a 7 mm extra-axial questionable enhancing abnormality in the left posterior cranial fossa/cerebellopontine angle cistern near the cisternal segment of the left trigeminal cranial nerve. Craniectomy, left occipital bone. Old traumatic deformity left maxillary sinus and left orbit resulting in enophthalmos. Heterogeneously enlarged left thyroid lobe extending into the mediastinum. Absent right thyroid lobe. Sternal wires. CT/CT angio head neck STROKE IMPRESSION: Embolus, bifurcation/trifurcation and 3 segment left MCA resulting in acute nonhemorrhagic stroke/ischemia, left MCA territory. Calcified plaques in both ICA without high degree stenosis. No dissection. Questionable vascular malformation versus meningioma, left middle cranial fossa and left cerebellopontine angle cistern.. This critical test result is communicated to: Emergency physician Dr. Chase Betancourt on November 19, 2024 at 10:05 AM. Electronically signed by: Reza Perez MD 11/19/2024 10:22 AM EDT
--- NOTE | ~2024-11-19 | XR_ITS ---
EXAMINATION: XR CHEST CLINICAL INFORMATION: MRI clearance COMPARISON: November 23, 2021. TECHNIQUE: Frontal view of the chest was obtained. FINDINGS: Sternal wires. Pulmonary reticular nodular pattern. Low lung volume. No consolidation pleural effusion or pneumothorax. Cardiomediastinal silhouette size is mildly prominent, unchanged. Calcified plaque thoracic aorta. Osteopenia versus osteoporosis. Unable to evaluate the axial skeleton due to patient's body habitus. Soft tissue fullness/opacity in the superior mediastinum/lower neck. XR/XR chest 1V IMPRESSION: Sternal wires likely related to prior sternotomy. Probable enlarged left thyroid lobe/nodule. Chronic interstitial lung disease. Electronically signed by: Reza Perez MD 11/19/2024 03:56 PM EDT
--- NOTE | ~2024-11-19 | XR_ITS ---
EXAMINATION: XR ABDOMEN 1 VIEW (KUB) HISTORY: MRI clearance COMPARISON: There are no prior studies available for comparison. FINDINGS: Three portable supine views of the abdomen performed at 3:41 PM are submitted. The bowel gas pattern is unremarkable, without evidence of mechanical obstruction. There is a moderate amount of stool throughout the colon. A penile implant is seen. There is excreted contrast in the urinary bladder from a CTA of the head and neck performed earlier in the day. No abnormal calcifications are identified. There are no abnormal soft tissue masses. There is degenerative disc disease of the spine. XR/XR abdomen 1V IMPRESSION: 1. Penile implant in place. 2. Moderate amount of stool throughout the colon. Electronically signed by: Dany Ferguson MD 11/19/2024 03:56 PM EDT
--- NOTE | ~2024-11-19 | CT_ITS ---
EXAMINATION: CT HEAD WITHOUT CONTRAST CLINICAL INFORMATION: Worsening stroke symptoms COMPARISON: November 19, 2024 TECHNIQUE: Contiguous axial imaging was performed from the skull base to vertex without intravenous administration of contrast. This CT examination was performed using dose optimization techniques as appropriate, variously including the following: *Automated exposure control *Adjustment of mA and/or kV according to patient size (this includes techniques or standardized protocols for targeted exams where dose is matched to indication/reason for exam; i.e. extremities or head) *Use of iterative reconstruction technique DLP: 2210 mGy-cm FINDINGS: There is an extensive area of arita-white matter effacement and hypodensity measuring less than 19 Hounsfield units involving the entire left temporal lobe and to a lesser extent left parietal subcortical white matter with the mass effect upon the left lateral ventricle without midline shift, hydrocephalus or herniation. No gross hyperdensity within this abnormality. CT/CT head/brain wo IV con IMPRESSION: Evolving extensive acute/subacute nonhemorrhagic stroke, left MCA territory. No gross midline shift, hydrocephalus or herniation. Concerning worsening vasogenic cerebral edema versus cytotoxic edema. Electronically signed by: Reza Perez MD 11/23/2024 11:15 AM EDT
--- NOTE | ~2024-11-19 | CT_ITS ---
EXAMINATION: CT HEAD WITHOUT CONTRAST CLINICAL INFORMATION: fall, thinners COMPARISON: November 02, 2024. TECHNIQUE: Contiguous axial imaging was performed from the skull base to vertex without intravenous administration of contrast. This CT examination was performed using dose optimization techniques as appropriate, variously including the following: *Automated exposure control *Adjustment of mA and/or kV according to patient size (this includes techniques or standardized protocols for targeted exams where dose is matched to indication/reason for exam; i.e. extremities or head) *Use of iterative reconstruction technique DLP: 934.52 mGy-cm FINDINGS: There is a large volume hyperdense abnormality with a arita-white matter effacement involving the left temporal lobe extending from the cerebral cortex to the insular suprainsular external capsule into the left parietal lobe. No acute intracranial hemorrhage. There is a hyperdense left MCA which measures 64 Hounsfield units. Bilateral multifocal patchy and confluent deep periventricular white matter hypodensities involving centrum semiovale and chung radiata. Old lacunar infarcts, basal ganglia and frontal chung radiata white matter and corpus callosum. Prominence of the extra-axial CSF spaces measuring less than 6 mm in maximal thickness with similar CSF density along the hemicranial convexities. There is a 8.5 mm extra-axial round hyperdensity in the left middle cranial fossa just anterior inferior to the left sylvian fissure adjacent to the left greater wing of the sphenoid. There is an 11 x 9 mm extra-axial hyperdensity in the left cerebellopontine angle cistern probably centered in the cisternal segment of the left trigeminal cranial nerve. There is a focal craniectomy, left occipital bone. No acute fracture in the bony calvarium. Old traumatic deformity, left maxillary sinus and medial and inferior aug[place]in of the left orbit. There is volume loss in the left maxillary sinus with mucosal thickening and mixed density secretions. 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 CT/CT head/brain wo IV con IMPRESSION: Acute nonhemorrhagic ischemia/infarct, left MCA territory. Questionable embolus, left M2 segment. Probable subacute to old subdural hemorrhages, both hemicranial convexities, stable. 8.5 mm and 11 mm extra-axial hyperdensity is, left middle cranial fossa and cisternal segment left trigeminal cranial nerves. Vascular versus meningioma lesions should be considered. Small vessel occlusive disease. Findings communicated to the emergency physician Dr. Chase Betancourt at 9:00 AM on November 19, 2024. Electronically signed by: Reza Perez MD 11/19/2024 09:13 AM EDT
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
[2024-11-19 08:23] LABS: Glucose, Whole Blood 94 mg/dL (60-115)
--- NOTE | 2024-11-19 08:25 | ECG_ITS ---
Test Reason : FALL Blood Pressure : */* mmHG Vent. Rate : 56 BPM Atrial Rate : 300 BPM P-R Int : * ms QRS Dur : 84 ms QT Int : 422 ms P-R-T Axes : * 52 59 degrees QTcB Int : 407 ms Atrial flutter with variable A-V block Abnormal ECG When compared with ECG of 02-Nov-2024 15:18, Atrial flutter has replaced Atrial fibrillation Referred By: Chase Betancourt Electronically Signed By: ANTONI CRANDALL MD
[2024-11-19 08:34] LABS: Prothrombin Time Whole Bld POC 14.8 sec (11.1-13.5); ~PT, ~INR - Anti Coag Clinic 1.2 (0.9-1.1)
[2024-11-19 08:57] LABS: MANUAL DIFF FLAG NO
[2024-11-19 08:59] LABS: Hematocrit 43.1 % (42.0-52.0); Hemoglobin 14.2 g/dl (14.0-18.0); Imm Gran Abs Auto 0.02 X10*3/uL (0.00-0.03); Imm Gran Pct Auto 0.3 % (0.0-0.4); Lymphocytes Absolute Auto 1.6 X10*3/uL (1.2-4.9); Mean Corpuscular HGB Conc 32.9 g/dl (31.0-36.0); Mean Corpuscular Hemoglobin 30.7 pg (27.0-33.0); Mean Corpuscular Volume 93.3 fL (80.0-98.0); NRBC Abs Auto 0.000 X10*3/uL (0.0-0.012); NRBC Pct Auto 0.0 /100WBC (0.0-0.2); Platelet Count 179 X10*3/uL (160-400); Red Blood Count 4.62 X10*6/uL (4.60-5.80); White Blood Count 7.1 X10*3/uL (4.8-10.8)
[2024-11-19 09:20] LABS: Appearance Urine Clear; Glucose Urine UA Negative (Negative); PH 7.0 (5.0-9.0); Specific Gravity - Urine 1.020 (1.005-1.025)
[2024-11-19 09:26] LABS: Troponin-I High Sensitivity 2.8 ng/L (<3.5-35.0)
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
[2024-11-19 09:31] LABS: Anion Gap 15 (12-20); Blood Urea Nitrogen 23 mg/dL (9-16); Calcium 8.7 mg/dL (8.4-10.2); Carbon Dioxide 21 mmol/L (22-29); Chloride 108 mmol/L (96-108); Cholesterol 213 mg/dL (<200); Creatinine Clr Calc Pharmacy 92.1; Estimated Glomerular Filt Rate > 60; HDL Cholesterol 62 mg/dL (>40); Potassium 5.0 mmol/L (3.3-5.1); Sodium 139 mmol/L (135-145); Triglycerides 94 mg/dL (<150)
[2024-11-19 09:37] LABS: INTERNATIONAL NORM RATIO 1.3 (0.9-1.1); Prothrombin Time 14.7 SEC (10.9-12.4)
[2024-11-19 09:39] LABS: Partial Thromboplastin Time 28.1 SEC (26.7-34.1)
[2024-11-19 09:40] LABS: Stroke Lab Use COMPLETE
[2024-11-19] MEDS: iohexoL 350 MG/ML 100 ML INFUS..BTL IV (09:45)
--- OUTSIDE RECORDS SUMMARY | 2024-11-19 10:19 | XMS_ITS | Clinical Summary ---
Author Organization [address] Address [address] [place] [address] Phone Care Team Providers Care Private Branch Exchange Installer Name Role Phone Mamta Klein MD Primary Care Provider [phone] Encounters Date Type Department Care Team Description 11/15/2024 Lab Requisition [facility] Lab [address] [place] [phone] Mamta Klein MD Unspecified atrial fibrillation (CMS/HCC V24, CMS/HCC V28) 11/13/2024 Lab Requisition [facility] Lab [address] [place] [phone] Mamta Klein MD technician terminal and repeater (current) use of anticoagulants 11/08/2024 Lab Requisition [facility] [address] [place] [phone] Mamta Klein MD Essential (primary) hypertension; Unspecified atrial fibrillation (CMS/HCC V24, CMS/HCC V28) 11/05/2024 Lab Requisition [facility] [address] [place] [phone] Mamta Klien MD Essential (primary) hypertension; Unspecified atrial fibrillation (CMS/HCC V24, CMS/HCC V28) from Last 3 Months Social History Tobacco [...] 02/14/2022 Social Influencers of Health Screening 02/14/2022 Depression Screening 03/14/2024 COVID-19 Vaccine ( season) 2024 12/29/2022, 08/14/2021, 04/22/2021, Additional history exists Influenza Vaccine (#1) 2024 , 02/03/2021, 01/22/2019, Additional history exists Hypertension/CHF/CAD Annual BMP Blood Test 11/05/2025 11/05/2024, 09/20/2024, 07/30/2024, Additional history exists Cholesterol Screening (Lipid Panel) [...] Procedure Name Priority Date/Time Associated Diagnosis Comments PROTHROMBIN TIME WITH INR Routine 11/16/2024 5:45 AM EDT Unspecified atrial fibrillation (CMS/HCC V24, CMS/HCC V28) PROTHROMBIN TIME WITH INR Routine 11/13/2024 6:10 AM EDT technician terminal and repeater (current) use of anticoagulants PROTHROMBIN TIME WITH INR Routine 11/09/2024 7:14 AM EDT Essential (primary) hypertension Unspecified atrial fibrillation (CMS/HCC V24, CMS/HCC V28) COMPREHENSIVE METABOLIC PANEL Routine 11/05/2024 4:50 AM EDT Essential (primary) hypertension Unspecified atrial fibrillation (CMS/HCC V24, CMS/HCC V28) PROTHROMBIN TIME WITH INR Routine 11/05/2024 4:50 AM EDT Essential (primary) hypertension Unspecified atrial fibrillation (CMS/HCC V24, CMS/HCC V28) COMPLETE BLOOD COUNT Routine 11/05/2024 4:50 AM EDT Essential (primary) hypertension Unspecified atrial fibrillation (CMS/HCC V24, CMS/HCC V28) LIPID PANEL WITH REFLEX TO DIRECT LDL Routine 05/18/2024 7:38 AM EST Hyperlipidemia, unspecified Hypothyroidism, unspecified Vitamin D deficiency, unspecified Anemia, unspecified Vitamin B12 deficiency anemia, unspecified from Last 3 Months or Most Recently Relevant to Health Maintenance Results * (ABNORMAL) Prothrombin time with INR (11/16/2024 5:45 AM EDT) Only the most recent of4 resultswithin the time period is included. Protime 14.5(H) 10.6 - 13.9 sec LAB COAGULATION METHOD 11/16/2024 8:48 AM EDT [facility] INR 1.2 LAB COAGULATION METHOD 11/16/2024 8:48 AM EDT [facility] Blood Venous blood specimen / Unknown Venipuncture / Unknown 11/16/2024 5:45 AM EDT 11/16/2024 8:29 AM EDT us Mamta Klein MD LAB BLOOD ORDERABLES Final Resul t [facility] [address] [place] [address], * (ABNORMAL) Complete blood count (11/05/2024 4:50 AM EDT) [facility] Signature WBC 6.7 4.8 - 10.8 K/mcL LAB HEMETOLOGY METHOD 11/05/2024 10:38 AM EDT [facility] RBC 4.50 4.50 - 5.50 M/mcL LAB HEMETOLOGY METHOD 11/05/2024 10:38 AM EDT [facility] Hemoglobin 13.3(L) 13.5 - 17.5 g/dL LAB HEMETOLOGY METHOD 11/05/2024 10:38 AM EDT [facility] Hematocrit 41.8(L) 42.0 - 54.0 % LAB HEMETOLOGY METHOD 11/05/2024 10:38 AM EDT [facility] MCV 93.5 79.0 - 98.0 FL LAB HEMETOLOGY METHOD 11/05/2024 10:38 AM EDT [facility] MCH 29.8 27.0 - 32.0 pcg LAB HEMETOLOGY METHOD 11/05[facility]24 10:[facility] MCHC 31.8(L) 32.0 - 37.0 g/dL LAB HEMETOLOGY METHOD 11/05/2024 10:38 AM EDT [facility] RDW 13.7 11.0 - 15.0 % LAB HEMETOLOGY METHOD 11/05/2024 10:38 AM EDT [facility] Platelets 213 130 - 400 K/mcL LAB HEMETOLOGY METHOD 11/05/2024 10:38 AM EDT [facility] MPV 10.4 7.0 - 11.0 FL LAB HEMETOLOGY METHOD 11/05/2024 10:38 AM EDT [facility] NRBC 0.0 <1.0 % LAB HEMETOLOGY METHOD 11/05/2024 10:38 AM EDT [facility] NRBC Absolute 0.00 <0.10 K/mcL LAB HEMETOLOGY METHOD 11/05/2024 10:38 AM [facility] Blood Venous blood specimen / Unknown Venipuncture / Unknown 11/05/2024 4:50 AM EDT 11/05/2024 10:00 AM EDT us Mamta Klein MD LAB BLOOD ORDERABLES Final Resul t [facility] [address] [place] [address], * Comprehensive metabolic panel (11/05/2024 4:50 AM EDT) Sodium 140 133 - 145 mmol/L LAB CHEMISTRY METHOD 11/05/2024 11:04 AM [facility] Potassium 4.3 3.5 - 5.5 mmol/L LAB CHEMISTRY METHOD 11/05/2024 11:04 AM [facility] Chloride 106 96 - 110 mmol/L LAB CHEMISTRY METHOD 11/05/2024 11:04 AM [facility] CO2 27 21 - 32 mmol/L LAB CHEMISTRY METHOD 11/05/2024 11:04 AM [facility] Anion Gap 7 3 - 11 LAB CHEMISTRY METHOD 11/05/2024 11:04 AM [facility] Glucose 83 70 - 100 mg/dL LAB CHEMISTRY METHOD 11/05/2024 11:04 AM [facility] BUN 20 5 - 25 mg/dL LAB CHEMISTRY METHOD 11/05/2024 11:04 AM [facility] Creatinine 0.73 0.70 - 1.30 mg/dL LAB CHEMISTRY METHOD 11/05/2024 11:04 AM [facility] eGFR 90 >=60 mL/min/1. 73m2 LAB CHEMISTRY METHOD 11/05/2024 11:04 AM [facility] Comment:Calculation based on the Chronic Kidney Disease Epidemiology Collaboration (CKD-EPI) equation refit without adjustment for race. BUN/Creatinine Ratio 27.4 LAB CHEMISTRY METHOD 11/05/2024 11:04 AM [facility] Calcium 8.8 8.5 - 10.5 mg/dL LAB CHEMISTRY METHOD 11/05/2024 11:04 AM [facility] AST (SGOT) 19 10 - 42 unit/L LAB CHEMISTRY METHOD 11/05/2024 11:04 AM [facility] ALT (SGPT) 33 10 - 60 unit/L LAB CHEMISTRY METHOD 11/05/2024 11:04 AM [facility] Alkaline Phosphatase 88 42 - 121 unit/L LAB CHEMISTRY METHOD 11/05/2024 11:04 AM [facility] Total Protein 6.4 6.0 - 8.0 g/dL LAB CHEMISTRY METHOD 11/05/2024 11:04 AM [facility] Albumin 3.6 3.2 - 5.0 g/dL LAB CHEMISTRY METHOD 11/05/2024 11:04 AM [facility] Total Bilirubin 0.5 0.0 - 1.4 mg/dL LAB CHEMISTRY METHOD 11/05/2024 11:04 AM [facility] Blood Venous blood specimen / Unknown Venipuncture / Unknown 11/05/2024 4:50 AM EDT 11/05/2024 10:00 AM EDT us Mamta Klein MD LAB BLOOD ORDERABLES Final Resul t [facility] [address] [place] [address], [place] [phone] * (ABNORMAL) Lipid panel with reflex to direct LDL (05/18/2024 7:38 AM EST) Cholesterol 190 0 - 200 mg/dL LAB CHEMISTRY METHOD 05/18/2024 12:44 PM EST [facility] Triglycerides 161(H) 0 - 150 mg/dL LAB CHEMISTRY METHOD 05/18/2024 12:44 PM [facility] HDL 64 >=40 mg/dL LAB CHEMISTRY METHOD 05/18/2024 12:44 PM EST [facility] LDL Calculated 94 0 - 100 mg/dL LAB CHEMISTRY METHOD 05/18/2024 12:44 PM EST [facility] VLDL Cholesterol Krzysztof 32.2 mg/dL LAB CHEMISTRY METHOD 05/18/2024 12:44 PM [facility] Non HDL Chol. (LDL+VLDL) 126 <145 mg/dL LAB CHEMISTRY METHOD 05/18/2024 12:44 PM [facility] Chol/HDL Ratio 3.0 0.0 - 4.4 LAB CHEMISTRY METHOD 05/18/2024 12:44 PM [facility] Blood Venous blood specimen / Unknown Venipuncture / Unknown 05/18/2024 7:38 AM EST 05/18/2024 11:06 AM EST us Mamta Klein MD LAB BLOOD ORDERABLES Final Resul t [facility] [address] [place] [address], from Last 3 Months or Most Recently Relevant to Health Maintenance Insurance MEDICARE Care Teams Private Branch Exchange Installer Relationship Specialty Start Date End Date Mamta Klein MD [address] [place] [address] [address] [place] [address] PCP - General Geriatric Medicine 11/05/24
--- OUTSIDE RECORDS SUMMARY | 2024-11-19 10:19 | XMS_ITS | Encounter Summary ---
Author Organization [facility] Address [address] [place] [address] Care Team Providers Care Specialized Developer Name Role Phone Mamta Klein MD Primary Care Provider [phone] Encounter Details Date Type Department Care Team (Late st Contact Info) Description 11/08/2024 Lab Requisition [facility] - Main Lab [address] [facility] [employer] [place] [address] Mamta Klein MD [address] [place], [place] [phone] Essential (primary) hypertension; Unspecified atrial fibrillation (CMS/HCC V24, CMS/HCC V28) Social History Tobacco Use Types Packs/Day Years [...] Diagnosis Comments PROTHROMBIN TIME WITH INR Routine 11/09/2024 7:14 AM EDT Essential (primary) hypertension Unspecified atrial fibrillation (CMS/HCC V24, CMS/HCC V28) documented in this encounter Results * (ABNORMAL) Prothrombin time with INR (11/09/2024 7:14 AM EDT) Protime 19.9(H) 10.6 - 13.9 sec LAB COAGULATION METHOD 11/09/2024 9:33 AM EDT [facility] INR 1.6 LAB COAGULATION METHOD 11/09/2024 9:33 AM EDT [facility] Blood Venous blood specimen / Unknown Venipuncture / Unknown 11/09/2024 7:14 AM EDT 11/09/2024 9:02 AM EDT Mamta Klein MD LAB BLOOD ORDERABLES Final Resul t [facility] [address] [place] [address], documented in this encounter Visit Diagnoses Diagnosis Essential (primary) hypertension Unspecified essential hypertension Unspecified atrial fibrillation (CMS/HCC V24, CMS/HCC V28) documented in this encounter Care Teams Specialized Developer Relationship Specialty Start Date End Date Mamta Klein MD [address] [place] [address] [address] [place] [address] PCP - General Geriatric Medicine 11/05/24 documented as of this encounter
--- OUTSIDE RECORDS SUMMARY | 2024-11-19 10:19 | XMS_ITS | Encounter Summary ---
Author Organization [facility] Address [facility] [employer] [address] [address] Phone Care Team Providers Care Cooker Sulfate Name Role Phone Tres Crum DO Primary Care Provider [phone] Tres Crum DO Primary Care Provider [phone] Ina Matos Unavailable [phone] Reason for Referral * Outpatient Procedure - Closed Specialty Diagnoses / Procedures Referred By Radha yee Referred To Contact Diagnoses Dyspnea on exertion Procedures Adult Echo TTE Marisol Mcdermott PA-C Phone: tel: fax: Referral ID Status Reason Start Date Expiration Date Visits Re quested Visits Authorized [id number] Closed 03/15/2018 03/15/2019 1 1 Encounter Details Date Type Department Care Team (Late st Contact Info) Description 03/15/2018 Ancillary Orders Virtual Department [address] [place] [address] Marisol Mcdermott PA-C [address] [place] [address] Dyspnea on exertion Social History Tobacco Use [...] Care Team (Late st Contact Info) Description 11/20/2024 2:00 PM EDT Office Visit Anticoagulation Clinic [address] [place] [address] Tres Crum, [address] [facility] [place] [address] [place] [address] 01/25/2025 9:30 AM EST Appointment [facility] [address] [place] [address] 01/25/2025 10:30 AM EST Office Visit [facility] [address] [place] [address] Ina Matos MBBS [address] [place] [address] documented as of this encounter Results * [...] abnormality documented in this encounter Care Teams Cooker Sulfate Relationship Specialty Start Date End Date Tres Crum DO PCP - General 12/30/16 05/13/24 Tres Crum DO [address] [place] [address] PCP - General Internal Medicine 05/14/24 Ina Matos MBBS [address] [place] [address] Primary Oncologist Medical Oncology 06/07/24 documented as of this encounter Additional Source Comments The information contained in this document represents components of the legal health record. It is not the complete legal health record.[facility]
--- OUTSIDE RECORDS SUMMARY | 2024-11-19 10:19 | XMS_ITS | Encounter Summary ---
Author Organization [facility] Address [facility] [address] [address] Phone Care Team Providers Care Linderman Operator Name Role Phone Tres Crum DO Primary Care Provider [phone] Tres Crum DO Primary Care Provider [phone] Ina Matos Unavailable [phone] Encounter Details Date Type Department Care Team (Latest Contact Info) Description 08/30/2017 Transcribe Orders [facility] [address] [place] [address] Marisol Mcdermott PA-C [address] [place] [address] Ataxia (Primary Dx) Social History Tobacco Use Types Packs/Day Years Used Date Smoking Tobacco: Former Cigarettes Q uit: 1976 Smokeless Tobacco: Never Alcohol Use Standard Drinks/Week [...] PM EDT Office Visit Anticoagulation Clinic [address] [place] [address] Tres Crum DO [address] [place] [address] 01/25/2025 9:30 AM EST Appointment [facility] [address] [place] [address] 01/25/2025 10:30 AM EST Office Visit [facility] [address] [place] [address] Ina Matos MBBS [address] [place] [address] [email or web address] documented as of this encounter Results * (ABNORMAL) Comprehensive metabolic panel (08/30/2017 11:05 AM EDT) SODIUM 144 133 - 146 mmol/L [facility] POTASSIUM 5.2(H) 3.3 - 5.1 mmol/L [facility] CHLORIDE 103 96 - 108 mmol/L [facility] CO2 28 21 - 35 mmol/L [facility] BUN 25(H) 6 - 19 mg/dL [facility] CREATININE 0.90 0.5 - 1.5 mg/dL [facility] GLUCOSE 120(H) 70 - 99 mg/dL [facility] ALBUMIN 4.0 3.9 - 4.8 g/dL [facility] TOTAL PROTEIN 7.1 6.5 - 8.0 g/dL [facility] CALCIUM 8.8 8.4 - 10.3 mg/dL [facility] ALKALINE PHOSPHATASE 123(H) 39 - 117 U/L [facility] TOTAL BILIRUBIN 0.3 0.0 - 1.2 mg/dL [facility] AST 24 0 - 37 U/L [facility] ALT 21 0 - 40 U/L [facility] GLOBULIN 3.1 1 - 4.8 g/dL [facility] EGFR 83 >59 mL/min/1.7 3m2 [facility] Comment:If patient is black, multiply result by 1.159. Estimated glomerular filtration rate calculated using the CKD-EPI equation. ANION GAP 18 10 - 20 mmol/L [facility] Blood 08/30/2017 11:0 5 AM EDT 08/30/2017 11:17 AM EDT June Sharron [facility] LAB BLOOD ORDERABLES Final R esult [address] [address] documented in this encounter Visit Diagnoses Diagnosis Ataxia- Primary Lack of coordination documented in this encounter Care Teams Linderman Operator Relationship Specialty Start Date End Date Tres Crum DO PCP - General 12/30/16 05/13/24 Tres Crum DO [address] [place] [address] PCP - General Internal Medicine 05/14/24 Ina Matos MBBS [address] [place] [address] Primary Oncologist Medical Oncology 06/07/24 documented as of this encounter Additional Source Comments The information contained in this document represents components of the legal health record. It is not the complete legal health record.[facility]
--- OUTSIDE RECORDS SUMMARY | 2024-11-19 10:19 | XMS_ITS | Encounter Summary ---
Author Organization [facility] Address [address] [place] [address] Care Team Providers Care Information Systems Supervisor Name Role Phone Mamta Klein MD Primary Care Provider [phone] Encounter Details Date Type Department Care Team (Late st Contact Info) Description 11/15/2024 Lab Requisition [facility] - Main Lab [address] [facility] [place] [address] Mamta Klein MD [address] [place], [place] [phone] Unspecified atrial fibrillation (CMS/HCC V24, CMS/HCC V28) [...] time with INR (11/16/2024 5:45 AM EDT) Protime 14.5(H) 10.6 - 13.9 sec LAB COAGULATION METHOD 11/16/2024 8:48 AM EDT [facility] INR 1.2 LAB COAGULATION METHOD 11/16/2024 8:48 AM EDT [facility] Blood Venous blood specimen / Unknown Venipuncture / Unknown 11/16/2024 5:45 AM EDT 11/16/2024 8:29 AM EDT Mamta Klein MD LAB BLOOD ORDERABLES Final Resul t [facility] [address] [place] [address], documented in this encounter Visit Diagnoses Diagnosis Unspecified atrial fibrillation (CMS/HCC V24, CMS/HCC V28) documented in this encounter Care Teams Information Systems Supervisor Relationship Specialty Start Date End Date Mamta Klein MD [address] [place] [address] [address] [place] [address] PCP - General Geriatric Medicine 11/05/24 documented as of this encounter
--- OUTSIDE RECORDS SUMMARY | 2024-11-19 10:19 | XMS_ITS | Encounter Summary ---
Author Organization [facility] Address [address] [employer] [address] [address] Phone Care Team Providers Care Sr Community Manager Name Role Phone Tres Crum DO Primary Care Provider [phone] Tres Crum DO Primary Care Provider [phone] Ina Matos Unavailable [phone] Encounter Details Date Type Department Care Team (Late st Contact Info) Description 09/17/2019 Procedure Pass 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 Not on file Not on file Not on file documented as of this encounter Plan of Treatment Upcoming Encounters Date Type Department Care Team (Late st Contact Info) Description 11/20/2024 2:00 PM EDT Office Visit Anticoagulation Clinic [address] [place] [address] Tres Crum DO [address] [facility] [place], [place] [phone] 01/25/2025 9:30 AM EST Appointment [facility] [address] [place] [address] 01/25/2025 10:30 AM EST Office Visit [facility] [place] [address] [place] [address] Ina Matos MBBS [address] [place] [address] documented as of this encounter Visit Diagnoses Not on filedocumented in this encounter Care Teams Sr Community Manager Relationship Specialty Start Date End Date Tres Crum DO PCP - General 12/30/16 05/13/24 Tres Crum DO [address] [place] [address] PCP - General Internal Medicine 05/14/24 Ina Matos MBBS [address] [place] [address] Primary Oncologist Medical Oncology 06/07/24 documented as of this encounter Additional Source Comments The information contained in this document represents components of the legal health record. It is not the complete legal health record.[facility]
--- OUTSIDE RECORDS SUMMARY | 2024-11-19 10:19 | XMS_ITS | Encounter Summary ---
Author Organization [facility] Address [address] [place] [phone] Care Team Providers Care Business Liaison Officer Name Role Phone Mamta Klein MD Primary Care Provider [phone] Encounter Details Date Type Department Care Team (Late st Contact Info) Description 11/05/2024 Lab Requisition [facility] - Main Lab [address] [place] [address] Mamta Klein MD [address] [place], [place] [phone] Essential (primary) hypertension; Unspecified atrial fibrillation (CMS/HCC [...] Diagnosis Comments PROTHROMBIN TIME WITH INR Routine 11/05/2024 4:50 AM EDT Essential (primary) hypertension Unspecified atrial fibrillation (CMS/HCC V24, CMS/HCC V28) COMPLETE BLOOD COUNT Routine 11/05/2024 4:50 AM EDT Essential (primary) hypertension Unspecified atrial fibrillation (CMS/HCC V24, CMS/HCC V28) COMPREHENSIVE METABOLIC PANEL Routine 11/05/2024 4:50 AM EDT Essential (primary) hypertension Unspecified atrial fibrillation (CMS/HCC V24, CMS/HCC V28) documented in this encounter Results * Comprehensive metabolic panel (11/05/2024 4:50 AM EDT) Sodium 140 133 - 145 mmol/L LAB CHEMISTRY METHOD 11/05/2024 11:04 AM [facility] Potassium 4.3 3.5 - 5.5 mmol/L LAB CHEMISTRY METHOD 11/05/2024 11:04 AM [facility] Chloride 106 96 - 110 mmol/L LAB CHEMISTRY METHOD 11/05/2024 11:04 AM [facility] CO2 27 21 - 32 mmol/L LAB CHEMISTRY METHOD 11/05/2024 11:04 AM [facility] Anion Gap 7 3 - 11 LAB CHEMISTRY METHOD 11/05/2024 11:04 AM [facility] Glucose 83 70 - 100 mg/dL LAB CHEMISTRY METHOD 11/05/2024 11:04 AM [facility] BUN 20 5 - 25 mg/dL LAB CHEMISTRY METHOD 11/05/2024 11:04 AM [facility] Creatinine 0.73 0.70 - 1.30 mg/dL LAB CHEMISTRY METHOD 11/05/2024 11:04 AM [facility] eGFR 90 >=60 mL/min/1. 73m2 LAB CHEMISTRY METHOD 11/05/2024 11:04 AM [facility] Comment:Calculation based on the Chronic Kidney Disease Epidemiology Collaboration (CKD-EPI) equation refit without adjustment for race. BUN/Creatinine Ratio 27.4 LAB CHEMISTRY METHOD 11/05/2024 11:04 AM [facility] Calcium 8.8 8.5 - 10.5 mg/dL LAB CHEMISTRY METHOD 11/05/2024 11:04 AM [facility] AST (SGOT) 19 10 - 42 unit/L LAB CHEMISTRY METHOD 11/05/2024 11:04 AM [facility] ALT (SGPT) 33 10 - 60 unit/L LAB CHEMISTRY METHOD 11/05/2024 11:04 AM EDT [facility] Alkaline Phosphatase 88 42 - 121 unit/L LAB CHEMISTRY METHOD 11/05/2024 11:04 AM EDT [facility] Total Protein 6.4 6.0 - 8.0 g/dL LAB CHEMISTRY METHOD 11/05/2024 11:04 AM EDT [facility] Albumin 3.6 3.2 - 5.0 g/dL LAB CHEMISTRY METHOD 11/05/2024 11:04 AM EDT [facility] Total Bilirubin 0.5 0.0 - 1.4 mg/dL LAB CHEMISTRY METHOD 11/05/2024 11:04 AM EDT [facility] Blood Venous blood specimen / Unknown Venipuncture / Unknown 11/05/2024 4:50 AM EDT 11/05/2024 10:00 AM EDT us Mamta Klein MD LAB BLOOD ORDERABLES Final Resul t Performing Organization Address [facility] de Phone Number [facility] [address] [place] [address], [place] [phone] * (ABNORMAL) Prothrombin time with INR (11/05/2024 4:50 AM EDT) Protime 25.7(H) 10.6 - 13.9 sec LAB COAGULATION METHOD 11/05/2024 10:30 AM EDT [facility] INR 2.1 LAB COAGULATION METHOD 11/05/2024 10:30 AM EDT [facility] Blood Venous blood specimen / Unknown Venipuncture / Unknown 11/05/2024 4:50 AM EDT 11/05/2024 10:00 AM EDT us Mamta Klein MD LAB BLOOD ORDERABLES Final Resul t Performing Organization Address City/[facility]/ZIP Co de Phone Number [facility] [address] [place] [address], * (ABNORMAL) Complete blood count (11/05/2024 4:50 AM EDT) [facility] WBC 6.7 4.8 - 10.8 K/mcL LAB HEMETOLOGY METHOD 11/05/2024 10:38 AM T [facility] RBC 4.50 4.50 - 5.50 M/mcL LAB HEMETOLOGY METHOD 11/05/2024 10:38 AM EDT [facility] Hemoglobin 13.3(L) 13.5 - 17.5 g/dL LAB HEMETOLOGY METHOD 11/05/2024 10:38 AM [facility] Hematocrit 41.8(L) 42.0 - 54.0 % LAB HEMETOLOGY METHOD 11/05/2024 10:38 AM [facility] MCV 93.5 79.0 - 98.0 FL LAB HEMETOLOGY METHOD 11/05/2024 10:38 AM [facility] MCH 29.8 27.0 - 32.0 pcg LAB HEMETOLOGY METHOD 11/05/2024 10:38 AM [facility] MCHC 31.8(L) 32.0 - 37.0 g/dL LAB HEMETOLOGY METHOD 11/05/2024 10:38 AM [facility] RDW 13.7 11.0 - 15.0 % LAB HEMETOLOGY METHOD 11/05/2024 10:38 AM [facility] Platelets 213 130 - 400 K/mcL LAB HEMETOLOGY METHOD 11/05/2024 10:38 AM [facility] MPV 10.4 7.0 - 11.0 FL LAB HEMETOLOGY METHOD 11/05/2024 10:38 AM [facility] NRBC 0.0 <1.0 % LAB HEMETOLOGY METHOD 11/05/2024 10:38 AM EDT [facility] NRBC Absolute 0.00 <0.10 K/mcL LAB HEMETOLOGY METHOD 11/05/2024 10:38 AM EDT [facility] Blood Venous blood specimen / Unknown Venipuncture / Unknown 11/05/2024 4:50 AM EDT 11/05/2024 10:00 AM EDT Mamta Klein MD LAB BLOOD ORDERABLES Final Resul t [facility] [address] [place] [address], documented in this encounter Visit Diagnoses Diagnosis Essential (primary) hypertension Unspecified essential hypertension Unspecified atrial fibrillation (CMS/HCC V24, CMS/HCC V28) documented in this encounter Care Teams Business Liaison Officer Relationship Specialty Start Date End Date Mamta Klein MD [address] [place] [address] [address] [place] [address] PCP - General Geriatric Medicine 11/05/24 documented as of this encounter
--- OUTSIDE RECORDS SUMMARY | 2024-11-19 10:20 | XMS_ITS | Encounter Summary ---
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 Not on file Not on file Not on file documented as of this encounter Plan of Treatment Upcoming Encounters Date Type Department Care Team (Late st Contact Info) Description 11/20/2024 2:00 PM EDT Office Visit Anticoagulation Clinic [address] [place] [address] Tres Crum DO [address] [facility] [place], [place] [phone] 01/25/2025 9:30 AM EST Appointment [facility] [address] [place] [address] 01/25/2025 10:30 AM EST Office Visit [facility] [address] [place] [address] Ina Matos [employer]BS [address] [place] [address] documented as of this encounter Visit Diagnoses Not on filedocumented in this encounter Care Teams Financial Services Internship Relationship Specialty Start Date End Date Tres Crum DO PCP - General 12/30/16 05/13/24 Tres Crum DO [address] [place] [address] PCP - General Internal Medicine 05/14/24 Ina Matos MBBS [address] [place] [address] Primary Oncologist Medical Oncology 06/07/24 documented as of this encounter Additional Source Comments The information contained in this document represents components of the legal health record. It is not the complete legal health record.[facility]
--- OUTSIDE RECORDS SUMMARY | 2024-11-19 10:20 | XMS_ITS | Encounter Summary ---
Author Organization [facility] Address [facility] [address] [address] Phone Care Team Providers Care Remote Sensing Scientist Name Role Phone Tres Crum DO Primary Care Provider [phone] Tres Crum DO Primary Care Provider [phone] Ina Matos Unavailable [phone] Encounter Details Date Type Department Care Team (Latest Contact Info) Description 03/23/2017 Transcribe Orders Virtual Department [address] [place] [address] Marisol Mcdermott PA-C [address] [place]. [address] [place] [id number] Productive cough (Primary Dx); Cough Social History Tobacco Use Types Packs/Day Years [...] PM EDT Office Visit Anticoagulation Clinic [address] [place] [address] Tres Crum DO [address] [facility] [place] [address] [email or web address] 01/25/2025 9:30 AM EST Appointment [facility] [address] [place] [address] 01/25/2025 10:30 AM EST Office Visit [facility] [address] [place] [address] Ina Matos [employer] [address] [place] [address] [email or web address] documented as of this encounter Results * FL (Speech) Video Swallow Study (05/04/2017 10:57 AM EST) Anatomical Region Laterality Modality Radiographic Adriana ging 05/04/2017 11:2 0 AM EST Addenda Addendum by Andrae Mccall MD on 05/30/2017 8:17 AM EDT COMPARISON: None. FINDINGS: A preliminary lateral view of the neck <<< REVEALS MILD >>> degenerative disc changes which are partially visualized at the C5-6 level due to the patient's shoulders. <<< WITH HIM >>> in the upright lateral projection foods of varying consistency were sequentially presented by the speech pathologist with deglutition assessed fluoroscopically and recorded on rapid sequence digital images. Thin liquid barium was swallowed without difficulty, with adequate tongue base control and no evidence of epiglottic penetration or gross cricopharyngeal achalasia. There appeared to be adequate oral control of applesauce with barium paste and ammy cracker with barium paste and no aspiration was noted once the swallow was triggered. There was a small amount of residual material present in the vallecula following ingestion of cracker, which partially cleared after additional ingestion of thin barium. IMPRESSION: No findings of aspiration. Minimal residual solid material present in the vallecula. No other hypopharyngeal dysmotility identified. The results of this examination were reviewed with the speech pathologist upon completion of the study. FLUOROSCOPY TIME: 2 min. 33 sec; 808 IMAGES/FRAMES POS - [id number] Edited by: Luisana Seals on 05/22/2017 1:16 PM Impressions 05/04/2017 11:23 AM EST No findings of aspiration. Minimal residual solid material present in the vallecula. No other hypopharyngeal dysmotility identified. The results of this examination were reviewed with the speech pathologist upon completion of the study. FLUOROSCOPY TIME: 2 min. 33 sec; 808 IMAGES/FRAMES POS - [id number] Narrative 05/04/2017 11:23 AM EST COMPARISON: None FINDINGS: A preliminary lateral view of the neck reveal no MILD degenerative disc changes which are partially visualized at the C5-6 level due to the patient's shoulders. In the upright lateral projection foods of varying consistency were sequentially presented by the speech pathologist with deglutition assessed fluoroscopically and recorded on rapid sequence digital images. Thin liquid barium was swallowed without difficulty, with adequate tongue base control and no evidence of epiglottic penetration or gross cricopharyngeal achalasia. There appear to be adequate oral control of applesauce with barium paste and ammy cracker with barium paste and no aspiration was noted once the swallow was triggered. There was a small amount of residual material present in the vallecula following ingestion of cracker, which partially cleared after additional ingestion of thin barium. Procedure Note Andrae Mccall MD - 05/04/2017 COMPARISON: None FINDINGS: A preliminary lateral view of the neck reveal no MILD degenerative discchanges which are partially visualized at the C5-6 level due to thepatient's shoulders. In the upright lateral projection foods of varyingconsistency were sequentially presented by the speech pathologist withdeglutition assessed fluoroscopically and recorded on rapid sequencedigital images. Thin liquid barium was swallowed without difficulty, with adequate tonguebase control and no evidence of epiglottic penetration or grosscricopharyngeal achalasia. There appear to be adequate oral control ofapplesauce with barium paste and ammy cracker with barium paste and noaspiration was noted once the swallow was triggered. There was a smallamount of residual material present in the vallecula following ingestionof cracker, which partially cleared after additional ingestion of thinbarium. IMPRESSION: No findings of aspiration. Minimal residual solid material present in thevallecula. No other hypopharyngeal dysmotility identified. The results of this examination were reviewed with the speech pathologistupon completion of the study. FLUOROSCOPY TIME: 2 min. 33 sec; 808 IMAGES/FRAMES POS - [id number] June Sharron VIRAMONTES IMG FL EXAMS Edited Resul t - Final documented in this encounter Visit Diagnoses Diagnosis Productive cough- Primary Cough Cough Dysphagia, unspecified type- Primary documented in this encounter Care Teams Remote Sensing Scientist Relationship Specialty Start Date End Date Tres Crum DO PCP - General 12/30/16 05/13/24 Tres Crum DO [address] [place] [address] PCP - General Internal Medicine 05/14/24 Ina Matos [employer] [address] [place] [address] Primary Oncologist Medical Oncology 06/07/24 documented as of this encounter Additional Source Comments The information contained in this document represents components of the legal health record. It is not the complete legal health record.[facility]
--- OUTSIDE RECORDS SUMMARY | 2024-11-19 10:20 | XMS_ITS | Encounter Summary ---
Author Organization [facility] Address [address] [place] [phone] Care Team Providers Care Car Designer Name Role Phone Mamta Klein MD Primary Care Provider Encounter Details Date Type Department Care Team (Late st Contact Info) Description 11/13/[address] [facility] - Main Lab [address] [facility] [place] [address] Mamta Klein MD [address] [place] [address] terminal clerk (current) use of anticoagulants Social History Tobacco Use Types Packs/Day Years [...] Diagnosis Comments PROTHROMBIN TIME WITH INR Routine 11/13/2024 6:10 AM EDT terminal clerk (current) use of anticoagulants documented in this encounter Results * Prothrombin time with INR (11/13/2024 6:10 AM EDT) Protime 12.6 10.6 - 13.9 sec LAB COAGULATION METHOD 11/13/2024 1:19 PM EDT [facility] INR 1.0 LAB COAGULATION METHOD 11/13/2024 1:19 PM EDT [facility] Blood Venous blood specimen / Unknown Venipuncture / Unknown 11/13/2024 6:10 AM EDT 11/13/2024 12:58 PM EDT us Mamta Klein MD LAB BLOOD ORDERABLES Final Resul t [facility] [address] [place] [address], [place] [phone] documented in this encounter Visit Diagnoses Diagnosis terminal clerk (current) use of anticoagulants Long-term (current) use of anticoagulants documented in this encounter Care Teams Car Designer Relationship Specialty Start Date End Date Mamta Klein MD [address] [facility] [address] [place] [address] PCP - General Geriatric Medicine 11/05/24 documented as of this encounter
--- OUTSIDE RECORDS SUMMARY | 2024-11-19 10:20 | XMS_ITS | Encounter Summary ---
Author Organization [facility] Address [address] [place] [phone] Care Team Providers Care Recycling Assistant Name Role Phone Mamta Klein MD Primary Care Provider [phone] Encounter Details Date Type Department Care Team (Late st Contact Info) Description 05/24/2024 Lab Requisition [facility] - Main Lab [address] [place] [address] Mamta Klein MD [address] [place], [place] [phone] Anemia, unspecified; Vitamin B12 deficiency anemia, unspecified; Hypothyroidism, unspecified; Hyperlipidemia, unspecified; Malignant neoplasm of colon, unspecified (CMS/HCC V24, CMS/HCC V28); Vitamin D deficiency, unspecified Social History Tobacco [...] mmol/L LAB CHEMISTRY METHOD 05/25/2024 11:31 AM [facility] Potassium 4.5 3.5 - 5.5 mmol/L LAB CHEMISTRY METHOD 05/25/2024 11:31 AM [facility] Chloride 109 96 - 110 mmol/L LAB CHEMISTRY METHOD 05/25/2024 11:31 AM [facility] CO2 26 21 - 32 mmol/L LAB CHEMISTRY METHOD 05/25/2024 11:31 AM [facility] Anion Gap 6 3 - 11 LAB CHEMISTRY METHOD 05/25/2024 11:31 AM [facility] Glucose 94 70 - 100 mg/dL LAB CHEMISTRY METHOD 05/25/2024 11:31 AM [facility] BUN 19 5 - 25 mg/dL LAB CHEMISTRY METHOD 05/25/2024 11:31 AM [facility] Creatinine 0.67(L) 0.70 - 1.30 mg/dL LAB CHEMISTRY METHOD 05/25/2024 11:31 AM [facility] eGFR 93 >=60 mL/min/1. 73m2 LAB CHEMISTRY METHOD 05/25/2024 11:31 AM [facility] Comment:Calculation based on the Chronic Kidney Disease Epidemiology Collaboration (CKD-EPI) equation refit without adjustment for race. BUN/Creatinine Ratio 28.4 LAB CHEMISTRY METHOD 05/25/2024 11:31 AM [facility] Calcium 8.6 8.5 - 10.5 mg/dL LAB CHEMISTRY METHOD 05/25/2024 11:31 AM [facility] Blood Venous blood specimen / Unknown Venipuncture / Unknown 05/25/2024 4:50 AM EDT 05/25/2024 10:20 AM EDT us Mamta Klein MD LAB BLOOD ORDERABLES Final Resul t [facility] [address] [place] [address], * (ABNORMAL) Complete blood count (05/25/2024 4:50 AM EDT) WBC 5.9 4.8 - 10.8 K/mcL LAB HEMETOLOGY METHOD 05/25/2024 10:46 AM EDT [facility] RBC 3.80(L) 4.50 - 5.50 M/mcL LAB HEMETOLOGY METHOD 05/25/2024 10:46 AM EDT [facility] Hemoglobin 11.1(L) 13.5 - 17.5 g/dL LAB HEMETOLOGY METHOD 05/25/2024 10:46 AM EDT [facility] Hematocrit 35.8(L) 42.0 - 54.0 % LAB HEMETOLOGY METHOD 05/25/2024 10:46 AM EDT [facility] MCV 95.0 79.0 - 98.0 FL LAB HEMETOLOGY METHOD [facility]24 [facility] MCH 29.4 27.0 - 32.0 pcg LAB HEMETOLOGY METHOD 05/25/2024 10:46 AM EDT [facility] MCHC 31.0(L) 32.0 - 37.0 g/dL LAB HEMETOLOGY METHOD 05/25/2024 10:[facility] RDW 12.7 11.0 - 15.0 % LAB HEMETOLOGY METHOD 05/25/2024 10:[facility] Platelets 229 130 - 400 K/mcL LAB HEMETOLOGY METHOD 05/25/2024 10:46 AM EDT [facility] MPV 10.5 7.0 - 11.0 FL LAB HEMETOLOGY METHOD 05/25/2024 10:46 AM EDT [facility] NRBC 0.0 <1.0 % LAB HEMETOLOGY METHOD 05/25/2024 10:46 AM EDT [facility] NRBC Absolute 0.00 <0.10 K/mcL LAB HEMETOLOGY METHOD 05/25/2024 10:46 AM EDT [facility] Blood Venous blood specimen / Unknown Venipuncture / Unknown 05/25/2024 4:50 AM EDT 05/25/2024 10:20 AM EDT Mamta Klein MD LAB BLOOD ORDERABLES Final Resul t [facility] [address] [place] [address], documented in this encounter Visit Diagnoses Diagnosis Anemia, unspecified Vitamin B12 deficiency anemia, unspecified Hypothyroidism, unspecified Hyperlipidemia, unspecified Malignant neoplasm of colon, unspecified (CMS/HCC V24, CMS/HCC V28) Vitamin D deficiency, unspecified documented in this encounter Care Teams Recycling Assistant Relationship Specialty Start Date End Date Mamta Klein MD [address] [place] [address] [address] [place] [address] PCP - General Geriatric Medicine 11/05/24 documented as of this encounter
--- OUTSIDE RECORDS SUMMARY | 2024-11-19 10:20 | XMS_ITS | Encounter Summary ---
Author Organization [facility] Address [address] [place] [address] Care Team Providers Care Manager Respiratory Name Role Phone Mamta Klein MD Primary Care Provider [phone] Encounter Details Date Type Department Care Team (Late st Contact Info) Description 06/07/2024 Lab Requisition [facility] - Main Lab [address] [facility] [place] [address] Mamta Klein MD [address] [place] [address] Chronic kidney disease, unspecified; Hyperlipidemia, unspecified; Vitamin [...] unspecified documented in this encounter Care Teams Manager Respiratory Relationship Specialty Start Date End Date Mamta Klein MD [address] [place], [place] [id number] PCP - General Geriatric Medicine 11/05/24 documented as of this encounter
--- OUTSIDE RECORDS SUMMARY | 2024-11-19 10:20 | XMS_ITS | Encounter Summary ---
Author Organization [facility] Address [facility] [employer] [address] [address] Phone Care Team Providers Care Lathe Mechanic Name Role Phone VelmaTres [email or web address] Primary Care Provider [phone] Tres Crum DO Primary Care Provider [phone] Ina Matos Unavailable [phone] Encounter Details Date Type Department Care Team (Latest Contact Info) Description 09/23/2017 Transcribe Orders [facility] [address] [place], [place] [id number] Marisol Mcdermott PA-C [address] [place] [address] Hyperlipidemia, unspecified hyperlipidemia type (Primary Dx); Encounter for general adult medical examination with abnormal findings; Impaired fasting glucose Social History Tobacco Use Types Packs/Day Years [...] PM EDT Office Visit Anticoagulation Clinic [address] [place] [address] Tres Crum, DO 179 [facility] [place] [address] [email or web address] 01/25/2025 9:30 AM EST Appointment [facility] [address] [place] [address] 01/25/2025 10:30 AM EST Office Visit [facility] [address] [place] [address] Ina Matos MBBS 30 [place] [address] [email or web address] documented as of this encounter Results * Hemoglobin A1c (09/23/2017 1:32 PM EDT) HEMOGLOBIN A1C 5.4 4.3 - 5.8 % [facility] Blood 09/23/2017 1:32 PM EDT 09/23/2017 1:35 PM EDT June Sharron VIRAMONTES LAB BLOOD ORDERABLES Final R esult [address] [address] * (ABNORMAL) Lipid panel (09/23/2017 1:32 PM EDT) HDL 69 mg/dL [facility] Comment: Interpretation: Risk Level Males Decreased >45 mg/dL Average 40-45 mg/dL Increased <40 mg/dL CHOLESTEROL 216 0 - 240 mg/dL [facility] TRIGLYCERIDES 134 30 - 160 mg/dL [facility] LDL 120 50 - 129 mg/dL [facility] Comment: LDL levels in terms of risk for coronary heart disease: <100 mg/dL: Optimal 100-129 mg/dL: Near or above optimal 130-159 mg/dL: Borderline high 160-189 mg/dL: High >190 mg/dL: Very High CARDIAC RISK RATIO 3.1(L) 3.4 - 5.0 C [facility] Blood 09/23/2017 1:32 PM EDT 09/23/2017 1:35 PM EDT June Sharron MARCOS-Adia LAB BLOOD ORDERABLES Final R esult Performing Organization Address [facility]/ZIP Co de Phone Number [address] [address] * ABO and Rh (09/23/2017 1:32 PM EDT) ABO/Rh O Positive [facility] Resulting Agency [facility] Blood 09/23/2017 1:32 PM EDT 09/23/2017 1:36 PM EDT June Sharron PA-C BLOOD BANK TEST ORDERABLES F inal Result Performing Organization Address [facility]/ZIP Co de Phone Number [address] [address] documented in this encounter Visit Diagnoses Diagnosis Hyperlipidemia, unspecified hyperlipidemia type- Primary Encounter for general adult medical examination with abnormal findings Impaired fasting glucose documented in this encounter Care Teams Lathe Mechanic Relationship Specialty Start Date End Date Tres Crum DO [email or web address] PCP - General 12/30/16 05/13/24 Tres Crum DO [address] [place] [address] [email or web address] PCP - General Internal Medicine 05/14/24 Ina Matos MBBS 30 [place] [address] [email or web address] Primary Oncologist Medical Oncology 06/07/24 documented as of this encounter Additional Source Comments The information contained in this document represents components of the legal health record. It is not the complete legal health record.[facility]
--- OUTSIDE RECORDS SUMMARY | 2024-11-19 10:20 | XMS_ITS | Encounter Summary ---
Author Organization [facility] Address [address] [address] Phone Care Team Providers Care Pattern Hand Name Role Phone Tres Crum DO Primary Care Provider [phone] Tres Crum DO Primary Care Provider [phone] Ina Matos Unavailable Encounter Details Date Type Department Care Team (Late st Contact Info) Description 03/09/2018 Transcribe Orders Virtual Department 30 [place] [address] Tres Crum DO 179 [place] [address] [email or web address] Social History Tobacco Use Types Packs/Day Years [...] PM EDT Office Visit Anticoagulation Clinic 30 [place] [address] Tres Crum DO 179 [place] [address] 01/25/2025 9:30 AM EST Appointment [facility] 30 [place] [address] 01/25/2025 10:30 AM EST Office Visit [facility] 30 [place] [address] Ina Matos MBBS 30 [place] [address] documented as of this encounter Visit Diagnoses Not on filedocumented in this encounter Care Teams Pattern Hand Relationship Specialty Start Date End Date Tres Crum DO PCP - General 12/30/16 05/13/24 Tres Crum DO 179 [place] [address] PCP - General Internal Medicine 05/14/24 Ina Matos MBBS [address] [place] [phone] Primary Oncologist Medical Oncology 06/07/24 documented as of this encounter Additional Source Comments The information contained in this document represents components of the legal health record. It is not the complete legal health record.[facility]
--- OUTSIDE RECORDS SUMMARY | 2024-11-19 10:20 | XMS_ITS | Encounter Summary ---
Author Organization [facility] Address [address] [employer] [address] [address] Phone Care Team Providers Care Seam Taper Machine Name Role Phone Tres Crum DO Primary Care Provider [phone] Tres Crum DO Primary Care Provider [phone] Ina Matos Unavailable [phone] Reason for Referral * Consultation (Elective) - Closed Specialty Diagnoses / Procedures Referred By Contac t Referred To Contact Diagnoses Atrial fibrillation, unspecified type Tres Crum DO Phone: tel: fax: mailto: [facility] 30 [place] [address] Phone: tel: Referral ID Status Reason Start Date Expiration Date Visits Re quested Visits Authorized [id number] Closed 03/21/2017 03/21/2018 1 1 Encounter Details Date Type Department Care Team (Late st Contact Info) Description 03/21/2017 Transcribe Orders [facility] Department 30 [place] [address] Tres Crum DO 179 [facility] [place] [address] [place] [address] Atrial fibrillation, unspecified type (Primary Dx) Social History Tobacco Use Types [...] PM EDT Office Visit Anticoagulation Clinic 30 [place] [address] Tres Crum DO 179 [place] [address] [email or web address] 01/25/2025 9:30 AM EST Appointment [facility] Laboratory 30 [place] [address] 01/25/2025 10:30 AM EST Office Visit [facility] 30 [place] [address] Ina Matos MBBS 30 [place] [address] documented as of this encounter Procedures Procedure Name Priority Date/Time Associated Diagnosis Comments AMB REFERRAL TO [facility] ANTICOAGULATION CLINIC Routine 05/03/2017 2:58 PM EST Atrial fibrillation, unspecified type documented in this encounter Results * Ambulatory referral to [facility] Anticoagulation Clinic (05/03/2017 2:58 PM EST) us Tres OROSCO [facility] REFERRALS Final Result documented in this encounter Visit Diagnoses Diagnosis Atrial fibrillation, unspecified type- Primary documented in this encounter Care Teams Seam Taper Machine Relationship Specialty Start Date End Date Tres Crum DO PCP - General 12/30/16 05/13/24 Tres Crum DO [address] [place] [address] [email or web address] PCP - General Internal Medicine 05/14/24 Ina Matos MBBS [address] [place] [phone] [email or web address] Primary Oncologist Medical Oncology 06/07/24 documented as of this encounter Additional Source Comments The information contained in this document represents components of the legal health record. It is not the complete legal health record.[facility]
--- OUTSIDE RECORDS SUMMARY | 2024-11-19 10:20 | XMS_ITS | Encounter Summary ---
Author Organization [facility] Address [facility] [employer] [address] [address] Phone Care Team Providers Care Car Mechanic Name Role Phone Tres Crum DO Primary Care Provider [phone] Tres Crum DO Primary Care Provider [phone] Ina Matos Unavailable [phone] Encounter Details Date Type Department Care Team (Late st Contact Info) Description 03/23/2017 Ancillary Orders [facility], X-Ray - [address] [address] Marisol Mcdermott PA-C [address] [place] [address] Cough Social History Tobacco Use Types Packs/Day [...] 2:00 PM EDT Office Visit Anticoagulation Clinic [address] [place] [address] Tres Crum, DO 179 [facility] [place] [address] [email or web address] 01/25/2025 9:30 AM EST Appointment [facility] 30 [place] [address] 01/25/2025 10:30 AM EST Office Visit [facility] 30 [place] [address] Ina Matos MBBS 30 [place] [address] [email or web address] documented as of this encounter Results * XR CHEST PA AND LATERAL 2 VIEWS (03/23/2017 3:00 PM EST) Anatomical Region Laterality Modality Chest Radiographic Adriana ging 03/23/2017 3:02 PM EST Impressions 03/23/2017 3:03 PM EST No acute pulmonary process or explanation for cough and sputum production is noted. S/S: Cough and sputum production POS - [id number] Narrative 03/23/2017 3:03 PM EST COMPARISON: Chest x-ray March 03, 2016 FINDINGS: PA and lateral imaging of the chest is obtained. The heart size is normal. The lung kiser are clear. The patient has had a prior median sternotomy. No pneumothorax or pleural fluid is evident. The aortic contour is unchanged. There are moderate degenerative changes in the thoracic spine with a mid to lower thoracic compression fracture again noted. Procedure Note Abelardo Perera MD - 03/23/2017 COMPARISON: Chest x-ray March 03, 2016 FINDINGS: PA and lateral imaging of the chest is obtained. The heart size is normal. The lung kiser are clear. The patient has had a prior median sternotomy. No pneumothorax or pleural fluid is evident. The aortic contour is unchanged. There are moderate degenerative changes in the thoracic spine with a midto lower thoracic compression fracture again noted. IMPRESSION: No acute pulmonary process or explanation for cough and sputum productionis noted. S/S: Cough and sputum production POS - [id number] June Sharron VIRAMONTES IMG XR CHEST Final Result documented in this encounter Visit Diagnoses Diagnosis Cough Cough documented in this encounter Care Teams Car Mechanic Relationship Specialty Start Date End Date Tres Crum DO [email or web address] PCP - General 12/30/16 05/13/24 Tres Crum DO [address] [place] [address] [email or web address] PCP - General Internal Medicine 05/14/24 Ina Matos MBBS [address] [place] [address] Primary Oncologist Medical Oncology 06/07/24 documented as of this encounter Additional Source Comments The information contained in this document represents components of the legal health record. It is not the complete legal health record.[facility]
--- OUTSIDE RECORDS SUMMARY | 2024-11-19 10:20 | XMS_ITS | Encounter Summary ---
Author Organization [facility] Address [address] [place] [phone] Care Team Providers Care Art Appraiser Name Role Phone Mamta Klein MD Primary Care Provider [phone] Encounter Details Date Type Department Care Team (Late st Contact Info) Description 05/31/2024 Lab Requisition [facility] - Main Lab [address] [place] [address] Mamta Klein MD [address] [place], [place] [id number] Anemia, unspecified; Vitamin B12 deficiency anemia, unspecified; [...] mmol/L LAB CHEMISTRY METHOD 06/01/2024 10:54 AM [facility] Potassium 4.6 3.5 - 5.5 mmol/L LAB CHEMISTRY METHOD 06/01/2024 10:54 AM [facility] Chloride 111(H) 96 - 110 mmol/L LAB CHEMISTRY METHOD 06/01/2024 10:54 AM [facility] CO2 30 21 - 32 mmol/L LAB CHEMISTRY METHOD 06/01/2024 10:54 AM [facility] Anion Gap 3 3 - 11 LAB CHEMISTRY METHOD 06/01/2024 10:54 AM [facility] Glucose 105(H) 70 - 100 mg/dL LAB CHEMISTRY METHOD 06/01/2024 10:54 AM [facility] BUN 15 5 - 25 mg/dL LAB CHEMISTRY METHOD 06/01/2024 10:54 AM [facility] Creatinine 0.78 0.70 - 1.30 mg/dL LAB CHEMISTRY METHOD 06/01/2024 10:54 AM [facility] eGFR 89 >=60 mL/min/1. 73m2 LAB CHEMISTRY METHOD 06/01/2024 10:54 AM [facility] Comment:Calculation based on the Chronic Kidney Disease Epidemiology Collaboration (CKD-EPI) equation refit without adjustment for race. BUN/Creatinine Ratio 19.2 LAB CHEMISTRY METHOD 06/01/2024 10:54 AM [facility] Calcium 8.9 8.5 - 10.5 mg/dL LAB CHEMISTRY METHOD 06/01/2024 10:54 AM [facility] Blood Venous blood specimen / Unknown Venipuncture / Unknown 06/01/2024 7:30 AM EDT 06/01/2024 9:55 AM EDT us Mamta Klein MD LAB BLOOD ORDERABLES Final Resul t [facility] [address] [place] [address], * (ABNORMAL) Complete blood count (06/01/2024 7:30 AM EDT) WBC 5.3 4.8 - 10.8 K/mcL LAB HEMETOLOGY METHOD 06/01/2024 10:06 AM EDT [facility] RBC 3.70(L) 4.50 - 5.50 M/mcL LAB HEMETOLOGY METHOD 06/01/2024 10:06 AM [facility] Hemoglobin 10.8(L) 13.5 - 17.5 g/dL LAB HEMETOLOGY METHOD 06/01/2024 10:06 AM [facility] Hematocrit 34.9(L) 42.0 - 54.0 % LAB HEMETOLOGY METHOD 06/01/2024 10:06 AM [facility] MCV 94.6 79.0 - 98.0 FL LAB HEMETOLOGY METHOD 06/01/2024 10:[facility] MCH 29.3 27.0 - 32.0 pcg LAB HEMETOLOGY METHOD 06/01/2024 10:06 AM [facility] MCHC 30.9(L) 32.0 - 37.0 g/dL LAB HEMETOLOGY METHOD 06/01/2024 10:06 AM [facility] RDW 12.8 11.0 - 15.0 % LAB HEMETOLOGY METHOD 06/01/2024 10:06 AM [facility] Platelets 239 130 - 400 K/mcL LAB HEMETOLOGY METHOD 06/01/2024 10:06 AM [facility] MPV 10.7 7.0 - 11.0 FL LAB HEMETOLOGY METHOD 06/01/2024 10:06 AM EDT [facility] NRBC 0.0 <1.0 % LAB HEMETOLOGY METHOD 06/01/2024 10:06 AM EDT [facility] NRBC Absolute 0.00 <0.10 K/mcL LAB HEMETOLOGY METHOD 06/01/2024 10:06 AM EDT [facility] Blood Venous blood specimen / Unknown Venipuncture / Unknown 06/01/2024 7:30 AM EDT 06/01/2024 9:55 AM EDT us Mamta Klein MD LAB BLOOD ORDERABLES Final Resul t [facility] [address] [place] [address], documented in this encounter Visit Diagnoses Diagnosis Anemia, unspecified Vitamin B12 deficiency anemia, unspecified Hypothyroidism, unspecified Hyperlipidemia, unspecified Malignant neoplasm of colon, unspecified (CMS/HCC V24, CMS/HCC V28) Vitamin D deficiency, unspecified documented in this encounter Care Teams Art Appraiser Relationship Specialty Start Date End Date Mamta Klein MD [address] [place] [address] [address] [place] [address] PCP - General Geriatric Medicine 11/05/24 documented as of this encounter
--- OUTSIDE RECORDS SUMMARY | 2024-11-19 10:20 | XMS_ITS | Encounter Summary ---
Author Organization [facility] Address [facility] [employer] [address] [address] Phone Care Team Providers Care Admitting Clerk Name Role Phone Tres Crum DO Primary Care Provider [phone] Tres Crum DO Primary Care Provider [phone] Ina Matos Unavailable [phone] Reason for Referral * Physical Therapy (Routine) - Closed Specialty Diagnoses / Procedures Referred By Radha yee Referred To Contact Physical Therapy Diagnoses Encounter for rehabilitation Marisol Mcdermott PA-C Phone: tel: fax: [address] [address] Phone: tel: Referral ID Status Reason Start Date Expiration Date Visits Re quested Visits Authorized [id number] Closed 06/30/2017 03/13/2018 99 99 Encounter Details Date Type Department Care Team (Latest Contact Info) Description 06/30/2017 Transcribe Orders [facility] [address] [place] [address] Marisol Mcdermott PA-C [address] [place] [address] Encounter for rehabilitation (Primary Dx) Social History Tobacco Use Types [...] 2:00 PM EDT Office Visit Anticoagulation Clinic [address] [place] [address] Tres Crum DO 179 [place] [address] [email or web address] 01/25/2025 9:30 AM EST Appointment [facility] Laboratory [address] [place] [address] 01/25/2025 10:30 AM EST Office Visit [facility] 30 [place] [address] Ina Matos MBBS 30 [place] [address] [email or web address] Scheduled Referrals Name Type Priority Associated Diagnoses Orde r Schedule Ambulatory referral to [facility] Physical Therapy Outpatient Referral Routine Encounter for rehabilitation Ordered: 06/30/2017 documented as of this encounter Visit Diagnoses Diagnosis Encounter for rehabilitation- Primary documented in this encounter Care Teams Admitting Clerk Relationship Specialty Start Date End Date Tres Crum DO [email or web address] PCP - General 12/30/16 05/13/24 Tres Crum DO 179 [place] [address] [email or web address] PCP - General Internal Medicine 05/14/24 Ina Matos MBBS [address] [place] [address] [email or web address] Primary Oncologist Medical Oncology 06/07/24 documented as of this encounter Additional Source Comments The information contained in this document represents components of the legal health record. It is not the complete legal health record.[facility]
--- OUTSIDE RECORDS SUMMARY | 2024-11-19 10:20 | XMS_ITS | Encounter Summary ---
Author Organization [facility] Address [address] [employer] [address] [address] Phone Care Team Providers Care Locomotive Supervisor Name Role Phone Tres Crum DO Primary Care Provider [phone] Tres Crum DO Primary Care Provider [phone] Ina Matos Unavailable [phone] Encounter Details Date Type Department Care Team (Late st Contact Info) Description 02/28/2018 Ancillary Orders Virtual Department 30 [place] [address] Marisol Mcdermott PA-C [address] [place] [address] Pain in thoracic spine Social History Tobacco Use Types Packs/Day Years [...] PM EDT Office Visit Anticoagulation Clinic 30 [place] [address] Tres Crum DO 179 [facility] [place] [address] [place] [address] [email or web address] 01/25/2025 9:30 AM EST Appointment [facility] Laboratory 30 [place] [address] 01/25/2025 10:30 AM EST Office Visit [facility] 30 [place] [address] Ina Matos MBBS 30 [place] [address] [email or web address] documented as of this encounter Results * XR THORACIC SPINE 3 VIEW (03/11/2018 3:36 PM EST) Anatomical Region Laterality Modality T-spine Radiographic Adriana ging 03/11/2018 3:50 PM EST Impressions 03/11/2018 3:54 PM EST 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 POS - [id number] Narrative 03/11/2018 3:54 PM EST EXAM: XR THORACIC SPINE 3 VIEW COMPARISON: Chest radiograph on March 23, 2017. 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 No subluxations. Compression deformity of lower thoracic vertebrae (probably 12th, 11th and 10th) have mildly progressed from March study. Disc spaces are relatively preserved. Marginal osteophytes at multiple levels. Sternotomy wires present. Procedure Note Mart Altamirano MD - 03/11/2018 EXAM: XR THORACIC SPINE 3 VIEW COMPARISON: Chest radiograph on March 23, 2017. 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 No subluxations. Compression deformity oflower thoracic vertebrae (probably 12th, 11th and 10th) have mildlyprogressed from March study. Disc spaces are relatively preserved.Marginal osteophytes at multiple levels. Sternotomy wires present. 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 POS - [id number] June Sharron VIRAMONTES IMG XR SPINE Final Result documented in this encounter Visit Diagnoses Diagnosis Pain in thoracic spine Pain in thoracic spine documented in this encounter Care Teams Locomotive Supervisor Relationship Specialty Start Date End Date Tres Crum DO [email or web address] PCP - General 12/30/16 05/13/24 Tres Crum DO [address] [place] [address] [email or web address] PCP - General Internal Medicine 05/14/24 Ina Matos MBBS 30 [place] [address] Primary Oncologist Medical Oncology 06/07/24 documented as of this encounter Additional Source Comments The information contained in this document represents components of the legal health record. It is not the complete legal health record.[facility]
--- OUTSIDE RECORDS SUMMARY | 2024-11-19 10:21 | XMS_ITS | Clinical Summary ---
Author Organization [facility] Address [address] [address] Phone Care Team Providers Care Skiver Uppers Or Linings Name Role Phone Tres Crum Primary Care Provider [phone] Ina Matos MBBS Unavailable [phone] Allergies No known active allergies Medications carBAMazepine (TEGRETOL) 200 mg tablet Take 200 mg by mouth 6 (six) times a day. Pt takes 200mg every 6 hours (6 am, 12 noon, 6 pm) and 400mg at bedtime. Active levothyroxine (SYNTHROID, LEVOTHROID) 150 MCG tablet Take 150 mcg by mouth every morning. Active simvastatin (ZOCOR) 40 MG tablet Take 40 mg by mouth nightly at bedtime. Active sertraline (ZOLOFT) 50 MG tabletIndicatio ns:major depressive disorder Take 50 mg by mouth daily. Indications: major depressive disorder Active carboxymethylce llulose (REFRESH LIQUIGEL) 1 % ophthalmic solution Place 1-2 drops into each eye 4 (four) times a day as needed (dry eyes). 30 mL 12 9 Active polyethylene glycol (MIRALAX) 17 gram packet Take 17 g by mouth daily. 30 packet 9 Active albuterol (PROAIR HFA) 90 mcg/actuation inhaler every 4 (four) hours. Active amLODIPine (NORVASC) 10 MG tablet 3 Active bethanechol (URECHOLINE) 50 MG tablet 3 Active tamsulosin (FLOMAX) 0.4 mg Cap Take 0.4 mg by mouth daily. Active gabapentin (NEURONTIN) 100 MG capsule Take 3 capsules by mouth 3 (three) times a day. Active metoprolol succinate (TOPROL-XL) 50 MG 24 hr tablet Take 50 mg by mouth daily. Active terazosin (HYTRIN) 5 MG capsule Take 5 mg by mouth nightly at bedtime. Active melatonin 3 mg Tab Take 3 mg by mouth nightly at bedtime. prn Active furosemide (LASIX) 20 MG tablet Take 1 tablet by mouth daily. Active cyclobenzaprine (FLEXERIL) 5 MG tablet Take 5 mg by mouth. Active baclofen (LIORESAL) 10 MG tablet Take 10 mg by mouth. Active aspirin 81 MG EC tablet Take 1 tablet by mouth daily. 4 Active ferrous gluconate (FERGON) 240 mg (27 mg elemental) Tab tablet Take 1 tablet by mouth daily. 4 Active acetaminophen (TYLENOL) 325 mg tablet Take 2 tablets (650 mg total) by mouth every 6 (six) hours as needed for pain (specific location in comments). 5 Active docusate sodium (COLACE) 100 MG capsule Take 1 capsule (100 mg total) by mouth 2 (two) times a day. 5 Active warfarin (COUMADIN) 2 MG tablet Take 2 mg by mouth daily. Active Active Problems Patient Care Coordination No te Formatting of this note migh t be different from the original. Height 169.4cm no shoes, 09/20/24. LA Problem Noted Date Diagnosed Date halfway (current) use of anticoagulants 2024 S/P right colectomy 06/04/2024 Colon cancer 05/13/2024 Cancer Staging:Pathologic stage from 06/21/2024:Stage IIA(pT3, pN0, cM0) - Signed by Ina Matos MBBS on 06/21/2024 Hypertension 05/12/2024 Atrial fibrillation 05/12/2024 Hyperlipidemia 05/12/2024 PVD (peripheral vascular disease) 05/12/2024 Multiple sclerosis 05/12/2024 Pneumonia 09/06/2018 Assessment & Plan (09/07/2018 11:17 AM EDT): Patient presented with chills, sweats, weakness with left lower lobe infiltrate on chest x-ray and significant leukocytosis. Treatment initiated in the ED for community acquired pneumonia with azithromycin and ceftriaxone. -Continue ceftriaxone 1 g daily with azithromycin 500 mg daily for 3 days. Narrow to oral antibiotics when appropriate. -Blood cultures pending, negative less than 24 hours -Lactate 1.31 -Procalcitonin requested -Sputum culture requested -UA not suspicious for infection Recurrent falls 09/06/2018 Assessment & Plan (09/06/2018 1:25 PM EDT): As above, PT/OT evaluations requested for safe discharge planning. Patient uses cane and walker at home but has had multiple falls, most recently 1 week ago Lower extremity edema 09/06/2018 Assessment & Plan (09/06/2018 1:24 PM EDT): Lower extremity edema which patient states has been present for some time. Suspect some amount of diastolic dysfunction. Await echocardiogram results. Will consider the need for gentle diuresis. -Elevate lower extremities when able -Consider outpatient evaluation for venous insufficiency Venous stasis 09/06/2018 Assessment & Plan (09/06/2018 1:26 PM EDT): As above, lower extremity skin pigmentation changes consistent with venous stasis. He is followed by Dr. Lira as an outpatient and we will make sure that follow-up is in place. Unclear if he has had prior lower extremity imaging at [facility]. Slurred speech 09/06/2018 Assessment & Plan (09/07/2018 11:21 AM EDT): Slurred speech with left-sided facial droop, with known history of left-sided trigeminal neuralgia. Concerning symptoms which are new since his recent fall 1 week ago with patient currently on Coumadin and INR therapeutic at 2.1. -Head imaging performed and negative for acute CVA. Symptoms suspected due to his trigeminal neuralgia which is now suspected to be secondary to MS. Additional MRI brain with contrast pending to rule out acute inflammatory lesions. -Lyme study requested -Speech therapy consult completed with patient at baseline. No swallowing issues. Regular diet -Additional labs reviewed including hemoglobin A1c, inflammatory markers, lipid panel. TSH within normal limits. -PT/OT evaluations completed with history of recurrent falls. Formal report pending. -Echocardiogram completed and showed normal LV size and function EF 60%, mild left atrial enlargement, mild aortic insufficiency. Carotid ultrasound not recommended by [facility] neurology. -Vitamin D 2000 mg daily recommended -Patient will likely need neurology follow-up with repeat MRI of the brain in 6 months. Trigeminal neuralgia 09/06/2018 Assessment & Plan (09/07/2018 11:20 AM EDT): History of trigeminal neuralgia which patient states causes worsening facial symptoms when he is ill. Unclear if his left-sided facial symptoms are related to his neuralgia versus acute versus subacute neurologic event. -Repeat MRI pending -Continue home dose of gabapentin and Tegretol Resolved Problems Problem Noted Date Diagnosed Date Resolved Date Atrial fibrillation [I48.91] 01/01/2017 02/27/2020 Assessment & Plan (09/06/2018 1:28 PM EDT): Followed as an outpatient by [facility]. Patient is anticoagulated for his chronic atrial fibrillation. Rate controlled with metoprolol succinate 25 mg daily. Home dose is continued. Chronic anticoagulation 01/01/201702/11 Assessment & Plan (09/07/2018 11:20 AM EDT): Followed by the [facility] Coumadin clinic. INR currently therapeutic 2.1 for his chronic atrial fibrillation. -Continue home dose of Coumadin 5 mg daily except for 7.5 mg dose on Wednesdays -Daily INR monitoring Encounters Date Type Department Care Team Description 11/15/2024 Documentation Anticoagulation Clinic [address] [place] [address] Tori Crain RN 11/13/2024 Documentation Anticoagulation Clinic [address] [place] [address] Tori Crain RN 11/01/2024 2:00 PM EDT Office Visit [facility] Medicine [address] [place] [address] [place] [address] Dany Candelario MD Primary osteoarthritis of both knees (Primary Dx) 11/01/2024 1:03 PM EDT - 11/01/2024 11:59 PM EDT Hospital Encounter [facility], X-Ray - [address] [place] [address] Dany Candelario MD Discharge Disposition: Home or Self Care 10/31/2024 Documentation [facility] [address] [place] [address] [place] [address] Tori Crain RN 10/29/2024 2:40 PM EDT Office Visit Anticoagulation Clinic [address] [place] [phone] Bigda Tres A, DO Atrial fibrillation (Primary Dx); halfway (current) use of anticoagulants 10/22/2024 2:49 PM EDT - 10/22/2024 11:59 PM EDT Hospital Encounter [facility] [address] [place] [phone] Bigda Tres A, DO Discharge Disposition: Home or Self Care 10/22/2024 2:40 PM EDT Office Visit Anticoagulation Clinic [address] [place] [address] Bigda Tres A, DO Atrial fibrillation (Primary Dx); 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 10/15/2024 2:20 PM EDT Office Visit Anticoagulation Clinic [address] [place] [address] Bigda Tres A, DO Atrial fibrillation (Primary Dx); halfway (current) use of anticoagulants 10/11/2024 9:00 AM EDT Office Visit Anticoagulation Clinic [address] [place] [address] Bigda Tres A, DO Atrial fibrillation (Primary Dx); halfway (current) use of anticoagulants 10/08/2024 3:20 PM EDT Office Visit Anticoagulation Clinic [address] [place] [address] Bigda Tres A, DO Atrial fibrillation (Primary Dx); halfway (current) use of anticoagulants 10/08/2024 2:51 PM EDT - 10/08/2024 11:59 PM EDT Hospital Encounter [facility] [address] [place] [phone] Bigda, Tres A, DO Discharge Disposition: Home or Self Care 10/03/2024 Orders Only [facility] Orthopedics & Sports Medicine [address] [place] [address] Carrol Barrios MA Right knee pain (Primary Dx) 09/24/2024 2:20 PM EDT Office Visit Anticoagulation Clinic [address] [place] [address] Everardo Sanchez DO Atrial fibrillation (Primary Dx); halfway (current) use of anticoagulants 09/20/2024 11:00 AM EDT Office Visit [facility] at [address] [address] Ina Matos MBBS Malignant neoplasm of transverse colon 09/20/2024 9:56 AM EDT - 09/20/2024 11:59 PM EDT Hospital Encounter [facility] [address] [place] [address] Tres Crum DO Kamugisha, Lois, MBBS Discharge Disposition: Home or Self Care 09/17/2024 2:40 PM EDT Office Visit Anticoagulation Clinic [address] [place] [phone] Everardo Sanchez, Atrial fibrillation (Primary Dx) 09/10/2024 2:40 PM EDT Office Visit Anticoagulation Clinic [address] [place] [address] Tres Crum, Atrial fibrillation (Primary Dx) 09/03/2024 2:40 PM EDT Office Visit Anticoagulation Clinic [address] [place] [address] Tres Crum, Atrial fibrillation (Primary Dx) 2024 1:20 PM EDT Office Visit Anticoagulation Clinic [address] [place] [address] Tres Crum, Atrial fibrillation (Primary Dx) 2024 Transcribe Orders Anticoagulation Clinic [address] [place] [phone] Tori Crain RN Atrial fibrillation (Primary Dx); Chronic anticoagulation from Last 3 Months Immunizations Immunization Administration Dates Next Due COVID-19 (Pre-01/03) Moderna Vaccine, mRNA, PF 08/02/2020,07/05/2020 COVID-19 (Pre-01/03) Pfizer Vaccine, mRNA, maddy-sucrose, PF 04/22/2021 COVID-19 Pfizer Comirnaty Vaccine 12+ 12/29/2022 COVID-19, Unspecified Formulation 2021,04/22/2021,08/02/2020,07/05 INFLUENZA, SPLIT VIRUS, TRIV ALENT W/ PRESERVATIVE IM 02/03/2021,01/22/2019,01/09/2018,02/05,01/01/2016,01/10/2015 Influenza High-Dose Quadriva lent Preservative Free IM 01/30/2022 Influenza High-Dose Trivalen t Preservative Free IM 01/22/2019,01/09/2018,01/01/2016 Influenza Quadrivalent Prese rvative Free IM 01/10/2015 Influenza Quadrivalent w/ Pr eservative IM 02/03/2021,01/09/2018,02/05/2017 Influenza Trivalent Adjuvant ed Preservative free IM 02/05/2017 Influenza, Unspecified Formulation 01/30/2022 Pneumococcal polysaccharide PPSV23 08/31/2013 Family History Medical History Relation Comments Colon cancer Father Stroke Mother Relation Status Comments Father Mother Social History Tobacco Use Types Packs/Day Years Used Date Smoking Tobacco: Former Cigarettes Q uit: 1977 Smokeless Tobacco: Never Tobacco Cessation:Counseling Given: Not Answered Alcohol Use Standard Drinks/Week Comments Yes 0 (1 standard drink = 0.6 oz pur e alcohol) Education Answer Date Recorded Are you interested in more education? Not on arpan e 07/09/2022 Are you concerned about learning? Not on file 07/09/2022 No 07/09/2022 No 07/09/2022 Food Answer Date Recorded Within the past 6 months we worried whether our food would run out before we got money to buy more. Never True 05/13/2024 Within the past 6 months the food we bought just didn't last and we didn't have enough money to get more. Never True Residential Stability Answer Date Recor ded What is your housing situation today? I have wilda sing 05/13/2024 How many times have you move d in the past 12 months? Zero (I did not move) 05/13/2024 Paying for Meds Answer Date Recorded Do you have trouble paying for medicines? No 05/13/2024 Paying Utility Bills Answer Date Record ed Do you have trouble paying your heating or elect ricity bill? No 05/13/2024 Transportation Answer Date Recorded Has the lack of transportati on kept you from medical appointments or from getting medications? No 05/13/2024 Digital Access Answer Date Recorded Yes 05/13/2024 Yes 05/13/2024 Do you have reliable internet access at home? Ye s 05/13/2024 Do you have a device (e.g., phone, tablet, computer) with a working camera? No 05/13/2024 Intimate Partner Violence Answer Date R ecorded Are you denied basic needs s uch as food, clothing, or medical care? No 05/13/2024 In the past 12 months have y ou been in a relationship with a person who hurts, threatens, or tries to control you? No 05/13/2024 Are you denied basic needs s uch as food, clothing, or medical care? No 05/13/2024 In the past 12 months have y ou been in a relationship with a person who hurts, threatens, or tries to control you? 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 [employer] Not on file Not on file Not on file Last Filed Vital Signs Vital Sign Reading Time Taken Comments Blood Pressure 116/70 09/20/2024 10:43 AM EDT Pulse 66 09/20/2024 10:38 AM EDT Temperature 36.2 C (97.1 F) 09/20/2024 10:38 AM EDT Respiratory Rate 15 05/17/2024 7:00 AM EST Oxygen Saturation 97% 09/20/2024 10: 38 AM EDT Inhaled Oxygen Concentration - - Weight 110.6 kg (243 lb 14.4 oz) 2024 10:38 AM EDT Height 169.4 cm (5' 6.69 ) 09/20/2024 1 0:38 AM EDT Body Mass Index 38.55 09/20/2024 10:38 AM EDT Plan of Treatment Upcoming Encounters Date Type Department Care Team (Late st Contact Info) Description 11/20/2024 2:00 PM EDT Office Visit Anticoagulation Clinic [address] [place] [address] Tres Crum, DO [address] [place] [address] [place] [address] [email or web address] 01/25/2025 9:30 AM EST Appointment [facility] [address] [place] [address] 01/25/2025 10:30 AM EST Office Visit [facility] [address] [place] [address] Ina Matos MBBS [address] [place] [address] [email or web address] Health Maintenance Due Date Last Done Comments Adult Td,Tdap Booster 1940 CARBAMAZEPINE (TEGRETOL) LEVEL 1941 DEPRESSION SCREENING 1953 ZOSTER VACCINES (1 of 2) 1960 PNEUMOCOCCAL VACCINES (50+ years) (2 of 2 - PCV) 08/31/2014 08/31/2013 RSV VACCINE (1 - 1-dose 75+ series) 2016 INFLUENZA VACCINE (#1) 2024 2, 01/30/2022, 02/03/2021, Additional history exists COVID-19 VACCINE ( season) 2024 12/29/2022, 08/14/2021, 04/22/2021, Additional history exists BLOOD PRESSURE 03/23/2025 09/20/2024 TSH LEVEL 07/30/2025 07/30/2024, 03/0 09/2024, 01/18/2024, Additional history exists HEPATITIS A VACCINES Aged Out No long er eligible based on patient's age to complete this topic HIB VACCINES Aged Out No longer eligi ble based on patient's age to complete this topic MENINGOCOCCAL VACCINES (ACWY) Aged Out No longer eligible based on patient's age to complete this topic MENINGOCOCCAL VACCINES (B) Aged Out N o longer eligible based on patient's age to complete this topic Medical Devices Not on file Procedures Procedure Name Priority Date/Time Associated Diagnosis Comments XR KNEE 4 OR MORE VIEWS (RIGHT) Routine 11/01/2024 1:42 PM EDT Right knee pain POCT INR Routine 10/29/2024 2:37 PM EDT PT-INR STAT 10/22/2024 2:51 PM EDT 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 POCT INR Routine 10/22/2024 2:43 PM EDT POCT INR Routine 10/15/2024 2:23 PM EDT POCT INR Routine 10/11/2024 9:11 AM EDT PT-INR STAT 10/08/2024 2:53 PM EDT Atrial fibrillation halfway (current) use of anticoagulants POCT INR Routine 10/08/2024 2:47 PM EDT POCT INR Routine 09/24/2024 2:07 PM EDT CARCINOEMBRYONIC ANTIGEN (CEA) Routine 09/20/2024 9:56 AM EDT Malignant neoplasm of transverse colon COMPREHENSIVE METABOLIC PANEL Routine 09/20/2024 9:56 AM EDT Malignant neoplasm of transverse colon CBC AND DIFFERENTIAL Routine 09/20/2024 9:56 AM EDT Malignant neoplasm of transverse colon POCT INR Routine 09/17/2024 2:26 PM EDT POCT INR Routine 09/10/2024 2:52 PM EDT POCT INR Routine 09/03/2024 2:42 PM EDT AMB REFERRAL TO [facility] ANTICO[facility]ULATION CL[facility]IC Routine 2024 4:46 PM EDT Atrial fibrillation Chronic anticoagulation AMB REFERRAL TO [facility] ANTICO[facility]ULATION CL[facility]IC Routine 2024 4:46 PM EDT Atrial fibrillation Chronic anticoagulation POCT INR Routine 2024 1:40 PM EDT TSH Routine 07/30/2024 2:19 PM EDT Pure hypercholesterolemia from Last 3 Months or Most Recently Relevant to Health Maintenance Results * XR KNEE 4 OR MORE VIEWS (RIGHT) (11/01/2024 1:42 PM EDT) Anatomical Region Laterality Modality Knee Right Computed Radiogr aphy 11/02/2024 2:54 PM EDT Impressions 11/02/2024 2:59 PM EDT Moderate to severe right knee degenerative changes. Narrative 11/02/2024 2:59 PM EDT XR KNEE 4 OR MORE VIEWS (RIGHT) Referring clinician's provided indication for this examination in [facility]: Pain COMPARISON: XR KNEE 4 OR MORE VIEWS (RIGHT) FINDINGS: Right Knee: No acute fracture or dislocation. Moderate to severe tricompartmental degenerative changes most pronounced in the medial and patellofemoral compartments. Chondrocalcinosis. No joint effusion. Vascular calcifications. Procedure Note Colt Raines MD - 11/02/2024 XR KNEE 4 OR MORE VIEWS (RIGHT) Referring clinician's provided indication for this examination in [facility]:Pain COMPARISON: XR KNEE 4 OR MORE VIEWS (RIGHT) FINDINGS: Right Knee: No acute fracture or dislocation. Moderate to severetricompartmental degenerative changes most pronounced in the medial andpatellofemoral compartments. Chondrocalcinosis. No joint effusion.Vascular calcifications. IMPRESSION: Moderate to severe right knee degenerative changes. us Dany Candelario MD IMG XR LOWER EXTREMITY Final Result * (ABNORMAL) Poct INR (10/29/2024 2:37 PM EDT) Only the most recent of10 resultswithin the time period is included. INR 2.6(H) 0.86 - 1.17 [facility] Comment:Therapeutic Range 2. 0-3.5 10/29/2024 2:37 PM EDT 10/29/2024 2:39 PM EDT us Tres A Bigda DO POINT OF CARE TEST ORDERABLES Fi nal Result Performing Organization Address [facility] de Phone Number [address] [address] * (ABNORMAL) PT-INR (10/22/2024 2:51 PM EDT) Only the most recent of2 resultswithin the time period is included. Pathologist [facility] PT 48.3(H) 10.2 - 12.9 sec [facility] INR 3.8(H) 0.9 - 1.1 [facility] Comment:Therapeutic range fo r oral Vitamin K antagonists: 2.0-3.5 Blood 10/22/2024 2:51 PM EDT 10/22/2024 2:54 PM EDT us Tres A Bigda DO LAB BLOOD ORDERABLES Final Resul t Performing Organization Address [facility] [[email or web address]] Co de Phone Number [address] [address] * (ABNORMAL) Comprehensive metabolic panel (09/20/2024 9:56 AM EDT) Pathologist [facility] SODIUM 140 133 - 146 mmol/L [facility] POTASSIUM 4.3 3.3 - 5.1 mmol/L [facility] CHLORIDE 106 96 - 108 mmol/L [facility] CO2 23 21 - 35 mmol/L [facility] BUN 24(H) 6 - 19 mg/dL [facility] CREATININE 0.70 0.5 - 1.5 mg/dL [facility] GLUCOSE 126(H) 70 - 99 mg/dL [facility] ALBUMIN 3.8(L) 3.9 - 4.8 g/dL [facility] TOTAL PROTEIN 6.6 6.5 - 8.0 g/dL [facility] CALCIUM 9.3 8.4 - 10.3 mg/dL [facility] ALKALINE PHOSPHATASE 105 39 - 117 U/L [facility] TOTAL BILIRUBIN 0.5 0.0 - 1.2 mg/dL [facility] AST 27 0 - 37 U/L [facility] ALT 37 0 - 40 U/L [facility] GLOBULIN 2.8 1 - 4.8 g/dL [facility] EGFR 91 >59 mL/min/1.7 3m2 [facility] Comment:Estimated glomerular filtration rate calculated using the CKD-EPI refit equation. ANION GAP 15 10 - 20 mmol/L [facility] Blood 09/20/2024 9:56 AM EDT 09/20/2024 10:29 AM EDT us Ina DARNELL LAB BLOOD ORDERABLES Final R esult [facility] [address] [place] [address] * (ABNORMAL) CBC and differential (09/20/2024 9:56 AM EDT) WBC 5.37 4.00 - 11.00 K/uL [facility] RBC 4.39(L) 4.50 - 5.90 M/uL [facility] HGB 13.2(L) 13.5 - 17.5 g/dL [facility] HCT 40.7(L) 41.0 - 53.0 % [facility] PLT 151 150 - 450 K/uL [facility] MCV 92.7 80.0 - 100.0 fL [facility] MCH 30.1 27.0 - 31.0 pg [facility] MCHC 32.4 32.0 - 36.0 g/dL [facility] RDW 13.7 11.5 - 14.5 % [facility] MPV 10.0 8.4 - 12.0 fL [facility] NRBC 0.00 0.00 /100 WBCs [facility] ABSOLUTE NRBC 0.00 0.00 K/uL [facility] DIFF METHOD Auto [facility] NEUTS 60.1 48.0 - 76.0 % [facility] LYMPHS 27.4 18.0 - 41.0 % [facility] MONOS 9.1 4.0 - 11.0 % [facility] EOS 2.8 0.0 - 5.0 % [facility] BASOS 0.4 0.0 - 1.5 % [facility] Granulocytes, immature (%) 0.2 0.0 - 0.9 % [facility] ABSOLUTE NEUTS 3.23 1.92 - 7.60 K/uL [facility] ABSOLUTE LYMPHS 1.47 0.72 - 4.10 K/uL [facility] ABSOLUTE MONOS 0.49 0.16 - 1.10 K/uL [facility] ABSOLUTE EOS 0.15 0.00 - 0.50 K/uL [facility] ABSOLUTE BASOS 0.02 0.00 - 0.15 K/uL [facility] Granulocytes, immature 0.01 0.00 - 0.09 K/uL [facility] Blood 09/20/2024 9:56 AM EDT 09/20/2024 10:29 AM EDT us Ina DARNELL LAB BLOOD ORDERABLES Final R esult Performing Organization Address City/State/[facility] [[email or web address]] Co de Phone Number [address] [phone] * Carcinoembryonic antigen (CEA) (09/20/2024 9:56 AM EDT) CEA 1.0 0 - 3.4 ng/mL [facility] Comment: Test Methodology Kaci [id number] Patient results determined by assays using different manufacturers or methods may not be comparable. Blood 09/20/2024 9:56 AM EDT 09/20/2024 10:29 AM EDT Ina DARNELL LAB BLOOD ORDERABLES Final R esult Performing Organization Address City/[facility]/ZIP Co de Phone Number [address] [phone] * Ambulatory referral to [facility] Anticoagulation Clinic (2024 4:46 PM EDT) Only the most recent of2 resultswithin the time period is included. Other us Tres A Bigda DO AMB [facility] REFERRALS Final Result * TSH (07/30/2024 2:19 PM EDT) TSH 1.84 0.27 - 4.20 uIU/mL [facility] Blood 07/30/2024 2:19 PM EDT 07/30/2024 2:31 PM EDT us Tres A Bigda DO LAB BLOOD ORDERABLES Final Resul t Performing Organization Address City/[facility]/ZIP Co de Phone Number [address] [address] from Last 3 Months or Most Recently Relevant to Health Maintenance Insurance MEDICARE PART A & B MEDICARE PART A & B MEDICARE PART A & B MEDICARE PART A & B MEDICARE PART A & B MEDICARE PART A & B MEDICARE PART A & B MEDICARE PART A & B MEDICARE PART A & B Advance Directives For more information, please contact: [phone] (9AM - 5PM [facility], Tuesday-Tuesday) * Full Code (Latest Code Status on File) Date Activated Date Inactivated Comments 05/14/2024 8:21 AM Question Answer Comments Code Status Confirmed With: Patient * Full Code Date Activated Date Inactivated Comments 05/13/2024 4:05 PM 05/14/2024 8:21 AM Question Answer Comments Code Status Confirmed With: Patient * Full Code (Confirmed) Date Activated Date Inactivated Comments 09/06/2018 1:13 PM 09/08/2018 4:37 PM Question Answer Comments Code Status Confirmed With: Patient Care Teams Skiver Uppers Or Linings Relationship Specialty Start Date End Date Tres Crum DO [address] [place] [address] [email or web address] PCP - General Internal Medicine 05/14/24 Ina Matos MBBS [address] [place] [address] [email or web address] Primary Oncologist Medical Oncology 06/07/24 Additional Source Comments The information contained in this document represents components of the legal health record. It is not the complete legal health record.[facility]
--- OUTSIDE RECORDS SUMMARY | 2024-11-19 10:21 | XMS_ITS | Encounter Summary ---
Author Organization [facility] Address [address] [employer] [facility] [address] [place] [address] Phone Care Team Providers Care Sizing Sprayer Name Role Phone Tres Crum DO Primary Care Provider [phone] Tres Crum DO Primary Care Provider [phone] Ina Matos Unavailable [phone] Encounter Details Date Type Department Care Team (Late st Contact Info) Description 01/19/2024 Procedure Pass [facility], Ct Scan - [address] [address] Social History Tobacco Use Types Packs/Day Years Used Date Smoking Tobacco: Former Cigarettes Q uit: 1977 Smokeless Tobacco: Never Alcohol Use Standard Drinks/Week Comments Yes 0 (1 standard drink = 0.6 oz pur e alcohol) Education Answer Date Recorded Are you interested in more education? Not on arpan e 07/09/2022 Are you concerned about learning? Not on file 07/09/2022 No 07/09/2022 No 07/09/2022 Digital Access Answer Date Recorded No 08/07/2022 No 08/07/2022 Reliable internet access at home? Not on file 08/07/2022 Device with a working camera? 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 Not on file Not on file Not on file documented as of this encounter Plan of Treatment Upcoming Encounters Date Type Department Care Team (Late st Contact Info) Description 11/20/2024 2:00 PM EDT Office Visit Anticoagulation Clinic [address] [place] [address] Tres Crum DO [address] [facility] [place] [address] 01/25/2025 9:30 AM EST Appointment [facility] [address] [place] [address] 01/25/2025 10:30 AM EST Office Visit [facility] [address] [place] [address] Ina Matos MBBS 30 [place] [address] documented as of this encounter Visit Diagnoses Not on filedocumented in this encounter Care Teams Sizing Sprayer Relationship Specialty Start Date End Date Radames Tres DO Jasmina PCP - General 12/30/16 05/13/24 Tres Crum DO [address] [place] [address] PCP - General Internal Medicine 05/14/24 Ina Matos MBBS [address] [place] [address] Primary Oncologist Medical Oncology 06/07/24 documented as of this encounter Additional Source Comments The information contained in this document represents components of the legal health record. It is not the complete legal health record.[facility]
--- OUTSIDE RECORDS SUMMARY | 2024-11-19 10:21 | XMS_ITS | Encounter Summary ---
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 file Not on file Not on file documented as of this encounter Plan of Treatment Upcoming Encounters Date Type Department Care Team (Late st Contact Info) Description 11/20/2024 2:00 PM EDT Office Visit Anticoagulation Clinic [address] [place] [address] Tres Crum, [address] [facility] [place] [address] [place] [address] [email or web address] 01/25/2025 9:30 AM EST Appointment [facility] [address] [place] [address] 01/25/2025 10:30 AM EST Office Visit [facility] [address] [place] [address] Ina Matos MBBS [address] [place] [address] [email or web address] documented as of this encounter Visit Diagnoses Not on filedocumented in this encounter Care Teams Bee Keeper Relationship Specialty Start Date End Date Tres Crum DO [address] [place] [address] PCP - General Internal Medicine 05/14/24 Ina Matos MBBS [address] [place] [address] Primary Oncologist Medical Oncology 06/07/24 documented as of this encounter Additional Source Comments The information contained in this document represents components of the legal health record. It is not the complete legal health record.[facility]
--- OUTSIDE RECORDS SUMMARY | 2024-11-19 10:21 | XMS_ITS | Encounter Summary ---
Author Organization [facility] Address [address] [facility] [address] [place] [address] Phone Care Team Providers Care Pediatric Occupational Therapist Name Role Phone Tres Crum DO Primary Care Provider [phone] Tres Crum DO Primary Care Provider [phone] Ina Matos Unavailable [phone] Encounter Details Date Type Department Care Team (Late st Contact Info) Description 03/09/2024 Procedure Pass [facility] Endoscopy Admitting Dept Virtual Department [address] [place] [address] Social History Tobacco Use Types Packs/Day Years [...] with a working camera? Not on file Intimate Partner Violence Answer Date R ecorded Are you denied basic needs s uch as food, clothing, or medical care? No 03/09/2024 In the past 12 months have y ou been in a relationship with a person who hurts, threatens, or tries to control you? No 03/09/2024 Are you denied basic needs s uch as food, clothing, or medical care? No 03/09/2024 In the past 12 months have y ou been in a relationship with a person who hurts, threatens, or tries to control you? 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 Not on file Not on file Not on file documented as of this encounter Plan of Treatment Upcoming Encounters Date Type Department Care Team (Late st Contact Info) Description 11/20/2024 2:00 PM EDT Office Visit [facility] Clinic [address] [place] [address] Tres Crum DO [address] [place] [address] 01/25/2025 9:30 AM EST Appointment [facility] [address] [place] [address] 01/25/2025 10:30 AM EST Office Visit [facility] 30 [place] [address] Ina Matos MBBS 30 [place] [address] documented as of this encounter Visit Diagnoses Not on filedocumented in this encounter Care Teams Pediatric Occupational Therapist Relationship Specialty Start Date End Date Tres rCum DO PCP - General 12/30/16 05/13/24 Tres Crum DO [address] [place] [address] [email or web address] PCP - General Internal Medicine 05/14/24 Ina Matos MBBS [address] [place] [address] [email or web address] Primary Oncologist Medical Oncology 06/07/24 documented as of this encounter Additional Source Comments The information contained in this document represents components of the legal health record. It is not the complete legal health record.[facility]
--- OUTSIDE RECORDS SUMMARY | 2024-11-19 10:21 | XMS_ITS | Encounter Summary ---
Author Organization [facility] Address [address] [place] [address] Care Team Providers Care Watch Train Inspector Name Role Phone Mamta Klein MD Primary Care Provider [phone] Encounter Details Date Type Department Care Team (Late st Contact Info) Description 05/18/2024 Lab Requisition [facility] - Main Lab [address] [facility] [place] [address] Mamta Klein MD [address] [place] [address] Hyperlipidemia, unspecified; Hypothyroidism, unspecified; Vitamin D deficiency, [...] and free t3 (05/18/2024 7:38 AM EST) [facility] TSH 1.43 0.40 - 4.00 mcIU/mL LAB CHEMISTRY METHOD 05/18/2024 12:24 PM EST [facility] Blood Venous blood specimen / Unknown Venipuncture / Unknown 05/18/2024 7:38 AM EST 05/18/2024 11:06 AM EST us Mamta Klein MD LAB BLOOD ORDERABLES Final Resul t [facility] [address] [place] [address], * (ABNORMAL) Iron (05/18/2024 7:38 AM EST) Pathologist [facility] Iron 34(L) 50 - 160 mcg/dL LAB CHEMISTRY METHOD 05/18/2024 12:44 PM EST [facility] Blood Venous blood specimen / Unknown Venipuncture / Unknown 05/18/2024 7:38 AM EST 05/18/2024 11:06 AM EST us Mamta Klein MD LAB BLOOD ORDERABLES Final Resul t Performing Organization Address City/[facility]/ZIP Co de Phone Number [facility] [address] [place] [address], [place] [phone] * Folate (05/18/2024 7:38 AM EST) [facility] Folate 7.1 2.8 - 17.0 ng/ml LAB CHEMISTRY METHOD 05/18/2024 12:44 PM EST [facility] Blood Venous blood specimen / Unknown Venipuncture / Unknown 05/18/2024 7:38 AM EST 05/18/2024 11:06 AM EST us Mamta Klein MD LAB BLOOD ORDERABLES Final Resul t Performing Organization Address [facility] de Phone Number [facility] [address] [place] [address], [place] [phone] * (ABNORMAL) Vitamin D 25 hydroxy (05/18/2024 7:38 AM EST) [facility] Vit D, 25-Hydroxy 6.2(L) 30.0 - 80.0 ng/mL LAB CHEMISTRY METHOD 05/18/2024 12:30 PM EST [facility] Blood Venous blood specimen / Unknown Venipuncture / Unknown 05/18/2024 7:38 AM EST 05/18/2024 11:06 AM EST us Mamta Klein MD LAB BLOOD ORDERABLES Final Resul t Performing Organization Address City/[facility] Co de Phone Number [facility] [address] [place] [address], [place] [phone] * Vitamin B12 (05/18/2024 7:38 AM EST) [facility] Vitamin B-12 355 250 - 900 pcg/mL LAB CHEMISTRY METHOD 05/18/2024 12:44 PM [facility] Blood Venous blood specimen / Unknown Venipuncture / Unknown 05/18/2024 7:38 AM EST 05/18/2024 11:06 AM EST us Mamta Klein MD LAB BLOOD ORDERABLES Final Resul t [facility] [address] [place] [address], [place] [phone] * (ABNORMAL) Lipid panel with reflex to direct LDL (05/18/2024 7:38 AM EST) [facility] Cholesterol 190 0 - 200 mg/dL LAB CHEMISTRY METHOD 05/18/2024 12:44 PM [facility] Triglycerides 161(H) 0 - 150 mg/dL LAB CHEMISTRY METHOD 05/18/2024 12:44 PM [facility] HDL 64 >=40 mg/dL LAB CHEMISTRY METHOD 05/18/2024 12:44 PM [facility] LDL Calculated 94 0 - 100 mg/dL LAB CHEMISTRY METHOD 05/18/2024 12:44 PM [facility] VLDL Cholesterol Krzysztof 32.2 mg/dL LAB CHEMISTRY METHOD 05/18/2024 12:44 PM [facility] Non HDL Chol. (LDL+VLDL) 126 <145 mg/dL LAB CHEMISTRY METHOD 05/18/2024 12:44 PM [facility] Chol/HDL Ratio 3.0 0.0 - 4.4 LAB CHEMISTRY METHOD 05/18/2024 12:44 PM [facility] Blood Venous blood specimen / Unknown Venipuncture / Unknown 05/18/2024 7:38 AM EST 05/18/2024 11:06 AM EST us Mamta Klein MD LAB BLOOD ORDERABLES Final Resul t [facility] [address] [place] [address], [place] [phone] * (ABNORMAL) Comprehensive metabolic panel (05/18/2024 7:38 AM EST) Pathologist [facility] Sodium 140 133 - 145 mmol/L LAB CHEMISTRY METHOD 05/18/2024 12:44 PM [facility] Potassium 4.2 3.5 - 5.5 mmol/L LAB CHEMISTRY METHOD 05/18/2024 12:44 PM [facility] Chloride 103 96 - 110 mmol/L LAB CHEMISTRY METHOD 05/18/2024 12:44 PM [facility] CO2 24 21 - 32 mmol/L LAB CHEMISTRY METHOD 05/18/2024 12:44 PM [facility] Anion Gap 13(H) 3 - 11 LAB CHEMISTRY METHOD 05/18/2024 12:44 PM [facility] Glucose 103(H) 70 - 100 mg/dL LAB CHEMISTRY METHOD 05/18/2024 12:44 PM [facility] BUN 9 5 - 25 mg/dL LAB CHEMISTRY METHOD 05/18/2024 12:44 PM [facility] Creatinine 0.72 0.70 - 1.30 mg/dL LAB CHEMISTRY METHOD 05/18/2024 12:44 PM [facility] eGFR 91 >=60 mL/min/1. 73m2 LAB CHEMISTRY METHOD 05/18/2024 12:44 PM [facility] Comment:Calculation based on the Chronic Kidney Disease Epidemiology Collaboration (CKD-EPI) equation refit without adjustment for race. BUN/Creatinine Ratio 12.5 LAB CHEMISTRY METHOD 05/18/2024 12:44 PM [facility] Calcium 8.7 8.5 - 10.5 mg/dL LAB CHEMISTRY METHOD 05/18/2024 12:44 PM [facility] AST (SGOT) 17 10 - 42 unit/L LAB CHEMISTRY METHOD 05/18/2024 12:44 PM [facility] ALT (SGPT) 19 10 - 60 unit/L LAB CHEMISTRY METHOD 05/18/2024 12:44 PM [facility] Alkaline Phosphatase 113 42 - 121 unit/L LAB CHEMISTRY METHOD 05/18/2024 12:44 PM [facility] Total Protein 6.7 6.0 - 8.0 g/dL LAB CHEMISTRY METHOD 05/18/2024 12:44 PM [facility] Albumin 3.3 3.2 - 5.0 g/dL LAB CHEMISTRY METHOD 05/18/2024 12:44 PM [facility] Total Bilirubin 0.4 0.0 - 1.4 mg/dL LAB CHEMISTRY METHOD 05/18/2024 12:44 PM [facility] Blood Venous blood specimen / Unknown Venipuncture / Unknown 05/18/2024 7:38 AM EST 05/18/2024 11:06 AM EST us Mamta Klein MD LAB BLOOD ORDERABLES Final Resul t [facility] [address] [place] [address], * (ABNORMAL) Complete blood count (05/18/2024 7:38 AM EST) WBC 8.7 4.8 - 10.8 K/mcL LAB HEMETOLOGY METHOD 05/18/2024 11:38 AM [facility] RBC 4.10(L) 4.50 - 5.50 M/mcL LAB HEMETOLOGY METHOD 05/18/2024 11:38 AM [facility] Hemoglobin 12.0(L) 13.5 - 17.5 g/dL LAB HEMETOLOGY METHOD 05/18/2024 11:38 AM [facility] Hematocrit 37.0(L) 42.0 - 54.0 % LAB HEMETOLOGY METHOD 05/18/2024 11:38 AM [facility] MCV 91.4 79.0 - 98.0 FL LAB HEMETOLOGY METHOD 05/18/2024 11:38 AM [facility] MCH 29.6 27.0 - 32.0 pcg LAB HEMETOLOGY METHOD 05/18/2024 11:38 AM [facility] MCHC 32.4 32.0 - 37.0 g/dL LAB HEMETOLOGY METHOD 05/18/2024 11:38 AM [facility] RDW 12.8 11.0 - 15.0 % LAB HEMETOLOGY METHOD 05/18/2024 11:38 AM [facility] Platelets 298 130 - 400 K/mcL LAB HEMETOLOGY METHOD 05/18/2024 11:38 AM [facility] MPV 9.9 7.0 - 11.0 FL LAB HEMETOLOGY METHOD 05/18/2024 11:38 AM [facility] NRBC 0.0 <1.0 % LAB HEMETOLOGY METHOD 05/18/2024 11:38 AM [facility] NRBC Absolute 0.00 <0.10 K/mcL LAB HEMETOLOGY METHOD 05/18/2024 11:38 AM [facility] Blood Venous blood specimen / Unknown Venipuncture / Unknown 05/18/2024 7:38 AM EST 05/18/2024 11:06 AM EST us Mamta Klein MD LAB BLOOD ORDERABLES Final Resul t [facility] LAB [address] [place] [address], documented in this encounter Visit Diagnoses Diagnosis Hyperlipidemia, unspecified Hypothyroidism, unspecified Vitamin D deficiency, unspecified Anemia, unspecified Vitamin B12 deficiency anemia, unspecified documented in this encounter Care Teams Watch Train Inspector Relationship Specialty Start Date End Date Mamta Klein MD [address] [facility] [address] [place] [address] PCP - General Geriatric Medicine 11/05/24 documented as of this encounter
--- OUTSIDE RECORDS SUMMARY | 2024-11-19 10:21 | XMS_ITS | Encounter Summary ---
Author Organization [facility] Address [address] [address] Phone Care Team Providers Care Stockroom Supervisor Name Role Phone Tres Crum DO Primary Care Provider [phone] Tres Crum DO Primary Care Provider [phone] Ina Matos Unavailable [phone] Encounter Details Date Type Department Care Team (Late st Contact Info) Description 07/28/2017 Ancillary Orders Virtual Department [address] [place] [address] Marisol Mcdermott PA-C [address] [place]. [address] [place] [address] Ataxia Social History Tobacco Use Types Packs/Day Years [...] PM EDT Office Visit Anticoagulation Clinic [address] [place] [address] Tres Crum DO [address] [place] [address] [email or web address] 01/25/2025 9:30 AM EST Appointment [facility] [address] [place] [address] 01/25/2025 10:30 AM EST Office Visit [facility] [place] [address] [place] [address] Ina Matos MBBS [address] [place] [address] documented as of this encounter Visit Diagnoses Diagnosis Ataxia Lack of coordination documented in this encounter Care Teams Stockroom Supervisor Relationship Specialty Start Date End Date Tres Crum DO PCP - General 12/30/16 05/13/24 Tres Crum DO [address] [place] [address] PCP - General Internal Medicine 05/14/24 Ina Matos MBBS [address] [place] [address] Primary Oncologist Medical Oncology 06/07/24 documented as of this encounter Additional Source Comments The information contained in this document represents components of the legal health record. It is not the complete legal health record.[facility]
--- OUTSIDE RECORDS SUMMARY | 2024-11-19 10:21 | XMS_ITS | Encounter Summary ---
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 on 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 Not on file Not on file documented as of this encounter Functional Status documented as of this encounter Plan of Treatment Upcoming Encounters Date Type Department Care Team (Late st Contact Info) Description 11/20/2024 2:00 PM EDT Office Visit Anticoagulation Clinic [address] [place] [address] Tres Crum DO [address] [place] [address] 01/25/2025 9:30 AM EST Appointment [facility] [address] [place] [address] 01/25/2025 10:30 AM EST Office Visit [facility] [place] [address] [place] [address] Ina Matos MBBS [address] [place] [address] documented as of this encounter Visit Diagnoses Not on filedocumented in this encounter Care Teams Rubber Goods Inspector Tester Relationship Specialty Start Date End Date Tres Crum DO PCP - General 12/30/16 05/13/24 Tres Crum DO [address] [place] [address] [place] [address] PCP - General Internal Medicine 05/14/24 Ina Matos MBBS [address] [place] [address] Primary Oncologist Medical Oncology 06/07/24 documented as of this encounter Additional Source Comments The information contained in this document represents components of the legal health record. It is not the complete legal health record.[facility]
--- OUTSIDE RECORDS SUMMARY | 2024-11-19 10:21 | XMS_ITS | Encounter Summary ---
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 Not on file Not on file Not on file documented as of this encounter Functional Status documented as of this encounter Plan of Treatment Upcoming Encounters Date Type Department Care Team (Late st Contact Info) Description 11/20/2024 2:00 PM EDT Office Visit Anticoagulation Clinic [address] [place] [address] Tres Crum DO [address] [facility] [place] [address] [email or web address] 01/25/2025 9:30 AM EST Appointment [facility] [address] [place] [address] 01/25/2025 10:30 AM EST Office Visit [facility] [place] [address] [place] [address] Ina Matos MBBS [address] [place] [address] [email or web address] documented as of this encounter Visit Diagnoses Not on filedocumented in this encounter Care Teams Laborer Road Relationship Specialty Start Date End Date Tres Crum DO PCP - General 12/30/16 05/13/24 Tres Crum DO [address] [place] [address] [place] [address] PCP - General Internal Medicine 05/14/24 Ina Matos MBBS [address] [place] [address] Primary Oncologist Medical Oncology 06/07/24 documented as of this encounter Additional Source Comments The information contained in this document represents components of the legal health record. It is not the complete legal health record.[facility]
--- OUTSIDE RECORDS SUMMARY | 2024-11-19 10:21 | XMS_ITS | Encounter Summary ---
Author Organization [facility] Address [facility] [employer] [address] [address] Phone Care Team Providers Care Centrifugal Station Operator Name Role Phone Radames Tres Freedman DO Primary Care Provider [phone] Tres Crum DO Primary Care Provider [phone] Ina Matos Unavailable [phone] Reason for Referral * MRI/CAT Scan - Closed Specialty Diagnoses / Procedures Referred By Radha t Referred To Contact Radiology Diagnoses Dysphagia, unspecified type Constipation, unspecified constipation type Procedures CT Abdomen/Pelvis Aviva Felix PA-C Phone: tel: fax: [email or web address] Referral ID Status Reason Start Date Expiration Date Visits Re quested Visits Authorized [id number] Closed 01/19/2024 01/18/2025 1 1 Encounter Details Date Type Department Care Team (Latest Contact Info) Description 01/19/2024 Transcribe Orders Virtual Department [address] [place], [place] [id number] Aviva Felix PA-C 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 [address] [place] [address] Ina Matos MBBS [address] [place] [address] [email or web address] documented as of this encounter Results * CT ABDOMEN/PELVIS WITH CONTRAST (02/06/2024 2:20 PM EST) Anatomical Region Laterality Modality Abdomen, Pelvis Computed Tomogra phy 02/13/2024 1:27 PM EST Impressions 02/13/2024 1:46 PM EST *Short segment thickening of the left upper quadrant transverse colon with upstream colonic dilation, particularly concerning for colonic neoplasm with partial obstruction until proven otherwise. Infectious/inflammatory etiologies are lower on the differential. *Cholelithiasis. *Pleural thickening and calcifications, as can be seen with prior asbestos exposure. RECOMMENDATION: Consider gastroenterology referral. A clinically significant result was initiated on 02/13/2024 1:41 PM, Message ID [id number]. Narrative 02/13/2024 1:[address] ABDOMEN/PELVIS WITH CONTRAST Referring clinician's provided indication for this examination in [facility]: Outside Radiology Order; dysphagia TECHNIQUE: Multidetector-row CT of the abdomen and pelvis was performed after administration of intravenous contrast using tailored dose modulation techniques. Images were reconstructed in the axial, coronal, and sagittal planes. COMPARISON: XR CHEST INSPIRATION AND EXPIRATION 2 VIEWS FINDINGS: Lower chest: Mild pleural thickening with peripheral/pleural calcifications. Mild subpleural reticulation. No visualized bronchiectasis. No pleural effusions. Liver: No suspicious focal lesions. Biliary: No biliary ductal dilation. The gallbladder is filled with gallstones of varying calcification. No gallbladder inflammation. Spleen: No splenomegaly. No focal lesions. Pancreas: No masses or ductal dilatation. Adrenal glands: No nodules. Kidneys/ureters: No solid masses or hydronephrosis. No stones. Bowel: No obstruction. Short segment (5-6 cm) thickening of the transverse colon near the splenic flexure with mild adjacent fat stranding. Upstream dilation of the colon with associated fecal loading. Normal appendix. Peritoneum/retroperitoneum: No masses, free air, or fluid. Lymph nodes: No lymphadenopathy. Pelvic organs/bladder: No masses. Small subcentimeter anterior bladder diverticulum (6:37). Penile implant. Vessels: No abdominal aortic aneurysm. Bones/soft tissues: No destructive osseous lesions. Procedure Note Kisha Blandon MD - 02/13/2024 CT ABDOMEN/PELVIS WITH CONTRAST Referring clinician's provided indication for this examination in [facility]:Outside Radiology Order; dysphagia TECHNIQUE: Multidetector-row CT of the abdomen and pelvis was performedafter administration of intravenous contrast using tailored dosemodulation techniques. Images were reconstructed in the axial, coronal,and sagittal planes. COMPARISON: XR CHEST INSPIRATION AND EXPIRATION 2 VIEWS FINDINGS: Lower chest: Mild pleural thickening with peripheral/pleuralcalcifications. Mild subpleural reticulation. No visualizedbronchiectasis. No pleural effusions. Liver: No suspicious focal lesions. Biliary: No biliary ductal dilation. The gallbladder is filled withgallstones of varying calcification. No gallbladder inflammation. Spleen: No splenomegaly. No focal lesions. Pancreas: No masses or ductal dilatation. Adrenal glands: No nodules. Kidneys/ureters: No solid masses or hydronephrosis. No stones. Bowel: No obstruction. Short segment (5-6 cm) thickening of the transversecolon near the splenic flexure with mild adjacent fat stranding. Upstreamdilation of the colon with associated fecal loading. Normal appendix. Peritoneum/retroperitoneum: No masses, free air, or fluid. Lymph nodes: No lymphadenopathy. Pelvic organs/bladder: No masses. Small subcentimeter anterior bladderdiverticulum (6:37). Penile implant. Vessels: No abdominal aortic aneurysm. Bones/soft tissues: No destructive osseous lesions. IMPRESSION: *Short segment thickening of the left upper quadrant transverse colon withupstream colonic dilation, particularly concerning for colonic neoplasmwith partial obstruction until proven otherwise. Infectious/inflammatoryetiologies are lower on the differential. *Cholelithiasis. *Pleural thickening and calcifications, as can be seen with prior asbestosexposure. RECOMMENDATION: Consider gastroenterology referral. A clinically significant result was initiated on 02/13/2024 1:41 PM,Message ID [id number]. Aviva Felix PA-C IMG CT ABD/PELVIS Final Result documented in this encounter Visit Diagnoses Diagnosis Dysphagia, unspecified type- Primary Constipation, unspecified constipation type Dysphagia, unspecified type Constipation, unspecified constipation type documented in this encounter Care Teams Centrifugal Station Operator Relationship Specialty Start Date End Date Tres Crum DO PCP - General 12/30/16 05/13/24 Tres Crum DO [address] [place] [address] [email or web address] PCP - General Internal Medicine 05/14/24 Ina Matos MBBS [address] [place] [id number] [email or web address] Primary Oncologist Medical Oncology 06/07/24 documented as of this encounter Additional Source Comments The information contained in this document represents components of the legal health record. It is not the complete legal health record.[facility]
--- OUTSIDE RECORDS SUMMARY | 2024-11-19 10:21 | XMS_ITS | Encounter Summary ---
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 She reported Nivia is at a SNF, likely going back to [facility] tomorrow. He will have enough warfarin for a week. Appointment scheduled for next week. Tracker updated. documented in this encounter Plan of Treatment Upcoming Encounters Date Type Department Care Team (Queenie Contact Info) Description 11/20/2024 2:00 PM EDT Office Visit Anticoagulation Clinic [address] [place] [address] Tres Crum DO [address] [facility] [place] [address] 01/25/2025 9:30 AM EST Appointment [facility] [address] [place] [address] 01/25/2025 10:30 AM EST Office Visit [facility] [address] [place] [address] Ina Matos MBBS [address] [place] [address] [email or web address] documented as of this encounter Visit Diagnoses Diagnosis Atrial fibrillation- Primary [facility] (current) use of anticoagulants Long-term (current) use of anticoagulants documented in this encounter Care Teams Machine Tool Electrician Relationship Specialty Start Date End Date VelmaTres mcgregor Jasmina [address] [place] [address] PCP - General Internal Medicine 05/14/24 Ina Matos MBBS [address] [place] [id number] Primary Oncologist Medical Oncology 06/07/24 documented as of this encounter Additional Source Comments The information contained in this document represents components of the legal health record. It is not the complete legal health record.[facility]
--- OUTSIDE RECORDS SUMMARY | 2024-11-19 10:21 | XMS_ITS | Clinical Summary ---
Author Organization [employer] Address [address] [facility] [address] [place] [address] Care Team Providers Care Canned Food Reconditioning Inspector Name Role Phone Unavailable Primary Care Provider [...] 75+ series) 2016 COVID-19 Vaccine ( season) 2024 12/29/2022, 08/14/2021, [...]
--- NOTE | 2024-11-19 10:26 | PC.NURSE ---
requests [facility] ASA and swallow eval be held at this time pending transfer to [facility] for + embolic CVA; pt remains in slow AFIB 50's
--- NOTE | 2024-11-19 10:48 | PC.NURSE ---
Pt unable to complete swallow eval; water pilled from R side of mouth and pt had some coughing, so eval terminated; Dr Betancourt made aware and speech eval recommended
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
--- NOTE | 2024-11-19 11:07 | MHC.STROKE ---
0809 - Notified of patient coming to ED as potential stroke alert. Pt from assisted living and found on ground this morning. Last seen last evening approximately 7:30/8 pm. Pt recently seen in ED, hx of multiple falls and neuro deficits from previous stroke. It was decided by ED provider to order regular CT scan. CT obtained and results reported as potential M2 embolus. Provider then added CTA to testing. Delay in obtaining CTA due to difficult IV access. Provider needed to insert and ultrasound guided IV. Once access gained, pt moved to CT by this RN and CTA was completed. Pt is alert and will follow some commands. Unable to state name or where he is/month. Upon receiving results of CTA, ED provider discussed transfer with [facility]. He also spoke with our neurologist. It was decided due to LKWT and size of stroke that patient would remain at [facility] and be admitted here. Stroke Education/protocol reviewed with patient. Patient will need continued reinforcement. Will continue to monitor and assist as needed. Plan of care discussed with primary RN.
--- NOTE | 2024-11-19 11:20 | PHA.MEDREC ---
Pharmacy Consult ? Medication Reconciliation Pharmacy has completed the medication reconciliation, utilized list from [facility] - all claims matched.
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
--- NOTE | 2024-11-19 13:24 | PC.NURSE ---
Speech pathology at bedside for swallow eval
--- NOTE | 2024-11-19 14:19 | MHC.SL.SWA ---
Speech Pathologist Impression: Severe dysphagia in acute phase s/p CVA Risk of Aspiration Due to: L sided involvement, ? vocal cord closure L sided facial droop, anterior loss of fluid Poor lingual mobility (unable to coordinate posterior transit) Delayed cough response on pharyngeal penetration of thins High risk for aspiration given severity of dysphagia and dysarthria s/p CVA Dysphasia Diet Status: Liquid Consistency and Strategies for Safe Swallow: Liquid Intake Recommendation: NPO Liquid Intake Strategies: Solid Food Consistency: Dietary Recommendations: NPO Additional Modifications to Solid Foods: Oral Medication Intake: NPO Please contact the pharmacy regarding appropriate crushable or liquid drug formulations that are available whenever modified delivery is recommended. Compensatory Strategies and Precautions to be Taken for Safe Swallow: Supervision While Eating and Drinking for Safe Swallow: PO with CHILD WELFARE SPECIALIST Foods to Avoid: Swallowing Recommended Treatments: Daily M-F to address dysarthria and dysphagia Recommendation for Speech: Inpatient Speech Therapy Comment: CHILD WELFARE SPECIALIST cleared dried secretions from surface of pt lips and front of tongue. Pt presents with significant OM weakness characterized by L sided droop, inability to lateralize tongue, produce volitional cough or elicit throat clear. Pt able to protrude tongue with much effort. Motor speech is severely dysarthric, though single words such as no, yes, good and great were intelligible. Pt attempted to produce words at the phrase level with poor motor speech initiation and repetition of single syllables (i.e. 'tran tran tran'). Pt answers yes/no questions efficiently. Receptive language considered to be WFL for simple instructions/information, but it is difficult to fully assess for aphasia d/t severity of expressive communication limitations. Trial of sip of water presented, with anterior loss and farhat aspiration d/t poor labial closure on L side. Reflexive cough was triggered upon water entering airway. Pt unable to elicit strong cough as vocal cord closure is significantly impaired. Pt voicing is harsh but weak. Recc NPO strict, oral swabs to clear mucous. CHILD WELFARE SPECIALIST tx daily to address dysarthria and dysphagia. Frequency/Duration: Daily M-F Date Range for Service Req: Timeline to reassess: Telephone Appointment Clerk Clinican/Clinical Fellow: No Supervisory Statement: I have reviewed and agree with the student/clinical fellow's documentation: N/A Speech Language Pathologist: Kiana Holloway M.S., [facility])-CHILD WELFARE SPECIALIST
--- NOTE | 2024-11-19 14:34 | PC.NURSE ---
Pt sleeping in room; wakes to voice; pt failed swallow eval, per speech pathology; pt NPO at this time; pt's HR as low as 39 AFIB/flutter 4:1 when asleep; 50'-60's afib when awake; pt on male purewick; awaiting bed for admission
[2024-11-20] VITALS (14 sets, daily range): BP systolic 94–173; BP diastolic 45–109; PULSE 54–75; RESP 15–20; TEMP 36.2–38.1; O2SAT 96–98
--- NOTE | 2024-11-20 02:55 | PC.NURSE ---
pt noted to be tugging at condom cath and yelling ouch, spots of blood noted to be in the cath. changed pt and bed sheets [facility] EDT, placed a new condom cath on pt. condom cath noted to be working well at this time, with approximately 100mls of pink tinged urine in canister. pt denies any pain at this time
[2024-11-20 04:51] LABS: Hematocrit 42.5 % (42.0-52.0); Hemoglobin 13.9 g/dl (14.0-18.0); Mean Corpuscular HGB Conc 32.7 g/dl (31.0-36.0); Mean Corpuscular Hemoglobin 30.2 pg (27.0-33.0); Mean Corpuscular Volume 92.4 fL (80.0-98.0); NRBC Abs Auto 0.000 X10*3/uL (0.0-0.012); NRBC Pct Auto 0.0 /100WBC (0.0-0.2); Platelet Count 212 X10*3/uL (160-400); Red Blood Count 4.60 X10*6/uL (4.60-5.80); White Blood Count 8.9 X10*3/uL (4.8-10.8)
[2024-11-20 05:06] LABS: Anion Gap 14 (12-20); Blood Urea Nitrogen 14 mg/dL (9-16); Calcium 8.7 mg/dL (8.4-10.2); Carbon Dioxide 26 mmol/L (22-29); Chloride 105 mmol/L (96-108); Creatinine Clr Calc Pharmacy 101.0; Estimated Glomerular Filt Rate > 60; Potassium 4.2 mmol/L (3.3-5.1); Sodium 141 mmol/L (135-145)
--- NOTE | 2024-11-20 08:09 | PC.NURSE ---
late entry 7a. pt had condom cath with hematuria. removed (tender) and male pure whick placed. at this yanique PT is at bedside. pt is unable to state needs or say name.
--- NOTE | 2024-11-20 08:37 | PC.NURSE ---
Hospitalist made aware of VS and hematuria.
[2024-11-20] MEDS: Dextrose 5 % and Lactated Ring 1,000 ML 80 ML IVCONT ×2 (08:57→21:47)
[2024-11-20 08:58] LABS: Glucose, Whole Blood 103 mg/dL (60-115)
--- NOTE | 2024-11-20 10:16 | PC.NURSE ---
[place]. equal hand grasps. unable to follow commads or state name. Pt is saying owe with all interventions, even having bracelet scanned.
--- NOTE | 2024-11-20 10:19 | PC.NURSE ---
Daughter, Gema on phone. States baseline was conversational, followed commands. penile implant was placed in 2013.
[2024-11-20] MEDS: Acetaminophen Supp 325 MG SUPP.RECT PR (10:51)
--- NOTE | 2024-11-20 11:21 | PC.NURSE ---
Speech back at bedside.
[2024-11-20 13:16] LABS: INTERNATIONAL NORM RATIO 1.3 (0.9-1.1); Prothrombin Time 14.6 SEC (10.9-12.4)
--- NOTE | 2024-11-20 13:30 | MHC.SL.SWA ---
Speech Pathologist Impression: Risk of Aspiration Due to: Dysphasia Diet Status: Recommend continue NPO. Provide regular oral care for patient comfort. Patient without nutritional source for > 48 hours, should be started on alternative nutrition. Liquid Consistency and Strategies for Safe Swallow: Liquid Intake Recommendation: NPO Liquid Intake Strategies: Solid Food Consistency: Dietary Recommendations: NPO Additional Modifications to Solid Foods: Oral Medication Intake: NPO Please contact the pharmacy regarding appropriate crushable or liquid drug formulations that are available whenever modified delivery is recommended. Compensatory Strategies and Precautions to be Taken for Safe Swallow: Supervision While Eating and Drinking for Safe Swallow: PO with CYBER SECURITY MANAGER Foods to Avoid: Swallowing Recommended Treatments: Compens. Strategy Educat. Recommendation for Speech: Inpatient Speech Therapy Comment: Patient seen for repeat assessment this a.m. Patient was awake and alert, crying out and moaning at rest in ED room. Patient struggling to initiate speech communication, continues to evidence right facial droop, open mouth with droop, and moderate dysarthria on minimal speech produced. Patient did answer some y/n questions today, however had difficulty following any directions for oral motor assessment. Patients lips, and mouth notably dry at onset. Patient given trace amount (1/4 tsp) of water, with patient demonstrating poor oral management, with water escaping mouth and likely over tongue into pharynx, with patient gasping, reddening of face, eventually producing productive cough with re-swallow which ended the event, 02 sats returning to high 90s, patient breathing normally. CYBER SECURITY MANAGER did attempt/offer trial of puree/applesauce, patient declining. Recommend continue NPO. Patient without nutritional source for > 48 hours, should be started on alternative nutrition. CYBER SECURITY MANAGER will continue to follow, re-assess as appropriate. Frequency/Duration: Daily M-F Date Range for Service Req: Timeline to reassess: Hem Inspector Clinican/Clinical Fellow: No Supervisory Statement: I have reviewed and agree with the student/clinical fellow's documentation: N/A Speech Language Pathologist: Tiny Wolff M.A., CCC-CYBER SECURITY MANAGER
--- NOTE | 2024-11-20 13:32 | MHC.CM.PN ---
Attempted to meet with patient in regards to discharge planning. Patient currently having difficulty communicating d/t CVA. Spoke with patient's daughter/HCP, Gema, via telephone at [phone]. Patient lives at [facility]. Patient was at [facility] for str from 11/03-11/16 and then d/c'd back to his independent living with [facility]. PCP verified. Copy of HCP verified to be on file. IMM explained and left bedside. PT and OT are rec rehab. Gema would prefer acute rehab with [facility] being 1st choice. If none of the acute rehab facilities are able to offer a bed, [facility] would be 4th choice. Referral made via [facility] so facilities are follow for d/c needs. Will need BLS transport. Continue to monitor for d/c needs.
--- NOTE | 2024-11-20 13:32 | HO.PM.IMPN ---
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 Unable to articulate name or clearly answering yes/no questions. Significant right sided weakness. Capable of following some commands, but slow to respond. Right-sided facial droop Extremities: 1+ bilateral pitting edema Vital Signs: Vital Signs: Last Vital Signs Temp 100.4 F 11/20/24 11:09 Pulse 67 11/20/24 11:09 Resp 20 11/20/24 11:09 BP 94/45 L 11/20/24 11:09 Pulse Ox 97 11/20/24 11:09 O2 Del Method Room Air 11/20/24 11:09 BMI result Body Mass Index 33.9 Objective Data Active Medications Acetaminophen (Acetaminophen 325 Mg Tablet) 650 mg PO Q6H PRN PRN Reason: Pain, Mild 1-3,fever,headache Acetaminophen (Acetaminophen Supp 325 Mg Supp.Rect) 325 mg [place] Q6H PRN PRN Reason: Pain, Mild 1-3,fever,headache Last Admin: 11/20/24 10:51 Dose: 325 mg Documented By: MILKA Amlodipine Besylate (Amlodipine Besylate 10 Mg Tablet) 10 mg PO DAILY [facility]; Protocol Last Admin: 11/20/24 09:01 Dose: Not Given Documented By: MILKA Non-Admin Reason: NPO Aspirin (Aspirin Enteric Coated 81 Mg Tablet.) 81 mg PO DAILY [facility] Last Admin: 11/20/24 09:02 Dose: Not Given Documented By: MILKA Non-Admin Reason: NPO Atorvastatin Calcium (Atorvastatin Calcium 80 Mg Tablet) 80 mg PO DAILY [facility] Last Admin: 11/20/24 09:02 Dose: Not Given Documented By: MILKA Non-Admin Reason: NPO Baclofen (Baclofen 10 Mg Tablet) 5 mg PO BID PRN PRN Reason: Muscle Spasm Bethanechol Chloride (Bethanechol Chloride 25 Mg Tablet) 50 mg PO DAILY [facility] Last Admin: 11/20/24 09:02 Dose: Not Given Documented By: MILKA Non-Admin Reason: NPO Calcium Carbonate (Calcium Carbonate 750 Mg Tab.Chew) 750 mg PO Q4H PRN PRN Reason: Heartburn Carbamazepine (Carbamazepine 200 Mg Tablet) 300 mg PO BID@0930,1400 [facility] Last Admin: 11/20/24 09:53 Dose: Not Given Documented By: MILKA Non-Admin Reason: NPO Enoxaparin Sodium (Enoxaparin Sodium 120 Mg/0.8 Ml Syringe) 120 mg 1 mg/kg (120 mg) SUBCUT Q12H [facility] Last Admin: 11/20/24 02:53 Dose: 120 mg Documented By: BEV Furosemide (Furosemide 20 Mg Tablet) 20 mg PO DAILY [facility]; Protocol Last Admin: 11/20/24 09:02 Dose: Not Given Documented By: MILKA Non-Admin Reason: NPO Gabapentin (Gabapentin 300 Mg Capsule) 300 mg PO TID [facility] Last Admin: 11/20/24 09:02 Dose: Not Given Documented By: MILKA Non-Admin Reason: NPO Dextrose/Lactated Ringer's (D5lr) 1,000 mls @ 80 mls/hr IVCONT .[id number] [facility] Last Admin: 11/20/24 08:57 Dose: 80 mls/hr Documented By: MILKA Levothyroxine Sodium (Levothyroxine Sodium 150 Mcg Tablet) 150 mcg PO DAILY@0600 [facility] Last Admin: 11/20/24 06:09 Dose: Not Given Documented By: BEV Non-Admin Reason: NPO Magnesium Hydroxide (Milk Of Magnesia 30 Ml Oral.Susp) 30 ml PO DAILY PRN PRN Reason: Constipation Melatonin (Melatonin 3 Mg Tablet) 6 mg PO BEDTIME PRN PRN Reason: Insomnia Ondansetron HCl (Ondansetron Hcl 4 Mg/2 Ml Vial) 4 mg IVPUSH Q8H PRN PRN Reason: Nausea and Vomiting Sertraline HCl (Sertraline Hcl 50 Mg Tablet) 50 mg PO DAILY [facility] Last Admin: 11/20/24 09:02 Dose: Not Given Documented By: MLIKA Non-Admin Reason: NPO Sodium Chloride (0.9 % Sodium Chloride Flush 3 Ml Syringe) 3 ml IVFLUSH QSHIFT [facility] Last Admin: 11/20/24 08:40 Dose: Not Given Documented By: MILKA Non-Admin Reason: Med Not Available Tamsulosin HCl (Tamsulosin Hcl 0.4 Mg Capsule) 0.4 mg PO DAILY [facility] Last Admin: 11/20/24 09:03 Dose: Not Given Documented By: MILKA Non-Admin Reason: NPO Labs 11/20/24 04:13 11/20/24 04:13 Labs: Laboratory Results - last 24 hr 11/20/24 11/20/24 11/20/24 04:13 08:21 13:01 MCV 92.4 MCH 30.2 MCHC 32.7 RDW 13.4 Plt Count 212 MPV 10.3 Absolute Nucleated RBC 0.000 Nucleated RBC % (auto) 0.0 PT 14.6 H INR 1.3 H Anion Gap 14 Estim Creat Clear Calc 101.0 Estimated GFR > 60 POC Glucose 103 Random Glucose 108 Calcium 8.7 Assessment and Plan (1) Acute ischemic left MCA stroke: Status: Acute Plan Pt is an 84-year-old male with a PMH significant for?paroxysmal AFib on warfarin, possible CVA in 05/2024, PE, HTN, hypothyroidism, BPH, trigeminal neuralgia since 1990 with chronic left-sided facial droop, and mood disorder who presents to the ED after being found on the floor at his apartment by facility staff. Pt is admitted to the hospital for treatment and further evaluation of of acute CVA. 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 Continue aspirin WI, restart statin once no longer NPO PT/OT/Speech therapy Continue NPO; has failed speech/swallow eval x2 Neurology contult Monitor on telemetry Paroxysmal AFib/subtherapeutic INR Previously on Eliquis in 06/2024, currently on Coumadin INR subtherapeutic Will switch to Eliquis once no longer NPO Will start on therapeutic Lovenox for now Bradycardia HR noted to be in the 40s Will hold metoprolol for now Monitor on tele HTN Continue amlodipine once no longer NPO Hyralazine 5mg IV prn for SBP >165 BPH Continue tamsulosin when no longer NPO Hypothyroidism Continue levothyroxine once no longer NPO Mood disorder Continue sertraline in carbamazepine once no longer NPO DNR/DNI DVT Prophylaxis: Therapeutic Lovenox for now, Eliquis once no longer NPO Requires continued hospitalization for treatment of?acute CVA. Pt will need additional workup and specialist consultation, as well as evaluation by PT/OT for safe disposition home. Quality Stroke Does the patient have a stroke diagnosis?: Yes Reason for No Anti-thrombotic by Day Two: N/A - Med Ordered VTE Prior VTE?: No VTE Risk Level:: Medical - moderate - high VTE Device Contraindication: Treatment Not Indicated VTE Drug Contraindication: N/A - Med Ordered
[2024-11-20] MEDS: 0.9 % Sodium Chloride Flush 3 ML SYRINGE IVFLUSH (21:49)
[2024-11-21] VITALS (7 sets, daily range): BP systolic 154–166; BP diastolic 80–89; PULSE 61–73; RESP 17–22; TEMP 36.2–37.8; O2SAT 96–99; BMI 33.9
[2024-11-21] MEDS: Acetaminophen Supp 325 MG SUPP.RECT PR (01:28)
--- NOTE | 2024-11-21 09:19 | MHC.SLORD ---
Speech Language Pathology Order Status: Pt sleeping soundly this morning, TRAINING ASSISTANT consulted with RN and hospitalist, TRAINING ASSISTANT to return when pt awake to re-assess swallow and motor speech/functional communication. Hospitalist noted pt may transition to hospice. RDs notified of need for short term alternative nutrition as pt remains NPO, prognosis guarded for safe resumption of PO given severity of dysphagia. TRAINING ASSISTANT continues to follow.
--- NOTE | 2024-11-21 10:15 | MHC.CLN ---
CONSULT PT REQUIRES PPN R/T PROLONGED NPO STATUS FAILED LIFESTYLE DIRECTOR EVAL X2 REVIEWED LABS DISCUSSED WITH PHARMACY RECOMMEND PPN AT 55ML/HR TO PROVIDE 673KCALS, 132G DEXTROSE, 56G PROTEIN REPLETE LYTES NEEDED SEE FULL ASSESSMENT
[2024-11-21] MEDS: Dextrose 5 % and Lactated Ring 1,000 ML 80 ML IVCONT ×2 (11:03→21:06)
[2024-11-21 12:05] LABS: Albumin Level 3.8 g/dL (3.5-5.0); Anion Gap 10 (12-20); Blood Urea Nitrogen 13 mg/dL (9-16); Calcium 8.5 mg/dL (8.4-10.2); Carbon Dioxide 26 mmol/L (22-29); Chloride 105 mmol/L (96-108); Creatinine Clr Calc Pharmacy 108.6; Estimated Glomerular Filt Rate > 60; Magnesium 1.9 mg/dL (1.6-2.6); Potassium 4.4 mmol/L (3.3-5.1); Sodium 137 mmol/L (135-145)
--- NOTE | 2024-11-21 13:09 | HO.PM.IMPN ---
Subjective Subjective Date of Service: 11/21/24 Interval History: Minimal improvement in speech, occasionally speaking words more clearly though not always appropriately Significant difficulty word finding and delayed response Capable of following some commands Pt was able to stand pt and move to recliner Nutrition consult pending for PPN Review of Systems Review of Systems: Yes Unobtainable due to mental status Physical Exam Exam: Exam: General: Awake, alert. Capable of following some commands. Not always responding appropriately Resp: CTA bilaterally CVS: Irregularly irregular rhythm GI: +BS, NT, no distention Skin: Warm, dry Neuro: Noted dysarthria, difficulty word finding, and delayed response. Unable to articulate name or clearly answering yes/no questions. Significant right sided weakness. Capable of following some commands, but slow to respond. Right-sided facial droop Extremities: Trace bilateral pitting edema Vital Signs: Vital Signs: Last Vital Signs Temp 97.5 F 11/21/24 11:42 Pulse 71 11/21/24 11:42 Resp 18 11/21/24 11:42 BP 160/86 H 11/21/24 11:42 Pulse Ox 96 11/21/24 11:42 O2 Del Method Room Air 11/21/24 11:42 BMI result Body Mass Index 33.9 Objective Data Active Medications Acetaminophen (Acetaminophen 325 Mg Tablet) 650 mg PO Q6H PRN On Hold: 11/20/24 17:51 PRN Reason: Pain, Mild 1-3,fever,headache Acetaminophen (Acetaminophen Supp 325 Mg Supp.Rect) [address] Q6H PRN PRN Reason: Pain, Mild 1-3,fever,headache Last Admin: 11/21/24 01:28 Dose: 325 mg Documented By: ORI Amlodipine Besylate (Amlodipine Besylate 10 Mg Tablet) 10 mg PO DAILY [facility]; Protocol On Hold: 11/20/24 17:52 Last Admin: 11/20/24 09:01 Dose: Not Given Documented By: MILKA Non-Admin Reason: NPO Aspirin (Aspirin Enteric Coated 81 Mg Tablet.) 81 mg PO DAILY [facility] On Hold: 11/20/24 17:52 Last Admin: 11/20/24 09:02 Dose: Not Given Documented By: MILKA Non-Admin Reason: NPO Aspirin (Aspirin 300 Mg Supp.Rect) [address] DAILY [facility] Last Admin: 11/21/24 09:34 Dose: 300 mg Documented By: GURDEEP Atorvastatin Calcium (Atorvastatin Calcium 80 Mg Tablet) 80 mg PO DAILY [facility] On Hold: 11/20/24 17:52 Last Admin: 11/20/24 09:02 Dose: Not Given Documented By: MILKA Non-Admin Reason: NPO Baclofen (Baclofen 10 Mg Tablet) 5 mg PO BID PRN On Hold: 11/20/24 17:52 PRN Reason: Muscle Spasm Bethanechol Chloride (Bethanechol Chloride 25 Mg Tablet) 50 mg PO DAILY [facility] On Hold: 11/20/24 17:52 Last Admin: 11/20/24 09:02 Dose: Not Given Documented By: MILKA Non-Admin Reason: NPO Carbamazepine (Carbamazepine 200 Mg Tablet) 300 mg PO BID@0930,1400 [facility] On Hold: 11/20/24 17:52 Last Admin: 11/20/24 14:29 Dose: Not Given Documented By: MILKA Non-Admin Reason: NPO Enoxaparin Sodium (Enoxaparin Sodium 120 Mg/0.8 Ml Syringe) 120 mg 1 mg/kg (120 mg) SUBCUT Q12H [facility] Last Admin: 11/21/24 02:45 Dose: 120 mg Documented By: ORI Furosemide (Furosemide 20 Mg Tablet) 20 mg PO DAILY [facility]; Protocol On Hold: 11/20/24 17:53 Last Admin: 11/20/24 09:02 Dose: Not Given Documented By: MILKA Non-Admin Reason: NPO Gabapentin (Gabapentin 300 Mg Capsule) 300 mg PO TID [facility] On Hold: 11/20/24 17:53 Last Admin: 11/20/24 14:29 Dose: Not Given Documented By: MILKA Non-Admin Reason: NPO Hydralazine HCl (Hydralazine Hcl 20 Mg/Ml Vial) 5 mg IVPUSH Q6H PRN; Protocol PRN Reason: SBP > 165 Dextrose/Lactated Ringer's (D5lr) 1,000 mls @ 80 mls/hr IVCONT .[id number] [facility] Last Admin: 11/21/24 11:03 Dose: 80 mls/hr Documented By: GURDEEP Nutrition (Parenteral) (Parenteral Nutrition) 1,320 mls @ 55 mls/hr IV .Q24H [facility]; Protocol Stop: 11/22/24 20:59 Levothyroxine Sodium (Levothyroxine Sodium 150 Mcg Tablet) 150 mcg PO DAILY@0600 [facility] On Hold: 11/20/24 17:54 Last Admin: 11/20/24 06:09 Dose: Not Given Documented By: BEV Non-Admin Reason: NPO Ondansetron HCl (Ondansetron Hcl 4 Mg/2 Ml Vial) 4 mg IVPUSH Q8H PRN PRN Reason: Nausea and Vomiting Pharmacy Consult (Consult Rx Parenteral Nutrition Ordering) 1 each MISCELLANE DAILY PRN PRN Reason: Consult order Sertraline HCl (Sertraline Hcl 50 Mg Tablet) 50 mg PO DAILY [facility] On Hold: 11/20/24 17:54 Last Admin: 11/20/24 09:02 Dose: Not Given Documented By: MILKA Non-Admin Reason: NPO Sodium Chloride (0.9 % Sodium Chloride Flush 3 Ml Syringe) 3 ml IVFLUSH QSHIFT [facility] Last Admin: 11/21/24 09:34 Dose: Not Given Documented By: GURDEEP Non-Admin Reason: IV Running Tamsulosin HCl (Tamsulosin Hcl 0.4 Mg Capsule) 0.4 mg PO DAILY [facility] On Hold: 11/20/24 17:54 Last Admin: 11/20/24 09:03 Dose: Not Given Documented By: MILKA Non-Admin Reason: NPO Labs 11/20/24 04:13 11/21/24 11:35 Labs: Laboratory Results - last 24 hr 11/20/24 11/21/24 11/21/24 13:01 11:35 11:46 Hold Purple Top SEE NOTE PT 14.6 H INR 1.3 H Anion Gap 10 L Estim Creat Clear Calc 108.6 Estimated GFR > 60 Random Glucose 119 H Calcium 8.5 Phosphorus 2.5 L Magnesium 1.9 Albumin 3.8 Hold Yellow Top See Note Assessment and Plan (1) Acute ischemic left MCA stroke: Status: Acute Plan Pt is an 84-year-old male with a PMH significant for?paroxysmal AFib on warfarin, possible CVA in 05/2024, PE, HTN, hypothyroidism, BPH, trigeminal neuralgia since 1990 with chronic left-sided facial droop, and mood disorder who presents to the ED after being found on the floor at his apartment by facility staff. Pt is admitted to the hospital for treatment and further evaluation of of acute CVA. 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 Continue aspirin CT, restart statin once no longer NPO PT/OT/Speech therapy Continue NPO; has failed speech/swallow eval x2 Neurology consult Monitor on telemetry Nutrition Pt without nutrition >48 hours Has been on D5LR since admission Nutrition consult for PPN/TPN Will place PICC tomorrow if continues to fail swallow eval Paroxysmal AFib/subtherapeutic INR Previously on Eliquis in 06/2024, currently on Coumadin INR subtherapeutic Will switch to Eliquis once no longer NPO Will start on therapeutic Lovenox for now Bradycardia HR previously noted to be in the 40s Metoprolol on hold Monitor on tele HTN Continue amlodipine once no longer NPO Hyralazine 5mg IV prn for SBP >165 BPH Continue tamsulosin when no longer NPO Hypothyroidism Continue levothyroxine once no longer NPO Mood disorder Continue sertraline in carbamazepine once no longer NPO DNR/DNI DVT Prophylaxis: Therapeutic Lovenox for now, Eliquis once no longer NPO Requires continued hospitalization for treatment of?acute CVA and inability to swallow. PT will need TPN/PPN and further evaluation by PT/OT for safe disposition. Quality Stroke Does the patient have a stroke diagnosis?: Yes Reason for No Anti-thrombotic by Day Two: N/A - Med Ordered VTE Prior VTE?: No VTE Risk Level:: Medical - moderate - high VTE Device Contraindication: Treatment Not Indicated VTE Drug Contraindication: N/A - Med Ordered
--- NOTE | 2024-11-21 13:10 | MHC.SL.SWA ---
Speech Pathologist Impression: Severe dysphagia s/p CVA, recc NPO strict, oral swabs to clear mucous. Alternative nutrition implemented 11/21. ROD STRAIGHTENER to re-assess/provide tx daily to address dysarthria and dysphagia. Risk of Aspiration Due to: Weakness Reduced cognition Infrequent reflexive swallow Inability to coordinate OM movements Dysphasia Diet Status: Recommend continue NPO. Provide regular oral care for patient comfort. Patient started on alternative nutrition 11/21. Liquid Consistency and Strategies for Safe Swallow: Liquid Intake Recommendation: NPO Liquid Intake Strategies: Solid Food Consistency: Dietary Recommendations: NPO Additional Modifications to Solid Foods: Oral Medication Intake: NPO Please contact the pharmacy regarding appropriate crushable or liquid drug formulations that are available whenever modified delivery is recommended. Compensatory Strategies and Precautions to be Taken for Safe Swallow: Sitting Upright (90 deg) Supervision While Eating and Drinking for Safe Swallow: PO with ROD STRAIGHTENER Foods to Avoid: Swallowing Recommended Treatments: Thermal Stimulation Gustatory Stimulation Compens. Strategy Educat. Recommendation for Speech: Inpatient Speech Therapy Comment: RN consulted this morning, texted ROD STRAIGHTENER in afternoon as pt more alert for treatment. Pt was upright in recliner with legs elevated. Pt minimally verbal today, with limited moments of waking. Pt daughter at bedside. Pt responded verbally a few times, endorsing pain 'yes', shaking head no in response to oral swabs, stating 'thank you' and eliciting 'ow!'. RN reported they attempted to use yankauer to suction pt mucous earlier, but pt grimaced and yelled out. During this tx pt was agreeable to brief swabbing. Mildly thick, clear secretions removed from cheeks. Pt yelled 'ow' when swab touched upper R side of mouth. Pt unable to answer yes/no question regarding pain. Reflexive swallow observed x1 during treatment, with delayed laryngeal elevation and poor completion of swallow. No PO trials attempted. Education provided to pt daughter on dysarthria characteristics, dysphagia severity and POC in acute phase of recovery. PPN has been ordered, RD and hospitalist consulted. ROD STRAIGHTENER will continue to re-assess/treat pt daily. Frequency/Duration: Daily M-F Date Range for Service Req: Timeline to reassess: Lacquer Machine Feeder Clinican/Clinical Fellow: No Supervisory Statement: I have reviewed and agree with the student/clinical fellow's documentation: N/A Speech Language Pathologist: Kiana Holloway M.S., CCC-ROD STRAIGHTENER
--- NOTE | 2024-11-21 13:33 | MHC.CM.PN ---
Per rounds and record review, pt. is NPO, failed swallow eval., will be using PPN or TPN for nutrition. Not ready to DC, may need LTC at DC, referral into [facility], pt. is from their independent living.
[2024-11-21] MEDS: Parenteral Nutrition 1,320 ML 55 ML IV (20:26)
[2024-11-21] MEDS: 0.9 % Sodium Chloride Flush 3 ML SYRINGE IVFLUSH (20:31)
[2024-11-22 04:00] VITALS: BP 155/81; PULSE 57; RESP 20; TEMP 36.3; O2SAT 98
[2024-11-22 07:04] VITALS: BP 163/89; PULSE 70; RESP 20; TEMP 36.6; O2SAT 99
[2024-11-22 09:33] LABS: Albumin Level 3.3 g/dL (3.5-5.0); Anion Gap 11 (12-20); Blood Urea Nitrogen 13 mg/dL (9-16); Calcium 8.3 mg/dL (8.4-10.2); Carbon Dioxide 23 mmol/L (22-29); Chloride 107 mmol/L (96-108); Creatinine Clr Calc Pharmacy 113.7; Estimated Glomerular Filt Rate > 60; Magnesium 1.9 mg/dL (1.6-2.6); Potassium 4.2 mmol/L (3.3-5.1); Sodium 137 mmol/L (135-145); Triglycerides 71 mg/dL (<150)
--- NOTE | 2024-11-22 10:43 | MHC.CLN ---
F/U REVIEWED LABS DISCUSSED WITH PHARMACY RECOMMEND INCREASING PPN TO 75ML/HR TO PROVIDE 918KCALS, 180G DEXTROSE, 77G PROTEIN REPLETE LYTES NEEDED
[2024-11-22] MEDS: Dextrose 5 % and Lactated Ring 1,000 ML 80 ML IVCONT ×2 (10:52→23:37)
[2024-11-22 12:00] VITALS: BP 143/79; PULSE 63; RESP 18; TEMP 36.6; O2SAT 96
--- NOTE | 2024-11-22 13:59 | HO.PM.IMPN ---
Subjective Subjective Date of Service: 11/22/24 Interval History: Being seen by speech twice a day Mild improvement: was able to complete a few swallows Still with significant focal deficits Review of Systems Review of Systems: Yes Unobtainable due to mental condition Physical Exam Exam: Exam: General: Awake, alert. Capable of following some commands. Not always responding appropriately Resp: CTA bilaterally CVS: Irregularly irregular rhythm GI: +BS, NT, no distention Skin: Warm, dry Neuro: Noted dysarthria, difficulty word finding, and delayed response. Unable to articulate name or clearly answering yes/no questions. Significant right sided weakness. Capable of following some commands, but slow to respond. Right-sided facial droop Extremities: Trace bilateral pitting edema Vital Signs: Vital Signs: Last Vital Signs Temp 97.9 F 11/22/24 12:00 Pulse 63 11/22/24 12:00 Resp 18 11/22/24 12:00 BP 143/79 H 11/22/24 12:00 Pulse Ox 96 11/22/24 12:00 O2 Del Method Room Air 11/22/24 12:00 BMI result Body Mass Index 33.9 Objective Data Active Medications Acetaminophen (Acetaminophen 325 Mg Tablet) 650 mg PO Q6H PRN On Hold: 11/20/24 17:51 PRN Reason: Pain, Mild 1-3,fever,headache Acetaminophen (Acetaminophen Supp 325 Mg Supp.Rect) 325 mg MD Q6H PRN PRN Reason: Pain, Mild 1-3,fever,headache Last Admin: 11/21/24 01:28 Dose: 325 mg Documented By: ORI Amlodipine Besylate (Amlodipine Besylate 10 Mg Tablet) 10 mg PO DAILY [facility]; Protocol On Hold: 11/20/24 17:52 Last Admin: 11/20/24 09:01 Dose: Not Given Documented By: MILKA Non-Admin Reason: NPO Aspirin (Aspirin Enteric Coated 81 Mg Tablet.) 81 mg PO DAILY [facility] On Hold: 11/20/24 17:52 Last Admin: 11/20/24 09:02 Dose: Not Given Documented By: MILKA Non-Admin Reason: NPO Aspirin (Aspirin 300 Mg Supp.Rect) 300 mg MD DAILY [facility] Last Admin: 11/22/24 09:13 Dose: 300 mg Documented By: ZACK Atorvastatin Calcium (Atorvastatin Calcium 80 Mg Tablet) 80 mg PO DAILY [facility] On Hold: 11/20/24 17:52 Last Admin: 11/20/24 09:02 Dose: Not Given Documented By: MILKA Non-Admin Reason: NPO Baclofen (Baclofen 10 Mg Tablet) 5 mg PO BID PRN On Hold: 11/20/24 17:52 PRN Reason: Muscle Spasm Bethanechol Chloride (Bethanechol Chloride 25 Mg Tablet) 50 mg PO DAILY [facility] On Hold: 11/20/24 17:52 Last Admin: 11/20/24 09:02 Dose: Not Given Documented By: MILKA Non-Admin Reason: NPO Carbamazepine (Carbamazepine 200 Mg Tablet) 300 mg PO BID@0930,1400 [facility] On Hold: 11/20/24 17:52 Last Admin: 11/20/24 14:29 Dose: Not Given Documented By: MILKA Non-Admin Reason: NPO Enoxaparin Sodium (Enoxaparin Sodium 120 Mg/0.8 Ml Syringe) 120 mg 1 mg/kg (120 mg) SUBCUT Q12H [facility] Last Admin: 11/22/24 13:47 Dose: 120 mg Documented By: ZACK Furosemide (Furosemide 20 Mg Tablet) 20 mg PO DAILY [facility]; Protocol On Hold: 11/20/24 17:53 Last Admin: 11/20/24 09:02 Dose: Not Given Documented By: MILKA Non-Admin Reason: NPO Gabapentin (Gabapentin 300 Mg Capsule) 300 mg PO TID [facility] On Hold: 11/20/24 17:53 Last Admin: 11/20/24 14:29 Dose: Not Given Documented By: MILKA Non-Admin Reason: NPO Hydralazine HCl (Hydralazine Hcl 20 Mg/Ml Vial) 5 mg IVPUSH Q6H PRN; Protocol PRN Reason: SBP > 165 Dextrose/Lactated Ringer's (D5lr) 1,000 mls @ 80 mls/hr IVCONT .[id number] SID Last Admin: 11/22/24 10:52 Dose: 80 mls/hr Documented By: ZACK Nutrition (Parenteral) (Parenteral Nutrition) 1,320 mls @ 55 mls/hr IV .Q24H [facility]; Protocol Stop: 11/22/24 20:59 Last Admin: 11/21/24 20:26 Dose: 55 mls/hr Documented By: TONA Nutrition (Parenteral) (Parenteral Nutrition) 1,800 mls @ 75 mls/hr IV .Q24H [facility]; Protocol Stop: 11/23/24 20:59 Levothyroxine Sodium (Levothyroxine Sodium 150 Mcg Tablet) 150 mcg PO DAILY@0600 [facility] On Hold: 11/20/24 17:54 Last Admin: 11/20/24 06:09 Dose: Not Given Documented By: BEV Non-Admin Reason: NPO Ondansetron HCl (Ondansetron Hcl 4 Mg/2 Ml Vial) 4 mg IVPUSH Q8H PRN PRN Reason: Nausea and Vomiting Pharmacy Consult (Consult Rx Parenteral Nutrition Ordering) 1 each MISCELLANE DAILY PRN PRN Reason: Consult order Sertraline HCl (Sertraline Hcl 50 Mg Tablet) 50 mg PO DAILY [facility] On Hold: 11/20/24 17:54 Last Admin: 11/20/24 09:02 Dose: Not Given Documented By: MILKA Non-Admin Reason: NPO Sodium Chloride (0.9 % Sodium Chloride Flush 3 Ml Syringe) 3 ml IVFLUSH QSHIFT [facility] Last Admin: 11/22/24 09:17 Dose: Not Given Documented By: ZACK Non-Admin Reason: IV Running Tamsulosin HCl (Tamsulosin Hcl 0.4 Mg Capsule) 0.4 mg PO DAILY [facility] On Hold: 11/20/24 17:54 Last Admin: 11/20/24 09:03 Dose: Not Given Documented By: MILKA Non-Admin Reason: NPO Labs 11/20/24 04:13 11/22/24 09:07 Labs: Laboratory Results - last 24 hr 11/22/24 09:07 Anion Gap 11 L Estim Creat Clear Calc 113.7 Estimated GFR > 60 Random Glucose 140 H Calcium 8.3 L Phosphorus 2.6 L Magnesium 1.9 Albumin 3.3 L Triglycerides 71 Assessment and Plan (1) Acute ischemic left MCA stroke: Status: Acute Plan Pt is an 84-year-old male with a PMH significant for?paroxysmal AFib on warfarin, possible CVA in 05/2024, PE, HTN, hypothyroidism, BPH, trigeminal neuralgia since 1990 with chronic left-sided facial droop, and mood disorder who presents to the ED after being found on the floor at his apartment by facility staff. Pt is admitted to the hospital for treatment and further evaluation of of acute CVA. 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 Continue aspirin MD, restart statin once no longer NPO PT/OT/Speech therapy Continue NPO and PPN; has failed speech/swallow eval x3 days; today improvement and able to swallow a few times Neurology consulted Monitor on telemetry Nutrition Continue PPN Nutrition following Hold off on PICC for now as pt starting to swallow some Paroxysmal AFib/subtherapeutic INR Previously on Eliquis in 06/2024, currently on Coumadin INR subtherapeutic Will switch to Eliquis once no longer NPO Will start on therapeutic Lovenox for now Bradycardia HR previously noted to be in the 40s Metoprolol on hold Monitor on tele HTN Continue amlodipine once no longer NPO Hyralazine 5mg IV prn for SBP >165 BPH Continue tamsulosin when no longer NPO Hypothyroidism Continue levothyroxine once no longer NPO Mood disorder Continue sertraline in carbamazepine once no longer NPO DNR/DNI DVT Prophylaxis: Therapeutic Lovenox for now, Eliquis once no longer NPO Requires continued hospitalization for treatment of?acute CVA and inability to swallow. Pt continues to need PPN and further evaluation by PT/OT for safe disposition. Quality Stroke Does the patient have a stroke diagnosis?: Yes Reason for No Anti-thrombotic by Day Two: N/A - Med Ordered VTE Prior VTE?: No VTE Risk Level:: Medical - moderate - high VTE Device Contraindication: Treatment Not Indicated VTE Drug Contraindication: N/A - Med Ordered
[2024-11-22 15:52] VITALS: BP 148/81; PULSE 73; RESP 20; TEMP 36.4; O2SAT 98
--- NOTE | 2024-11-22 17:20 | MHC.SL.SWA ---
Speech Pathologist Impression: Risk of Aspiration Due to: Dysphasia Diet Status: Recommend continue po trials with CALCULUS PROFESSOR, continue alternate nutrition. Liquid Consistency and Strategies for Safe Swallow: Liquid Intake Recommendation: PO w/CALCULUS PROFESSOR Liquid Intake Strategies: Solid Food Consistency: Dietary Recommendations: P/O with executive chairman Additional Modifications to Solid Foods: Oral Medication Intake: NPO Please contact the pharmacy regarding appropriate crushable or liquid drug formulations that are available whenever modified delivery is recommended. Compensatory Strategies and Precautions to be Taken for Safe Swallow: Sitting Upright (90 deg) Supervision While Eating and Drinking for Safe Swallow: PO with CALCULUS PROFESSOR Foods to Avoid: Swallowing Recommended Treatments: Thermal Stimulation Gustatory Stimulation Compens. Strategy Educat. Recommendation for Speech: Inpatient Speech Therapy Comment: Patient seen twice today for re-assessment/dysphagia treatment. AT both sessions, patient was awake and alert, though mildly agitated at times and crying out. Patient struggling to produce speech/communication, can answer y/n though responses are unreliable. ON trial of confrontation naming (BNT), on seeing image patient would say 'OH! in seeming recognition, however not initiate word with any cuing, indeed said NO! when executive chairman labelled word. Patient could not initiate automatic sequence of counting, said no! no! when executive chairman modelled counting to 10. Patient was given tsp of apple sauce at first visit, and tsp of pudding at second, with patient stripping spoon after spoon inserted into mouth, containing bolus and manipulating with tongue for propulsion, then initiating swallow after mild delay. No clinical signs of aspiration on puree. However at both visits, after one to two presentations of puree consistency, patient refused, loudly stated NO!, Batted hand at offered spoon. Patient refused honey thick juice at first attempt, accepted two tsps at second attempt, with similar response as puree, however after one successful tsp, patient then again refused. ON second visit, patient noted to cry out in pain on each swallow, difficult to determine if patient's swallow is painful at this time or if patient is protesting. While patient demonstrated good toleration of puree and honey thick liquid consistencies, trials too limited at this time to recommend advancing to diet. CALCULUS PROFESSOR will continue to do PO trials, encourage tolerance of taking more PO. MD/RD notified of plan by secure text, RN in person. Frequency/Duration: Daily M-F Date Range for Service Req: Timeline to reassess: Inspector Process Clinican/Clinical Fellow: No Supervisory Statement: I have reviewed and agree with the student/clinical fellow's documentation: N/A Speech Language Pathologist: Tiny Wolff M.A., [facility]-CALCULUS PROFESSOR
[2024-11-22 19:58] VITALS: BP 170/83; PULSE 58; RESP 19; TEMP 36.4; O2SAT 97
[2024-11-22] MEDS: Parenteral Nutrition 1,800 ML 75 ML IV (21:30)
--- NOTE | 2024-11-22 22:46 | PM.EVENT ---
Event Note Date of Service: 11/22/24 Event Note: Acute left arm pain: RN mentioned that patient not able to move the left arm since he came onto the service. PCM mentions that patient has had his blood pressures done on the left arm yesterday and have a cycle to move the left arm without any difficulty. At 07:00pm when she came in patient was noted to be not moving his left arm and is in pain whenever the left arm is touched. Reportedly patient was moved by holding by 6 people during the daytime. Has good pulses in the left arm Plan: Pain control Spoke to RN for immobilization until evaluated by Orthopaedics Placed stat ortho consult Will wait on ortho inputs before the CT scan Time Spent With Patient Time: Total time managing care of this patient today ____ minutes.
[2024-11-22 23:22] VITALS: BP 147/83; PULSE 68; RESP 20; TEMP 36.2; O2SAT 97
[2024-11-23] VITALS (7 sets, daily range): BP systolic 131–179; BP diastolic 73–92; PULSE 62–79; RESP 16–20; TEMP 35.9–37.5; O2SAT 98–100
[2024-11-23 07:33] LABS: Albumin Level 3.6 g/dL (3.5-5.0); Anion Gap 14 (12-20); Blood Urea Nitrogen 16 mg/dL (9-16); Calcium 8.6 mg/dL (8.4-10.2); Carbon Dioxide 21 mmol/L (22-29); Chloride 106 mmol/L (96-108); Creatinine Clr Calc Pharmacy 115.5; Estimated Glomerular Filt Rate > 60; Magnesium 2.0 mg/dL (1.6-2.6); Potassium 4.1 mmol/L (3.3-5.1); Sodium 137 mmol/L (135-145)
--- NOTE | 2024-11-23 09:38 | PM.EVENT ---
Event Note Date of Service: 11/23/24 Event Note: CT images reviewed: Impression: 1. Evidence of rotator cuff pathology with loss of subacromial space in mild cephalad displacement of the humerus relative to the glenoid. 2. AC joint arthrosis no undersurface spurring. 3. 3 mm intra-articular loose body glenohumeral joint posteriorly. No acute fracture or dislocation Conservative treatment: -Ice -NSAIDs if able to take -Sling for comfort but encourage coming out regularly to perform ROM to avoid stiffness -Sling no longer that 3-4 days then d/c Time Spent With Patient Time: Total time managing care of this patient today ____ minutes.
[2024-11-23] MEDS: 0.9 % Sodium Chloride Flush 3 ML SYRINGE IVFLUSH ×2 (10:25→20:47)
--- NOTE | 2024-11-23 11:42 | MHC.CLN ---
F/U PT WORKING WT BAR HELPER FOR APPROPRIATE DIET CONSISTENCY REVIEWED LABS DISCUSSED WITH PHARMACY RECOMMEND INCREASING PPN TO MAX GOAL RATE 95ML/HR WITH 70G LIPIDS TO PROVIDE 1863 TOTAL KCALS (23KCALS/KG), 228G DEXTROSE, 97G PROTEIN (1.2G/KG) REPLETE LYTES NEEDED RD CAN BE REACHED VIA TIGER CONNECT DURING OFF HOURS IF NEEDED
--- NOTE | 2024-11-23 12:18 | P.PNIM_ITS ---
Subjective Subjective Date of Service: 11/23/24 Interval History: Passed swallow eval on pureed diet and honey thick liquids Worsening mobility: barely moving either upper extremity Had CT of right shoulder showing rotator cuff injury, with no acute fracture or dislocation Review of Systems Review of Systems: Yes Unobtainable due to mental status Physical Exam 2 Exam: Exam: General: Awake, alert. Capable of following some commands. Not always responding appropriately Resp: CTA bilaterally CVS: Irregularly irregular rhythm GI: +BS, NT, no distention Skin: Warm, dry Neuro: Noted dysarthria, difficulty word finding, and delayed response. Unable to articulate name or clearly answering yes/no questions. Significant right sided weakness. Capable of following some commands, but slow to respond. Right-sided facial droop Muskuloskeletal: Brusing on left shoulder and bilateral elbows, tender to the touch Extremities: Trace bilateral pitting edema Vital Signs: Vital Signs: Last Vital Signs Temp 97.9 F 11/23/24 08:00 Pulse 62 11/23/24 09:48 Resp 16 11/23/24 08:00 BP 142/75 H 11/23/24 09:48 Pulse Ox 99 11/23/24 09:48 O2 Del Method Room Air 11/23/24 08:00 BMI result Body Mass Index 33.9 Objective Data Active Medications Acetaminophen (Acetaminophen 325 Mg Tablet) 650 mg PO Q6H PRN On Hold: 11/20/24 17:51 PRN Reason: Pain, Mild 1-3,fever,headache Acetaminophen (Acetaminophen Supp 325 Mg Supp.Rect) 325 mg ND Q6H PRN PRN Reason: Pain, Mild 1-3,fever,headache Last Admin: 11/21/24 01:28 Dose: 325 mg Documented By: ORI Amlodipine Besylate (Amlodipine Besylate 10 Mg Tablet) 10 mg PO DAILY [facility]; Protocol On Hold: 11/20/24 17:52 Last Admin: 11/20/24 09:01 Dose: Not Given Documented By: MILKA Non-Admin Reason: NPO Aspirin (Aspirin Enteric Coated 81 Mg Tablet.) 81 mg PO DAILY [facility] On Hold: 11/20/24 17:52 Last Admin: 11/20/24 09:02 Dose: Not Given Documented By: MILKA Non-Admin Reason: NPO Aspirin (Aspirin 300 Mg Supp.Rect) 300 mg ND DAILY [facility] Last Admin: 11/23/24 10:03 Dose: Not Given Documented By: ZACK Non-Admin Reason: on hold per provider Atorvastatin Calcium (Atorvastatin Calcium 80 Mg Tablet) 80 mg PO DAILY [facility] On Hold: 11/20/24 17:52 Last Admin: 11/20/24 09:02 Dose: Not Given Documented By: MILKA Non-Admin Reason: NPO Baclofen (Baclofen 10 Mg Tablet) 5 mg PO BID PRN On Hold: 11/20/24 17:52 PRN Reason: Muscle Spasm Bethanechol Chloride (Bethanechol Chloride 25 Mg Tablet) 50 mg PO DAILY [facility] On Hold: 11/20/24 17:52 Last Admin: 11/20/24 09:02 Dose: Not Given Documented By: MILKA Non-Admin Reason: NPO Carbamazepine (Carbamazepine 200 Mg Tablet) 300 mg PO BID@0930,1400 [facility] On Hold: 11/20/24 17:52 Last Admin: 11/20/24 14:29 Dose: Not Given Documented By: MILKA Non-Admin Reason: NPO Enoxaparin Sodium (Enoxaparin Sodium 120 Mg/0.8 Ml Syringe) 120 mg 1 mg/kg (120 mg) SUBCUT Q12H [facility] Last Admin: 11/23/24 02:48 Dose: 120 mg Documented By: ORI Furosemide (Furosemide 20 Mg Tablet) 20 mg PO DAILY [facility]; Protocol On Hold: 11/20/24 17:53 Last Admin: 11/20/24 09:02 Dose: Not Given Documented By: MILKA Non-Admin Reason: NPO Gabapentin (Gabapentin 300 Mg Capsule) 300 mg PO TID [facility] On Hold: 11/20/24 17:53 Last Admin: 11/20/24 14:29 Dose: Not Given Documented By: MILKA Non-Admin Reason: NPO Hydralazine HCl (Hydralazine Hcl 20 Mg/Ml Vial) 5 mg IVPUSH Q6H PRN; Protocol PRN Reason: SBP > 165 Last Admin: 11/22/24 22:24 Dose: 5 mg Documented By: ORI Hydromorphone HCl (Hydromorphone Hcl 0.5 Mg/0.5 Ml Syringe) 0.5 mg IVPUSH Q4H PRN; Protocol PRN Reason: Breakthrough Pain Last Admin: 11/23/24 03:57 Dose: 0.5 mg Documented By: ORI Nutrition (Parenteral) (Parenteral Nutrition) 1,800 mls @ 75 mls/hr IV .Q24H [facility]; Protocol Stop: 11/23/24 20:59 Last Admin: 11/22/24 21:30 Dose: 75 mls/hr Documented By: ORI Nutrition (Parenteral) (Parenteral Nutrition) 2,280 mls @ 95 mls/hr IV .Q24H [facility]; Protocol Stop: 11/24/24 20:59 Levothyroxine Sodium (Levothyroxine Sodium 150 Mcg Tablet) 150 mcg PO DAILY@0600 [facility] On Hold: 11/20/24 17:54 Last Admin: 11/20/24 06:09 Dose: Not Given Documented By: BEV Non-Admin Reason: NPO Ondansetron HCl (Ondansetron Hcl 4 Mg/2 Ml Vial) 4 mg IVPUSH Q8H PRN PRN Reason: Nausea and Vomiting Pharmacy Consult (Consult Rx Parenteral Nutrition Ordering) 1 each MISCELLANE DAILY PRN PRN Reason: Consult order Sertraline HCl (Sertraline Hcl 50 Mg Tablet) 50 mg PO DAILY [facility] On Hold: 11/20/24 17:54 Last Admin: 11/20/24 09:02 Dose: Not Given Documented By: MILKA Non-Admin Reason: NPO Sodium Chloride (0.9 % Sodium Chloride Flush 3 Ml Syringe) 3 ml IVFLUSH QSHIFT [facility] Last Admin: 11/23/24 10:25 Dose: 3 ml Documented By: ZACK Tamsulosin HCl (Tamsulosin Hcl 0.4 Mg Capsule) 0.4 mg PO DAILY [facility] On Hold: 11/20/24 17:54 Last Admin: 11/20/24 09:03 Dose: Not Given Documented By: MILKA Non-Admin Reason: NPO Labs 11/20/24 04:13 11/23/24 06:59 Labs: Laboratory Results - last 24 hr 11/23/24 06:59 Hold Purple Top SEE NOTE Anion Gap 14 Estim Creat Clear Calc 115.5 Estimated GFR > 60 Random Glucose 168 H Calcium 8.6 Phosphorus 2.6 L Magnesium 2.0 Albumin 3.6 Assessment and Plan (1) Acute ischemic left MCA stroke: Status: Acute Plan Pt is an 84-year-old male with a PMH significant for?paroxysmal AFib on warfarin, possible CVA in 05/2024, PE, HTN, hypothyroidism, BPH, trigeminal neuralgia since 1990 with chronic left-sided facial droop, and mood disorder who presents to the ED after being found on the floor at his apartment by facility staff. Pt is admitted to the hospital for treatment and further evaluation of of acute CVA. 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 Repeat CT of head evolving extensive acute/subacute nonhemorrhagic stroke with concerns for worsening vasogenic cerebral edema vs cytotoxic edema Continue aspirin ND, restart statin once no longer NPO PT/OT/Speech therapy Continue PPN until has adequate po intake; speech advanced to NDD1/PUree with HONEY THICK liquids Neurology consulted Monitor on telemetry Nutrition Continue PPN for now Nutrition following Passed swallow on pureed and honey thick, though only eating small amounts Left shoulder pain CTA of shoulder showing evidence of rotator cuff pathology but no acute fracture or dislocation Seen by orthopedics who suggested conservative treatment with ice and NSAIDs Sling intermittently for comfort; dc after 3-4 days Paroxysmal AFib/subtherapeutic INR Previously on Eliquis in 06/2024, currently on Coumadin INR subtherapeutic Will switch to Eliquis once no longer NPO Will start on therapeutic Lovenox for now Bradycardia HR previously noted to be in the 40s Metoprolol on hold Monitor on tele HTN Continue amlodipine once no longer NPO Hyralazine 5mg IV prn for SBP >165 BPH Continue tamsulosin when no longer NPO Hypothyroidism Continue levothyroxine once no longer NPO Mood disorder Continue sertraline in carbamazepine once no longer NPO DNR/DNI DVT Prophylaxis: Therapeutic Lovenox for now, Eliquis once no longer NPO Requires continued hospitalization for treatment of?acute CVA and inability to swallow. Pt continues to need PPN and further evaluation by PT/OT for safe disposition. Quality Stroke Does the patient have a stroke diagnosis?: Yes Reason for No Anti-thrombotic by Day Two: N/A - Med Ordered VTE Prior VTE?: No VTE Risk Level:: Medical - moderate - high VTE Device Contraindication: Treatment Not Indicated VTE Drug Contraindication: N/A - Med Ordered
--- NOTE | 2024-11-23 14:41 | MHC.CM.PN ---
Per rounds, pt. is still acute, referrals updated.
--- NOTE | 2024-11-23 14:50 | MHC.SL.SWA ---
Speech Pathologist Impression: Risk of Aspiration Due to: Dysphasia Diet Status: UPGRADE diet at this time to PUREE (NDD1) with HONEY THICK liquids (by controlled cup sip or tsp) Pills crushed in puree. Patient will require 1-1 feeding, encourage and engage patient in meal. Allow patient to eat to level/pleasure desired. Liquid Consistency and Strategies for Safe Swallow: Liquid Intake Recommendation: Honey Thick Liquid Intake Strategies: No Straws Solid Food Consistency: Dietary Recommendations: Pureed (NDD1) Additional Modifications to Solid Foods: Oral Medication Intake: Crushed with Puree Please contact the pharmacy regarding appropriate crushable or liquid drug formulations that are available whenever modified delivery is recommended. Compensatory Strategies and Precautions to be Taken for Safe Swallow: Sitting Upright (90 deg) No Straw Liquids from Cup Liquids from Spoon Small Bites and Sips Alternate Liquids/Solids Supervision While Eating and Drinking for Safe Swallow: Total Assistance (1:1) Foods to Avoid: Swallowing Recommended Treatments: Thermal Stimulation Gustatory Stimulation Compens. Strategy Educat. Recommendation for Speech: Inpatient Speech Therapy Comment: Patient seen twice today for re-assessment/dysphagia treatment. At first session, ACCOUNTS SUPERVISOR brought communication board for patient, as patient had been giving confusing signs of pain and not able to communicate clearly about it. Attempts to assess patient's understanding and use of picture symbols on board failed, however as patient was agitated, confused and refused to interact with the board. Patient agitation and oppositional behavior continued during attempts at oral feeding, with repeatedly, loudly saying NO! to presentations of food, and crying out loudly on swallow after accepting single bite of puree. Session ended when tech came to bring patient to MRI. At second session, ACCOUNTS SUPERVISOR ordered patient a lunch tray from kitchen as a trial and to given patient more context for eating/drinking. ACCOUNTS SUPERVISOR introduced this to Patient by saying here's your lunch! and inviting him to eat, which proved very effective with patient cooperative with trying food. Patient's overall affect during this session was greatly improved, including periods where he laughed heartily. Patient trialed bites of mashed potatoes, beef puree blended with potatoes, and chocolate pudding, producing a mildly delayed oral phase, mild delay initiating swallow, and mild oral residual after swallow, cleared by sips of liquid. Patient also given tsps of thick liquid/butternut squash soup, and cups sips of honey thick liquids, with good oral containment, more timely initiation of swallow, no clinicals signs of aspiration. Patient ate approximately 25% of meal before declining more. Given patient toleration and engagement in at least part of a meal, recommend UPGRADE diet at this time to PUREE (NDD1) with HONEY THICK liquids (by controlled cup sip or tsp) Pills crushed in puree. Patient will require 1-1 feeding, encourage and engage patient in meal. Allow patient to eat to level/pleasure desired. MD/RD notified of recommendation by secure text, RN in person. Frequency/Duration: Daily M-F Date Range for Service Req: Timeline to reassess: Digital Pre Press Operator Clinican/Clinical Fellow: No Supervisory Statement: I have reviewed and agree with the student/clinical fellow's documentation: N/A Speech Language Pathologist: Tiny Wolff M.A., CCC-ACCOUNTS SUPERVISOR
[2024-11-23] MEDS: Parenteral Nutrition 2,280 ML 95 ML IV (21:40)
[2024-11-23] MEDS: Acetaminophen Supp 325 MG SUPP.RECT PR (21:51)
--- NOTE | 2024-11-23 23:23 | PC.NURSE ---
I assumed care of the pt at the shift change at aprox 1900, pt agitated, in pain, having difficulty finding words, unable to complete full sentence.
[2024-11-24 04:00] VITALS: BP 120/70; PULSE 68; RESP 20; TEMP 37.2; O2SAT 97
[2024-11-24 08:00] VITALS: BP 142/83; PULSE 69; RESP 18; TEMP 36.4; O2SAT 96
[2024-11-24 08:29] LABS: Albumin Level 3.1 g/dL (3.5-5.0); Anion Gap 13 (12-20); Blood Urea Nitrogen 18 mg/dL (9-16); Calcium 8.3 mg/dL (8.4-10.2); Carbon Dioxide 22 mmol/L (22-29); Chloride 105 mmol/L (96-108); Creatinine Clr Calc Pharmacy 121.2; Estimated Glomerular Filt Rate > 60; Magnesium 2.0 mg/dL (1.6-2.6); Potassium 4.3 mmol/L (3.3-5.1); Sodium 136 mmol/L (135-145)
[2024-11-24] MEDS: Aspirin Enteric Coated 81 MG TABLET.DR PO (10:00)
[2024-11-24] MEDS: 0.9 % Sodium Chloride Flush 3 ML SYRINGE IVFLUSH ×2 (10:01→15:59)
[2024-11-24 12:00] VITALS: BP 124/82; PULSE 72; RESP 18; TEMP 36.2; O2SAT 99
--- NOTE | 2024-11-24 13:23 | P.PNIM_ITS ---
Subjective Subjective Date of Service: 11/24/24 Interval History: Continues to cry out as if in pain when touched; however active movement of extremities witout pain Swallowing some pills; refusing most food Continued significant expressive aphasia and right-sided deficits Review of Systems Review of Systems: Yes Unobtainable due to mental status Physical Exam 2 Exam: Exam: General: Awake, alert. Capable of following some commands. Unable to answer most questions Resp: CTA bilaterally CVS: Irregularly irregular rhythm GI: +BS, NT, no distention Skin: Warm, dry Neuro: Noted significant dysarthria, difficulty word finding, and delayed response. Unable to articulate name; can answer yes/no questions though not clear if appropriately. Significant right sided weakness. Capable of following some commands, but slow to respond. Right-sided facial droop. Cries out when touched, though performs active ROM, however minimal, without apparent pain. Muskuloskeletal: Bruising on left shoulder and bilateral elbows, tender to the touch Extremities: Trace bilateral pitting edema Vital Signs: Vital Signs: Last Vital Signs Temp 97.1 F 11/24/24 12:00 Pulse 72 11/24/24 12:00 Resp 18 11/24/24 12:00 BP 124/82 11/24/24 12:00 Pulse Ox 99 11/24/24 12:00 O2 Del Method Room Air 11/24/24 12:00 BMI result Body Mass Index 33.9 Objective Data Active Medications Acetaminophen (Acetaminophen 325 Mg Tablet) 650 mg PO Q6H PRN PRN Reason: Pain, Mild 1-3,fever,headache Acetaminophen (Acetaminophen Supp 325 Mg Supp.Rect) 325 mg [place] Q6H PRN On Hold: 11/24/24 07:49 PRN Reason: Pain, Mild 1-3,fever,headache Last Admin: 11/23/24 21:51 Dose: 325 mg Documented By: RUDDY Amlodipine Besylate (Amlodipine Besylate 10 Mg Tablet) 10 mg PO DAILY [facility]; Protocol On Hold: 11/20/24 17:52 Last Admin: 11/20/24 09:01 Dose: Not Given Documented By: MILKA Non-Admin Reason: NPO Apixaban (Apixaban 5 Mg Tablet) 5 mg PO BID [facility] Last Admin: 11/24/24 10:00 Dose: 5 mg Documented By: XIOMARA Aspirin (Aspirin Enteric Coated 81 Mg Tablet.) 81 mg PO DAILY [facility] Last Admin: 11/24/24 10:00 Dose: 81 mg Documented By: XIOMARA Aspirin (Aspirin 300 Mg Supp.Rect) 300 mg NC DAILY [facility] On Hold: 11/24/24 07:49 Last Admin: 11/23/24 10:03 Dose: Not Given Documented By: ZACK Non-Admin Reason: on hold per provider Atorvastatin Calcium (Atorvastatin Calcium 80 Mg Tablet) 80 mg PO DAILY [facility] Last Admin: 11/24/24 10:00 Dose: 80 mg Documented By: XIOMARA Baclofen (Baclofen 10 Mg Tablet) 5 mg PO BID PRN On Hold: 11/20/24 17:52 PRN Reason: Muscle Spasm Bethanechol Chloride (Bethanechol Chloride 25 Mg Tablet) 50 mg PO DAILY [facility] Last Admin: 11/24/24 10:00 Dose: 50 mg Documented By: XIOMARA Carbamazepine (Carbamazepine 200 Mg Tablet) 300 mg PO BID@0930,1400 [facility] Last Admin: 11/24/24 10:02 Dose: 300 mg Documented By: XIOMARA Enoxaparin Sodium (Enoxaparin Sodium 120 Mg/0.8 Ml Syringe) 120 mg 1 mg/kg (120 mg) SUBCUT Q12H [facility] On Hold: 11/24/24 07:48 Last Admin: 11/24/24 02:28 Dose: 120 mg Documented By: RUDDY Furosemide (Furosemide 20 Mg Tablet) 20 mg PO DAILY [facility]; Protocol Last Admin: 11/24/24 10:00 Dose: 20 mg Documented By: XIOMARA Gabapentin (Gabapentin 300 Mg Capsule) 300 mg PO TID [facility] Last Admin: 11/24/24 10:00 Dose: 300 mg Documented By: XIOMARA Hydralazine HCl (Hydralazine Hcl 20 Mg/Ml Vial) 5 mg IVPUSH Q6H PRN; Protocol PRN Reason: SBP > 165 Last Admin: 11/22/24 22:24 Dose: 5 mg Documented By: ORI Hydromorphone HCl (Hydromorphone Hcl 0.5 Mg/0.5 Ml Syringe) 0.5 mg IVPUSH Q4H PRN; Protocol PRN Reason: Breakthrough Pain Last Admin: 11/24/24 02:45 Dose: 0.5 mg Documented By: RUDDY Nutrition (Parenteral) (Parenteral Nutrition) 2,280 mls @ 95 mls/hr IV .Q24H [facility]; Protocol Stop: 11/24/24 20:59 Last Admin: 11/23/24 21:40 Dose: 95 mls/hr Documented By: RUDDY Nutrition (Parenteral) (Parenteral Nutrition) 2,280 mls @ 95 mls/hr IV .Q24H [facility]; Protocol Stop: 11/25/24 20:59 Levothyroxine Sodium (Levothyroxine Sodium 150 Mcg Tablet) 150 mcg PO DAILY@0600 [facility] Last Admin: 11/20/24 06:09 Dose: Not Given Documented By: BEV Non-Admin Reason: NPO Ondansetron HCl (Ondansetron Hcl 4 Mg/2 Ml Vial) 4 mg IVPUSH Q8H PRN PRN Reason: Nausea and Vomiting Pharmacy Consult (Consult Rx Parenteral Nutrition Ordering) 1 each MISCELLANE DAILY PRN PRN Reason: Consult order Sertraline HCl (Sertraline Hcl 50 Mg Tablet) 50 mg PO DAILY [facility] Last Admin: 11/24/24 10:00 Dose: 50 mg Documented By: XIOMARA Sodium Chloride (0.9 % Sodium Chloride Flush 3 Ml Syringe) 3 ml IVFLUSH QSHIFT [facility] Last Admin: 11/24/24 10:01 Dose: 3 ml Documented By: XIOMARA Tamsulosin HCl (Tamsulosin Hcl 0.4 Mg Capsule) 0.4 mg PO DAILY [facility] Last Admin: 11/24/24 10:00 Dose: 0.4 mg Documented By: XIOMARA Labs 11/20/24 04:13 11/24/24 07:41 Labs: Laboratory Results - last 24 hr 11/24/24 07:41 Hold Purple Top SEE NOTE Anion Gap 13 Estim Creat Clear Calc 121.2 Estimated GFR > 60 Random Glucose 139 H Calcium 8.3 L Phosphorus 3.2 Magnesium 2.0 Albumin 3.1 L Assessment and Plan (1) Acute ischemic left MCA stroke: Status: Acute Plan Pt is an 84-year-old male with a PMH significant for?paroxysmal AFib on warfarin, possible CVA in 05/2024, PE, HTN, hypothyroidism, BPH, trigeminal neuralgia since 1990 with chronic left-sided facial droop, and mood disorder who presents to the ED after being found on the floor at his apartment by facility staff. Pt is admitted to the hospital for treatment and further evaluation of of acute CVA. 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 Repeat CT of head evolving extensive acute/subacute nonhemorrhagic stroke with concerns for worsening vasogenic cerebral edema vs cytotoxic edema Aspirin, statin PT/OT/Speech therapy Continue PPN until has adequate po intake; speech advanced to NDD1/PUree with HONEY THICK liquids Neurology consulted Monitor on telemetry Nutrition Continue PPN for now Nutrition following Passed swallow on pureed and honey thick, though only eating small amounts ?Left shoulder pain CT of shoulder showing evidence of rotator cuff pathology but no acute fracture or dislocation Seen by orthopedics who suggested conservative treatment with ice and NSAIDs Sling intermittently for comfort; dc after 3-4 days Pt cries out when even lightly touched, but unlikely from pain: can move, albeit minimally, upper and lower extremities on own without apparent pain Paroxysmal AFib/subtherapeutic INR Previously on Eliquis in 06/2024, currently on Coumadin INR subtherapeutic Treated with therapeutic Lovenox Will switch to Eliquis once no longer NPO Will start on therapeutic Lovenox for now Bradycardia HR previously noted to be in the 40s Metoprolol on hold Monitor on tele HTN Continue amlodipine once no longer NPO Hyralazine 5mg IV prn for SBP >165 BPH Continue tamsulosin when no longer NPO Hypothyroidism Continue levothyroxine once no longer NPO Mood disorder Continue sertraline in carbamazepine once no longer NPO DNR/DNI DVT Prophylaxis: Therapeutic Lovenox for now, Eliquis once no longer NPO Requires continued hospitalization for treatment of?acute CVA and difficulty swallowing. Pt continues to need PPN and further evaluation by PT/OT for safe disposition. Quality Stroke Does the patient have a stroke diagnosis?: Yes Reason for No Anti-thrombotic by Day Two: N/A - Med Ordered VTE Prior VTE?: No VTE Risk Level:: Medical - moderate - high VTE Device Contraindication: Treatment Not Indicated VTE Drug Contraindication: N/A - Med Ordered
[2024-11-24 16:00] VITALS: BP 150/77; PULSE 81; RESP 20; TEMP 36.3; O2SAT 96
[2024-11-24 19:54] VITALS: BP 153/93; PULSE 68; RESP 16; TEMP 36.8; O2SAT 98
[2024-11-24] MEDS: Parenteral Nutrition 2,280 ML 95 ML IV (22:42)
[2024-11-24 23:40] VITALS: BP 130/65; PULSE 71; RESP 18; TEMP 36.6; O2SAT 95
[2024-11-25] VITALS (7 sets, daily range): BP systolic 132–182; BP diastolic 66–90; PULSE 58–69; RESP 16–20; TEMP 36.1–36.8; O2SAT 95–99
[2024-11-25 08:01] LABS: Albumin Level 3.1 g/dL (3.5-5.0); Anion Gap 11 (12-20); Blood Urea Nitrogen 17 mg/dL (9-16); Calcium 8.5 mg/dL (8.4-10.2); Carbon Dioxide 20 mmol/L (22-29); Chloride 107 mmol/L (96-108); Creatinine Clr Calc Pharmacy 117.3; Estimated Glomerular Filt Rate > 60; Magnesium 2.2 mg/dL (1.6-2.6); Potassium 4.4 mmol/L (3.3-5.1); Sodium 134 mmol/L (135-145)
[2024-11-25] MEDS: Aspirin Enteric Coated 81 MG TABLET.DR PO (09:58)
--- NOTE | 2024-11-25 11:02 | P.PNIM_ITS ---
Subjective Subjective Date of Service: 11/25/24 Interval History: PPN continues Minimal food intake Has been taking some meds crushed in applesauce No improvement in speech, mentation, movement Review of Systems Review of Systems: Yes Unobtainable due to mental status Physical Exam 2 Exam: Exam: General: Awake, alert. Capable of following some commands. Unable to answer most questions Resp: CTA bilaterally CVS: Irregularly irregular rhythm GI: +BS, NT, no distention Skin: Warm, dry Neuro: Noted significant dysarthria, difficulty word finding, and delayed response. Significant right sided weakness. Capable of following some commands. Right-sided facial droop. Often cries out when touched, though performs active ROM, however minimal, without apparent pain. Muskuloskeletal: Bruising on left shoulder and bilateral elbows, tender to the touch Extremities: Trace bilateral pitting edema Vital Signs: Vital Signs: Last Vital Signs Temp 97.9 F 11/25/24 07:43 Pulse 61 11/25/24 07:43 Resp 20 11/25/24 07:43 BP 132/90 H 11/25/24 09:58 Pulse Ox 98 11/25/24 07:43 O2 Del Method Room Air 11/25/24 07:43 BMI result Body Mass Index 33.9 Objective Data Active Medications Acetaminophen (Acetaminophen 325 Mg Tablet) 650 mg PO Q6H PRN PRN Reason: Pain, Mild 1-3,fever,headache Acetaminophen (Acetaminophen Supp 325 Mg Supp.Rect) 325 mg [place] Q6H PRN On Hold: 11/24/24 07:49 PRN Reason: Pain, Mild 1-3,fever,headache Last Admin: 11/23/24 21:51 Dose: 325 mg Documented By: RUDDY Amlodipine Besylate (Amlodipine Besylate 10 Mg Tablet) 10 mg PO DAILY [facility]; Protocol On Hold: 11/20/24 17:52 Last Admin: 11/20/24 09:01 Dose: Not Given Documented By: MILKA Non-Admin Reason: NPO Apixaban (Apixaban 5 Mg Tablet) 5 mg PO BID [facility] Last Admin: 11/25/24 09:57 Dose: 5 mg Documented By: JOHN Aspirin (Aspirin Enteric Coated 81 Mg Tablet.) 81 mg PO DAILY [facility] Last Admin: 11/25/24 09:58 Dose: 81 mg Documented By: JOHN Aspirin (Aspirin 300 Mg Supp.Rect) 300 mg [place] DAILY [facility] On Hold: 11/24/24 07:49 Last Admin: 11/23/24 10:03 Dose: Not Given Documented By: ZACK Non-Admin Reason: on hold per provider Atorvastatin Calcium (Atorvastatin Calcium 80 Mg Tablet) 80 mg PO DAILY [facility] Last Admin: 11/25/24 09:58 Dose: 80 mg Documented By: JOHN Baclofen (Baclofen 10 Mg Tablet) 5 mg PO BID PRN On Hold: 11/20/24 17:52 PRN Reason: Muscle Spasm Bethanechol Chloride (Bethanechol Chloride 25 Mg Tablet) 50 mg PO DAILY [facility] Last Admin: 11/25/24 09:58 Dose: 50 mg Documented By: JOHN Carbamazepine (Carbamazepine 200 Mg Tablet) 300 mg PO BID@0930,1400 [facility] Last Admin: 11/25/24 10:00 Dose: 300 mg Documented By: JOHN Enoxaparin Sodium (Enoxaparin Sodium 120 Mg/0.8 Ml Syringe) 120 mg 1 mg/kg (120 mg) SUBCUT Q12H [facility] On Hold: 11/24/24 07:48 Last Admin: 11/24/24 02:28 Dose: 120 mg Documented By: RUDDY Furosemide (Furosemide 20 Mg Tablet) 20 mg PO DAILY [facility]; Protocol Last Admin: 11/25/24 09:58 Dose: 20 mg Documented By: JOHN Gabapentin (Gabapentin 300 Mg Capsule) 300 mg PO TID [facility] Last Admin: 11/25/24 09:57 Dose: 300 mg Documented By: JOHN Hydralazine HCl (Hydralazine Hcl 20 Mg/Ml Vial) 5 mg IVPUSH Q6H PRN; Protocol PRN Reason: SBP > 165 Last Admin: 11/22/24 22:24 Dose: 5 mg Documented By: ORI Hydromorphone HCl (Hydromorphone Hcl 0.5 Mg/0.5 Ml Syringe) 0.5 mg IVPUSH Q4H PRN; Protocol PRN Reason: Breakthrough Pain Last Admin: 11/24/24 02:45 Dose: 0.5 mg Documented By: RUDDY Nutrition (Parenteral) (Parenteral Nutrition) 2,280 mls @ 95 mls/hr IV .Q24H [facility]; Protocol Stop: 11/25/24 20:59 Last Admin: 11/24/24 22:42 Dose: 95 mls/hr Documented By: ORI Nutrition (Parenteral) (Parenteral Nutrition) 2,280 mls @ 95 mls/hr IV .Q24H [facility]; Protocol Stop: 11/26/24 20:59 Levothyroxine Sodium (Levothyroxine Sodium 150 Mcg Tablet) 150 mcg PO DAILY@0600 [facility] Last Admin: 11/25/24 06:02 Dose: 150 mcg Documented By: ORI Ondansetron HCl (Ondansetron Hcl 4 Mg/2 Ml Vial) 4 mg IVPUSH Q8H PRN PRN Reason: Nausea and Vomiting Pharmacy Consult (Consult Rx Parenteral Nutrition Ordering) 1 each MISCELLANE DAILY PRN PRN Reason: Consult order Sertraline HCl (Sertraline Hcl 50 Mg Tablet) 50 mg PO DAILY [facility] Last Admin: 11/25/24 09:58 Dose: 50 mg Documented By: JOHN Sodium Chloride (0.9 % Sodium Chloride Flush 3 Ml Syringe) 3 ml IVFLUSH QSHIFT [facility] Last Admin: 11/25/24 09:58 Dose: Not Given Documented By: JOHN Non-Admin Reason: IV Running Tamsulosin HCl (Tamsulosin Hcl 0.4 Mg Capsule) 0.4 mg PO DAILY [facility] Last Admin: 11/25/24 09:58 Dose: 0.4 mg Documented By: JOHN Labs 11/20/24 04:13 11/25/24 06:54 Labs: Laboratory Results - last 24 hr 11/25/24 06:54 Hold Purple Top SEE NOTE Anion Gap 11 L Estim Creat Clear Calc 117.3 Estimated GFR > 60 Random Glucose 137 H Calcium 8.5 Phosphorus 3.7 Magnesium 2.2 Albumin 3.1 L Assessment and Plan (1) Acute ischemic left MCA stroke: Status: Acute Plan Pt is an 84-year-old male with a PMH significant for?paroxysmal AFib on warfarin, possible CVA in 05/2024, PE, HTN, hypothyroidism, BPH, trigeminal neuralgia since 1990 with chronic left-sided facial droop, and mood disorder who presents to the ED after being found on the floor at his apartment by facility staff. Pt is admitted to the hospital for treatment and further evaluation of of acute CVA. 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 Repeat CT of head evolving extensive acute/subacute nonhemorrhagic stroke with concerns for worsening vasogenic cerebral edema vs cytotoxic edema Continue aspirin, statin Continue with PT/OT/Speech therapy Continue PPN until has adequate po intake; speech advanced to NDD1/PUree with HONEY THICK liquids; po intake continues to be minimal Neurology consulted Monitor on telemetry Nutrition Continue PPN for now Nutrition following Passed swallow on pureed and honey thick, though only eating a couple of bites each meal ?Left shoulder pain CT of shoulder showing evidence of rotator cuff pathology but no acute fracture or dislocation Seen by orthopedics who suggested conservative treatment with ice and NSAIDs Sling intermittently for comfort; dc after 3-4 days Pt cries out when even lightly touched, but unlikely from pain: can move, albeit minimally, upper and lower extremities on own without apparent pain Paroxysmal AFib/subtherapeutic INR Previously on Eliquis in 06/2024, currently on Coumadin INR subtherapeutic Treated with therapeutic Lovenox Will switch to Eliquis once no longer NPO Will start on therapeutic Lovenox for now Bradycardia HR previously noted to be in the 40s Metoprolol on hold Monitor on tele HTN Continue amlodipine once no longer NPO Hyralazine 5mg IV prn for SBP >165 BPH Continue tamsulosin when no longer NPO Hypothyroidism Continue levothyroxine once no longer NPO Mood disorder Continue sertraline in carbamazepine once no longer NPO DNR/DNI DVT Prophylaxis: Therapeutic Lovenox for now, Eliquis once no longer NPO Requires continued hospitalization for treatment of?acute CVA and difficulty swallowing. Pt continues to need PPN and further evaluation by PT/OT for safe disposition. Quality Stroke Does the patient have a stroke diagnosis?: Yes Reason for No Anti-thrombotic by Day Two: N/A - Med Ordered VTE Prior VTE?: No VTE Risk Level:: Medical - moderate - high VTE Device Contraindication: Treatment Not Indicated VTE Drug Contraindication: N/A - Med Ordered
--- NOTE | 2024-11-25 13:03 | MHC.CM.PN ---
CM INFORMED FAMILY IS INTERESTED IN A HOSPICE CONSULT CM MET WITH DAUGHTERS AT BEDSIDE, THEY REPORT DAUGHTER, FRANCOIS, WILL BE THE PRIMARY CONTACT PER DISCUSSION, [place] WAS ASKED TO CONTACT FRANCOIS TO ARRANGE A TIME FOR A CONFERENCE CALL WITH HER AND HER SIBLINGS
[2024-11-25] MEDS: Parenteral Nutrition 2,280 ML 95 ML IV (21:34)
[2024-11-25] MEDS: 0.9 % Sodium Chloride Flush 3 ML SYRINGE IVFLUSH (21:35)
[2024-11-26] VITALS: BP 130/60; PULSE 95; RESP 18; TEMP 36.9; O2SAT 97
[2024-11-26 03:32] VITALS: BP 136/74; PULSE 69; RESP 18; TEMP 36.8; O2SAT 99
[2024-11-26 07:05] LABS: Albumin Level 3.3 g/dL (3.5-5.0); Anion Gap 13 (12-20); Blood Urea Nitrogen 18 mg/dL (9-16); Calcium 8.9 mg/dL (8.4-10.2); Carbon Dioxide 23 mmol/L (22-29); Chloride 106 mmol/L (96-108); Creatinine Clr Calc Pharmacy 121.2; Estimated Glomerular Filt Rate > 60; Magnesium 2.1 mg/dL (1.6-2.6); Potassium 4.5 mmol/L (3.3-5.1); Sodium 137 mmol/L (135-145)
[2024-11-26 07:07] VITALS: BP 152/68; PULSE 60; RESP 20; TEMP 36.1; O2SAT 97
[2024-11-26 09:30] VITALS: BP 152/68
[2024-11-26] MEDS: Aspirin Enteric Coated 81 MG TABLET.DR PO (09:30)
[2024-11-26] MEDS: 0.9 % Sodium Chloride Flush 3 ML SYRINGE IVFLUSH ×3 (09:40→22:14)
--- NOTE | 2024-11-26 09:46 | MHC.CLN ---
F/U DIET ADVANCED TO PUREED WITH HT LIQUIDS PER WELL [employer] PUMPER MINIMAL FOOD INTAKE PER MD REVIEWED LABS DISCUSSED WITH PHARMACY RECOMMEND CONTINUE PPN AT MAX GOAL RATE 95ML/HR WITH 70G LIPIDS PROVIDES 1863 TOTAL KCALS (23KCALS/KG), 228G DEXTROSE, 97G PROTEIN (1.2G/KG) REPLETE LYTES NEEDED NOTE HOSPICE CONSULT PENDING PER CM FOLLOWING WITH TEAM
[2024-11-26 10:58] VITALS: BP 143/65; PULSE 63; RESP 20; TEMP 36.5; O2SAT 98
--- NOTE | 2024-11-26 15:00 | MHC.SL.SWA ---
Speech Pathologist Impression: Moderat to significant oropharyngeal dysphagia Risk of Aspiration Due to: Severity of oromotor limitations s/p CVA Impact of receptive aphasia on ability to follow simple cues Deconditioning/weakness Dysphasia Diet Status: UPGRADE diet at this time to PUREE (NDD1) with HONEY THICK liquids (by controlled cup sip or tsp) Pills crushed in puree. Patient will require 1-1 feeding, encourage and engage patient in meal. Allow patient to eat to level/pleasure desired. Liquid Consistency and Strategies for Safe Swallow: Liquid Intake Recommendation: Honey Thick Liquid Intake Strategies: No Straws Solid Food Consistency: Dietary Recommendations: Pureed (NDD1) Additional Modifications to Solid Foods: Oral Medication Intake: Crushed with Puree Please contact the pharmacy regarding appropriate crushable or liquid drug formulations that are available whenever modified delivery is recommended. Compensatory Strategies and Precautions to be Taken for Safe Swallow: Sitting Upright (90 deg) No Straw Liquids from Cup Liquids from Spoon Small Bites and Sips Alternate Liquids/Solids Supervision While Eating and Drinking for Safe Swallow: Total Assistance (1:1) Foods to Avoid: Swallowing Recommended Treatments: Thermal Stimulation Gustatory Stimulation Compens. Strategy Educat. Recommendation for Speech: Inpatient Speech Therapy Comment: Pt is engaging in verbal exchanges with moderate to significant dysarthria, characterized by s/s of AOS and aphasia. Pt unable to consistently follow simple verbal/visual cues. Pt is tolerating small amounts of puree by tsp and HTL by cup sips, rounding lips to retrieve material from spoon/cup. Anterior to posterior transit of bolus has improved, with little to no anterior loss of liquid or residual puree. Trigger of pharyngeal swallow moderately delayed, but upon completion of swallow, pt voicing absent of wetness. Pt remains significantly limited in functional communication d/t receptive/expressive aphasia and moderate to severe dysarthria/apraxia of speech. Spontaneous expletives are produced in context with efficient motor speech coordination. Pt will need intensive MANAGER INVENTORY intervention to address aphasia, dysarthria (AOS) and dysphagia. MANAGER INVENTORY continues to follow during inpatient stay, pt is on PPN right now, team to consider if more nursing home alternative nutrition is necessary. Frequency/Duration: Daily M-F Date Range for Service Req: Timeline to reassess: Clinical Account Manager Clinican/Clinical Fellow: No Supervisory Statement: I have reviewed and agree with the student/clinical fellow's documentation: N/A Speech Language Pathologist: Kiana Holloway M.S., [facility]-MANAGER INVENTORY
--- NOTE | 2024-11-26 15:07 | P.PNIM_ITS ---
Subjective Subjective Date of Service: 11/26/24 Interval History: Follow up for pt with severe left sided CVA Family spoke to hospice and elected to make pt [employer] Rehab search underway; set to be discharged to [facility] on Hospice as [employer] Review of Systems Review of Systems: Yes Unobtainable due to mental status Physical Exam 2 Exam: Exam: No acute distress, resting comfortably in bed. Pt made [employer] Vital Signs: Vital Signs: Last Vital Signs Temp 97.7 F 11/26/24 10:58 Pulse 63 11/26/24 10:58 Resp 20 11/26/24 10:58 BP 143/65 H 11/26/24 10:58 Pulse Ox 98 11/26/24 10:58 O2 Del Method Room Air 11/26/24 10:58 BMI result Body Mass Index 33.9 Objective Data Active Medications Acetaminophen (Acetaminophen 325 Mg Tablet) 650 mg PO Q6H PRN PRN Reason: Pain, Mild 1-3,fever,headache Artificial Tears (Artificial Tears 15 Ml Drops) 2 drop EYE-BOTH Q4H PRN PRN Reason: Dry Eyes Diazepam (Diazepam 10 Mg/2 Ml Cartridge) 2.5 mg IVPUSH Q1H PRN PRN Reason: Pain or respiratory distress Docusate Sodium (Docusate Sodium 100 Mg Capsule) 100 mg PO BEDTIME SID Morphine Sulfate (Morphine Sulfate 2 Mg/Ml Cartridge) 2 mg IVPUSH Q1H PRN PRN Reason: Pain, Severe (7-10)/ RR>/=24 Ondansetron HCl (Ondansetron Hcl 4 Mg/2 Ml Vial) 4 mg IVPUSH Q8H PRN PRN Reason: Nausea and Vomiting Scopolamine (Scopolamine 1.5 Mg Patch.Td.3) 1.5 mg TRANSDERMA Q72H PRN PRN Reason: Secretions Sodium Chloride (0.9 % Sodium Chloride Flush 3 Ml Syringe) 3 ml IVFLUSH QSHIFT [facility] Last Admin: 11/26/24 09:40 Dose: 3 ml Documented By: JOHN Labs 11/20/24 04:13 11/26/24 06:16 Labs: Laboratory Results - last 24 hr 11/26/24 06:16 Hold Purple Top SEE NOTE Anion Gap 13 Estim Creat Clear Calc 121.2 Estimated GFR > 60 Random Glucose 143 H Calcium 8.9 Phosphorus 4.2 Magnesium 2.1 Albumin 3.3 L Assessment and Plan (1) Comfort measures only status: Status: Acute (2) Acute ischemic left MCA stroke: Status: Acute Plan Pt is an 84-year-old male with a PMH significant for?paroxysmal AFib on warfarin, possible CVA in 05/2024, PE, HTN, hypothyroidism, BPH, trigeminal neuralgia since 1990 with chronic left-sided facial droop, and mood disorder who presents to the ED after being found on the floor at his apartment by facility staff. Pt is admitted to the hospital for treatment and further evaluation of of acute CVA. 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 Nutrition Discontinue PPN as pt [employer] ?Left shoulder pain CT of shoulder showing evidence of rotator cuff pathology but no acute fracture or dislocation Seen by orthopedics who suggested conservative treatment with ice and NSAIDs Sling intermittently for comfort; dc after 3-4 days Pt cries out when even lightly touched, but unlikely from pain: can move, albeit minimally, upper and lower extremities on own without apparent pain [employer] Requires continued hospitalization for treatment of?acute CVA and difficulty swallowing while awaiting placement. Quality Stroke Does the patient have a stroke diagnosis?: Yes Reason for No Anti-thrombotic by Day Two: N/A - Med Ordered VTE Prior VTE?: No VTE Risk Level:: Medical - moderate - high VTE Device Contraindication: Treatment Not Indicated VTE Drug Contraindication: N/A - Med Ordered
--- NOTE | 2024-11-26 15:18 | MHC.CM.PN ---
Pt. family has met with [facility], they have made pt. 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 [facility] will accept pt. and will determine if in SNF or [facility].
[2024-11-27] VITALS: BP 123/59; PULSE 72; RESP 18; TEMP 36.6; O2SAT 98
[2024-11-27 03:27] VITALS: RESP 16
[2024-11-27 07:32] VITALS: BP 115/78; PULSE 58; RESP 18; TEMP 36.6; O2SAT 98
[2024-11-27 09:45] LABS: Anion Gap 12 (12-20); Blood Urea Nitrogen 18 mg/dL (9-16); Calcium 9.0 mg/dL (8.4-10.2); Carbon Dioxide 26 mmol/L (22-29); Chloride 103 mmol/L (96-108); Creatinine Clr Calc Pharmacy 105.4; Estimated Glomerular Filt Rate > 60; Magnesium 2.0 mg/dL (1.6-2.6); Potassium 4.5 mmol/L (3.3-5.1); Sodium 136 mmol/L (135-145)
--- NOTE | 2024-11-27 09:49 | MHC.CLN ---
F/U DIET ADVANCED TO PUREED WITH HT LIQUIDS PER SHIFT PRODUCTION SUPERVISOR MINIMAL FOOD INTAKE PER MD FAMILY HAS TRANSITIONED PT TO UTILITY OPERATOR [facility] D/C PPN PER MD FOLLOWING WITH TEAM AND WILL PROVIDE SUPPORT NEEDED
[2024-11-27] MEDS: 0.9 % Sodium Chloride Flush 3 ML SYRINGE IVFLUSH ×2 (09:50→16:23)
[2024-11-27 15:24] VITALS: RESP 16
--- NOTE | 2024-11-27 15:28 | PM.DS ---
DS: Providers Provider Date of Service: 11/27/24 Date of admission: 11/19/24 10:52 Date of discharge: 11/27/24 Primary care physician: Tres Crum MD Consults: 11/19/24 13:12 Consult to Neurology Routine Consulting Provider: [facility] Reason for consultation: Acute CVA 11/22/24 22:42 Consult to Orthopedics Stat Consulting [place] [facility] Reason for consultation: Acute left pain; Not able to move. suspected injury while moving pt. DS: Diagnosis Discharge Diagnosis (1) Comfort measures only status: Status: Acute (2) Acute ischemic left MCA stroke: Status: Acute DS: Summary Hospital Course Hospital Course: 84-year-old male with a PMH significant for?paroxysmal AFib on warfarin, possible CVA in 05/2024, PE, HTN, hypothyroidism, BPH, trigeminal neuralgia since 1990 with chronic left-sided facial droop, and mood disorder who presents to the ED after being found on the floor at his apartment by facility staff. Pt alert and oriented to self only and with noted dysarthria, difficulty word finding, and delayed response; HPI is thus obtained from chart and provider review. Pt previously presented on 11/01/2024 for episode of confusion and fall at home initially concerning for stroke. Workup in the ED was unremarkable and pt placed in physician observation and then discharged to [email or web address] Returned to independent living three days ago. Pt apparently last seen at 19:00 at dinner last night; this morning found by MANAGER FLEET on the floor covered in urine. Of note, previously presetned to the hospital on 06/11/2024 for similar symptoms of facial droop, dysarthira, and confusion; at that time was treated with TNK with some improvement to symptoms. ED pt's vitals were significant for bradycardia 43 and hypertension of 192/99. Labs were significant for subtherapeutic INR of 1.3, cholesterol 213, and LDL 133. UA negative for UTI. CTA of head showed acute nonhemorrhagic ischemia/infarct of left MCA with questionable embolus. Also showed probable subacute old subdural hematomas, as well as possible meningioma. CTA of head showed MCA embolus with acute stroke/ischemia in left MCA territory. Also showed questionable vascular malformation vs meningioma, and calcified plaques of both ICA without high-degree stenosis. CT of neck without acute fracture or trauma. EKG demonstrated atrial flutter with variable A-V block. Pt was treated in the ED with Aspirin MS and IVF. Pt is admitted to the hospital for treatment and further evaluation of of acute CVA. Hospital Course Admitted to telemetry where monitor showed no signs of dysrhythmia. Presented with significant dense right hemiparesis and thought not to be a candidate for TNK. Seen in consultation by Neurology who felt conservative measures including hydration blood pressure control continuing warfarin and rehab were indicated. No other acute interventions. Patient's clinical course waxed and waned and after discussion with family patient was made USER EXPERIENCE LEAD. At this point in time he will be transferred to SNF as USER EXPERIENCE LEAD Time Attestation Discharge Coordination Time (in mins): 35 Quality: Safe Use of Opioids Does Pt have an Active Cancer Diagnosis on the Problem List?: No Quality: Stroke Does the patient have a stroke diagnosis?: No Physical Exam Vital Signs: Vital Signs: Last Vital Signs Temp 97.9 F 11/27/24 07:32 Pulse 58 11/27/24 07:32 Resp 16 11/27/24 15:24 BP 115/78 11/27/24 07:32 Pulse Ox 98 11/27/24 07:32 O2 Del Method Room Air 11/27/24 07:32 BMI result Body Mass Index 33.9 Const: Other: Awake alert no acute distress Resp: Other: Clear to auscultation bilaterally no rales rhonchi or wheezes Cardio: Other: No S4; positive S1-S2; no S3 murmurs rubs or gallops GI: Other: Soft nontender nondistended normoactive bowel sounds Neuro: Other: Severe right-sided weakness affecting face arm and leg. Extrem: Other: No edema bilaterally DS: Data Data Completed and Pending Completed studies during hospitalization [Text1]: Procedures Introduction of Other Thrombolytic into Peripheral Vein, Percutaneous Approach (06/11/24) Labs on day of discharge: Laboratory Results - last 24 hr 11/27/24 11/27/24 09:14 09:15 Hold Purple Top SEE NOTE Sodium 136 Potassium 4.5 Chloride 103 Carbon Dioxide 26 Anion Gap 12 BUN 18 H Creatinine 0.69 Estim Creat Clear Calc 105.4 Estimated GFR > 60 Random Glucose 115 Calcium 9.0 Phosphorus 3.9 Magnesium 2.0 Discharge Plan Discharge Anticipated Discharge Date/Time: 11/27/24 14:37 Patient Disposition: Xfer SNF Discharge Diagnosis: Acute CVA Referrals: [facility] [Outside] - 1 Week Tres Crum MD [Primary Care Provider, Internal Medicine] - 1 Week Discharge Medications: New scopolamine base [Transderm-Scop] 1 mg over 3 days Patch 3 Day 1.5 mg transdermal Q72H PRN (Reason: Secretions) Qty: 3 0RF morphine 15 mg tablet 15 mg PO Q6H PRN (Reason: pain (scale score 4-6)) Qty: 30 0RF Rx Instructions: Partial Fill upon patient request. Continued furosemide 20 mg Tablet 20 mg PO DAILY amlodipine 10 mg tablet 1 tab PO DAILY tamsulosin 0.4 mg capsule 0.4 mg PO DAILY metoprolol succinate 50 mg Tablet Extended Release 24 Hr 50 mg PO DAILY aspirin 81 mg Tablet,Delayed Release (Dr/Ec) 81 mg PO DAILY carbamazepine 200 mg tablet 300 mg PO BID@0930,1400 baclofen 10 mg tablet 5 mg PO BID PRN (Reason: Muscle Spasm) bethanechol chloride 50 mg tablet 50 mg PO DAILY warfarin 3 mg Tablet 3 mg PO FR@1800 warfarin 5 mg Tablet 5 mg PO SuMoTuWeThSa@1800 ferrous gluconate 240 mg (27 mg iron) tablet 360 mg PO DAILY Rx Instructions: 1.5 tabs levothyroxine 150 mcg tablet 150 mcg PO DAILY@0600 gabapentin 100 mg capsule 300 mg PO TID sertraline 50 mg tablet 50 mg PO DAILY Discontinued (DME) compression socks, x-large Misc See Rx Instructions .Route Qty: 2 0RF Rx Instructions: As directed (DME) compr.stocking,knee,long,x-lrg Misc See Rx Instructions .Route Qty: 2 0RF Rx Instructions: As directed Discharge Orders: Discharge Order (Routine); Ordered 11/27/24 Ordered By: Kimo Lawrence Diet: NDD1 honey thick liquids Activity on Discharge: As tolerated Stand Alone Forms: Patient Portal Discharge page Print Language: Kinyarwanda Care Plan Goals: Continue all meds as listed on transfer summary Health Concerns: At this time patient is comfort measures only Plan of Treatment: As per receiving facility Assessment: See discharge home
--- NOTE | 2024-11-27 16:40 | MHC.CM.PN ---
Patient discharged today. He transferred to [facility]. His dtr Gema is aware of the transfer today. Patient will transport via [facility] [place] [facility].
== END 2024-11-27 16:39 | disposition skilled nursing facility (03) | DRG 65 ==
LOC: HO.ED 10:26 → HO.EDOVER 10:55 → HO.IMC 11-20 15:24
PROVIDERS: Admitting Provider Student in an Organized Health Care Education/Training Program; Emergency Provider Emergency Medicine; PCP Internal Medicine; Visit Provider Hospitalist
DX: I63.412 Cerebral infarction due to embolism of left middle cerebral artery (principal); G81.91 Hemiplegia, unspecified affecting right dominant side; Z66 Do not resuscitate; R29.713 NIHSS score 13; I48.0 Paroxysmal atrial fibrillation; E03.9 Hypothyroidism, unspecified; R00.1 Bradycardia, unspecified; R79.1 Abnormal coagulation profile; I10 Essential (primary) hypertension; N40.0 Benign prostatic hyperplasia without lower urinary tract symptoms; Z51.5 Encounter for palliative care; M25.512 Pain in left shoulder; F39 Unspecified mood [affective] disorder; Z87.891 Personal history of nicotine dependence; Z86.711 Personal history of pulmonary embolism; Z79.01 Long term (current) use of anticoagulants; Z79.82 Long term (current) use of aspirin; Z79.890 Hormone replacement therapy; Z79.899 Other long term (current) drug therapy
CPT/HCPCS: 36415; 70450; 70496; 70498; 71045; 72125; 73200; 74018; 80048; 80061; 81003; 82040; 82550; 82947; 83735; 84100; 84478; 84484; 85025; 85027; 85610; 85730; 92526; 92610; 93005; 97110; 97112; 97162; 97167; 97530; 97535; 99285; J0360; J1171; J1650; J1920; J2270; Q9967

== ENCOUNTER → 2024-11-19 08:23 | Outpatient (BNV) | payer MEDICARE, SELFPAY | PROVIDERS: Emergency Provider Emergency Medicine; PCP Internal Medicine; Visit Provider Radiology Diagnostic Radiology | DX: I63.9 Cerebral infarction, unspecified (principal); R54 Age-related physical debility; M47.812 Spondylosis without myelopathy or radiculopathy, cervical region; G93.89 Other specified disorders of brain; I67.89 Other cerebrovascular disease; J84.89 Other specified interstitial pulmonary diseases; Z96.0 Presence of urogenital implants; W19.XXXA Unspecified fall, initial encounter | CPT/HCPCS: 70450; 70496; 70498; 71045; 72125 ==

== ENCOUNTER → 2024-11-19 08:25 | Outpatient (BNV) | payer MEDICARE, SELFPAY | PROVIDERS: Admitting Provider Student in an Organized Health Care Education/Training Program; Emergency Provider Emergency Medicine; PCP Internal Medicine; Visit Provider Internal Medicine Cardiovascular Disease | DX: I48.92 Unspecified atrial flutter (principal); I44.0 Atrioventricular block, first degree | CPT/HCPCS: 93010 ==

== ENCOUNTER 2024-11-19 10:52 | Outpatient (BNV) | payer MEDICARE, SELFPAY | END 2024-11-23 00:08 | PROVIDERS: Admitting Provider Student in an Organized Health Care Education/Training Program; Emergency Provider Emergency Medicine; PCP Internal Medicine; Visit Provider Radiology Diagnostic Radiology | DX: I63.512 Cerebral infarction due to unspecified occlusion or stenosis of left middle cerebral artery (principal) | CPT/HCPCS: 70450 ==

== ENCOUNTER → 2024-11-19 10:52 | Outpatient (BNV) | payer MEDICARE, SELFPAY | PROVIDERS: Admitting Provider Student in an Organized Health Care Education/Training Program; Emergency Provider Emergency Medicine; PCP Internal Medicine; Visit Provider Psychiatry & Neurology Neurology | DX: I63.412 Cerebral infarction due to embolism of left middle cerebral artery (principal) | CPT/HCPCS: 99223 ==

== ENCOUNTER → 2024-11-19 10:52 | Outpatient (BNV) | payer MEDICARE, SELFPAY | PROVIDERS: Admitting Provider Student in an Organized Health Care Education/Training Program; Emergency Provider Emergency Medicine; PCP Internal Medicine; Visit Provider Student in an Organized Health Care Education/Training Program | DX: I63.512 Cerebral infarction due to unspecified occlusion or stenosis of left middle cerebral artery (principal) | CPT/HCPCS: 99223; 99233 ==